=== PATIENT | male | born 1950 | race Caucasian/White ===

== ENCOUNTER 2017-01-12 15:15 | Inpatient (IN) | payer MEDICARE, OTHER ==
[2017-01-12] VITALS (7 sets, daily range): BP systolic 99–149; BP diastolic 58–99
[~2017-01-12] VITALS: Ht 175.3 cm; Wt 147.4 kg
[~2017-01-12 15:15] MED LIST: ACETAMINOPHEN325 M1 ORAL; AMIODARONE HCL200 MG ORAL; AUGMENTIN 875-1 EAC1 ORAL; AVODART0.5 MG ORAL; CARDIZEM CD120 MG ORAL; CARVEDILOL12.5 MG ORAL; CARVEDILOL25 MG ORAL; COLACE100 MG ORAL; COREG6.25 MG ORAL; COUMADIN7.5 MG ORAL; DIGOXIN0.25 MG/5 GT; DUONEB 0.5-3(2.53 ML HHN; FUROSEMIDE40 MG ORAL; INSULIN SYRING1 EA10 MC; INVOKANA100 MG PO; LANOXIN250 MCG ORAL; LANTUS SOL100 UNIT/1 SUBQ; LASIX40 MG ORAL; LEVEMIR FL100 UNIT/1 SUBQ; LINZESS145 MCG PO; LISINOPRIL10 MG ORAL; LOVENOX300 MG/3 M SUBQ; LYRICA50 MG ORAL; METHYLPREDNISO125 MG IVP; METOPROLOL TART50 MG ORAL; MIRALAX17 GM ORAL; Morphine Sulfate IVP; NOVOLOG100 UNITS1 SUBQ; POTASSIUM CHLO20 ME3 PO; PROMETHAZINE-C118 M1 ORAL; Potassium Chloride ORAL; RESTORIL15 MG ORAL; SALINE 10ML FLU10 ML IVF; SIMVASTATIN40 MG ORAL; SPIRONOLACTONE25 MG ORAL; STARLIX60 MG ORAL; TRADJENTA5 MG PO; TRAMADOL HCL50 MG ORAL; UNOBMED; Warfarin RX monitoring MISC; XARELTO10 MG ORAL; ZESTRIL10 MG ORAL
[2017-01-12] MEDS ORDERED: PREDNISONE20 MG ORAL (15:42)
[2017-01-12] MEDS ORDERED: LEVOFLOXACIN250 MG ORAL (15:44)
[2017-01-12] MEDS ORDERED: AMLODIPINE BESYL5 MG ORAL (15:44)
[2017-01-12] MEDS ORDERED: POTASSIUM CHLO10 MEQ ORAL (15:45)
[2017-01-12] MEDS ORDERED: JANUVIA PO (15:47)
[2017-01-12] MEDS ORDERED: AMITIZA24 MCG ORAL (15:47)
[2017-01-12] MEDS ORDERED: ASPIR 8181 MG ORAL (15:49)
[2017-01-12] MEDS ORDERED: METOLAZONE5 MG PO ×2 (15:49→20:09)
[2017-01-12] MEDS ORDERED: PANTOPRAZOLE SO40 MG ORAL (15:49)
--- NOTE | 2017-01-12 15:50 | Emergency Room Report ---
History of Present Illness General Chief Complaint: General Complaint Source: Patient, Medical Record Present Illness HPI 66YOM walk-in, undomiciled, here with 2 weeks of subjective dyspnea associated with cough and substernal non-radiating chest pain. Also assoc with "burning of my feet" and "painful ambulation" Significant polypharmacy - plastic bag with 20+ empty bottles of prescribed meds. States unable to see his PMD DR Calvillo. Included is Xarelto and Digoxin - he doesnt know why he takes either. Non-compliant with any med in weeks. Allergies: Coded Allergies: No Known Allergies (Unverified , 02/26/14) Patient History Past Medical History: DM, HTN, CHF, GERD Past Surgical History: pacemaker Pertinent Family History: none Social History: Denies: alcohol use, drug use, smoking Immunizations: UTD Reviewed Nursing Documentation: PMH: Agreed, PSxH: Agreed Nursing Documentation-PMH Past Medical History: No History, Except For Hx Cardiac Problems: Yes - CHF Hx Hypertension: Yes Hx Pacemaker: Yes Hx Asthma: Yes Hx COPD: Yes Hx Diabetes: Yes Hx Cancer: No Hx Gastrointestinal Problems: Yes Hx Neurological Problems: No Hx Peripheral Neuropathy: Yes Hx Tremors: Yes Hx Numbness: Yes - BILAT FEET Review of Systems All Other Systems: negative except mentioned in HPI Physical Exam Vital Signs Date Time Temp Pulse Resp B/P Pulse Ox O2 Delivery O2 Flow Rate FiO2 01/12/17 15:19 98.2 80 24 132/70 90 Room Air Sp02 EP Interpretation: reviewed, normal, other - Contrary to RN's triage note on vitals, patient's O2 sat is 94% General Appearance: normal inspection, well appearing, no apparent distress, alert, GCS 15, non-toxic, obese, other - Sitting upright in stretcher, speaking full sentences. No distress Head: normocephalic, atraumatic Eyes: bilateral eye EOMI, bilateral eye PERRL ENT: normal ENT inspection, hearing grossly normal, normal voice Neck: normal inspection, full range of motion, supple, no bony tend Respiratory: normal inspection, lungs clear, normal breath sounds, no respiratory distress, no retraction, no accessory muscle use, no wheezing, speaking full sentences Cardiovascular #1: regular rate, rhythm, no edema Gastrointestinal: normal inspection, normal bowel sounds, non tender, soft, no guarding, no hernia Genitourinary: no CVA tenderness Musculoskeletal: normal inspection, back normal, normal range of motion, North' s Sign negative, other - Bilateral lower ext pitting edema 1+ Neurologic: normal inspection, alert, oriented x3, 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 Afebrile. Not hypoxic - No acute distress - ECG is ventricular paced - Labs: Mild leuks 12k. H&H stable. BNP minor elevation. Trop 0. Digoxin level 0. INR WNL. - CXR: Cardiomegaly. No obvious PNA. ?mild CHF - Was given Lasix IV. Never needed nitro, BIPAP. Lying flat without supplemental O2. - Elevated leuks but no fever/chills, has not been coughing at all in ED. CXR does not show PNA. Abd is soft/NT. Will hold on Abx at this point. Patient very well appearing, non-septic. Hyperglycemia - Diabetic. Non-compliant - Given IV insulin here since unable to give IVF with acute CHF ANABELA - Has had serumCr elevation before. - Likely ANABELA vs mild CKD PMD is Dr Villatoro. Doesnt have admitting privilege here Endorsed to Dr Lazaro as panel admit for tele bed at 415pm Chest X-Ray Diagnostic Results Chest X-Ray Diagnostic Results : Chest X-Ray Ordered: Yes # of Views/Limited/Complete: 1 View Indication: Shortness of Breath EP Interpretation: Yes Interpretation: no effusion, no pneumothorax, other - +cardiomegaly. Mild CHF Impression: Other - CHF exac Interpreting ER Provider: Electronically signed by Dr Giang Last Vital Signs Date Time Temp Pulse Resp B/P Pulse Ox O2 Delivery O2 Flow Rate FiO2 01/12/17 15:39 98.2 78 24 132/70 90 Room Air Status: improved Disposition: ADMITTED INPATIENT Condition: Serious Referrals: FERMIN MORALES PLN,REFERRI (PCP) LYNDON GIANG M.D. Jan 12, 2017 15:50
--- NOTE | 2017-01-12 16:09 | Diagnostic Imaging Report ---
Indication: Chest pain Comparison: 12/17/15 A single view chest radiograph was obtained. Findings: There is interstitial edema and vascular prominence with cardiomegaly. There is a pacemaker on the left. Impression: Interstitial edema
[2017-01-12] MEDS ORDERED: DuoNeb 0.5-3(2.5)mg/3ml neb HHN PRN (16:15)
[2017-01-12 16:16] LABS: BASOPHILS % (AUTO) 0.6 % (0.0-2.0); EOSINOPHILS % (AUTO) 1.9 % (0.0-3.0); LYMPHOCYTES % (AUTO) 11.3 % (20.0-45.0); MEAN CORPUSCULAR HEMOGLOBIN 31.9 PG (27.0-31.0); MEAN CORPUSCULAR HGB CONC 34.7 G/DL (32.0-36.0); MEAN CORPUSCULAR VOLUME 92 FL (80-99); MEAN PLATELET VOLUME 6.1 FL (6.5-10.1); MONOCYTES % (AUTO) 3.4 % (1.0-10.0); NEUTROPHILS % (AUTO) 82.8 % (45.0-75.0); PLATELET COUNT 255 K/UL (150-450); RED BLOOD COUNT 4.04 M/UL (4.70-6.10); RED CELL DISTRIBUTION WIDTH 14.5 % (11.6-14.8); WHITE BLOOD COUNT 12.5 K/UL (4.8-10.8)
[2017-01-12 16:29] LABS: TROPONIN I < 0.30 ng/mL (<=0.30)
[2017-01-12 16:32] LABS: ALBUMIN/GLOBULIN RATIO 1.2 (1.0-2.7); CALCIUM 8.9 mg/dL (8.6-10.2); CREATININE 1.4 mg/dL (0.7-1.2); POTASSIUM 3.7 mEQ/L (3.4-4.9)
[2017-01-12 16:40] LABS: INR 1.1 (0.9-1.1); PROTHROMBIN TIME 11.1 SEC (9.30-11.50)
[2017-01-12 16:43] LABS: CKMB 1.6 ng/mL (< 6.7); DIGOXIN 0.4 ng/mL (0.5-2.0)
--- NOTE | 2017-01-12 19:19 | Consultation ---
History of Present Illness General Date patient seen: Jan 12, 2017 Chief Complaint: dyspnea Referring physician: dr Lazaro Reason for Consultation: Dyspnea Present Illness HPI 66 year old male with hx of severe cardiomyopathy, ICD, DM, morbid obesity walk -in, to ER with CC of 2 weeks of subjective dyspnea associated with cough and substernal non-radiating chest pain. .Non-compliant with any med in weeks. He was in pulmonary edema, received diuretic and respiratory treatment and transferred to [facility] for further management. Allergies: Coded Allergies: No Known Allergies (Unverified , 02/26/14) Medication History Scheduled Amiodarone Hcl* (Cordarone*), 200 MG ORAL DAILY Amlodipine Besylate* (Amlodipine Besylate*), 5 MG ORAL TWICE A DAY, (Reported) Aspirin* (Aspir 81*), 81 MG ORAL DAILY, (Reported) Canagliflozin (Invokana), 100 MG PO DAILY, (Reported) Carvedilol* (Carvedilol*), 6.25 MG ORAL EVERY 12 HOURS, (Reported) Digoxin* (Lanoxin*), 0.25 MG ORAL DAILY Furosemide* (Lasix*), 40 MG ORAL BID, (Reported) Insulin Aspart (Novolog Flexpen), 0 UNITS SUBQ BEFORE MEALS AND HS Insulin Detemir (Levemir Flexpen), 15 UNITS SUBQ BID Insulin Glargine (Lantus), 40 SUBQ BEDTIME, (Reported) Linaclotide (Linzess), 145 MCG PO EVERY OTHER DAY, (Reported) Linagliptin (Tradjenta), 5 MG PO DAILY, (Reported) Lubiprostone (Amitiza*), 24 MCG ORAL TWICE A DAY, (Reported) Metolazone (Metolazone), 5 MG PO EVERY OTHER DAY, (Reported) Pantoprazole* (Pantoprazole*), 40 MG ORAL DAILY, (Reported) Potassium Chloride* (K-Dur*), 10 MEQ ORAL DAILY, (Reported) Prednisone* (Prednisone*), 20 MG ORAL DAILY, (Reported) Pregabalin (Lyrica), 100 MG ORAL BID, (Reported) Rivaroxaban (Xarelto), 20 MG ORAL EVERY OTHER DAY, (Reported) Simvastatin (Zocor), 10 MG ORAL BEDTIME, (Reported) Sitagliptin (Januvia), 100 MG ORAL DAILY, (Reported) Spironolactone* (Aldactone*), 25 MG ORAL DAILY, (Reported) Discontinued Medications Amoxicillin/Potassium Clav 875-125* (Augmentin 875-125 Tablet*), 1 TAB ORAL TWICE A DAY Discontinued Reason: MD discontinued med Carvedilol* (Carvedilol*), 6.25 MG ORAL EVERY 12 HOURS, (Reported) Discontinued Reason: Medication dose changed Diltiazem Hcl* (Cardizem Cd*), 120 MG ORAL DAILY Discontinued Reason: MD discontinued med Docusate Sodium* (Colace*), 100 MG ORAL EVERY 12 HOURS PRN for Constipation Discontinued Reason: MD discontinued med Dutasteride (Avodart), 0.5 MG ORAL DAILY, (Reported) Discontinued Reason: MD discontinued med Levofloxacin (Levofloxacin*), 250 MG ORAL DAILY, (Reported) Discontinued Reason: Therapy completed Lisinopril* (Lisinopril*), 5 MG ORAL DAILY, (Reported) Discontinued Reason: MD discontinued med Metolazone (Metolazone), 5 MG PO DAILY, (Reported) Discontinued Reason: Medication dose changed Metoprolol Tartrate* (Metoprolol Tartrate*), 150 MG ORAL Q12HR Discontinued Reason: MD discontinued med Pregabalin (Lyrica), 100 MG ORAL EVERY 12 HOURS, (Reported) Discontinued Reason: Medication dose changed Rivaroxaban (Xarelto*), 20 MG ORAL DAILY, (Reported) Discontinued Reason: Medication dose changed Simvastatin (Zocor), 10 MG ORAL BEDTIME, (Reported) Discontinued Reason: Medication dose changed Tramadol Hcl* (Ultram*), 50 MG ORAL Q4HR PRN for For Pain, (Reported) Discontinued Reason: MD discontinued med Patient History Healthcare decision maker Resuscitation status Advanced Directive on File Past Medical/Surgical History Past Medical/Surgical History: (1) Diabetes mellitus (2) COPD (chronic obstructive pulmonary disease) Review of Systems Constitutional: Reports: no symptoms All Other Systems: negative except mentioned in HPI Physical Exam General Appearance: WD/WN, no apparent distress Lines, tubes and drains: peripheral, central line HEENT: normocephalic, atraumatic Neck: non-tender, normal alignment Respiratory/Chest: chest wall non-tender, lungs clear Breasts: no masses Cardiovascular/Chest: normal peripheral pulses Abdomen: normal bowel sounds, non tender Genitourinary/Rectal: normal genital exam Extremities: normal range of motion, non-tender Skin Exam: normal pigmentation 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 Last 24 Hour Vital Signs Date Time Temp Pulse Resp B/P Pulse Ox O2 Delivery O2 Flow Rate FiO2 01/12/17 18:34 97.8 20 98 Room Air 01/12/17 17:37 80 20 136/75 97 Room Air 01/12/17 16:50 98.0 80 18 99/77 95 Room Air 01/12/17 15:39 98.2 78 24 132/70 90 Room Air 01/12/17 15:19 98.2 80 24 132/70 90 Room Air Laboratory Tests Test 01/12/17 16:01 White Blood Count 12.5 K/UL (4.8-10.8) H Red Blood Count 4.04 M/UL (4.70-6.10) L Hemoglobin 12.9 G/DL (14.2-18.0) L Hematocrit 37.1 % (42.0-52.0) L Mean Corpuscular Volume 92 FL (80-99) Mean Corpuscular Hemoglobin 31.9 PG (27.0-31.0) H Mean Corpuscular Hemoglobin Concent 34.7 G/DL (32.0-36.0) Red Cell Distribution Width 14.5 % (11.6-14.8) Platelet Count 255 K/UL (150-450) Mean Platelet Volume 6.1 FL (6.5-10.1) L Neutrophils (%) (Auto) 82.8 % (45.0-75.0) H Lymphocytes (%) (Auto) 11.3 % (20.0-45.0) L Monocytes (%) (Auto) 3.4 % (1.0-10.0) Eosinophils (%) (Auto) 1.9 % (0.0-3.0) Basophils (%) (Auto) 0.6 % (0.0-2.0) Prothrombin Time 11.1 SEC (9.30-11.50) Prothromb Time International Ratio 1.1 (0.9-1.1) Sodium Level 137 mEQ/L (135-145) Potassium Level 3.7 mEQ/L (3.4-4.9) Chloride Level 96 mEQ/L (98-107) L Carbon Dioxide Level 27 mEQ/L (20-30) Anion Gap 14 (5-15) Blood Urea Nitrogen 15 mg/dL (7-23) Creatinine 1.4 mg/dL (0.7-1.2) H Estimat Glomerular Filtration Rate 51.0 mL/min (>60) Glucose Level 420 mg/dL (74-106) H Calcium Level 8.9 mg/dL (8.6-10.2) Total Bilirubin 0.7 mg/dL (0.0-1.2) Aspartate Amino Transf (AST/SGOT) 9 U/L (5-40) Alanine Aminotransferase (ALT/SGPT) 9 U/L (3-41) Alkaline Phosphatase 61 U/L (40-129) Total Creatine Kinase 46 U/L (38-174) Creatine Kinase MB 1.6 ng/mL (< 6.7) Creatine Kinase MB Relative Index 3.4 Troponin I < 0.30 ng/mL (<=0.30) Pro-B-Type Natriuretic Peptide 909 pg/mL (0-125) H Total Protein 7.0 g/dL (6.6-8.7) Albumin 3.9 g/dL (3.5-5.2) Globulin 3.1 g/dL Albumin/Globulin Ratio 1.2 (1.0-2.7) Digoxin Level 0.4 ng/mL (0.5-2.0) L Height (Feet): 5 Height (Inches): 9.00 Weight (Pounds): 365 Medications Current Medications Medications (Trade) Dose Ordered Sig/Antionette Route PRN Reason Start Time Stop Time Status Last Admin Dose Admin Acetaminophen (Tylenol) 650 mg Q4H PRN ORAL Fever 01/12/17 16:15 02/11/17 16:14 Albuterol/ Ipratropium (DuoNeb 0.5-3(2.5)mg/3ml) 3 ml Q4H PRN HHN Shortness of Breath 01/12/17 16:15 01/17/17 16:14 Amiodarone HCl (Cordarone) 200 mg DAILY ORAL 01/13/17 09:00 02/12/17 08:59 Aspirin (Ecotrin) 81 mg DAILY ORAL 01/13/17 09:00 02/12/17 08:59 Carvedilol (Coreg) 6.25 mg EVERY 12 HOURS ORAL 01/12/17 21:00 02/11/17 20:59 UNV Dextrose (Dextrose 50%) STAT PRN IV Hypoglycemia 01/12/17 16:15 02/11/17 16:14 Digoxin (Lanoxin) 0.25 mg DAILY ORAL 01/13/17 09:00 02/12/17 08:59 Furosemide (Lasix) 40 mg EVERY 8 HOURS IV 01/12/17 22:00 02/11/17 21:59 UNV Heparin Sodium (Porcine) (Heparin 5000 units/ml) 5,000 units EVERY 12 HOURS SUBQ 01/12/17 21:00 02/11/17 20:59 UNV Lisinopril (Zestril) 5 mg DAILY ORAL 01/13/17 09:00 02/12/17 08:59 Metoprolol Tartrate (Lopressor) 150 mg Q12HR ORAL 01/12/17 21:00 02/11/17 20:59 UNV Ondansetron HCl (Zofran) 4 mg Q6H PRN IVP Nausea & Vomiting 01/12/17 16:15 02/11/17 16:14 Polyethylene Glycol (Miralax) 17 gm DAILYPRN PRN ORAL Constipation 01/12/17 16:15 02/11/17 16:14 Pregabalin (Lyrica) 100 mg EVERY 12 HOURS ORAL 01/12/17 21:00 02/11/17 20:59 UNV Rivaroxaban (Xarelto) 20 mg DAILY ORAL 01/13/17 09:00 02/12/17 08:59 UNV Temazepam (Restoril) 15 mg HSPRN PRN ORAL Insomnia 01/12/17 16:15 01/19/17 16:14 Assessment/Plan Problem List: (1) Acute exacerbation of CHF (congestive heart failure) ICD Codes: I50.9 - Heart failure, unspecified SNOMED: 85811142 (2) ANABELA (acute kidney injury) ICD Codes: N17.9 - Acute kidney failure, unspecified SNOMED: 98117435 (3) COPD (chronic obstructive pulmonary disease) ICD Codes: J44.9 - COPD (chronic obstructive pulmonary disease) SNOMED: 69791823 (4) Diabetes mellitus ICD Codes: E11.9 - Diabetes mellitus SNOMED: 02004166 (5) Obesity ICD Codes: E66.9 - Obesity SNOMED: 271109250 Assessment/Plan diuretics echo cardio evaluation sliding scale diabetic diet simplify regimen to increase compliance MALLIKA LEVY Jan 12, 2017 19:19
[2017-01-12] MEDS ORDERED: CARVEDILOL6.25 MG ORAL (20:02)
[2017-01-12] MEDS ORDERED: LINZESS145 MCG PO (20:06)
[2017-01-12] MEDS ORDERED: LYRICA100 MG ORAL (20:13)
[2017-01-12] MEDS ORDERED: XARELTO20 MG ORAL (20:15)
[2017-01-12] MEDS ORDERED: SIMVASTATIN10 MG ORAL (20:16)
[2017-01-12] MEDS ORDERED: JANUVIA100 MG ORAL (20:18)
[2017-01-12] MEDS ORDERED: Heparin 5000 units/ml inj SUBQ SCH (21:00)
[2017-01-12] MEDS ORDERED: Metoprolol 50mg tab ORAL SCH (21:00)
[2017-01-12] MEDS ORDERED: LANTUS5 UNITS SUBQ (21:53)
[2017-01-12] MEDS: Carvedilol 6.25mg Tab ORAL SCH (22:04)
[2017-01-12] MEDS: Lyrica 50mg cap ORAL SCH (22:07)
[2017-01-12] MEDS ORDERED: NovoLOG Insulin Flexpen SUBQ ONE (23:30)
[2017-01-13 04:00] VITALS: BP 113/78
[2017-01-13 06:27] LABS: BASOPHILS % (AUTO) 0.7 % (0.0-2.0); EOSINOPHILS % (AUTO) 3.3 % (0.0-3.0); LYMPHOCYTES % (AUTO) 18.5 % (20.0-45.0); MEAN CORPUSCULAR HEMOGLOBIN 31.2 PG (27.0-31.0); MEAN CORPUSCULAR HGB CONC 33.2 G/DL (32.0-36.0); MEAN CORPUSCULAR VOLUME 94 FL (80-99); MONOCYTES % (AUTO) 6.2 % (1.0-10.0); NEUTROPHILS % (AUTO) 71.3 % (45.0-75.0); PLATELET COUNT 266 K/UL (150-450); RED CELL DISTRIBUTION WIDTH 14.7 % (11.6-14.8); WHITE BLOOD COUNT 10.7 K/UL (4.8-10.8)
[2017-01-13] MEDS: NovoLOG Insulin Flexpen SUBQ SCH ×4 (06:31→21:00)
[2017-01-13 06:36] LABS: CALCIUM 8.6 mg/dL (8.6-10.2); CREATININE 1.3 mg/dL (0.7-1.2); GLOMERULAR FILTRATION RATE 55.6 mL/min (>60); POTASSIUM 3.3 mEQ/L (3.4-4.9)
[2017-01-13 06:58] LABS: TROPONIN I < 0.30 ng/mL (<=0.30)
[2017-01-13 08:00] VITALS: BP 114/67
[2017-01-13] MEDS ORDERED: Lisinopril 2.5mg tab ORAL SCH (09:00)
[2017-01-13] MEDS: Amiodarone 200mg tab ORAL SCH (09:24)
[2017-01-13] MEDS: Xarelto 10mg tab ORAL SCH (09:24)
[2017-01-13] MEDS: Aspirin EC 81mg tab ORAL SCH (09:24)
[2017-01-13] MEDS: Carvedilol 6.25mg Tab ORAL SCH ×2 (09:25→21:32)
[2017-01-13] MEDS: Lyrica 50mg cap ORAL SCH ×2 (09:27→21:00)
--- NOTE | 2017-01-13 10:17 | Diagnostic Imaging Report ---
Indication: Dyspnea Comparison: 01/12/17 A single view chest radiograph was obtained. Findings: Vascular prominence with interstitial edema demonstrated. Heart is enlarged. Pacemaker noted. Impression: Slightly worsening interstitial edema/CHF
[2017-01-13 11:02] LABS: APPEARANCE,URINE CLEAR; KETONES,URINE NEGATIVE (NEGATIVE); LEUKOCYTE ESTERASE ,URINE NEGATIVE (NEGATIVE); NITRITE,URINE NEGATIVE (NEGATIVE); PH,URINE 6 (4.5-8.0); PROTEIN,URINE NEGATIVE (NEGATIVE); UROBILINOGEN,URINE NORMAL MG/DL (0.0-1.0)
[2017-01-13 11:24] LABS: BACTERIA,URINE OCCASIONAL /HPF; RBC,URINE 0-2 /HPF (0 - 0); WBC,URINE 0-2 /HPF (0 - 0)
[2017-01-13 11:53] VITALS: BP 109/53
--- NOTE | 2017-01-13 12:03 | Consultation ---
Consult Note Consult Note asked to eval for renal failure 66YOM walk-in, undomiciled, here with 2 weeks of subjective dyspnea associated with cough and substernal non-radiating chest pain. Also assoc with "burning of my feet" and "painful ambulation" Significant polypharmacy - plastic bag with 20+ empty bottles of prescribed meds. States unable to see his PMD DR Calvillo. Included is Xarelto and Digoxin - he doesnt know why he takes either. Non-compliant with any med in weeks. Past Medical History: DM, HTN, CHF, GERD Past Surgical History: pacemaker Past Medical History: No History, Except For Hx Cardiac Problems: Yes - CHF Hx Hypertension: Yes Hx Pacemaker: Yes Hx Asthma: Yes Hx COPD: Yes Hx Diabetes: Yes Hx Gastrointestinal Problems: Yes Hx Peripheral Neuropathy: Yes Hx Tremors: Yes Hx Numbness: Yes - BILAT FEET Assessment/Plan Renal impression; Acute renal failure ? superimposed on CRF Multifactorial, mainly CHF , Pacer , DM Primary Impression: Dyspnea Additional Impressions: Non compliance w medication regimen Acute exacerbation of CHF (congestive heart failure) Hyperglycemia Obesity Plan: Optimize cardiac and pulmonary status Monitor renal parameters- Avoid Nephrotoxics per orders ZARIA ROTH Jan 13, 2017 12:03
--- NOTE | 2017-01-13 12:45 | Pulmonology Progress Note ---
Assessment/Plan Problems: (1) Acute exacerbation of CHF (congestive heart failure) (2) ANABELA (acute kidney injury) (3) COPD (chronic obstructive pulmonary disease) (4) Diabetes mellitus (5) Obesity Assessment/Plan improving respiratory treatment check electrolytes diuresing well check BS Subjective ROS Limited/Unobtainable: No Constitutional: Reports: no symptoms HEENT: Repors: no symptoms Respiratory: Reports: no symptoms Cardiovascular: Reports: no symptoms Allergies: Coded Allergies: No Known Allergies (Unverified , 02/26/14) Objective Last 24 Hour Vital Signs Date Time Temp Pulse Resp B/P Pulse Ox O2 Delivery O2 Flow Rate FiO2 01/13/17 11:53 98.2 78 18 109/53 98 Nasal Cannula 2.0 01/13/17 11:26 80 01/13/17 09:25 80 114/67 01/13/17 09:24 80 01/13/17 09:22 114/67 01/13/17 08:00 80 01/13/17 08:00 98.1 78 20 114/67 100 Nasal Cannula 2.0 01/13/17 07:28 81 16 Nasal Cannula 2.0 28 01/13/17 04:00 98.2 84 22 113/78 96 Nasal Cannula 2.0 01/13/17 04:00 82 01/13/17 00:00 80 01/12/17 23:45 98.5 74 20 149/99 98 Nasal Cannula 01/12/17 22:04 80 110/71 01/12/17 20:50 81 01/12/17 20:40 98.1 80 21 130/58 98 Nasal Cannula 3.0 01/12/17 19:55 88 22 106/56 98 Room Air 01/12/17 19:05 98.3 81 19 116/65 98 Room Air 01/12/17 18:34 97.8 20 98 Room Air 01/12/17 17:37 80 20 136/75 97 Room Air 01/12/17 16:50 98.0 80 18 99/77 95 Room Air 01/12/17 15:39 98.2 78 24 132/70 90 Room Air 01/12/17 15:19 98.2 80 24 132/70 90 Room Air Intake and Output 01/12/17 01/13/17 19:00 07:00 Intake Total 500 ml Output Total 1280 ml 950 ml Balance -1280 ml -450 ml Intake Oral 500 ml Output Urine Total 1280 ml 950 ml General Appearance: WD/WN HEENT: normocephalic, atraumatic Respiratory/Chest: chest wall non-tender, lungs clear Cardiovascular: normal peripheral pulses, normal rate Abdomen: normal bowel sounds, soft, non tender Genitourinary: normal external genitalia Extremities: no cyanosis Skin: no rash, no lesions 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, no motor/sensory deficits, abnormal gait Lymphatic: no neck adenopathy Musculoskeletal: normal muscle bulk Laboratory Tests 01/12/17 16:01: White Blood Count 12.5H, Red Blood Count 4.04L, Hemoglobin 12.9L, Hematocrit 37.1L, Mean Corpuscular Volume 92, Mean Corpuscular Hemoglobin 31.9H, Mean Corpuscular Hemoglobin Concent 34.7, Red Cell Distribution Width 14.5, Platelet Count 255, Mean Platelet Volume 6.1L, Neutrophils (%) (Auto) 82.8H, Lymphocytes (%) (Auto) 11.3L, Monocytes (%) (Auto) 3.4, Eosinophils (%) (Auto) 1.9, Basophils (%) (Auto) 0.6, Prothrombin Time 11.1, Prothromb Time International Ratio 1.1, Sodium Level 137, Potassium Level 3.7, Chloride Level 96L, Carbon Dioxide Level 27, Anion Gap 14, Blood Urea Nitrogen 15, Creatinine 1.4H, Estimat Glomerular Filtration Rate 51.0, Glucose Level 420H, Calcium Level 8.9, Total Bilirubin 0.7, Aspartate Amino Transf (AST/SGOT) 9, Alanine Aminotransferase (ALT/SGPT) 9, Alkaline Phosphatase 61, Total Creatine Kinase 46 , Creatine Kinase MB 1.6, Creatine Kinase MB Relative Index 3.4, Troponin I < 0.30, Pro-B-Type Natriuretic Peptide 909H, Total Protein 7.0, Albumin 3.9, Globulin 3.1, Albumin/Globulin Ratio 1.2, Digoxin Level 0.4L 01/13/17 05:05: White Blood Count 10.7, Red Blood Count 4.00L, Hemoglobin 12.5L, Hematocrit 37.5L, Mean Corpuscular Volume 94, Mean Corpuscular Hemoglobin 31.2H, Mean Corpuscular Hemoglobin Concent 33.2, Red Cell Distribution Width 14.7, Platelet Count 266, Mean Platelet Volume 6.0L, Neutrophils (%) (Auto) 71.3, Lymphocytes ( %) (Auto) 18.5L, Monocytes (%) (Auto) 6.2, Eosinophils (%) (Auto) 3.3H, Basophils (%) (Auto) 0.7, Sodium Level 139, Potassium Level 3.3L, Chloride Level 94L, Carbon Dioxide Level 35H, Anion Gap 10, Blood Urea Nitrogen 16, Creatinine 1.3H, Estimat Glomerular Filtration Rate 55.6, Glucose Level 200#H, Calcium Level 8.6, Troponin I < 0.30, Albumin 3.9, Phosphorus Level 5.0H 01/13/17 10:50: Urine Color Pale yellow, Urine Appearance Clear, Urine pH 6, Urine Specific [place] 1.010, Urine Protein Negative, Urine Glucose (UA) Negative, Urine Ketones Negative, Urine Occult Blood Negative, Urine Nitrite Negative, Urine Bilirubin Negative, Urine Urobilinogen Normal, Urine Leukocyte Esterase Negative , Urine RBC 0-2H, Urine WBC 0-2, Urine Squamous Epithelial Cells None, Urine Bacteria Occasional Current Medications Medications (Trade) Dose Ordered Sig/Antionette Route PRN Reason Start Time Stop Time Status Last Admin Dose Admin Acetaminophen (Tylenol) 650 mg Q4H PRN ORAL Fever 01/12/17 16:15 02/11/17 16:14 Albuterol/ Ipratropium (DuoNeb 0.5-3(2.5)mg/3ml) 3 ml Q4H PRN HHN Shortness of Breath 01/12/17 16:15 01/17/17 16:14 Amiodarone HCl (Cordarone) 200 mg DAILY ORAL 01/13/17 09:00 02/12/17 08:59 01/13/17 09:24 Aspirin (Ecotrin) 81 mg DAILY ORAL 01/13/17 09:00 02/12/17 08:59 01/13/17 09:24 Carvedilol (Coreg) 6.25 mg EVERY 12 HOURS ORAL 01/12/17 21:00 02/11/17 20:59 01/13/17 09:25 Dextrose (Dextrose 50%) STAT PRN IV Hypoglycemia 01/12/17 16:15 02/11/17 16:14 Digoxin (Lanoxin) 0.25 mg DAILY ORAL 01/13/17 09:00 8/6/17 08:59 01/13/17 09:24 Furosemide (Lasix) 40 mg EVERY 8 HOURS IV 01/12/17 22:00 02/11/17 21:59 01/13/17 06:28 Insulin Aspart (NovoLOG) BEFORE MEALS AND HS SUBQ 01/13/17 06:30 02/12/17 06:29 01/13/17 12:10 Lisinopril (Zestril) 5 mg DAILY ORAL 01/14/17 09:00 02/13/17 08:59 Ondansetron HCl (Zofran) 4 mg Q6H PRN IVP Nausea & Vomiting 01/12/17 16:15 02/11/17 16:14 Polyethylene Glycol (Miralax) 17 gm DAILYPRN PRN ORAL Constipation 01/12/17 16:15 02/11/17 16:14 Pregabalin (Lyrica) 100 mg EVERY 12 HOURS ORAL 01/12/17 21:00 02/11/17 20:59 01/13/17 09:27 Rivaroxaban (Xarelto) 20 mg DAILY ORAL 01/13/17 09:00 02/12/17 08:59 01/13/17 09:24 Tamsulosin HCl (Flomax) 0.4 mg BEDTIME ORAL 01/13/17 21:00 02/12/17 20:59 Temazepam (Restoril) 15 mg HSPRN PRN ORAL Insomnia 01/12/17 16:15 01/19/17 16:14 MALLIKA LEVY Jan 13, 2017 12:45
--- NOTE | 2017-01-13 12:46 | Diagnostic Imaging Report ---
APPROVED REPORT CPT Code: 43501 Present Symptoms Lower Extremity Pain: Bilateral Shortness of breath BILATERAL: Imaging reveals a patent deep venous system bilaterally. There is no evidence of thrombus within the femoral, popliteal or tibial segments. The greater saphenous veins are also within normal limits. Doppler indicates normal spontaneous flow within these segments.
--- NOTE | 2017-01-13 15:23 | History & Physical ---
History and Physical History & Physicial Alek Lazaro MD Jan 13, 2017 15:23
[2017-01-13 16:25] VITALS: BP 104/58
[2017-01-13] MEDS: Tamsulosin 0.4mg cap ORAL SCH (21:00)
--- NOTE | 2017-01-13 23:45 | History and Physical Report ---
DATE OF ADMISSION: 01/12/2017 CHIEF COMPLAINT: Shortness of breath. HISTORY OF PRESENT ILLNESS: This is a 66 years old morbidly obese gentleman with past medical history significant for diabetes type 2, hypertension, congestive heart failure, GERD, and status post pacemaker who was presented to hospital complaining about shortness breath progressive worsening associated with cough with substernal nonradiating chest wall pain. He said that he is having symptoms over two weeks, progressively worsening over the past several days, associated burning sensation on both feet, painful ambulation. The patient has been on multiple medications; however, he is not compliant with them. Shortly after initial evaluation in the emergency, the patient was admitted to the hospital with hyperglycemia, acute kidney injury, and shortness of breath and subsequently was admitted to telemetry for possible acute CHF exacerbation. PAST MEDICAL HISTORY/PAST SURGICAL HISTORY: As above history of diabetes type 2, hypertension, congestive heart failure, GERD, morbid obesity, and status post pacemaker. MEDICATIONS: Medications at home significant for amiodarone, Norvasc, aspirin, Invokana, Coreg, digoxin, Lasix, insulin aspart, Levemir insulin, Lantus insulin, Linzess, Tradjenta, Amitiza, metolazone, Nexium, potassium chloride, prednisone, Lyrica, Xarelto, Zocor, Januvia, and Aldactone. ALLERGIES: No known drug allergies. SOCIAL HISTORY: The patient denies any smoking, alcohol, or drugs at this time. FAMILY HISTORY: Noncontributory. REVIEW OF SYSTEMS: Mostly as above. Denies any dysuria or frequency. Complained about burning sensation in the legs. Denies any hemoptysis or hematochezia. Denies any fall. Denies any suicidal or homicidal ideation. Denies any loss of consciousness. PHYSICAL EXAMINATION: VITAL SIGNS: On admission, temperature 98.2, pulse of 80, respirations 24, and blood pressure 132/70. GENERAL: The patient awake, responsive, in no acute distress. HEAD AND NECK: Pupils are reactive to light. Extraocular movements are intact. Neck was supple. No JVD. LUNGS: Good air entry. No wheezing or rales. Decreased air in the bases. CHEST WALL: Pacemaker on the left-sided chest wall was noted. ABDOMEN: Soft, nondistended, and nontender. Morbidly obese. EXTREMITIES: No cyanosis, clubbing, or edema. NEUROLOGIC: Cranial nerves II through XII are grossly intact. The patient is moving all the extremities. Gait was not assessed due to the patient's status. GENITOURINARY: Refused and deferred. RECTAL: Refused and deferred. PSYCHIATRIC: Mood and affect are intact. LABORATORY DATA: Laboratory on admission from the ER, WBC of 12.5, hemoglobin 12, hematocrit 37, and platelets are 255,000. Sodium 137, potassium 3.7, chloride 96, bicarbonate 27, BUN 15, creatinine 1.4, glucose is 420, and calcium is 8.9. First and second troponin less than 0.30. ProBNP of 909. Albumin is 3.9, total protein 7.0. PT of 11 and INR 1.1. Digoxin level 0.4. Urinalysis essentially unremarkable. The patient's chest x-ray was noted to be with interstitial edema. The patient had a duplex of the lower extremity, which reviewed patent deep vein system bilaterally. No evidence of thrombosis within the femoral, popliteal, or tibial segments. Greater saphenous veins are also within normal limits. ASSESSMENT: 1. Acute congestive heart failure exacerbation. 2. Morbid obesity. 3. Obesity hypoventilation syndrome. 4. Uncontrolled diabetes type 2 with diabetic neuropathy as well as diabetic nephropathy. 5. Hypertension. 6. Gastroesophageal reflux disease. 7. Cardiac arrhythmia. 8. Sick sinus syndrome, status post pacemaker. 9. Acute kidney injury and chronic renal insufficiency. 10. Noncompliance with medications. PLAN: Admit the patient to telemetry. We will follow up with Dr. Eddy from, Pulmonary and Critical Care, and Dr. Yovani Oconnor from Nephrology. We will continue to monitor blood sugar closely. Resume home medications. Monitor polypharmacy in the patient and try to decrease the medication as possible in order for the patient to be more compliant with medication. Avoid nephrotoxic medication. Code status is Full Code. DVT prophylaxis is Xarelto. The patient is already on Xarelto. Alek Lazaro M.D. DR: MAILE JOB#: [id number] CC:
[2017-01-14] VITALS (7 sets, daily range): BP systolic 102–130; BP diastolic 54–68
[2017-01-14] MEDS: NovoLOG Insulin Flexpen SUBQ SCH ×4 (05:48→21:05)
[2017-01-14] MEDS ORDERED: Lisinopril 2.5mg tab ORAL SCH (09:00)
[2017-01-14] MEDS: Aspirin EC 81mg tab ORAL SCH (09:00)
--- NOTE | 2017-01-14 09:16 | Pulmonology Progress Note ---
Assessment/Plan Problems: (1) Acute exacerbation of CHF (congestive heart failure) (2) ANABELA (acute kidney injury) (3) COPD (chronic obstructive pulmonary disease) (4) Diabetes mellitus (5) Obesity Assessment/Plan improving respiratory treatment check electrolytes diuresing well check BS awaiting cardio evaluation keep in teli Subjective ROS Limited/Unobtainable: No Constitutional: Reports: no symptoms HEENT: Repors: no symptoms Respiratory: Reports: no symptoms Allergies: Coded Allergies: No Known Allergies (Unverified , 02/26/14) Objective Last 24 Hour Vital Signs Date Time Temp Pulse Resp B/P Pulse Ox O2 Delivery O2 Flow Rate FiO2 01/14/17 08:13 88 20 100 Nasal Cannula 2.0 01/14/17 08:00 80 20 100 Nasal Cannula 2.0 01/14/17 07:57 Nasal Cannula 2.0 01/14/17 07:56 100 Nasal Cannula 2.0 01/14/17 07:55 80 20 Nasal Cannula 2.0 01/14/17 04:00 97.7 82 16 102/65 98 Nasal Cannula 2.0 28 01/14/17 04:00 87 01/14/17 00:00 97.5 80 16 123/54 98 Nasal Cannula 2.0 28 01/14/17 00:00 87 01/13/17 21:32 82 116/79 01/13/17 20:00 89 01/13/17 19:16 Nasal Cannula 2.0 28 01/13/17 19:16 98 Nasal Cannula 2.0 28 01/13/17 19:16 85 16 Nasal Cannula 2.0 01/13/17 16:25 97.7 77 20 104/58 98 Nasal Cannula 2.0 01/13/17 16:00 80 01/13/17 11:53 98.2 78 18 109/53 98 Nasal Cannula 2.0 01/13/17 11:26 80 01/13/17 09:25 80 114/67 01/13/17 09:24 80 01/13/17 09:22 114/67 Intake and Output 01/13/17 01/14/17 19:00 07:00 Intake Total 420 ml 640 ml Output Total 1300 ml 750 ml Balance -880 ml -110 ml Intake Oral 420 ml 640 ml Output Urine Total 1300 ml 750 ml # Bowel Movements 1 Objective General Appearance: WD/WN HEENT: normocephalic Respiratory/Chest: chest wall non-tender, lungs clear Cardiovascular: normal peripheral pulses, normal rate Abdomen: normal bowel sounds, soft, non tender Genitourinary: normal external genitalia Extremities: no cyanosis Skin: no rash 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 Lymphatic: no neck adenopathy HEENT: normocephalic, atraumatic Laboratory Tests 01/13/17 10:50: Urine Color Pale yellow, Urine Appearance Clear, Urine pH 6, Urine Specific [place] 1.010, Urine Protein Negative, Urine Glucose (UA) Negative, Urine Ketones Negative, Urine Occult Blood Negative, Urine Nitrite Negative, Urine Bilirubin Negative, Urine Urobilinogen Normal, Urine Leukocyte Esterase Negative , Urine RBC 0-2H, Urine WBC 0-2, Urine Squamous Epithelial Cells None, Urine Bacteria Occasional Current Medications Medications (Trade) Dose Ordered Sig/Antionette Route PRN Reason Start Time Stop Time Status Last Admin Dose Admin Acetaminophen (Tylenol) 650 mg Q4H PRN ORAL Fever 01/12/17 16:15 02/11/17 16:14 Albuterol/ Ipratropium (DuoNeb 0.5-3(2.5)mg/3ml) 3 ml Q4H PRN HHN Shortness of Breath 01/12/17 16:15 01/17/17 16:14 01/14/17 08:02 Amiodarone HCl (Cordarone) 200 mg DAILY ORAL 01/13/17 09:00 02/12/17 08:59 01/13/17 09:24 Aspirin (Ecotrin) 81 mg DAILY ORAL 01/13/17 09:00 02/12/17 08:59 01/13/17 09:24 Carvedilol (Coreg) 6.25 mg EVERY 12 HOURS ORAL 01/12/17 21:00 02/11/17 20:59 01/13/17 21:32 Dextrose (Dextrose 50%) STAT PRN IV Hypoglycemia 01/12/17 16:15 02/11/17 16:14 Digoxin (Lanoxin) 0.25 mg DAILY ORAL 01/13/17 09:00 02/12/17 08:59 01/13/17 09:24 Furosemide (Lasix) 40 mg EVERY 8 HOURS IV 01/12/17 22:00 02/11/17 21:59 01/14/17 05:48 Insulin Aspart (NovoLOG) BEFORE MEALS AND HS SUBQ 01/13/17 06:30 02/12/17 06:29 01/14/17 05:48 Lisinopril (Zestril) 5 mg DAILY ORAL 01/14/17 09:00 02/13/17 08:59 Ondansetron HCl (Zofran) 4 mg Q6H PRN IVP Nausea & Vomiting 01/12/17 16:15 02/11/17 16:14 Polyethylene Glycol (Miralax) 17 gm DAILYPRN PRN ORAL Constipation 01/12/17 16:15 02/11/17 16:14 Pregabalin (Lyrica) 100 mg EVERY 12 HOURS ORAL 01/12/17 21:00 02/11/17 20:59 01/13/17 21:00 Rivaroxaban (Xarelto) 20 mg DAILY ORAL 01/13/17 09:00 02/12/17 08:59 01/13/17 09:24 Tamsulosin HCl (Flomax) 0.4 mg BEDTIME ORAL 01/13/17 21:00 02/12/17 20:59 01/13/17 21:00 Temazepam (Restoril) 15 mg HSPRN PRN ORAL Insomnia 01/12/17 16:15 01/19/17 16:14 MALLIKA LEVY Jan 14, 2017 09:16
[2017-01-14] MEDS: Lyrica 50mg cap ORAL SCH ×2 (09:27→21:04)
[2017-01-14] MEDS: Xarelto 10mg tab ORAL SCH (09:33)
[2017-01-14] MEDS: Amiodarone 200mg tab ORAL SCH (09:33)
[2017-01-14] MEDS: Carvedilol 6.25mg Tab ORAL SCH ×2 (09:35→21:03)
[2017-01-14 09:43] LABS: BASOPHILS % (AUTO) 0.7 % (0.0-2.0); LYMPHOCYTES % (AUTO) 14.6 % (20.0-45.0); MEAN CORPUSCULAR HEMOGLOBIN 30.6 PG (27.0-31.0); MEAN CORPUSCULAR HGB CONC 32.4 G/DL (32.0-36.0); MEAN CORPUSCULAR VOLUME 94 FL (80-99); MEAN PLATELET VOLUME 5.9 FL (6.5-10.1); MONOCYTES % (AUTO) 5.9 % (1.0-10.0); NEUTROPHILS % (AUTO) 74.8 % (45.0-75.0); PLATELET COUNT 321 K/UL (150-450); RED BLOOD COUNT 4.42 M/UL (4.70-6.10); RED CELL DISTRIBUTION WIDTH 14.3 % (11.6-14.8); WHITE BLOOD COUNT 11.3 K/UL (4.8-10.8)
[2017-01-14 10:08] LABS: HEMOLYSIS 6; IRON 53 ug/dL (59-158); TOTAL IRON BINDING CAPACITY 321 ug/dL (250-400)
[2017-01-14 10:13] LABS: ALANINE AMINOTRANSFERASE 9 U/L (3-41); ALBUMIN/GLOBULIN RATIO 1.1 (1.0-2.7); ANION GAP 14 (5-15); ASPARTATE AMINO TRANSFERASE 10 U/L (5-40); CALCIUM 8.8 mg/dL (8.6-10.2); CARBON DIOXIDE 33 mEQ/L (20-30); CHLORIDE 88 mEQ/L (98-107); CHOLESTEROL 128 mg/dL (< 200); CHOLESTEROL/HDL RATIO 4.6 (3.3-4.4); CREATININE 1.3 mg/dL (0.7-1.2); GLOMERULAR FILTRATION RATE 55.6 mL/min (>60); LDL CHOLESTEROL (CALC.) 63 mg/dL (60-99); PHOSPHORUS 3.7 mg/dL (2.5-4.8); POTASSIUM 3.4 mEQ/L (3.4-4.9); SODIUM 135 mEQ/L (135-145); TOTAL PROTEIN 7.6 g/dL (6.6-8.7); URIC ACID 8.8 mg/dL (3.0-7.5)
[2017-01-14 10:25] LABS: CORTISOL AM 19.9 ug/dL (6.0-20.0); FERRITIN 304 ng/mL (10-230)
--- NOTE | 2017-01-14 11:08 | General Progress Note ---
Assessment/Plan Status: stable Assessment/Plan Renal impression; Acute renal failure ? superimposed on CRF Multifactorial, mainly CHF , Pacer , DM Primary Impression: Dyspnea Additional Impressions: Non compliance w medication regimen Acute exacerbation of CHF (congestive heart failure) Hyperglycemia Obesity MERRY Plan: Start Levemir for high sugar Optimize cardiac and pulmonary status Monitor renal parameters- Avoid Nephrotoxics Down on lasix and up on Lisinopril per orders Subjective ROS Limited/Unobtainable: No Constitutional: Reports: malaise, weakness Allergies: Coded Allergies: No Known Allergies (Unverified , 02/26/14) Objective Last 24 Hour Vital Signs Date Time Temp Pulse Resp B/P Pulse Ox O2 Delivery O2 Flow Rate FiO2 01/14/17 10:21 80 01/14/17 10:17 80 16 127/63 96 Room Air 01/14/17 09:35 80 121/77 01/14/17 09:33 80 01/14/17 09:31 121/77 01/14/17 09:00 98.2 80 16 130/68 96 Room Air 01/14/17 08:13 88 20 100 Nasal Cannula 2.0 01/14/17 08:00 80 20 100 Nasal Cannula 2.0 01/14/17 07:57 Nasal Cannula 2.0 01/14/17 07:56 100 Nasal Cannula 2.0 01/14/17 07:55 80 20 Nasal Cannula 2.0 01/14/17 04:00 97.7 82 16 102/65 98 Nasal Cannula 2.0 28 01/14/17 04:00 87 01/14/17 00:00 97.5 80 16 123/54 98 Nasal Cannula 2.0 01/14/17 00:00 87 01/13/17 21:32 82 116/79 01/13/17 20:00 89 01/13/17 19:16 Nasal Cannula 2.0 28 01/13/17 19:16 98 Nasal Cannula 2.0 28 01/13/17 19:16 85 16 Nasal Cannula 2.0 01/13/17 16:25 97.7 77 20 104/58 98 Nasal Cannula 2.0 01/13/17 16:00 80 01/13/17 11:53 98.2 78 18 109/53 98 Nasal Cannula 2.0 01/13/17 11:26 80 Intake and Output 01/13/17 01/14/17 19:00 07:00 Intake Total 420 ml 640 ml Output Total 1300 ml 750 ml Balance -880 ml -110 ml Intake Oral 420 ml 640 ml Output Urine Total 1300 ml 750 ml # Bowel Movements 1 Laboratory Tests 01/14/17 09:10: White Blood Count 11.3H, Red Blood Count 4.42L, Hemoglobin 13.5L, Hematocrit 41.7L, Mean Corpuscular Volume 94, Mean Corpuscular Hemoglobin 30.6, Mean Corpuscular Hemoglobin Concent 32.4, Red Cell Distribution Width 14.3, Platelet Count 321, Mean Platelet Volume 5.9L, Neutrophils (%) (Auto) 74.8, Lymphocytes ( %) (Auto) 14.6L, Monocytes (%) (Auto) 5.9, Eosinophils (%) (Auto) 4.0H, Basophils (%) (Auto) 0.7, Sodium Level 135, Potassium Level 3.4, Chloride Level 88L, Carbon Dioxide Level 33H, Anion Gap 14, Blood Urea Nitrogen 20, Creatinine 1.3H, Estimat Glomerular Filtration Rate 55.6, Glucose Level 373#H, Hemoglobin A1c 10.0H, Uric Acid 8.8H, Calcium Level 8.8, Phosphorus Level 3.7, Magnesium Level 2.0, Iron Level 53L, Total Iron Binding Capacity 321, Percent Iron Saturation 17, Unsaturated Iron Binding 268, Ferritin 304H, Total Bilirubin 0.6 , Gamma Glutamyl Transpeptidase 65H, Aspartate Amino Transf (AST/SGOT) 10, Alanine Aminotransferase (ALT/SGPT) 9, Alkaline Phosphatase 74, Total Creatine Kinase 51, C-Reactive Protein, Quantitative 6.0H, Pro-B-Type Natriuretic Peptide 464H, Total Protein 7.6, Albumin 4.1, Globulin 3.5, Albumin/Globulin Ratio 1.1, Triglycerides Level 184H, Cholesterol Level 128, LDL Cholesterol 63, HDL Cholesterol 28, Cholesterol/HDL Ratio 4.6H, Vitamin B12 Level 593, Folate [ Pending], Thyroid Stimulating Hormone (TSH) 3.930, Cortisol AM Sample 19.9 Height (Feet): 5 Height (Inches): 9.00 Weight (Pounds): 312 GONZALEZZARIA Jan 14, 2017 11:08
[2017-01-14] MEDS: Levemir Flexpen SUBQ SCH ×2 (11:38→21:05)
--- NOTE | 2017-01-14 13:19 | Internal Med Progress Note ---
Subjective Date of Service: Jan 14, 2017 Physician Name Aldo Cantu Attending Physician Alek Lazaro MD Current Medications Medications (Trade) Dose Ordered Sig/Antionette Route PRN Reason Start Time Stop Time Status Last Admin Dose Admin Acetaminophen (Tylenol) 650 mg Q4H PRN ORAL Fever 01/12/17 16:15 02/11/17 16:14 Albuterol/ Ipratropium (DuoNeb 0.5-3(2.5)mg/3ml) 3 ml Q4H PRN HHN Shortness of Breath 01/12/17 16:15 01/17/17 16:14 01/14/17 08:02 Amiodarone HCl (Cordarone) 200 mg DAILY ORAL 01/13/17 09:00 02/12/17 08:59 01/14/17 09:33 Aspirin (Ecotrin) 81 mg DAILY ORAL 01/13/17 09:00 02/12/17 08:59 01/14/17 09:00 Carvedilol (Coreg) 6.25 mg EVERY 12 HOURS ORAL 01/12/17 21:00 02/11/17 20:59 01/14/17 09:35 Dextrose (Dextrose 50%) STAT PRN IV Hypoglycemia 01/12/17 16:15 02/11/17 16:14 Digoxin (Lanoxin) 0.25 mg DAILY ORAL 01/13/17 09:00 02/12/17 08:59 01/14/17 09:33 Furosemide (Lasix) 40 mg EVERY 12 HOURS IV 01/14/17 21:00 02/13/17 20:59 Insulin Aspart (NovoLOG) BEFORE MEALS AND HS SUBQ 01/13/17 06:30 02/12/17 06:29 01/14/17 11:36 Insulin Detemir (Levemir) 20 units Q12HR SUBQ 01/14/17 11:30 02/13/17 11:29 01/14/17 11:38 Lisinopril (Zestril) 5 mg BID ORAL 01/14/17 18:00 02/13/17 17:59 Ondansetron HCl (Zofran) 4 mg Q6H PRN IVP Nausea & Vomiting 01/12/17 16:15 02/11/17 16:14 Polyethylene Glycol (Miralax) 17 gm DAILYPRN PRN ORAL Constipation 01/12/17 16:15 02/11/17 16:14 Potassium Chloride (K-Dur) 40 meq DAILY ORAL 01/14/17 11:30 02/13/17 11:29 01/14/17 11:34 Pregabalin (Lyrica) 100 mg EVERY 12 HOURS ORAL 01/12/17 21:00 02/11/17 20:59 01/14/17 09:27 Rivaroxaban (Xarelto) 20 mg DAILY ORAL 01/13/17 09:00 02/12/17 08:59 01/14/17 09:33 Tamsulosin HCl (Flomax) 0.4 mg BEDTIME ORAL 01/13/17 21:00 02/12/17 20:59 01/13/17 21:00 Temazepam (Restoril) 15 mg HSPRN PRN ORAL Insomnia 01/12/17 16:15 01/19/17 16:14 Allergies: Coded Allergies: No Known Allergies (Unverified , 02/26/14) ROS Limited/Unobtainable: No Constitutional: Reports: no symptoms HEENT: Reports: no symptoms Cardiovascular: Reports: no symptoms Respiratory: Reports: shortness of breath Gastrointestinal/Abdominal: Reports: no symptoms Genitourinary: Reports: no symptoms Neurologic/Psychiatric: Reports: no symptoms Subjective 66 YO M admitted with Shortness of breath. Now acute CHF. Cover for Int Med- . Await cardiology consult. Objective Last Vital Signs Date Time Temp Pulse Resp B/P Pulse Ox O2 Delivery O2 Flow Rate FiO2 01/14/17 12:25 80 01/14/17 11:24 97.8 22 110/56 100 Nasal Cannula 2.0 01/14/17 04:00 28 General Appearance: no apparent distress, obese EENT: PERRL/EOMI, normal ENT inspection Neck: non-tender, normal alignment, supple Cardiovascular: normal peripheral pulses, normal rate, regular rhythm, no gallop/murmur, no JVD Respiratory/Chest: chest wall non-tender, no accessory muscle use, respiratory distress, crackles/rales, rhonchi - bilaterally, expiratory wheezing Abdomen: normal bowel sounds, non tender, soft, no organomegaly, no mass Extremities: normal range of motion 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, no motor/sensory deficits Skin: normal pigmentation, warm/dry Laboratory Tests Test 01/14/17 09:10 White Blood Count 11.3 K/UL (4.8-10.8) H Red Blood Count 4.42 M/UL (4.70-6.10) L Hemoglobin 13.5 G/DL (14.2-18.0) L Hematocrit 41.7 % (42.0-52.0) L Mean Corpuscular Volume 94 FL (80-99) Mean Corpuscular Hemoglobin 30.6 PG (27.0-31.0) Mean Corpuscular Hemoglobin Concent 32.4 G/DL (32.0-36.0) Red Cell Distribution Width 14.3 % (11.6-14.8) Platelet Count 321 K/UL (150-450) Mean Platelet Volume 5.9 FL (6.5-10.1) L Neutrophils (%) (Auto) 74.8 % (45.0-75.0) Lymphocytes (%) (Auto) 14.6 % (20.0-45.0) L Monocytes (%) (Auto) 5.9 % (1.0-10.0) Eosinophils (%) (Auto) 4.0 % (0.0-3.0) H Basophils (%) (Auto) 0.7 % (0.0-2.0) Sodium Level 135 mEQ/L (135-145) Potassium Level 3.4 mEQ/L (3.4-4.9) Chloride Level 88 mEQ/L (98-107) L Carbon Dioxide Level 33 mEQ/L (20-30) H Anion Gap 14 (5-15) Blood Urea Nitrogen 20 mg/dL (7-23) Creatinine 1.3 mg/dL (0.7-1.2) H Estimat Glomerular Filtration Rate 55.6 mL/min (>60) Glucose Level 373 mg/dL (74-106) #H Hemoglobin A1c 10.0 % (< 6.0) H Uric Acid 8.8 mg/dL (3.0-7.5) H Calcium Level 8.8 mg/dL (8.6-10.2) Phosphorus Level 3.7 mg/dL (2.5-4.8) Magnesium Level 2.0 mg/dL (1.7-2.5) Iron Level 53 ug/dL (59-158) L Total Iron Binding Capacity 321 ug/dL (250-400) Percent Iron Saturation 17 % (15-50) Unsaturated Iron Binding 268 ug/dL (112-346) Ferritin 304 ng/mL (10-230) H Total Bilirubin 0.6 mg/dL (0.0-1.2) Gamma Glutamyl Transpeptidase 65 U/L (8-61) H Aspartate Amino Transf (AST/SGOT) 10 U/L (5-40) Alanine Aminotransferase (ALT/SGPT) 9 U/L (3-41) Alkaline Phosphatase 74 U/L (40-129) Total Creatine Kinase 51 U/L (38-174) C-Reactive Protein, Quantitative 6.0 mg/dL (< 0.5) H Pro-B-Type Natriuretic Peptide 464 pg/mL (0-125) H Total Protein 7.6 g/dL (6.6-8.7) Albumin 4.1 g/dL (3.5-5.2) Globulin 3.5 g/dL Albumin/Globulin Ratio 1.1 (1.0-2.7) Triglycerides Level 184 mg/dL (< 150) H Cholesterol Level 128 mg/dL (< 200) LDL Cholesterol 63 mg/dL (60-99) HDL Cholesterol 28 mg/dL (> 60) Cholesterol/HDL Ratio 4.6 (3.3-4.4) H Vitamin B12 Level 593 pg/mL (211-946) Folate Pending Thyroid Stimulating Hormone (TSH) 3.930 uIU/mL (0.300-4.500) Cortisol AM Sample 19.9 ug/dL (6.0-20.0) Intake and Output 01/13/17 01/14/17 19:00 07:00 Intake Total 420 ml 640 ml Output Total 1300 ml 750 ml Balance -880 ml -110 ml Intake Oral 420 ml 640 ml Output Urine Total 1300 ml 750 ml # Bowel Movements 1 Assessment/Plan Problem List: (1) Shortness of breath Assessment & Plan: Due to CHF. See pulmonary note. (2) Cough (3) HTN (hypertension) Assessment & Plan: Continue lisinopril and coreg. (4) GERD (gastroesophageal reflux disease) (5) Diabetic neuropathy (6) Diabetic nephropathy (7) Sick sinus syndrome Assessment & Plan: S/P pacemaker. (8) Renal failure Assessment & Plan: See nephrology note. (9) Acute exacerbation of CHF (congestive heart failure) (10) Atrial fibrillation with RVR Assessment & Plan: Continue amiodarone and digoxin. Await cardiology consult. (11) Diabetes mellitus type II, uncontrolled Assessment & Plan: Cont levemir and novolog sliding scale. Status: not improved ALDO CANTU Jan 14, 2017 13:19
--- NOTE | 2017-01-14 15:30 | Consultation ---
Consult Note Consult Note Cardiac EP/ Cardiology full note dictated # [id number] ARACELIS LPOEZ Jan 14, 2017 15:30
--- NOTE | 2017-01-14 15:42 | Cardiac Electrophysiology PN ---
Subjective Subjective [id number]. EP consult dictated and DW Dr Lazaro/Ivy see my note from 2015. [place] BIV ICD without atrial lead. S/P AVN ablation [facility] by Dr Zuniga Objective Last 24 Hour Vital Signs Date Time Temp Pulse Resp B/P Pulse Ox O2 Delivery O2 Flow Rate FiO2 01/14/17 15:28 98.0 82 22 113/59 99 Nasal Cannula 2.0 01/14/17 12:25 80 01/14/17 11:24 97.8 81 22 110/56 100 Nasal Cannula 2.0 01/14/17 10:21 80 01/14/17 10:17 80 16 127/63 96 Room Air 01/14/17 09:35 80 121/77 01/14/17 09:33 80 01/14/17 09:31 121/77 01/14/17 09:00 98.2 80 16 130/68 96 Room Air 01/14/17 08:13 88 20 100 Nasal Cannula 2.0 01/14/17 08:00 80 20 100 Nasal Cannula 2.0 01/14/17 07:57 Nasal Cannula 2.0 01/14/17 07:56 100 Nasal Cannula 2.0 01/14/17 07:55 80 20 Nasal Cannula 2.0 01/14/17 04:00 97.7 82 16 102/65 98 Nasal Cannula 2.0 01/14/17 04:00 87 01/14/17 00:00 97.5 80 16 123/54 98 Nasal Cannula 2.0 01/14/17 00:00 87 01/13/17 21:32 82 116/79 01/13/17 20:00 89 01/13/17 19:16 Nasal Cannula 2.0 01/13/17 19:16 98 Nasal Cannula 2.0 01/13/17 19:16 85 16 Nasal Cannula 2.0 01/13/17 16:25 97.7 77 20 104/58 98 Nasal Cannula 2.0 01/13/17 16:00 80 Intake and Output 01/13/17 01/14/17 19:00 07:00 Intake Total 420 ml 640 ml Output Total 1300 ml 750 ml Balance -880 ml -110 ml Intake Oral 420 ml 640 ml Output Urine Total 1300 ml 750 ml # Bowel Movements 1 Laboratory Tests Test 01/14/17 09:10 White Blood Count 11.3 K/UL (4.8-10.8) H Red Blood Count 4.42 M/UL (4.70-6.10) L Hemoglobin 13.5 G/DL (14.2-18.0) L Hematocrit 41.7 % (42.0-52.0) L Mean Corpuscular Volume 94 FL (80-99) Mean Corpuscular Hemoglobin 30.6 PG (27.0-31.0) Mean Corpuscular Hemoglobin Concent 32.4 G/DL (32.0-36.0) Red Cell Distribution Width 14.3 % (11.6-14.8) Platelet Count 321 K/UL (150-450) Mean Platelet Volume 5.9 FL (6.5-10.1) L Neutrophils (%) (Auto) 74.8 % (45.0-75.0) Lymphocytes (%) (Auto) 14.6 % (20.0-45.0) L Monocytes (%) (Auto) 5.9 % (1.0-10.0) Eosinophils (%) (Auto) 4.0 % (0.0-3.0) H Basophils (%) (Auto) 0.7 % (0.0-2.0) Sodium Level 135 mEQ/L (135-145) Potassium Level 3.4 mEQ/L (3.4-4.9) Chloride Level 88 mEQ/L (98-107) L Carbon Dioxide Level 33 mEQ/L (20-30) H Anion Gap 14 (5-15) Blood Urea Nitrogen 20 mg/dL (7-23) Creatinine 1.3 mg/dL (0.7-1.2) H Estimat Glomerular Filtration Rate 55.6 mL/min (>60) Glucose Level 373 mg/dL (74-106) #H Hemoglobin A1c 10.0 % (< 6.0) H Uric Acid 8.8 mg/dL (3.0-7.5) H Calcium Level 8.8 mg/dL (8.6-10.2) Phosphorus Level 3.7 mg/dL (2.5-4.8) Magnesium Level 2.0 mg/dL (1.7-2.5) Iron Level 53 ug/dL (59-158) L Total Iron Binding Capacity 321 ug/dL (250-400) Percent Iron Saturation 17 % (15-50) Unsaturated Iron Binding 268 ug/dL (112-346) Ferritin 304 ng/mL (10-230) H Total Bilirubin 0.6 mg/dL (0.0-1.2) Gamma Glutamyl Transpeptidase 65 U/L (8-61) H Aspartate Amino Transf (AST/SGOT) 10 U/L (5-40) Alanine Aminotransferase (ALT/SGPT) 9 U/L (3-41) Alkaline Phosphatase 74 U/L (40-129) Total Creatine Kinase 51 U/L (38-174) C-Reactive Protein, Quantitative 6.0 mg/dL (< 0.5) H Pro-B-Type Natriuretic Peptide 464 pg/mL (0-125) H Total Protein 7.6 g/dL (6.6-8.7) Albumin 4.1 g/dL (3.5-5.2) Globulin 3.5 g/dL Albumin/Globulin Ratio 1.1 (1.0-2.7) Triglycerides Level 184 mg/dL (< 150) H Cholesterol Level 128 mg/dL (< 200) LDL Cholesterol 63 mg/dL (60-99) HDL Cholesterol 28 mg/dL (> 60) Cholesterol/HDL Ratio 4.6 (3.3-4.4) H Vitamin B12 Level 593 pg/mL (211-946) Folate Pending Thyroid Stimulating Hormone (TSH) 3.930 uIU/mL (0.300-4.500) Cortisol AM Sample 19.9 ug/dL (6.0-20.0) RACHEL PANIAGUA Jan 14, 2017 15:42
[2017-01-14] MEDS: Lisinopril 2.5mg tab ORAL SCH (17:01)
[2017-01-14 18:01] LABS: TROPONIN I < 0.30 ng/mL (<=0.30)
[2017-01-14] MEDS: Tamsulosin 0.4mg cap ORAL SCH (21:03)
[2017-01-15] VITALS (7 sets, daily range): BP systolic 94–147; BP diastolic 43–74
[2017-01-15] MEDS: Miralax 17gm pkt ORAL PRN (00:56)
--- NOTE | 2017-01-15 02:15 | Consultation ---
DATE OF CONSULTATION: CARDIOLOGY CONSULTATION This is in coverage for Dr. Bledsoe. REQUESTING PHYSICIAN: Marily Eddy M.D. REASON FOR CONSULT: Chest pain. HISTORY OF PRESENT ILLNESS: Mr. Sofia is a 66-year-old man with a history of type 2 diabetes, morbid obesity, nonischemic cardiomyopathy, congestive heart failure status post ICD placement about four years ago, who was admitted with chest pain, shortness of breath, and cough with a 2-week history of increasing shortness of breath and cough. He has had worsening symptoms over the past few days. He also describes chest pain increased with cough, nonexertional. He has not had any fever, chills, or sweats. He was admitted with possible CHF exacerbation. PAST MEDICAL HISTORY: As noted above. History of nonischemic cardiomyopathy. The patient reports most recent coronary angiogram with no coronary disease about 2 to three years ago at [facility] status post ICD, [facility] approximately 4 years ago, history of COPD, history of type 2 diabetes mellitus, peripheral neuropathy, and obstructive sleep apnea. MEDICATIONS: Lasix 40 mg IV q.12 h., potassium 40 mEq daily, insulin, Levemir 20 units q.12 h. subcutaneously, Flomax 0.4 mg at bedtime, amiodarone 200 mg daily, aspirin 81 mg daily, digoxin 0.25 mg daily, Xarelto 20 mg daily, insulin sliding scale, Coreg 6.25 mg every 12 hours, Lyrica 100 mg q.12 h., Restoril at bedtime, Tylenol as needed, and DuoNeb as needed. ALLERGIES: No known drug allergies. SOCIAL HISTORY: The patient is a nonsmoker and has no history of alcohol or drug abuse. He has a remote history of cocaine and marijuana use over 40 years ago. REVIEW OF SYSTEMS: As per history of present illness. PHYSICAL EXAMINATION: VITAL SIGNS: Blood pressure 110/56, pulse 81 regular, respirations 22, afebrile, oxygen saturation 100% on two liters nasal cannula oxygen. HEENT: Normocephalic and atraumatic. Pupils are equal, round, and reactive to light. Sclerae anicteric. Oral mucosa are moist. NECK: Supple. There is no jugular venous distention, but exam limited by obesity. No carotid bruits. LUNGS: Decreased breath sounds bilaterally. No rales, wheezes, or rhonchi. CHEST: There is no chest wall tenderness. There is an ICD with a generator palpable in the left chest wall. HEART: Regular S1 and S2 with distant heart sounds. No murmurs or rubs. No S3, S4. ABDOMEN: Soft, obese, and nontender. EXTREMITIES: No cyanosis, clubbing, or edema. LABORATORY AND DIAGNOSTIC DATA: Hemoglobin 13.5, white blood count 85497, and platelets 321,000. Sodium 135, potassium 3.4, chloride 88, bicarb 33, BUN 20, creatinine 1.3, and glucose 373. Natriuretic peptide is 464. Troponin less than 0.3. TSH 3.9, and INR 1.1. EKG shows atrial fibrillation with ventricular pacing with biventricular capture at a rate of 80 beats per minute. Chest x-ray shows pulmonary vascular congestion and cardiomegaly. There is an ICD with leads in the right atrium, right ventricle, and coronary sinus branch. ASSESSMENT AND RECOMMENDATIONS: Mr. Sofia is a 66-year-old man with multiple chronic medical problems as outlined above, who was admitted with an exacerbation of congestive heart failure. He has an implanted defibrillator, which appears to be a biventricular device and based on EKG appears to be functioning normally. I would favor treatment with intravenous Lasix diuresis. We would continue lisinopril and titrate up the dose as tolerated by blood pressure. We would continue carvedilol and digoxin. We will also continue Xarelto as the patient is noted to be in atrial fibrillation. If the atrial fibrillation is chronic based on the ICD interrogation, then would stop amiodarone to decrease the risk for pulmonary toxicity and would opt for rate control. Further recommendations will be made following the device interrogation and based on the patient's clinical course. Maia Baez M.D. DR: KIM JOB#: [id number] CC:
--- NOTE | 2017-01-15 06:15 | Consultation ---
DATE OF CONSULTATION: 01/14/2017 CARDIAC ELECTROPHYSIOLOGY CONSULTATION CONSULTING PHYSICIAN: Yuval Carey M.D. REFERRING PHYSICIAN: Alek Lazaro M.D. REASON FOR CONSULTATION: Evaluation of the patient's defibrillator and atrial fibrillation. HISTORY OF PRESENT ILLNESS: The patient is a very pleasant, 66-year-old gentleman that I am quite familiar with from previous admission at [facility]. The patient has a history of hypertension and chronic atrial fibrillation, who underwent an AV node ablation in April 2014 and subsequent biventricular defibrillator implantation without atrial lead dysfunction and chronic atrial fibrillation. On previous admission, the patient was in sinus rhythm. The plan was to upgrade his biventricular ICD to an atriobiventricular defibrillator. The patient presented to the emergency room with increasing shortness of breath. The patient also has type 2 diabetes mellitus and morbid obesity. A cardiac electrophysiology consultation was obtained for further evaluation and management. PAST MEDICAL HISTORY: Include, 1. Hypertension. 2. Congestive heart failure. 3. Paroxysmal atrial fibrillation. 4. Status post [employer] defibrillator implantation as mentioned above. 5. Severe cardiomyopathy with ejection fraction of 15%. Of note, the patient's defibrillator was implanted in April [address] Spencer Zuniga, phone #[phone] and AV node ablation was by Dr. Zuniga in April 2014 at [facility]. FAMILY HISTORY: Noncontributory. SOCIAL HISTORY: He lives at home. He does not smoke or drink alcohol. REVIEW OF SYSTEM: Review of system was performed and was negative other than what was mentioned in the history of present illness. PHYSICAL EXAMINATION: VITAL SIGNS: Blood pressure is 150/59, pulse is 82, respirations 18, and temperature 98 degrees. HEAD AND NECK: Shows mild JVD. LUNGS: Decreased breath sounds. CARDIOVASCULAR: intact. ABDOMEN: Soft. No . EXTREMITIES: 1+ pitting edema. LABORATORY AND DIAGNOSTIC DATA: White count 11.2, hemoglobin 13.4, hematocrit 41.7, and platelet count is 221,000. Sodium 135, potassium 3.4, BUN 20, creatinine 1.3, and glucose 373. INR is 1.1. 0.4. ASSESSMENT AND PLAN: 1. Status post [employer] biventricular defibrillator implantation without atrial lead, P-wave interrogate defibrillator for further evaluation. The patient would like to get atrial fibrillation and is currently in sinus rhythm. 2. Paroxysmal atrial fibrillation status post atrioventricular node ablation. The patient is on anticoagulation. 3. Exploration of congestive heart failure. Continue Lasix 40 mg b.i.d., lisinopril 5 mg b.i.d., Digoxin 0.25 mg daily, and Coreg 6.25 mg b.i.d. 4. Paroxysmal atrial fibrillation. The patient is on amiodarone 20 mg daily, digoxin, as well as Xarelto 20 mg daily. 5. Diabetes. 6. Morbid obesity. Thank you very much, Dr. Lazaro, for allowing me to participate in the care of this patient. Please do not hesitate to contact for any questions regarding my evaluation. The case was discussed with Dr. Marie as well as Dr. Baez. Yuval Carey M.D. DR: MORGAN JOB#: [id number] CC:
[2017-01-15] MEDS: NovoLOG Insulin Flexpen SUBQ SCH ×4 (06:31→21:02)
--- NOTE | 2017-01-15 08:59 | General Progress Note ---
Assessment/Plan Status: unchanged Assessment/Plan Renal impression; Acute renal failure ? superimposed on CRF Multifactorial, mainly CHF , Pacer , DM Primary Impression: Dyspnea Additional Impressions: Non compliance w medication regimen Acute exacerbation of CHF (congestive heart failure) Hyperglycemia Obesity MERRY Plan: no labs today yet- Start Levemir for high sugar and adjust dose Optimize cardiac and pulmonary status Monitor renal parameters- Avoid Nephrotoxics Down on lasix and up on Lisinopril per orders Subjective ROS Limited/Unobtainable: No Constitutional: Reports: malaise Respiratory: Reports: cough Allergies: Coded Allergies: No Known Allergies (Unverified , 02/26/14) Objective Last 24 Hour Vital Signs Date Time Temp Pulse Resp B/P Pulse Ox O2 Delivery O2 Flow Rate FiO2 01/15/17 07:52 80 18 96 01/15/17 07:49 80 18 Nasal Cannula 2.0 01/15/17 07:49 Nasal Cannula 2.0 01/15/17 07:49 99 Nasal Cannula 2.0 28 01/15/17 04:00 81 01/15/17 04:00 97.9 80 18 107/43 Nasal Cannula 3.0 01/15/17 00:08 97.2 75 20 95/56 99 Nasal Cannula 2.0 01/15/17 00:00 80 01/14/17 21:03 82 113/56 01/14/17 20:48 82 18 Nasal Cannula 2.0 01/14/17 20:47 99 Nasal Cannula 2.0 28 01/14/17 20:47 Nasal Cannula 2.0 01/14/17 20:00 80 01/14/17 20:00 98.1 80 22 113/56 Nasal Cannula 3.0 01/14/17 17:01 100/50 01/14/17 16:20 80 01/14/17 15:28 98.0 82 22 113/59 99 Nasal Cannula 2.0 01/14/17 12:25 80 01/14/17 11:24 97.8 81 22 110/56 100 Nasal Cannula 2.0 01/14/17 10:21 80 01/14/17 10:17 80 16 127/63 96 Room Air 01/14/17 09:35 80 121/77 01/14/17 09:33 80 01/14/17 09:31 121/77 01/14/17 09:00 98.2 80 16 130/68 96 Room Air Intake and Output 01/14/17 01/15/17 19:00 07:00 Intake Total 480 ml 300 ml Output Total 2100 ml 850 ml Balance -1620 ml -550 ml Intake Oral 480 ml 300 ml Output Urine Total 2100 ml 850 ml # Voids 3 Laboratory Tests 01/14/17 09:10: White Blood Count 11.3H, Red Blood Count 4.42L, Hemoglobin 13.5L, Hematocrit 41.7L, Mean Corpuscular Volume 94, Mean Corpuscular Hemoglobin 30.6, Mean Corpuscular Hemoglobin Concent 32.4, Red Cell Distribution Width 14.3, Platelet Count 321, Mean Platelet Volume 5.9L, Neutrophils (%) (Auto) 74.8, Lymphocytes ( %) (Auto) 14.6L, Monocytes (%) (Auto) 5.9, Eosinophils (%) (Auto) 4.0H, Basophils (%) (Auto) 0.7, Sodium Level 135, Potassium Level 3.4, Chloride Level 88L, Carbon Dioxide Level 33H, Anion Gap 14, Blood Urea Nitrogen 20, Creatinine 1.3H, Estimat Glomerular Filtration Rate 55.6, Glucose Level 373#H, Hemoglobin A1c 10.0H, Uric Acid 8.8H, Calcium Level 8.8, Phosphorus Level 3.7, Magnesium Level 2.0, Iron Level 53L, Total Iron Binding Capacity 321, Percent Iron Saturation 17, Unsaturated Iron Binding 268, Ferritin 304H, Total Bilirubin 0.6 , Gamma Glutamyl Transpeptidase 65H, Aspartate Amino Transf (AST/SGOT) 10, Alanine Aminotransferase (ALT/SGPT) 9, Alkaline Phosphatase 74, Total Creatine Kinase 51, C-Reactive Protein, Quantitative 6.0H, Pro-B-Type Natriuretic Peptide 464H, Total Protein 7.6, Albumin 4.1, Globulin 3.5, Albumin/Globulin Ratio 1.1, Triglycerides Level 184H, Cholesterol Level 128, LDL Cholesterol 63, HDL Cholesterol 28, Cholesterol/HDL Ratio 4.6H, Vitamin B12 Level 593, Folate [ Pending], Thyroid Stimulating Hormone (TSH) 3.930, Cortisol AM Sample 19.9 01/14/17 16:25: Troponin I < 0.30 Height (Feet): 5 Height (Inches): 9.00 Weight (Pounds): 329 General Appearance: no apparent distress Respiratory/Chest: decreased breath sounds Abdomen: soft, other - obese ZARIA ROTH Jan 15, 2017 08:59
[2017-01-15 09:17] LABS: BASOPHILS % (AUTO) 1.1 % (0.0-2.0); EOSINOPHILS % (AUTO) 4.3 % (0.0-3.0); LYMPHOCYTES % (AUTO) 18.4 % (20.0-45.0); MEAN CORPUSCULAR HGB CONC 32.7 G/DL (32.0-36.0); MEAN CORPUSCULAR VOLUME 95 FL (80-99); MEAN PLATELET VOLUME 6.1 FL (6.5-10.1); MONOCYTES % (AUTO) 6.1 % (1.0-10.0); PLATELET COUNT 285 K/UL (150-450); RED BLOOD COUNT 4.26 M/UL (4.70-6.10); RED CELL DISTRIBUTION WIDTH 14.4 % (11.6-14.8); WHITE BLOOD COUNT 9.4 K/UL (4.8-10.8)
[2017-01-15 09:39] LABS: ANION GAP 10 (5-15); CALCIUM 8.2 mg/dL (8.6-10.2); CARBON DIOXIDE 33 mEQ/L (20-30); CHLORIDE 90 mEQ/L (98-107); CREATININE 1.2 mg/dL (0.7-1.2); GLOMERULAR FILTRATION RATE > 60 mL/min (>60); HEMOLYSIS 5; POTASSIUM 3.9 mEQ/L (3.4-4.9); SODIUM 133 mEQ/L (135-145)
[2017-01-15] MEDS: Lisinopril 2.5mg tab ORAL SCH ×2 (09:51→18:00)
[2017-01-15] MEDS: Aspirin EC 81mg tab ORAL SCH (09:51)
[2017-01-15] MEDS: Lyrica 50mg cap ORAL SCH ×2 (09:54→21:02)
[2017-01-15] MEDS: Carvedilol 6.25mg Tab ORAL SCH ×2 (09:54→21:00)
[2017-01-15] MEDS: Xarelto 10mg tab ORAL SCH (09:55)
[2017-01-15] MEDS: Amiodarone 200mg tab ORAL SCH (09:55)
[2017-01-15] MEDS: Levemir Flexpen SUBQ SCH ×2 (09:59→21:01)
--- NOTE | 2017-01-15 13:07 | Cardiac Electrophysiology PN ---
Assessment/Plan Assessment/Plan 1. Status post [employer] biventricular defibrillator implantation without atrial lead, will interrogate defibrillator for further evaluation. May need upgrade to adding atrial lead in view of paroxysmal atrial fib. 2. Paroxysmal atrial fibrillation. Rate controlled as patient had AVN ablation. On amiodarone 200 mg daily and anticoagulation with Xarelto 20 daily. Decrease Digoxin to 0.125 daily in view of AMIODARONE INTERACTION. 3. Status post atrioventricular node ablation. Pacer dependent. 4. Exacerbation of of congestive heart failure. Continue Lasix 40 mg b.i.d., lisinopril 5 mg b.i.d., Digoxin 0.125 mg daily, and Coreg 6.25 mg b.i.d. 5. Diabetes. 6. Morbid obesity. Subjective Subjective Feeling better. Awaiting ICD interrogation. Has appointment with me after discharge for ICD follow up. Objective Last 24 Hour Vital Signs Date Time Temp Pulse Resp B/P Pulse Ox O2 Delivery O2 Flow Rate FiO2 01/15/17 09:55 80 01/15/17 09:54 80 104/69 01/15/17 09:51 104/69 01/15/17 08:00 95.5 80 20 104/67 97 Room Air 01/15/17 07:57 81 01/15/17 07:52 80 18 96 01/15/17 07:49 80 18 Nasal Cannula 2.0 01/15/17 07:49 Nasal Cannula 2.0 01/15/17 07:49 99 Nasal Cannula 2.0 28 01/15/17 04:00 81 01/15/17 04:00 97.9 80 18 107/43 Nasal Cannula 3.0 01/15/17 00:08 97.2 75 20 95/56 99 Nasal Cannula 2.0 01/15/17 00:00 80 01/14/17 21:03 82 113/56 01/14/17 20:48 82 18 Nasal Cannula 2.0 01/14/17 20:47 99 Nasal Cannula 2.0 28 01/14/17 20:47 Nasal Cannula 2.0 01/14/17 20:00 80 01/14/17 20:00 98.1 80 22 113/56 Nasal Cannula 3.0 01/14/17 17:01 100/50 01/14/17 16:20 80 01/14/17 15:28 98.0 82 22 113/59 99 Nasal Cannula 2.0 Intake and Output 01/14/17 01/15/17 19:00 07:00 Intake Total 480 ml 300 ml Output Total 2100 ml 850 ml Balance -1620 ml -550 ml Intake Oral 480 ml 300 ml Output Urine Total 2100 ml 850 ml # Voids 3 Laboratory Tests Test 01/14/17 16:25 01/15/17 08:40 Troponin I < 0.30 ng/mL (<=0.30) White Blood Count 9.4 K/UL (4.8-10.8) Red Blood Count 4.26 M/UL (4.70-6.10) L Hemoglobin 13.2 G/DL (14.2-18.0) L Hematocrit 40.3 % (42.0-52.0) L Mean Corpuscular Volume 95 FL (80-99) Mean Corpuscular Hemoglobin 31.0 PG (27.0-31.0) Mean Corpuscular Hemoglobin Concent 32.7 G/DL (32.0-36.0) Red Cell Distribution Width 14.4 % (11.6-14.8) Platelet Count 285 K/UL (150-450) Mean Platelet Volume 6.1 FL (6.5-10.1) L Neutrophils (%) (Auto) 70.0 % (45.0-75.0) Lymphocytes (%) (Auto) 18.4 % (20.0-45.0) L Monocytes (%) (Auto) 6.1 % (1.0-10.0) Eosinophils (%) (Auto) 4.3 % (0.0-3.0) H Basophils (%) (Auto) 1.1 % (0.0-2.0) Sodium Level 133 mEQ/L (135-145) L Potassium Level 3.9 mEQ/L (3.4-4.9) Chloride Level 90 mEQ/L (98-107) L Carbon Dioxide Level 33 mEQ/L (20-30) H Anion Gap 10 (5-15) Blood Urea Nitrogen 23 mg/dL (7-23) Creatinine 1.2 mg/dL (0.7-1.2) Estimat Glomerular Filtration Rate > 60 mL/min (>60) Glucose Level 316 mg/dL (74-106) H Calcium Level 8.2 mg/dL (8.6-10.2) L Pro-B-Type Natriuretic Peptide 431 pg/mL (0-125) H Free Thyroxine 1.39 ng/dL (0.86-1.85) Objective HEAD AND NECK: Shows mild JVD. LUNGS: Decreased breath sounds. CARDIOVASCULAR: Irregular rhythm./6 SM. ICD left subclavian ABDOMEN: Soft. EXTREMITIES: 1+ pitting edema. RACHEL PANIAGUA Jan 15, 2017 13:07
--- NOTE | 2017-01-15 13:21 | Pulmonology Progress Note ---
Assessment/Plan Problems: (1) Acute exacerbation of CHF (congestive heart failure) (2) ANABELA (acute kidney injury) (3) COPD (chronic obstructive pulmonary disease) (4) Diabetes mellitus (5) Obesity Assessment/Plan add zosy sputum for c/s improving respiratory treatment check electrolytes diuresing well keep in teli Subjective ROS Limited/Unobtainable: No Interval Events: coughing up yellow phlegmn Allergies: Coded Allergies: No Known Allergies (Unverified , 02/26/14) Objective Last 24 Hour Vital Signs Date Time Temp Pulse Resp B/P Pulse Ox O2 Delivery O2 Flow Rate FiO2 01/15/17 09:55 80 01/15/17 09:54 80 104/69 01/15/17 09:51 104/69 01/15/17 08:00 95.5 80 20 104/67 97 Room Air 01/15/17 07:57 81 01/15/17 07:52 80 18 96 01/15/17 07:49 80 18 Nasal Cannula 2.0 01/15/17 07:49 Nasal Cannula 2.0 01/15/17 07:49 99 Nasal Cannula 2.0 28 01/15/17 04:00 81 01/15/17 04:00 97.9 80 18 107/43 Nasal Cannula 3.0 01/15/17 00:08 97.2 75 20 95/56 99 Nasal Cannula 2.0 01/15/17 00:00 80 01/14/17 21:03 82 113/56 01/14/17 20:48 82 18 Nasal Cannula 2.0 01/14/17 20:47 99 Nasal Cannula 2.0 28 01/14/17 20:47 Nasal Cannula 2.0 01/14/17 20:00 80 01/14/17 20:00 98.1 80 22 113/56 Nasal Cannula 3.0 01/14/17 17:01 100/50 01/14/17 16:20 80 01/14/17 15:28 98.0 82 22 113/59 99 Nasal Cannula 2.0 Intake and Output 01/14/17 01/15/17 19:00 07:00 Intake Total 480 ml 300 ml Output Total 2100 ml 850 ml Balance -1620 ml -550 ml Intake Oral 480 ml 300 ml Output Urine Total 2100 ml 850 ml # Voids 3 Objective General Appearance: WD/WN HEENT: normocephalic Respiratory/Chest: chest wall non-tender, lungs clear Cardiovascular: normal peripheral pulses, normal rate Abdomen: normal bowel sounds, soft, non tender Genitourinary: normal external genitalia Extremities: no cyanosis Skin: no rash 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9, Chloride Level 90L, Carbon Dioxide Level 33H, Anion Gap 10, Blood Urea Nitrogen 23, Creatinine 1.2, Estimat Glomerular Filtration Rate > 60, Glucose Level 316H, Calcium Level 8.2L, Pro-B-Type Natriuretic Peptide 431H, Free Thyroxine 1.39 Current Medications Medications (Trade) Dose Ordered Sig/Antionette Route PRN Reason Start Time Stop Time Status Last Admin Dose Admin Acetaminophen (Tylenol) 650 mg Q4H PRN ORAL Fever 01/12/17 16:15 02/11/17 16:14 Albuterol/ Ipratropium (DuoNeb 0.5-3(2.5)mg/3ml) 3 ml Q4H PRN HHN Shortness of Breath 01/12/17 16:15 01/17/17 16:14 01/14/17 08:02 Amiodarone HCl (Cordarone) 200 mg DAILY ORAL 01/13/17 09:00 02/12/17 08:59 01/15/17 09:55 Aspirin (Ecotrin) 81 mg DAILY ORAL 01/13/17 09:00 02/12/17 08:59 01/15/17 09:51 Carvedilol (Coreg) 6.25 mg EVERY 12 HOURS ORAL 01/12/17 21:00 02/11/17 20:59 01/15/17 09:54 Dextrose (Dextrose 50%) STAT PRN IV Hypoglycemia 01/12/17 16:15 02/11/17 16:14 Digoxin (Lanoxin) 0.125 mg DAILY ORAL 01/16/17 09:00 02/15/17 08:59 Furosemide (Lasix) 40 mg EVERY 12 HOURS IV 01/14/17 21:00 02/13/17 20:59 01/15/17 09:49 Insulin Aspart (NovoLOG) BEFORE MEALS AND HS SUBQ 01/13/17 06:30 02/12/17 06:29 01/15/17 11:40 Insulin Detemir (Levemir) 30 units Q12HR SUBQ 01/15/17 10:00 02/14/17 09:59 01/15/17 09:59 Lisinopril (Zestril) 5 mg BID ORAL 01/14/17 18:00 02/13/17 17:59 01/15/17 09:51 Ondansetron HCl (Zofran) 4 mg Q6H PRN IVP Nausea & Vomiting 01/12/17 16:15 02/11/17 16:14 Polyethylene Glycol (Miralax) 17 gm DAILYPRN PRN ORAL Constipation 01/12/17 16:15 02/11/17 16:14 01/15/17 00:56 Potassium Chloride (K-Dur) 40 meq DAILY ORAL 01/14/17 11:30 02/13/17 11:29 01/15/17 09:50 Pregabalin (Lyrica) 100 mg EVERY 12 HOURS ORAL 01/12/17 21:00 02/11/17 20:59 01/15/17 09:54 Rivaroxaban (Xarelto) 20 mg DAILY ORAL 01/13/17 09:00 02/12/17 08:59 01/15/17 09:55 Sitagliptin Phosphate (Januvia) 50 mg ACBREAKFAST ORAL 01/16/17 06:30 02/15/17 06:29 Tamsulosin HCl (Flomax) 0.4 mg BEDTIME ORAL 01/13/17 21:00 02/12/17 20:59 01/14/17 21:03 Temazepam (Restoril) 15 mg HSPRN PRN ORAL Insomnia 01/12/17 16:15 01/19/17 16:14 01/15/17 00:56 MALLIKA LEVY Jan 15, 2017 13:21
[2017-01-15] MEDS: Piperacillin/Tazobactam 3.375 GM in D5W 110 ML IVPB SCH ×2 (14:34→21:03)
--- NOTE | 2017-01-15 14:44 | Internal Med Progress Note ---
Subjective Date of Service: Jan 15, 2017 Physician Name Garry Cantu Attending Physician Alek Lazaro MD Current Medications Medications (Trade) Dose Ordered Sig/Antionette Route PRN Reason Start Time Stop Time Status Last Admin Dose Admin Acetaminophen (Tylenol) 650 mg Q4H PRN ORAL Fever 01/12/17 16:15 02/11/17 16:14 Albuterol/ Ipratropium (DuoNeb 0.5-3(2.5)mg/3ml) 3 ml Q4H PRN HHN Shortness of Breath 01/12/17 16:15 01/17/17 16:14 01/14/17 08:02 Amiodarone HCl (Cordarone) 200 mg DAILY ORAL 01/13/17 09:00 02/12/17 08:59 01/15/17 09:55 Aspirin (Ecotrin) 81 mg DAILY ORAL 01/13/17 09:00 02/12/17 08:59 01/15/17 09:51 Carvedilol (Coreg) 6.25 mg EVERY 12 HOURS ORAL 01/12/17 21:00 02/11/17 20:59 01/15/17 09:54 Dextrose (Dextrose 50%) STAT PRN IV Hypoglycemia 01/12/17 16:15 02/11/17 16:14 Digoxin 0.125 mg 0.125 mg DAILY ORAL 01/16/17 09:00 02/15/17 08:59 Furosemide (Lasix) 40 mg EVERY 12 HOURS IV 01/14/17 21:00 02/13/17 20:59 01/15/17 09:49 Insulin Aspart (NovoLOG) BEFORE MEALS AND HS SUBQ 01/13/17 06:30 02/12/17 06:29 01/15/17 11:40 Insulin Detemir (Levemir) 30 units Q12HR SUBQ 01/15/17 10:00 02/14/17 09:59 01/15/17 09:59 Lisinopril (Zestril) 5 mg BID ORAL 01/14/17 18:00 02/13/17 17:59 01/15/17 09:51 Ondansetron HCl (Zofran) 4 mg Q6H PRN IVP Nausea & Vomiting 01/12/17 16:15 02/11/17 16:14 Piperacillin Sod/ Tazobactam Sod/ Dextrose (Zosyn/D5W) 110 ml @ 27.5 mls/hr EVERY 8 HOURS IVPB 01/15/17 14:00 01/20/17 13:59 01/15/17 14:34 Polyethylene Glycol (Miralax) 17 gm DAILYPRN PRN ORAL Constipation 01/12/17 16:15 02/11/17 16:14 01/15/17 00:56 Potassium Chloride (K-Dur) 40 meq DAILY ORAL 01/14/17 11:30 02/13/17 11:29 01/15/17 09:50 Pregabalin (Lyrica) 100 mg EVERY 12 HOURS ORAL 01/12/17 21:00 02/11/17 20:59 01/15/17 09:54 Rivaroxaban (Xarelto) 20 mg DAILY ORAL 01/13/17 09:00 02/12/17 08:59 01/15/17 09:55 Sitagliptin Phosphate (Januvia) 50 mg ACBREAKFAST ORAL 01/16/17 06:30 02/15/17 06:29 Tamsulosin HCl (Flomax) 0.4 mg BEDTIME ORAL 01/13/17 21:00 02/12/17 20:59 01/14/17 21:03 Temazepam (Restoril) 15 mg HSPRN PRN ORAL Insomnia 01/12/17 16:15 01/19/17 16:14 01/15/17 00:56 Allergies: Coded Allergies: No Known Allergies (Unverified , 02/26/14) ROS Limited/Unobtainable: No Constitutional: Reports: no symptoms HEENT: Reports: no symptoms Cardiovascular: Reports: chest pain Respiratory: Reports: shortness of breath Gastrointestinal/Abdominal: Reports: no symptoms Genitourinary: Reports: no symptoms Neurologic/Psychiatric: Reports: no symptoms Subjective 66 YO M admitted with Shortness of breath. Now acute CHF. Cover for Int Richar- . Await interrogation of defibrillator. Objective Last Vital Signs Date Time Temp Pulse Resp B/P Pulse Ox O2 Delivery O2 Flow Rate FiO2 01/15/17 12:00 97.3 80 20 147/70 99 Room Air 01/15/17 07:49 2.0 01/15/17 07:49 28 Laboratory Tests Test 01/14/17 16:25 01/15/17 08:40 Troponin I < 0.30 ng/mL (<=0.30) White Blood Count 9.4 K/UL (4.8-10.8) Red Blood Count 4.26 M/UL (4.70-6.10) L Hemoglobin 13.2 G/DL (14.2-18.0) L Hematocrit 40.3 % (42.0-52.0) L Mean Corpuscular Volume 95 FL (80-99) Mean Corpuscular Hemoglobin 31.0 PG (27.0-31.0) Mean Corpuscular Hemoglobin Concent 32.7 G/DL (32.0-36.0) Red Cell Distribution Width 14.4 % (11.6-14.8) Platelet Count 285 K/UL (150-450) Mean Platelet Volume 6.1 FL (6.5-10.1) L Neutrophils (%) (Auto) 70.0 % (45.0-75.0) Lymphocytes (%) (Auto) 18.4 % (20.0-45.0) L Monocytes (%) (Auto) 6.1 % (1.0-10.0) Eosinophils (%) (Auto) 4.3 % (0.0-3.0) H Basophils (%) (Auto) 1.1 % (0.0-2.0) Sodium Level 133 mEQ/L (135-145) L Potassium Level 3.9 mEQ/L (3.4-4.9) Chloride Level 90 mEQ/L (98-107) L Carbon Dioxide Level 33 mEQ/L (20-30) H Anion Gap 10 (5-15) Blood Urea Nitrogen 23 mg/dL (7-23) Creatinine 1.2 mg/dL (0.7-1.2) Estimat Glomerular Filtration Rate > 60 mL/min (>60) Glucose Level 316 mg/dL (74-106) H Calcium Level 8.2 mg/dL (8.6-10.2) L Pro-B-Type Natriuretic Peptide 431 pg/mL (0-125) H Free Thyroxine 1.39 ng/dL (0.86-1.85) Intake and Output 01/14/17 01/15/17 19:00 07:00 Intake Total 480 ml 300 ml Output Total 2100 ml 850 ml Balance -1620 ml -550 ml Intake Oral 480 ml 300 ml Output Urine Total 2100 ml 850 ml # Voids 3 Objective General Appearance: no apparent distress, obese EENT: PERRL/EOMI, normal ENT inspection Neck: non-tender, normal alignment, supple Cardiovascular: normal peripheral pulses, normal rate, regular rhythm, no gallop/murmur, no JVD Respiratory/Chest: chest wall non-tender, no accessory muscle use, respiratory distress, crackles/rales, rhonchi - bilaterally, expiratory wheezing Abdomen: normal bowel sounds, non tender, soft, no organomegaly, no mass Extremities: normal range of motion Neurologic: housing counselor II-XII grossly normal, no motor/sensory deficits Skin: normal pigmentation, warm/dry Assessment/Plan Problem List: (1) Shortness of breath Assessment & Plan: Due to CHF. See pulmonary note. (2) Cough (3) HTN (hypertension) Assessment & Plan: Continue lisinopril and coreg. (4) GERD (gastroesophageal reflux disease) (5) Diabetic neuropathy (6) Diabetic nephropathy (7) Sick sinus syndrome Assessment & Plan: See cardiology note. Await interrogation on defibrillator (8) Renal failure Assessment & Plan: See nephrology note. (9) Acute exacerbation of CHF (congestive heart failure) (10) Atrial fibrillation with RVR Assessment & Plan: Continue amiodarone and digoxin. See cardiology consult. (11) Diabetes mellitus type II, uncontrolled Assessment & Plan: Cont levemir and novolog sliding scale. Status: not improved GARRY CANTU Jan 15, 2017 14:44
[2017-01-15] MEDS: Tamsulosin 0.4mg cap ORAL SCH (21:02)
[2017-01-16] VITALS (7 sets, daily range): BP systolic 101–123; BP diastolic 53–70
[2017-01-16] MEDS: Piperacillin/Tazobactam 3.375 GM in D5W 110 ML IVPB SCH ×3 (06:05→22:00)
[2017-01-16] MEDS: Miralax 17gm pkt ORAL PRN (06:06)
[2017-01-16] MEDS: NovoLOG Insulin Flexpen SUBQ SCH ×4 (06:21→20:59)
[2017-01-16] MEDS ORDERED: sitaGLIPtin 50mg tab ORAL SCH (06:30)
[2017-01-16 07:49] LABS: BASOPHILS % (AUTO) 1.1 % (0.0-2.0); EOSINOPHILS % (AUTO) 4.7 % (0.0-3.0); LYMPHOCYTES % (AUTO) 14.2 % (20.0-45.0); MEAN CORPUSCULAR HEMOGLOBIN 30.7 PG (27.0-31.0); MEAN CORPUSCULAR HGB CONC 32.4 G/DL (32.0-36.0); MEAN CORPUSCULAR VOLUME 95 FL (80-99); MEAN PLATELET VOLUME 5.7 FL (6.5-10.1); MONOCYTES % (AUTO) 5.5 % (1.0-10.0); NEUTROPHILS % (AUTO) 74.3 % (45.0-75.0); PLATELET COUNT 270 K/UL (150-450); RED BLOOD COUNT 4.24 M/UL (4.70-6.10); RED CELL DISTRIBUTION WIDTH 14.2 % (11.6-14.8); WHITE BLOOD COUNT 9.9 K/UL (4.8-10.8)
[2017-01-16 08:11] LABS: ALBUMIN/GLOBULIN RATIO 1.2 (1.0-2.7); CALCIUM 8.5 mg/dL (8.6-10.2); CREATININE 1.3 mg/dL (0.7-1.2); GLOMERULAR FILTRATION RATE 55.6 mL/min (>60); MAGNESIUM 2.2 mg/dL (1.7-2.5); PHOSPHORUS 4.1 mg/dL (2.5-4.8); POTASSIUM 4.1 mEQ/L (3.4-4.9); TOTAL PROTEIN 6.7 g/dL (6.6-8.7); URIC ACID 7.6 mg/dL (3.0-7.5)
[2017-01-16] MEDS: Amiodarone 200mg tab ORAL SCH (08:42)
[2017-01-16] MEDS: Aspirin EC 81mg tab ORAL SCH (08:42)
[2017-01-16] MEDS: Carvedilol 6.25mg Tab ORAL SCH ×2 (08:43→20:46)
[2017-01-16] MEDS: Xarelto 10mg tab ORAL SCH (08:43)
[2017-01-16] MEDS: Lyrica 50mg cap ORAL SCH ×2 (08:44→20:44)
[2017-01-16] MEDS: Levemir Flexpen SUBQ SCH (08:48)
[2017-01-16] MEDS: Lisinopril 2.5mg tab ORAL SCH ×2 (08:49→17:54)
[2017-01-16] MEDS ORDERED: Digoxin 0.125mg tab ORAL SCH (09:00)
--- NOTE | 2017-01-16 10:55 | General Progress Note ---
Assessment/Plan Status: stable - from renal stand Status Narrative Cr 1.3- BS remains high Assessment/Plan Renal impression; Acute renal failure ? superimposed on CRF Multifactorial, mainly CHF , Pacer , DM Primary Impression: Dyspnea Additional Impressions: Non compliance w medication regimen Acute exacerbation of CHF (congestive heart failure) Hyperglycemia Obesity MERRY Plan: up the levemir dose Levemir for high sugar and adjust dose Optimize cardiac and pulmonary status Monitor renal parameters- Avoid Nephrotoxics Down on lasix and up on Lisinopril per orders Subjective ROS Limited/Unobtainable: No Constitutional: Reports: malaise, weakness Allergies: Coded Allergies: No Known Allergies (Unverified , 02/26/14) Objective Last 24 Hour Vital Signs Date Time Temp Pulse Resp B/P Pulse Ox O2 Delivery O2 Flow Rate FiO2 01/16/17 09:30 80 01/16/17 08:49 104/55 01/16/17 08:43 80 104/55 01/16/17 07:43 96.4 80 20 104/55 98 Room Air 01/16/17 06:58 99 Nasal Cannula 2.0 01/16/17 06:58 Nasal Cannula 2.0 01/16/17 06:58 80 18 Nasal Cannula 2.0 01/16/17 04:00 97.7 19 123/67 93 Room Air 01/16/17 04:00 80 01/16/17 00:00 97.9 80 19 101/70 98 Nasal Cannula 2.0 01/16/17 00:00 80 01/15/17 21:00 81 106/60 01/15/17 20:00 80 01/15/17 20:00 97.7 80 19 106/60 99 Nasal Cannula 2.0 01/15/17 19:00 98 Nasal Cannula 2.0 28 01/15/17 19:00 Nasal Cannula 2.0 01/15/17 19:00 79 18 Nasal Cannula 2.0 01/15/17 18:10 82 97/66 01/15/17 18:00 97/66 01/15/17 16:00 97.7 85 20 94/74 98 Simple Mask 01/15/17 15:50 80 01/15/17 12:00 97.3 80 20 147/70 99 Room Air 01/15/17 11:54 80 Intake and Output 01/15/17 01/16/17 19:00 07:00 Intake Total 110.0 ml Output Total 880 ml 275 ml Balance -770.0 ml -275 ml IV Total 110.0 ml Output Urine Total 880 ml 275 ml # Voids 2 Laboratory Tests 01/16/17 07:25: White Blood Count 9.9, Red Blood Count 4.24L, Hemoglobin 13.0L, Hematocrit 40.2L , Mean Corpuscular Volume 95, Mean Corpuscular Hemoglobin 30.7, Mean Corpuscular Hemoglobin Concent 32.4, Red Cell Distribution Width 14.2, Platelet Count 270, Mean Platelet Volume 5.7L, Neutrophils (%) (Auto) 74.3, Lymphocytes ( %) (Auto) 14.2L, Monocytes (%) (Auto) 5.5, Eosinophils (%) (Auto) 4.7H, Basophils (%) (Auto) 1.1, Sodium Level 136, Potassium Level 4.1, Chloride Level 93L, Carbon Dioxide Level 34H, Anion Gap 9, Blood Urea Nitrogen 27H, Creatinine 1.3H, Estimat Glomerular Filtration Rate 55.6, Glucose Level 313H, Uric Acid 7.6H, Calcium Level 8.5L, Phosphorus Level 4.1, Magnesium Level 2.2, Total Bilirubin 0.5, Aspartate Amino Transf (AST/SGOT) 9, Alanine Aminotransferase ( ALT/SGPT) 8, Alkaline Phosphatase 52, C-Reactive Protein, Quantitative 3.0H, Pro -B-Type Natriuretic Peptide 432H, Total Protein 6.7, Albumin 3.7, Globulin 3.0, Albumin/Globulin Ratio 1.2 Height (Feet): 5 Height (Inches): 9.00 Weight (Pounds): 325 General Appearance: no apparent distress Objective no change in PE ZARIA ROTH Jan 16, 2017 10:55
--- NOTE | 2017-01-16 11:24 | Pulmonology Progress Note ---
Assessment/Plan Problems: (1) Acute exacerbation of CHF (congestive heart failure) (2) ANABELA (acute kidney injury) (3) COPD (chronic obstructive pulmonary disease) (4) Bronchitis (5) Diabetic neuropathy (6) Obesity (7) Diabetes mellitus Assessment/Plan zosy day number 2, sputum cleared up sputum for c/s improving respiratory treatment check electrolytes diuresing well dc home Subjective ROS Limited/Unobtainable: No Constitutional: Reports: no symptoms HEENT: Repors: no symptoms Respiratory: Reports: no symptoms Cardiovascular: Reports: no symptoms Gastrointestinal/Abdominal: Reports: no symptoms Allergies: Coded Allergies: No Known Allergies (Unverified , 02/26/14) Objective Last 24 Hour Vital Signs Date Time Temp Pulse Resp B/P Pulse Ox O2 Delivery O2 Flow Rate FiO2 01/16/17 09:30 80 01/16/17 08:49 104/55 01/16/17 08:43 80 104/55 01/16/17 07:43 96.4 80 20 104/55 98 Room Air 01/16/17 06:58 99 Nasal Cannula 2.0 01/16/17 06:58 Nasal Cannula 2.0 01/16/17 06:58 80 18 Nasal Cannula 2.0 01/16/17 04:00 97.7 19 123/67 93 Room Air 01/16/17 04:00 80 01/16/17 00:00 97.9 80 19 101/70 98 Nasal Cannula 2.0 01/16/17 00:00 80 01/15/17 21:00 81 106/60 01/15/17 20:00 80 01/15/17 20:00 97.7 80 19 106/60 99 Nasal Cannula 2.0 01/15/17 19:00 98 Nasal Cannula 2.0 28 01/15/17 19:00 Nasal Cannula 2.0 01/15/17 19:00 79 18 Nasal Cannula 2.0 01/15/17 18:10 82 97/66 01/15/17 18:00 97/66 01/15/17 16:00 97.7 85 20 94/74 98 Simple Mask 01/15/17 15:50 80 01/15/17 12:00 97.3 80 20 147/70 99 Room Air 01/15/17 11:54 80 Intake and Output 01/15/17 01/16/17 19:00 07:00 Intake Total 110.0 ml Output Total 880 ml 275 ml Balance -770.0 ml -275 ml IV Total 110.0 ml Output Urine Total 880 ml 275 ml # Voids 2 Objective General Appearance: WD/WN HEENT: normocephalic Respiratory/Chest: chest wall non-tender, lungs clear Cardiovascular: normal peripheral pulses, normal rate Abdomen: normal bowel sounds, soft, non tender Genitourinary: normal external genitalia Extremities: no cyanosis Skin: no rash Neurologic/Psychiatric: 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 grossly normal Lymphatic: no neck adenopathy Laboratory Tests 01/16/17 07:25: White Blood Count 9.9, Red Blood Count 4.24L, Hemoglobin 13.0L, Hematocrit 40.2L , Mean Corpuscular Volume 95, Mean Corpuscular Hemoglobin 30.7, Mean Corpuscular Hemoglobin Concent 32.4, Red Cell Distribution Width 14.2, Platelet Count 270, Mean Platelet Volume 5.7L, Neutrophils (%) (Auto) 74.3, Lymphocytes ( %) (Auto) 14.2L, Monocytes (%) (Auto) 5.5, Eosinophils (%) (Auto) 4.7H, Basophils (%) (Auto) 1.1, Sodium Level 136, Potassium Level 4.1, Chloride Level 93L, Carbon Dioxide Level 34H, Anion Gap 9, Blood Urea Nitrogen 27H, Creatinine 1.3H, Estimat Glomerular Filtration Rate 55.6, Glucose Level 313H, Uric Acid 7.6H, Calcium Level 8.5L, Phosphorus Level 4.1, Magnesium Level 2.2, Total Bilirubin 0.5, Aspartate Amino Transf (AST/SGOT) 9, Alanine Aminotransferase ( ALT/SGPT) 8, Alkaline Phosphatase 52, C-Reactive Protein, Quantitative 3.0H, Pro -B-Type Natriuretic Peptide 432H, Total Protein 6.7, Albumin 3.7, Globulin 3.0, Albumin/Globulin Ratio 1.2 Current Medications Medications (Trade) Dose Ordered Sig/Antionette Route PRN Reason Start Time Stop Time Status Last Admin Dose Admin Acetaminophen (Tylenol) 650 mg Q4H PRN ORAL Fever 01/12/17 16:15 02/11/17 16:14 Albuterol/ Ipratropium (DuoNeb 0.5-3(2.5)mg/3ml) 3 ml Q4H PRN HHN Shortness of Breath 01/12/17 16:15 01/17/17 16:14 01/14/17 08:02 Amiodarone HCl (Cordarone) 200 mg DAILY ORAL 01/13/17 09:00 02/12/17 08:59 01/16/17 08:42 Aspirin (Ecotrin) 81 mg DAILY ORAL 01/13/17 09:00 02/12/17 08:59 01/16/17 08:42 Carvedilol (Coreg) 6.25 mg EVERY 12 HOURS ORAL 01/12/17 21:00 02/11/17 20:59 01/16/17 08:43 Dextrose (Dextrose 50%) STAT PRN IV Hypoglycemia 01/12/17 16:15 02/11/17 16:14 Digoxin 0.125 mg 0.125 mg DAILY ORAL 01/16/17 09:00 02/15/17 08:59 01/16/17 09:30 Insulin Aspart (NovoLOG) BEFORE MEALS AND HS SUBQ 01/13/17 06:30 02/12/17 06:29 01/16/17 06:21 Insulin Detemir (Levemir) 40 units Q12HR SUBQ 01/16/17 21:00 02/15/17 20:59 Lisinopril (Zestril) 5 mg BID ORAL 01/14/17 18:00 02/13/17 17:59 01/15/17 09:51 Ondansetron HCl (Zofran) 4 mg Q6H PRN IVP Nausea & Vomiting 01/12/17 16:15 02/11/17 16:14 Piperacillin Sod/ Tazobactam Sod/ Dextrose (Zosyn/D5W) 110 ml @ 27.5 mls/hr EVERY 8 HOURS IVPB 01/15/17 14:00 01/20/17 13:59 01/16/17 06:05 Polyethylene Glycol (Miralax) 17 gm DAILYPRN PRN ORAL Constipation 01/12/17 16:15 02/11/17 16:14 01/16/17 06:06 Potassium Chloride (K-Dur) 40 meq DAILY ORAL 01/14/17 11:30 02/13/17 11:29 01/16/17 08:44 Pregabalin (Lyrica) 100 mg EVERY 12 HOURS ORAL 01/12/17 21:00 02/11/17 20:59 01/16/17 08:44 Rivaroxaban (Xarelto) 20 mg DAILY ORAL 01/13/17 09:00 02/12/17 08:59 01/16/17 08:43 Sitagliptin Phosphate (Januvia) 50 mg ACBREAKFAST ORAL 01/16/17 06:30 02/15/17 06:29 01/16/17 06:06 Tamsulosin HCl (Flomax) 0.4 mg BEDTIME ORAL 01/13/17 21:00 02/12/17 20:59 01/15/17 21:02 Temazepam (Restoril) 15 mg HSPRN PRN ORAL Insomnia 01/12/17 16:15 01/19/17 16:14 01/15/17 00:56 MALLIKA LEVY Jan 16, 2017 11:24
--- NOTE | 2017-01-16 15:32 | Cardiac Electrophysiology PN ---
Assessment/Plan Assessment/Plan 1. Status post [facility] [facility] biventricular defibrillator implantation without atrial lead. ICD interrogation showed Battery around 6-8 months. Needs upgrade to adding atrial lead in view of paroxysmal atrial fib.Will schedule as out patient. 2. Paroxysmal atrial fibrillation. Rate controlled as patient had AVN ablation. On amiodarone 200 mg daily and Xarelto 20 daily. Digoxin decreased to 0.125 daily for AMIODARONE INTERACTION. 3. Status post atrioventricular node ablation. 4. Exacerbation of of congestive heart failure. Continue Lasix 40 mg b.i.d., lisinopril 5 mg b.i.d., Digoxin 0.125 mg daily, and Coreg 6.25 mg b.i.d. 5. Diabetes. 6. Morbid obesity. Subjective Subjective Feeling better. ICD interrogation showed Battery life around 8 months. Objective Last 24 Hour Vital Signs Date Time Temp Pulse Resp B/P Pulse Ox O2 Delivery O2 Flow Rate FiO2 01/16/17 12:00 80 01/16/17 11:29 96.6 83 20 106/57 98 Nasal Cannula 2.0 01/16/17 09:30 80 01/16/17 08:49 104/55 01/16/17 08:43 80 104/55 01/16/17 08:00 82 01/16/17 07:43 96.4 80 20 104/55 98 Room Air 01/16/17 06:58 99 Nasal Cannula 2.0 01/16/17 06:58 Nasal Cannula 2.0 01/16/17 06:58 80 18 Nasal Cannula 2.0 01/16/17 04:00 97.7 19 123/67 93 Room Air 01/16/17 04:00 80 01/16/17 00:00 97.9 80 19 101/70 98 Nasal Cannula 2.0 01/16/17 00:00 80 01/15/17 21:00 81 106/60 01/15/17 20:00 80 01/15/17 20:00 97.7 80 19 106/60 99 Nasal Cannula 2.0 01/15/17 19:00 98 Nasal Cannula 2.0 28 01/15/17 19:00 Nasal Cannula 2.0 01/15/17 19:00 79 18 Nasal Cannula 2.0 01/15/17 18:10 82 97/66 01/15/17 18:00 97/66 01/15/17 16:00 97.7 85 20 94/74 98 Simple Mask 01/15/17 15:50 80 Intake and Output 01/15/17 01/16/17 19:00 07:00 Intake Total 110.0 ml Output Total 880 ml 275 ml Balance -770.0 ml -275 ml IV Total 110.0 ml Output Urine Total 880 ml 275 ml # Voids 2 Laboratory Tests Test 01/16/17 07:25 White Blood Count 9.9 K/UL (4.8-10.8) Red Blood Count 4.24 M/UL (4.70-6.10) L Hemoglobin 13.0 G/DL (14.2-18.0) L Hematocrit 40.2 % (42.0-52.0) L Mean Corpuscular Volume 95 FL (80-99) Mean Corpuscular Hemoglobin 30.7 PG (27.0-31.0) Mean Corpuscular Hemoglobin Concent 32.4 G/DL (32.0-36.0) Red Cell Distribution Width 14.2 % (11.6-14.8) Platelet Count 270 K/UL (150-450) Mean Platelet Volume 5.7 FL (6.5-10.1) L Neutrophils (%) (Auto) 74.3 % (45.0-75.0) Lymphocytes (%) (Auto) 14.2 % (20.0-45.0) L Monocytes (%) (Auto) 5.5 % (1.0-10.0) Eosinophils (%) (Auto) 4.7 % (0.0-3.0) H Basophils (%) (Auto) 1.1 % (0.0-2.0) Sodium Level 136 mEQ/L (135-145) Potassium Level 4.1 mEQ/L (3.4-4.9) Chloride Level 93 mEQ/L (98-107) L Carbon Dioxide Level 34 mEQ/L (20-30) H Anion Gap 9 (5-15) Blood Urea Nitrogen 27 mg/dL (7-23) H Creatinine 1.3 mg/dL (0.7-1.2) H Estimat Glomerular Filtration Rate 55.6 mL/min (>60) Glucose Level 313 mg/dL (74-106) H Uric Acid 7.6 mg/dL (3.0-7.5) H Calcium Level 8.5 mg/dL (8.6-10.2) L Phosphorus Level 4.1 mg/dL (2.5-4.8) Magnesium Level 2.2 mg/dL (1.7-2.5) Total Bilirubin 0.5 mg/dL (0.0-1.2) Aspartate Amino Transf (AST/SGOT) 9 U/L (5-40) Alanine Aminotransferase (ALT/SGPT) 8 U/L (3-41) Alkaline Phosphatase 52 U/L (40-129) C-Reactive Protein, Quantitative 3.0 mg/dL (< 0.5) H Pro-B-Type Natriuretic Peptide 432 pg/mL (0-125) H Total Protein 6.7 g/dL (6.6-8.7) Albumin 3.7 g/dL (3.5-5.2) Globulin 3.0 g/dL Albumin/Globulin Ratio 1.2 (1.0-2.7) Objective HEAD AND NECK: Shows mild JVD. LUNGS: Decreased breath sounds. CARDIOVASCULAR: Irregular rhythm.2/6 SM LSB. ICD left subclavian ABDOMEN: Soft. EXTREMITIES: 1+ pitting edema. RACHEL PANIAGUA Jan 16, 2017 15:32
[2017-01-16] MEDS ORDERED: Tubing IV Secondary IV ONE (16:24)
[2017-01-16] MEDS ORDERED: NS 275ml ONE (16:24)
[2017-01-16] MEDS ORDERED: D5 1/2NS 1000ml IV ONE (16:24)
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
[2017-01-16] MEDS: Tamsulosin 0.4mg cap ORAL SCH (20:44)
[2017-01-16] MEDS ORDERED: Levemir Flexpen SUBQ SCH (21:00)
[2017-01-17] MEDS ORDERED: LANOXIN250 MCG ORAL (10:01)
--- NOTE | 2017-01-17 10:16 | Discharge Summary ---
Discharge Summary Hospital Course Date of Admission Jan 12, 2017 at 15:57 Date of Discharge Jan 16, 2017 at 23:45 Admitting Diagnosis SOB HPI Dillon Kumar is a 66 year old male who was admitted on Jan 12, 2017 at 15: 57 for Shortness Of Breath Hospital Course dc summary #[id number] Discharge Medications Changed Medications: Digoxin* (Lanoxin*) 0.25 Mg Tab 0.125 MG ORAL DAILY, #30 TAB (Changed from: 0.25 MG) Continued Medications: Amiodarone Hcl* (Cordarone*) 200 Mg Tablet 200 MG ORAL DAILY, #30 TAB Amlodipine Besylate* (Amlodipine Besylate*) 5 Mg Tablet 5 MG ORAL TWICE A DAY, TAB Aspirin* (Aspir 81*) 81 Mg Tablet.dr 81 MG ORAL DAILY, TAB Canagliflozin (Invokana) 100 Mg Tablet 100 MG PO DAILY, TAB Carvedilol* (Carvedilol*) 6.25 Mg Tablet 6.25 MG ORAL EVERY 12 HOURS Furosemide* (Lasix*) 40 Mg Tablet 40 MG ORAL BID, TAB Insulin Aspart (Novolog Flexpen) 100 Units/Ml Pen 0 UNITS SUBQ BEFORE MEALS AND HS, #1 EA Insulin Detemir (Levemir Flexpen) 100 Units/Ml Pen 15 UNITS SUBQ BID, #10 EA Pregabalin (Lyrica) 100 Mg Capsule 100 MG ORAL BID Rivaroxaban (Xarelto) 20 Mg Tablet 20 MG ORAL EVERY OTHER DAY Sitagliptin (Januvia) 100 Mg Tablet 100 MG ORAL DAILY Discharge Condition Upon Discharge: stable Discharge Disposition Patient was discharged to Home (01) Discharge Diagnoses: Discharge Instructions Discharge Instructions Special Instructions I have been assigned to complete a D/C Summary on this account. I was not involved in the patient management Roxy Varela NP (Vanchtein) Jan 17, 2017 10:16
--- NOTE | 2017-01-17 13:32 | Discharge Summary 2 SIG ---
DATE OF ADMISSION: 01/12/2017 DATE OF DISCHARGE: 01/16/2017 REASON FOR ADMISSION: 66-year-old male with past medical history significant for diabetes mellitus, hypertension, paroxysmal atrial fibrillation, congestive heart failure, morbid obesity, and chronic obstructive pulmonary disease, presented to emergency room complaining of two weeks of subjective dyspnea associated with cough and substernal nonradiating chest pain with burning of his feet and painful ambulation. The patient stated he was unable to see his primary medical doctor, Dr. Calvillo. The patient stated he was noncompliant with medications for few weeks. He demonstrated significant polypharmacy with the plastic bag with 20+ empty bottles of prescribed medications. Workup in the emergency room revealed that vital signs were stable. Pulse oximetry was stable on room air. Afebrile. Normotensive. EKG with ventricular pacing. The patient with defibrillator. Chest x-ray revealed cardiomegaly, mild CHF. No obvious pneumonia. Pro BNP 909. Lasix x1 given. Noted leukocytosis -12.5. Hemoglobin and hematocrit stable. BUN -15 and creatinine -1.4, likely acute kidney injury on possible chronic kidney disease. The patient noted to have hyperglycemia. Blood sugar- 420, given IV insulin. The patient was admitted for further management. ADMITTING DIAGNOSES: 1. Dyspnea. 2. Acute congestive heart failure. 3. Acute kidney injury on chronic kidney disease. 4. Obesity hypoventilation syndrome. 5.Diabetic neuropathy. 6. Paroxysmal atrial fibrillation 7. Hyperglycemia. 8. Diabetes mellitus, out of control. 9. Chronic obstructive pulmonary disease. 10. Hypertension. 11. Morbid obesity. HOSPITAL STAY: The patient admitted to telemetry floor. The patient started on diuretic. Renal parameters, electrolytes, intake and output were closely monitored. Supplemental oxygen and pulmonary toilet provided as needed. Prior to discharge, pulse oximetry stable on room air. Cardiology and Pulmonary consults were requested. Echocardiogram revealed ejection fraction of 50% to 55%, mild left ventricular hypertrophy, moderate mitral regurgitation and right ventricular systolic pressure of 18. Serial troponin x 3 negative. ECG revealed no acute ischemic changes, therefore the patient was ruled out for acute CO. Mechanical Fitter seen and evaluated the patient. According to form setter, the patient has a [place] biventricular defibrillator implantation without atrial lead. AICD interrogation was arranged and it revealed battery life around 6 to 8 months. The patient will need upgrade to getting atrial lead in view of paroxysmal atrial fibrillation. The patient will be scheduled as an outpatient by form setter. The patient had evidence of paroxysmal atrial fibrillation, rate was controlled. The patient status post atrioventricular node ablation. The patient was on amiodarone and beta julieta. Anticoagulation with Xarelto, and to be continued. Digoxin dose was decreased due to amiodarone interaction. Medical management of congestive heart failure was continued with beta-julieta , digoxin, KIKO inhibitor, and diuretic along with amiodarone. Blood pressure was managed with calcium channel julieta, KIKO inhibitor and beta-julieta along with diuretic, and was stable. Aspirin was continued Blood sugar was managed with sliding scale of insulin along with long-acting Levemir. Hemoglobin A1c was 10, not at goal The patient needs optimization of blood glucose as an outpatient. The patient was on Levemir, added Invokana, and Januvia and endorsed to the patient to follow up with the primary doctor next week for further optimization of blood sugar. The patient started on Lyrica for diabetic neuropathy. TSH was within normal limits. Lipid panel was stable except triglycerides -above 184. The patient was instructed on diabetic, low-fat, low-cholesterol diet. Raw Products Director followed. Per inner tube cutter, the patient had acute renal failure superimposed on chronic renal failure, multifactorial mainly due to congestive heart failure, also possibly due to hypertension and diabetes. Cardiac and pulmonary status was optimized. Creatinine down to 1.3. Lasix dose decreased. Lisinopril up titrate, nephrotoxics were avoided. The patient was stable for discharge back home. Follow up with the primary medical doctor. Reinforce compliance with medication. DISCHARGE DIAGNOSES: 1. Acute congestive heart failure exacerbation. 2. Obesity hypoventilation syndrome. 3. Acute renal failure on chronic kidney disease. 4. Hyperglycemia. 5. Diabetes mellitus, out of control. 6. Hypertension. 7. Morbid obesity. 8. Diabetic neuropathy. 9. Chronic obstructive pulmonary disease. 10. Bronchitis. 11. [place] biventricular automatic implanted cardioverter defibrillator. 12. Paroxysmal atrial fibrillation, status post atrioventricular node ablation. 13. Noncompliance. DISCHARGE MEDICATIONS: See medication reconciliation list. DISCHARGE INSTRUCTIONS: The patient discharged home. Follow up with the primary medical doctor next week. The patient needs close observation and management of cardiopulmonary status and optimization of anti glycemic regimen, The patient to follow up with the form setter for outpatient upgrade of AICD. Alek Lazaro M.D. I have been assigned to dictate discharge summary on this account and I was not involved in the patient's management. Roxy Varela N.P. (Vanchtein) DR: LUCIA JOB#: [id number] CC: RENE
== END 2017-01-16 23:45 | disposition home or self-care (01) | DRG 292 ==
LOC: EMR 15:40 → 2E 15:57 → EDBEDREQ 16:18 → 2E 20:36
DX: I13.0 Hypertensive heart and chronic kidney disease with heart failure and stage 1 through stage 4 chronic kidney disease, or unspecified chronic kidney disease (principal); N17.9 Acute kidney failure, unspecified; E11.42 Type 2 diabetes mellitus with diabetic polyneuropathy; E11.21 Type 2 diabetes mellitus with diabetic nephropathy; I42.9 Cardiomyopathy, unspecified; Z68.42 Body mass index [BMI] 45.0-49.9, adult; E66.2 Morbid (severe) obesity with alveolar hypoventilation; J44.9 Chronic obstructive pulmonary disease, unspecified; Z95.0 Presence of cardiac pacemaker; I48.0 Paroxysmal atrial fibrillation; I50.9 Heart failure, unspecified; N18.9 Chronic kidney disease, unspecified; E11.22 Type 2 diabetes mellitus with diabetic chronic kidney disease; E11.65 Type 2 diabetes mellitus with hyperglycemia; K21.9 Gastro-esophageal reflux disease without esophagitis; Z91.14 Patient's other noncompliance with medication regimen; G47.33 Obstructive sleep apnea (adult) (pediatric)
CPT/HCPCS: 36415; 71010; 80048; 80053; 80061; 80069; 80162; 81001; 82533; 82550; 82553; 82607; 82728; 82746; 82962; 82977; 83036; 83540; 83550; 83735; 83880; 84100; 84439; 84443; 84484; 84550; 85025; 85610; 86140; 93005; 93306; 93970; 94640; 94664; 94760; J1815; J7620; J8499; S5561

== ENCOUNTER 2019-02-23 23:26 | Inpatient (IN) | payer MEDICARE, OTHER ==
[~2019-02-23] VITALS: Ht 175.3 cm; Wt 119.7 kg
[~2019-02-23 23:26] MED LIST changes: +AMITIZA24 MCG ORAL; +AMLODIPINE BESYL5 MG ORAL; +ASPIR 8181 MG ORAL; +CARVEDILOL6.25 MG ORAL; +JANUVIA PO; +JANUVIA100 MG ORAL; +LANTUS5 UNITS SUBQ; +LEVOFLOXACIN250 MG ORAL; +LYRICA100 MG ORAL; +METOLAZONE5 MG PO; +PANTOPRAZOLE SO40 MG ORAL; +POTASSIUM CHLO10 MEQ ORAL; +PREDNISONE20 MG ORAL; +SIMVASTATIN10 MG ORAL; +XARELTO20 MG ORAL
[2019-02-23 23:40] VITALS: BP 171/99
[2019-02-23] MEDS ORDERED: Ipratropium 0.02% Inh Soln 2.5ml UD HHN ONE (23:45)
[2019-02-23] MEDS ORDERED: Morphine Sulfate 4mg/ml Inj (IV USE ONLY) IVP ONE (23:45)
[2019-02-23] MEDS ORDERED: Albuterol ud Inhalation HHN ONE (23:45)
[2019-02-23] MEDS ORDERED: Solu-MEDROL 125mg Inj IVP ONE (23:45)
--- NOTE | 2019-02-23 23:45 | NUR ---
ED Nurse Note: Patient walked in to ER from home due to CP, SOB. Stated that is here to visit his childrens. AAO x4, VSS at this time, skin is very dry, has scratches all over upper extremities. Patient presented with sinus rythm, O2 sat 95 % on RA.
--- NOTE | 2019-02-23 23:50 | Emergency Room Report ---
History of Present Illness General Chief Complaint: Upper Respiratory Illness Source: Patient Present Illness HPI The patient presents with several complaints. He is visiting his children and is away from his inhalers. He has chest pain and shortness of breath. The pain is substernal and pressure and worse with exertion. He also has been wheezing. He is having difficulty expectorating and the phlegm is being caught in his throat. He takes prednisone 20 mg and also Lasix. He is also taking a blood thinner Xarelto. The patient never smoked. He was exposed to acid with his work. This is not his worst attack. He rates the chest pain as 7/10, aching and somewhat pressure anterior more left-sided. The patient also complains about swelling and pain in his ankles. He states he has diabetes and has neuropathy. Patient is controlled with insulin. He also complaining about a migraine. He denies any vomiting but does have some mild nausea. He states that migraine is 10/10 pressure throbbing diffuse through his head. Constant. There is no change in his stool and he denies dysuria. He has scratches on his forearms from puppies. He is unsure of when his last tetanus vaccination was. 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 [place] Reviewed Nursing Documentation: PMH: Agreed; PSxH: Agreed Nursing Documentation-PMH Hx Cardiac Problems: Yes - CHF Hx Hypertension: Yes Hx Pacemaker: Yes - defib Hx Asthma: Yes Hx COPD: Yes Hx Diabetes: Yes Hx Cancer: No Hx Gastrointestinal Problems: Yes Hx Neurological Problems: No Hx Peripheral Neuropathy: Yes Hx Tremors: Yes Hx Numbness: Yes - BILAT FEET Review of Systems All Other Systems: negative except mentioned in HPI Physical Exam Vital Signs Date Time Temp Pulse Resp B/P (MAP) Pulse Ox O2 Delivery O2 Flow Rate FiO2 02/23/19 23:28 97.9 80 16 171/99 (123) 91 Room Air Sp02 EP Interpretation: reviewed, normal General Appearance: no apparent distress, GCS 15, non-toxic, obese, Chronically Ill Head: normocephalic, atraumatic Eyes: bilateral eye normal inspection, bilateral eye PERRL, bilateral eye EOMI ENT: moist mucus membranes Neck: supple Respiratory: decreased breath sounds, wheezing, expiration, other - Pacemaker Cardiovascular #1: regular rate, rhythm, edema - Plus bilaterally Cardiovascular #2: 2+ radial (L) Gastrointestinal: normal inspection, normal bowel sounds, non tender, no mass, non-distended, overweight Musculoskeletal: back normal, gait/station normal - Slow, normal range of motion, no calf tenderness, North's Sign negative Neurologic: alert, oriented x3, grossly normal Psychiatric: mood/affect normal Skin: abrasion - Right forearm Medical Decision Making Diagnostic Impression: Primary Impression: Pneumonia Qualified Codes: J18.1 - Lobar pneumonia, unspecified organism Additional Impressions: COPD exacerbation Hyperglycemia Hypokalemia ER Course Patient presents with chest pain shortness of breath headache with history of COPD. Differential includes pneumonia, acute myocardial infarction, COPD exacerbation, congestive heart failure amongst others. The patient is supposedly taking Xarelto and therefore pulmonary embolus is less likely. Evaluation will be with EKG, chest x-ray and labs. The patient will be treated with Solu-Medrol or breathing treatments, Lasix and Zofran with morphine. EKG with rate of 83 paced rhythm no acute injury seen. CXR increased RLL lindsay. Leukocytosis. Hyperglycemia. Potassium 3.0. Due to leukocytosis and CXR - antibiotics started. Improved with treatment but still needing further IV treatment and observation.. Admit telemetry Dr. Calvillo. Laboratory Tests Test 02/24/19 00:40 02/24/19 00:58 Urine Color Yellow Urine Appearance Clear Urine pH 5 (4.5-8.0) Urine Specific [place] 1.020 (1.005-1.035) Urine Protein 2+ (NEGATIVE) H Urine Glucose (UA) Negative (NEGATIVE) Urine Ketones Negative (NEGATIVE) Urine Blood Negative (NEGATIVE) Urine Nitrite Negative (NEGATIVE) Urine Bilirubin Negative (NEGATIVE) Urine Urobilinogen 1 MG/DL (0.0-1.0) H Urine Leukocyte Esterase 1+ (NEGATIVE) H Urine RBC 0-2 /HPF (0 - 0) H Urine WBC 2-4 /HPF (0 - 0) Urine Squamous Epithelial Cells Occasional /LPF Urine Bacteria Occasional /HPF (NONE) Urine Hyaline Casts 0-2 /LPF (NONE) H White Blood Count 13.8 K/UL (4.8-10.8) H Red Blood Count 4.86 M/UL (4.70-6.10) Hemoglobin 14.6 G/DL (14.2-18.0) Hematocrit 43.7 % (42.0-52.0) Mean Corpuscular Volume 90 FL (80-99) Mean Corpuscular Hemoglobin 30.0 PG (27.0-31.0) Mean Corpuscular Hemoglobin Concent 33.4 G/DL (32.0-36.0) Red Cell Distribution Width 13.4 % (11.6-14.8) Platelet Count 312 K/UL (150-450) Mean Platelet Volume 5.7 FL (6.5-10.1) L Neutrophils (%) (Auto) 73.1 % (45.0-75.0) Lymphocytes (%) (Auto) 17.9 % (20.0-45.0) L Monocytes (%) (Auto) 5.7 % (1.0-10.0) Eosinophils (%) (Auto) 2.5 % (0.0-3.0) Basophils (%) (Auto) 0.9 % (0.0-2.0) Prothrombin Time 12.0 SEC (9.30-11.50) H Prothrombin Time INR 1.1 (0.9-1.1) PTT 25 SEC (23-33) Sodium Level 143 MMOL/L (136-145) Potassium Level 3.0 MMOL/L (3.5-5.1) L Chloride Level 105 MMOL/L (98-107) Carbon Dioxide Level 28 MMOL/L (21-32) Anion Gap 10 mmol/L (5-15) Blood Urea Nitrogen 14 mg/dL (7-18) Creatinine 1.2 MG/DL (0.55-1.30) Estimate Glomerular Filtration Rate > 60 mL/min (>60) Glucose Level 318 MG/DL (74-106) H Lactic Acid Level 1.50 mmol/L (0.4-2.0) Calcium Level 9.2 MG/DL (8.5-10.1) Total Bilirubin 0.6 MG/DL (0.2-1.0) Aspartate Amino Transferase (AST) 12 U/L (15-37) L Alanine Aminotransferase (ALT) 11 U/L (12-78) L Alkaline Phosphatase 73 U/L (46-116) Total Creatine Kinase 39 U/L (26-308) Troponin I 0.024 ng/mL (0.000-0.056) Pro-B-Type Natriuretic Peptide 2001 pg/mL (0-125) H Total Protein 7.1 G/DL (6.4-8.2) Albumin 3.4 G/DL (3.4-5.0) Globulin 3.7 g/dL Albumin/Globulin Ratio 0.9 (1.0-2.7) L Lipase 74 U/L (73-393) EKG Diagnostic Results Rate: normal Rhythm: other - Paced ST Segments: no acute changes - Right bundle branch block left axis deviation Rhythm Strip Diag. Results EP Interpretation: yes Rhythm: no PVC's, no ectopy, other - Paced Chest X-Ray Diagnostic Results Chest X-Ray Diagnostic Results : Chest X-Ray Ordered: Yes # of Views/Limited/Complete: 1 View Indication: Other EP Interpretation: Yes Interpretation: no effusion, no pneumothorax, other - CHF and RLL infiltrate , pacer Impression: Other Electronically Signed by: Electronically signed by Devin Mijares MD Last Vital Signs Date Time Temp Pulse Resp B/P (MAP) Pulse Ox O2 Delivery O2 Flow Rate FiO2 02/24/19 08:50 96.3 80 23 130/70 (90) 93 02/24/19 04:10 Nasal Cannula 2.0 02/24/19 02:30 21 Status: improved Disposition: ADMITTED INPATIENT Condition: Serious Devin Mijares MD Feb 23, 2019 23:49
[2019-02-24 01:11] LABS: BASOPHILS % (AUTO) 0.9 % (0.0-2.0); EOSINOPHILS % (AUTO) 2.5 % (0.0-3.0); HEMATOCRIT 43.7 % (42.0-52.0); HEMOGLOBIN 14.6 G/DL (14.2-18.0); LYMPHOCYTES % (AUTO) 17.9 % (20.0-45.0); MEAN CORPUSCULAR VOLUME 90 FL (80-99); MONOCYTES % (AUTO) 5.7 % (1.0-10.0); NEUTROPHILS % (AUTO) 73.1 % (45.0-75.0); PLATELET COUNT 312 K/UL (150-450); RED BLOOD COUNT 4.86 M/UL (4.70-6.10); RED CELL DISTRIBUTION WIDTH 13.4 % (11.6-14.8); WHITE BLOOD COUNT 13.8 K/UL (4.8-10.8)
[2019-02-24 01:12] LABS: APPEARANCE,URINE CLEAR; BILIRUBIN, URINE NEGATIVE (NEGATIVE); GLUCOSE, URINE (UA) NEGATIVE (NEGATIVE); KETONES,URINE NEGATIVE (NEGATIVE); LEUKOCYTE ESTERASE ,URINE 1+ (NEGATIVE); NITRITE,URINE NEGATIVE (NEGATIVE); PH,URINE 5 (4.5-8.0); PROTEIN,URINE 2+ (NEGATIVE); UROBILINOGEN,URINE 1 MG/DL (0.0-1.0)
[2019-02-24 01:20] LABS: INR 1.1 (0.9-1.1)
[2019-02-24 01:23] LABS: COLOR,URINE YELLOW
[2019-02-24 01:28] LABS: ANION GAP 10 mmol/L (5-15); BLOOD UREA NITROGEN 14 mg/dL (7-18); CALCIUM 9.2 MG/DL (8.5-10.1); CARBON DIOXIDE 28 MMOL/L (21-32); CHLORIDE 105 MMOL/L (98-107); CREATININE 1.2 MG/DL (0.55-1.30); SODIUM 143 MMOL/L (136-145)
[2019-02-24] MEDS ORDERED: Piperacillin/Tazobactam 3.375 GM in NS 110 ML IVPB ONE (01:30)
[2019-02-24 01:39] LABS: ALANINE AMINOTRANSFERASE 11 U/L (12-78); ALBUMIN 3.4 G/DL (3.4-5.0); ALBUMIN/GLOBULIN RATIO 0.9 (1.0-2.7); ALKALINE PHOSPHATASE 73 U/L (46-116); ASPARTATE AMINO TRANSFERASE 12 U/L (15-37); BILIRUBIN,TOTAL 0.6 MG/DL (0.2-1.0); CREATINE KINASE 39 U/L (26-308)
--- NOTE | 2019-02-24 02:24 | Diagnostic Imaging Report ---
EXAM: XR Chest, 1 View CLINICAL HISTORY: CP TECHNIQUE: Frontal view of the chest. COMPARISON: Report of chest radiograph from 01/13/17. Its image is not available FINDINGS: Lungs: Mild diffuse airspace opacity throughout both lungs. Pleural space: Cannot rule out small bilateral pleural effusions, especially on the right. No pneumothorax. Heart: Cardiomegaly. Cannot rule out pericardial effusion. Mediastinum: Unremarkable. Bones/joints: Unremarkable. Tubes, lines and devices: Left pacer is again noted. IMPRESSION: Moderate CHF Cannot rule out small bilateral pleural effusions, especially on the right.
--- NOTE | 2019-02-24 02:30 | NUR ---
ED Nurse Note: Patient was admited to Tele due to SOB,CP,COPD exaserbation. Patient was transfered to the [facility] via gurney, by ACLS protocol with all belongings. AAO x4, VSS at this time, skin is dry warm to vtouch.
[2019-02-24 03:00] VITALS: BP 132/86
--- NOTE | 2019-02-24 03:00 | NUR ---
NURSE NOTES: Pt arrived from ER via gurney. Got report from Katelynn STEWART. Denies any pain. Pt fully alert and able to answer all of my questions. No s/s of distress or discomfort noted. Denies any N/V or dizziness. Pt on 2L O2 nasal cannula sating 96%. VSS T:97.5 HR:80 has a pacemaker R:16 BP:132/86 O2:96% on 2L NC. Pt resting in bed comfortably. Bed in low and locked position, call light within reach, bedside table within reach. Continue to monitor. Paged Dr. Calvillo for orders and about K:3.0. Awaiting orders. Addendum: 02/24/19 at 0653 by Ferdinand Fagan RN Paged Dr. Calvillo numerous times throughout the night after pt admitted on unit but no response. Still awaiting orders. Addendum: 02/24/19 at 0813 by Ferdinand Fagan RN [phone]: Orders given by Dr. Hankins. Orders placed.
[2019-02-24 04:00] VITALS: BP 132/86
--- NOTE | 2019-02-24 07:14 | NUR ---
HAND-OFF: Report given to Tomer STEWART. Endorsed plan of care.
--- NOTE | 2019-02-24 07:15 | NUR ---
NURSE NOTES: RECEIVED BED SIDE REPORT FROM KRISTA COMPACT ASSEMBLER OF NOC SHIFT. RECEIVED PT WITH HOB ELEVATED 45 DEGREE AWAKE AND ALERT ORIENTED X4. PT DENIES CP AT THIS TIME ,USING O2 @ 2L/MINTS VIA N/C O2 SAT 97%.NO IV NOTED .INSERTED A NEW H.L G# 20 ON RT HAND.PT IV SITE INTACT. FULL BODY ASSESSMENT DONE. NO ACUTED DISTRESS NOTED AT THIS TIME. WILL CONT TO MONITOR.
[2019-02-24 08:50] VITALS: BP 130/70
[2019-02-24] MEDS ORDERED: Xarelto 15mg tab ORAL SCH (09:00)
[2019-02-24] MEDS: Lyrica 50mg cap ORAL SCH ×2 (10:07→18:01)
[2019-02-24] MEDS: Aspirin Baby 81mg ORAL SCH (10:08)
[2019-02-24] MEDS: Amitiza 24mcg cap ORAL SCH ×2 (10:08→18:02)
[2019-02-24] MEDS: Digoxin 0.125mg tab ORAL SCH (10:08)
[2019-02-24] MEDS: Amiodarone 200mg tab ORAL SCH (10:08)
[2019-02-24] MEDS: Spironolactone 25mg tab ORAL SCH (10:09)
[2019-02-24] MEDS: Furosemide 40mg tab ORAL SCH ×2 (10:09→18:02)
--- NOTE | 2019-02-24 10:29 | History & Physical ---
History and Physical History & Physicial History and Physical HPI Patient is a 69 year old man presenting with chest pain and shortness of breath. Has a history of CHF, DM and COPD. The pain is substernal and pressure and worse with exertion. He also has been wheezing. He is having difficulty expectorating and the phlegm is being caught in his throat. On anticoagulation with Xarelto. The patient never smoked. 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 The patient also complains about swelling and pain in his ankles. He states he has diabetes and has neuropathy. He also complaining about a migraine. He denies any vomiting, has mild nausea. Has dogs at home and has forearm scratches from them. Allergies: No Known Allergies Patient History Past Medical History: Congestive Heart Failure, Hypertension, Atrial Fibrillation ? (on Xarelto), Pacemaker, Chronic Obstructive Pulmonary Disease, Insulin Dependant Diabetes, Peripheral Neuropathy Past Surgical History: pacemaker All Other Systems: negative except mentioned in HPI Physical Exam Vital Signs Date Time Temp Pulse Resp B/P (MAP) Pulse Ox O2 Delivery O2 Flow Rate FiO2 02/23/19 23:28 97.9 80 16 171/99 (123) 91 Room Air General Appearance: well appearing, no apparent distress, GCS 15, non-toxic, obese Head: normocephalic Eyes: bilateral eye normal inspection, bilateral eye PERRL, bilateral eye EOMI ENT: moist mucus membranes Neck: supple Respiratory: decreased breath sounds, wheezing, expiration, other - Pacemaker Cardiovascular: regular rate, rhythm, normal HS1 and HS2, moderate edema Gastrointestinal: normal inspection, normal bowel sounds, non tender, no mass, non-distended Musculoskeletal: back normal, all limbs, edema, forearm scratches, abrasion right forearm Neurologic: alert, oriented x3, grossly normal Congestive Heart Failure Chest Pain Chronic Obstructive Pulmonary Disease with exaccerbation Possible RLL Pneumonia Hypertension Possible previous Atrial Fibrillation ? (on Xarelto) Pacemaker Insulin Dependant Diabetes Peripheral Neuropathy Plan IV Antibiotics Continue MANAGER FOOD medications Supplement K Continue Xarelto IV Steroids HHN ISS Maintenance Insulin O2 PRN Swallow evaluation Cardiology Consultation Monitor labs Telemetry Laboratory Tests Test 02/24/19 00:40 02/24/19 00:58 Urine Color Yellow Urine Appearance Clear Urine pH 5 (4.5-8.0) Urine Specific [place] 1.020 (1.005-1.035) Urine Protein 2+ (NEGATIVE) H Urine Glucose (UA) Negative (NEGATIVE) Urine Ketones Negative (NEGATIVE) Urine Blood Negative (NEGATIVE) Urine Nitrite Negative (NEGATIVE) Urine Bilirubin Negative (NEGATIVE) Urine Urobilinogen 1 MG/DL (0.0-1.0) H Urine Leukocyte Esterase 1+ (NEGATIVE) H Urine RBC 0-2 /HPF (0 - 0) H Urine WBC 2-4 /HPF (0 - 0) Urine Squamous Epithelial Cells Occasional /LPF Urine Bacteria Occasional /HPF (NONE) Urine Hyaline Casts 0-2 /LPF (NONE) H White Blood Count 13.8 K/UL (4.8-10.8) H Red Blood Count 4.86 M/UL (4.70-6.10) Hemoglobin 14.6 G/DL (14.2-18.0) Hematocrit 43.7 % (42.0-52.0) Mean Corpuscular Volume 90 FL (80-99) Mean Corpuscular Hemoglobin 30.0 PG (27.0-31.0) Mean Corpuscular Hemoglobin Concent 33.4 G/DL (32.0-36.0) Red Cell Distribution Width 13.4 % (11.6-14.8) Platelet Count 312 K/UL (150-450) Mean Platelet Volume 5.7 FL (6.5-10.1) L Neutrophils (%) (Auto) 73.1 % (45.0-75.0) Lymphocytes (%) (Auto) 17.9 % (20.0-45.0) L Monocytes (%) (Auto) 5.7 % (1.0-10.0) Eosinophils (%) (Auto) 2.5 % (0.0-3.0) Basophils (%) (Auto) 0.9 % (0.0-2.0) Prothrombin Time 12.0 SEC (9.30-11.50) H Prothrombin Time INR 1.1 (0.9-1.1) PTT 25 SEC (23-33) Sodium Level 143 MMOL/L (136-145) Potassium Level 3.0 MMOL/L (3.5-5.1) L Chloride Level 105 MMOL/L (98-107) Carbon Dioxide Level 28 MMOL/L (21-32) Anion Gap 10 mmol/L (5-15) Blood Urea Nitrogen 14 mg/dL (7-18) Creatinine 1.2 MG/DL (0.55-1.30) Estimate Glomerular Filtration Rate > 60 mL/min (>60) Glucose Level 318 MG/DL (74-106) H Lactic Acid Level 1.50 mmol/L (0.4-2.0) Calcium Level 9.2 MG/DL (8.5-10.1) Total Bilirubin 0.6 MG/DL (0.2-1.0) Aspartate Amino Transferase (AST) 12 U/L (15-37) L Alanine Aminotransferase (ALT) 11 U/L (12-78) L Alkaline Phosphatase 73 U/L (46-116) Total Creatine Kinase 39 U/L (26-308) Troponin I 0.024 ng/mL (0.000-0.056) Pro-B-Type Natriuretic Peptide 2001 pg/mL (0-125) H Total Protein 7.1 G/DL (6.4-8.2) Albumin 3.4 G/DL (3.4-5.0) Globulin 3.7 g/dL Albumin/Globulin Ratio 0.9 (1.0-2.7) L Lipase 74 U/L (73-393) EKG: Rate: normal Rhythm: other - Paced ST Segments: no acute changes - Right bundle branch block left axis deviation Chest X-Ray: no effusion, no pneumothorax, other - CHF and RLL infiltrate, pacer Devin Hankins MD Feb 24, 2019 10:29
[2019-02-24] MEDS: Doxycycline Hyclate 100 MG in D5W 110 ML IV SCH ×2 (11:00→22:08)
[2019-02-24] MEDS: Albuterol/Ipratropium 3ml neb HHN SCH ×4 (11:01→23:00)
[2019-02-24] MEDS ORDERED: NovoLOG Insulin Flexpen SUBQ SCH (11:30)
[2019-02-24 12:00] VITALS: BP 143/71
--- NOTE | 2019-02-24 12:30 | NUR ---
NURSE NOTES: PT BS CRITICAL HIGH. 12 UNITS OF NOVOLOG INSULIN GIVEN PER S.S .ORDER STAT RANDOM GLUCOSE AND DR YUEN AT NURSE STATION MADE AWARE AND NOTIFIED REGARDING BS LEVEL IS CR[facility]. M.D ORDERS TO GIVE LANTUS INSULIN 20 UNITS Q HS. ALL NEW ORDERS NOTED AND CARRIED OUT. WILL CONT TO MONITOR.
[2019-02-24] MEDS: Solu-MEDROL 40mg Inj IVP SCH ×2 (14:26→22:07)
[2019-02-24] MEDS: Piperacillin/Tazobactam 3.375 GM in NS 110 ML IVPB SCH ×2 (14:33→23:30)
--- NOTE | 2019-02-24 15:00 | NUR ---
HAND-OFF: Report given to .KENJI STEWART.
--- NOTE | 2019-02-24 15:20 | NUR ---
NURSE NOTES: Received report from TERRY Villafana. Patient in bed resting, no active s/s cardiac, respiratory distress noticed at this time. Patient on 2L oxygen via NC. Patient V paced with HR 78. Endorsed patient critical high for BS, random glucose drawn. Endorsed random glucose drawn luma solu-medral and after lunch. Bed in lowest position, side rails upx2, call light within reach. Will continue to monitor.
--- NOTE | 2019-02-24 15:25 | NUR ---
NURSE NOTES: Dr. Hankins made aware of random glucose resulted as 664. Per Dr. Hankins Levemir 30 unit now and starting tomorrow HS 30 units. Patient on resistant sliding scale, and on cardiac/ diabetic diet. Order noted, entered, carried out. Will continue to monitor.
[2019-02-24] MEDS ORDERED: Levemir Flexpen SUBQ ONE (15:30)
[2019-02-24 16:00] VITALS: BP 131/76
--- NOTE | 2019-02-24 16:20 | NUR ---
NURSE NOTES: Dr. Hankins made aware of blood glucose drawn at 1600 was 632, Bs was 497, 16 unit given. No order given at this time.
[2019-02-24 16:51] LABS: ALANINE AMINOTRANSFERASE 14 U/L (12-78); ALBUMIN 3.3 G/DL (3.4-5.0); ALKALINE PHOSPHATASE 72 U/L (46-116); ANION GAP 9 mmol/L (5-15); ASPARTATE AMINO TRANSFERASE 8 U/L (15-37); BILIRUBIN,TOTAL 0.5 MG/DL (0.2-1.0); BLOOD UREA NITROGEN 21 mg/dL (7-18); CALCIUM 8.7 MG/DL (8.5-10.1); CARBON DIOXIDE 26 MMOL/L (21-32); CHLORIDE 101 MMOL/L (98-107); CREATININE 1.4 MG/DL (0.55-1.30); POTASSIUM 4.1 MMOL/L (3.5-5.1); SODIUM 136 MMOL/L (136-145)
[2019-02-24] MEDS: NovoLOG Insulin Flexpen SUBQ SCH ×2 (18:00→22:09)
--- NOTE | 2019-02-24 18:20 | NUR ---
NURSE NOTES: Pharmacist contacted for clarification of frequency of Xarelto. Per Dr. Hankins change Xarelto PO 20mg every other day to Daily. Order noted, entered, carried out.
--- NOTE | 2019-02-24 19:35 | NUR ---
HAND-OFF: Report given to TERRY Streeter.
--- NOTE | 2019-02-24 19:36 | NUR ---
NURSE NOTES: Got report from Jacinda STEWART. Pt in stable condition. Denies any pain. No s/s of distress or discomfort noted. Pt resting in bed comfortably. Bed in low and locked position, call light within reach, bedside table within reach. Continue to monitor.
[2019-02-24 20:00] VITALS: BP 128/82
[2019-02-24] MEDS ORDERED: Levemir Flexpen SUBQ SCH (21:00)
[2019-02-25] VITALS (9 sets, daily range): BP systolic 100–141; BP diastolic 45–82
[2019-02-25] MEDS: Albuterol/Ipratropium 3ml neb HHN SCH ×6 (03:00→22:56)
[2019-02-25] MEDS: Solu-MEDROL 40mg Inj IVP SCH (06:19)
[2019-02-25] MEDS: Piperacillin/Tazobactam 3.375 GM in NS 110 ML IVPB SCH ×3 (06:20→23:32)
[2019-02-25] MEDS: NovoLOG Insulin Flexpen SUBQ SCH ×3 (06:35→17:29)
--- NOTE | 2019-02-25 07:00 | NUR ---
HAND-OFF: Report given to Jacinda STEWART. Endorsed plan of care.
--- NOTE | 2019-02-25 07:47 | NUR ---
NURSE NOTES: Received report from TERRY Streeter. Patient in bed resting, no active s/s cardiac, respiratory distress noticed at this time. Patient AOx4, denies pain at this time, V paced with HR 81. IV on right hand 24G, asymptomatic, patent, intact. Bed in lowest position, side rails up x2, call light within reach. Will continue to monitor.
--- NOTE | 2019-02-25 08:25 | NUR ---
CASE MANAGEMENT:REVIEW 69 YR OLD MALE PRESENTED TO ER CC: CHEST PAIN PMH: CHF . COPD. PACEMAKER. HTN. DM SI: CHEST PAIN. COPD. PNA CXR(+) OPACITIES THROUGHOUT BOTH LUNGS 97.9 80 16 171/99 91% ON RA WBC+13.8 IS: DUONEB HHN IV SOLUMEDROL IV ZOSYN X1 IV CIPRO X1 IV ZOFRAN IV MORPHINE IV LASIX BLOOD CX CXR : TO TELEMETRY INTERQUAL CRITERIA MET Addendum: 02/25/19 at 0844 by KIKE LEBLANC PAN RECLAIM PROCESSOR PAN RECLAIM PROCESSOR 02/25/19 SI: PNEUMONIA 97.5 81 20 109/66 94% ON 2L/NC GLUCOS3+632 IS: LEVEMIR SQ QHS JANUVIA PO QAM SS INSULIN AC+HS XARELTO PO QD IV SOLUMEDROL Q8HRS IV ZOSYN Q8HRS DUONEB HHN Q4HRS RTC NORVASC PO BID ASA PO QD DIGOXIN PO QD LASIX PO BID ZAROXOLYN PO QOD ALDACTONE PO QD : TELEMETRY STATUS DCP; FROM HOME PLAN: CARDIAC CONSULT SWALLOW EVAL IV STEROIDS Addendum: 02/25/19 at 0847 by KIKE LEBLANC LVN LVN INTERQUAL CRITERIA MET
[2019-02-25] MEDS: Digoxin 0.125mg tab ORAL SCH (08:30)
[2019-02-25] MEDS: Amitiza 24mcg cap ORAL SCH ×2 (08:30→17:22)
[2019-02-25] MEDS: Amiodarone 200mg tab ORAL SCH (08:31)
[2019-02-25] MEDS: Furosemide 40mg tab ORAL SCH (08:31)
[2019-02-25] MEDS: Aspirin Baby 81mg ORAL SCH (08:31)
[2019-02-25] MEDS: Lyrica 50mg cap ORAL SCH ×2 (08:31→17:22)
[2019-02-25] MEDS: Spironolactone 25mg tab ORAL SCH (08:31)
--- NOTE | 2019-02-25 08:40 | Pulmonology Progress Note ---
Assessment/Plan Assessment/Plan Congestive Heart Failure Chest Pain Chronic Obstructive Pulmonary Disease with exaccerbation Possible RLL Pneumonia Hypertension Possible previous Atrial Fibrillation ? (on Xarelto) Pacemaker Insulin Dependant Diabetes Peripheral Neuropathy Plan IV Antibiotics monitor lytes Continue Xarelto IV Steroids and taper HHN Maintenance Insulin and adjust O2 PRN Swallow evaluation- bedside Cardiology Consultation and monitor fluid status Monitor labs for change Telemetry dc home when stable impression, plan, and exam edited and reviewed in detail care discussed with RN Subjective Allergies: Coded Allergies: No Known Allergies (Unverified , 02/26/14) Subjective care noted and reviewed on oxygen still with sob Objective Last 24 Hour Vital Signs Date Time Temp Pulse Resp B/P (MAP) Pulse Ox O2 Delivery O2 Flow Rate FiO2 02/25/19 08:31 81 141/79 02/25/19 08:30 81 02/25/19 08:00 97.5 81 20 141/79 (99) 94 02/25/19 08:00 2.0 02/25/19 07:16 74 20 100 Nasal Cannula 2.0 28 02/25/19 07:15 87 18 99 Nasal Cannula 2.0 28 02/25/19 07:00 82 22 98 Nasal Cannula 2.0 28 02/25/19 04:00 98.1 81 20 126/82 (97) 97 02/25/19 04:00 2.0 02/25/19 04:00 80 02/25/19 03:08 Nasal Cannula 2.0 28 02/25/19 03:07 Nasal Cannula 2.0 28 02/25/19 00:00 98.0 80 19 125/80 (95) 98 02/25/19 00:00 2.0 02/25/19 00:00 83 02/24/19 23:11 75 18 100 Nasal Cannula 2.0 28 02/24/19 23:01 71 20 97 Nasal Cannula 2.0 28 02/24/19 21:00 Nasal Cannula 2.0 02/24/19 20:06 81 18 100 Nasal Cannula 2.0 28 02/24/19 20:00 81 02/24/19 20:00 97.5 83 19 128/82 (97) 99 02/24/19 19:59 77 20 99 Nasal Cannula 2.0 28 02/24/19 19:56 77 20 99 Nasal Cannula 2.0 28 8/18/19 18:02 80 131/76 8/18/19 16:00 81 02/24/19 16:00 97.7 80 22 131/76 (94) 94 02/24/19 16:00 2.0 02/24/19 15:01 74 18 98 Nasal Cannula 2.0 28 02/24/19 14:48 64 22 96 Room Air 21 02/24/19 12:00 97.9 81 22 143/71 (95) 02/24/19 12:00 80 02/24/19 12:00 2.0 02/24/19 11:11 78 18 97 Nasal Cannula 2.0 28 02/24/19 11:00 68 20 96 Room Air 21 02/24/19 10:08 80 02/24/19 10:07 80 130/70 02/24/19 09:00 Nasal Cannula 2.0 02/24/19 08:50 96.3 80 23 130/70 (90) 93 Intake and Output 02/24/19 02/25/19 19:00 07:00 Intake Total 677.5 ml 240 ml Output Total 2600 ml 2800 ml Balance -1922.5 ml -2560 ml Intake Oral 540 ml 240 ml IV Total 137.5 ml Output Urine Total 2600 ml 2800 ml Objective WDWN NAD obese on oxygen reduced breath sounds bilaterally without rhonchi or wheeze [id number] without MRG NABS nontender no HSM no CC noted edema nonfocal Laboratory Tests 02/24/19 14:32: Glucose Level 664#*H 02/24/19 16:00: Glucose Level 632*H, Sodium Level 136, Potassium Level 4.1, Chloride Level 101, Carbon Dioxide Level 26, Anion Gap 9, Blood Urea Nitrogen 21H, Creatinine 1.4H, Estimat Glomerular Filtration Rate 50.5, Calcium Level 8.7, Total Bilirubin 0.5 , Aspartate Amino Transf (AST/SGOT) 8L, Alanine Aminotransferase (ALT/SGPT) 14, Alkaline Phosphatase 72, Troponin I 0.018, Total Protein 6.6, Albumin 3.3L, Globulin 3.3, Albumin/Globulin Ratio 1.0 02/25/19 05:39: Troponin I 0.000 Current Medications Medications (Trade) Dose Ordered Sig/Antionette Route PRN Reason Start Time Stop Time Status Last Admin Dose Admin Acetaminophen (Tylenol) 650 mg Q6H PRN ORAL Mild Pain/Temp > 100.5 02/24/19 08:00 03/26/19 07:59 Albuterol/ Ipratropium (Albuterol/ Ipratropium) 3 ml Q4HRT HHN 02/24/19 11:00 03/01/19 10:59 02/25/19 07:10 Amiodarone HCl (Cordarone) 200 mg DAILY ORAL 02/24/19 09:00 03/26/19 08:59 02/25/19 08:31 Amlodipine Besylate (Norvasc) 5 mg BID ORAL 02/24/19 09:00 03/26/19 08:59 02/25/19 08:31 Aspirin (ASA) 81 mg DAILY ORAL 02/24/19 09:00 03/26/19 08:59 02/25/19 08:31 Dextrose (Dextrose 50%) 25 ml Q30M PRN IV Hypoglycemia 02/24/19 15:30 03/26/19 15:29 Dextrose (Dextrose 50%) 50 ml Q30M PRN IV Hypoglycemia 02/24/19 15:30 03/26/19 15:29 Digoxin (Lanoxin) 0.125 mg DAILY ORAL 02/24/19 09:00 03/26/19 08:59 02/25/19 08:30 Doxycycline Hyclate 100 mg/ Dextrose 110 ml @ 110 mls/hr Q12HR IV 02/24/19 09:00 03/03/19 08:59 02/24/19 22:08 Furosemide (Lasix) 40 mg BID ORAL 02/24/19 09:00 03/26/19 08:59 02/25/19 08:31 Insulin Aspart (NovoLOG) BEFORE MEALS AND HS SUBQ 02/24/19 16:30 03/26/19 16:29 02/25/19 06:35 Insulin Detemir (Levemir) 30 units BEDTIME SUBQ 02/25/19 21:00 03/26/19 20:59 Lubiprostone (Amitiza) 24 mcg TWICE A DAY ORAL 02/24/19 09:00 03/26/19 08:59 02/25/19 08:30 Methylprednisolone Sodium Succinate (Solu-MEDROL) 40 mg EVERY 8 HOURS IVP 02/24/19 14:00 03/26/19 13:59 02/25/19 06:19 Metolazone (Zaroxolyn) 5 mg EVERY OTHER DAY ORAL 02/24/19 09:00 03/26/19 08:59 02/24/19 10:09 Ondansetron HCl (Zofran) 4 mg Q8H PRN IVP Nausea & Vomiting 02/24/19 08:00 03/26/19 07:59 Pantoprazole (Protonix) 40 mg DAILY ORAL 02/24/19 09:00 03/26/19 08:59 02/25/19 08:31 Piperacillin Sod/ Tazobactam Sod 3.375 gm/Sodium Chloride 110 ml @ 27.5 mls/hr EVERY 8 HOURS IVPB 02/24/19 14:00 03/01/19 13:59 02/25/19 06:20 Potassium Chloride (K-Dur) 10 meq DAILY ORAL 02/24/19 09:00 03/26/19 08:59 02/25/19 08:31 Pregabalin (Lyrica) 100 mg BID ORAL 02/24/19 09:00 03/26/19 08:59 02/25/19 08:31 Rivaroxaban (Xarelto) 20 mg DAILY ORAL 02/25/19 09:00 03/26/19 08:59 02/25/19 08:32 Sitagliptin Phosphate (Januvia) 100 mg ACBREAKFAST ORAL 02/25/19 06:30 03/27/19 06:29 02/25/19 06:19 Spironolactone (Aldactone) 25 mg DAILY ORAL 02/24/19 09:00 03/26/19 08:59 02/25/19 08:31 Alek Calvillo MD Feb 25, 2019 08:40
[2019-02-25] MEDS ORDERED: Xarelto 10mg tab ORAL SCH (09:00)
--- NOTE | 2019-02-25 09:34 | General Progress Note ---
Assessment/Plan Assessment/Plan: Assessment - IDDM with peripheral neuropathy - likely gastroparesis - GERD - N/V, ? transient - Chronic constipation - COPD Recommendations - PPI daily correction - Reflux precautions - BID amitiza - can add miralax PRN - outpatient EGD Thank you Norberto Durbin MD Subjective Allergies: Coded Allergies: No Known Allergies (Unverified , 02/26/14) Objective Last 24 Hour Vital Signs Date Time Temp Pulse Resp B/P (MAP) Pulse Ox O2 Delivery O2 Flow Rate FiO2 02/25/19 08:31 81 141/79 02/25/19 08:30 81 02/25/19 08:00 97.5 81 20 141/79 (99) 94 02/25/19 08:00 2.0 02/25/19 07:16 74 20 100 Nasal Cannula 2.0 28 02/25/19 07:15 87 18 99 Nasal Cannula 2.0 28 02/25/19 07:00 82 22 98 Nasal Cannula 2.0 28 02/25/19 04:00 98.1 81 20 126/82 (97) 97 02/25/19 04:00 2.0 02/25/19 04:00 80 02/25/19 03:08 Nasal Cannula 2.0 28 02/25/19 03:07 Nasal Cannula 2.0 28 02/25/19 00:00 98.0 80 19 125/80 (95) 98 02/25/19 00:00 2.0 02/25/19 00:00 83 02/24/19 23:11 75 18 100 Nasal Cannula 2.0 28 02/24/19 23:01 71 20 97 Nasal Cannula 2.0 28 02/24/19 21:00 Nasal Cannula 2.0 02/24/19 20:06 81 18 100 Nasal Cannula 2.0 28 02/24/19 20:00 81 02/24/19 20:00 97.5 83 19 128/82 (97) 99 02/24/19 19:59 77 20 99 Nasal Cannula 2.0 28 02/24/19 19:56 77 20 99 Nasal Cannula 2.0 28 02/24/19 18:02 80 131/76 02/24/19 16:00 81 02/24/19 16:00 97.7 80 22 131/76 (94) 94 02/24/19 16:00 2.0 02/24/19 15:01 74 18 98 Nasal Cannula 2.0 28 02/24/19 14:48 64 22 96 Room Air 21 02/24/19 12:00 97.9 81 22 143/71 (95) 02/24/19 12:00 80 02/24/19 12:00 2.0 02/24/19 11:11 78 18 97 Nasal Cannula 2.0 28 02/24/19 11:00 68 20 96 Room Air 21 02/24/19 10:08 80 02/24/19 10:07 80 130/70 Intake and Output 02/24/19 02/25/19 19:00 07:00 Intake Total 677.5 ml 240 ml Output Total 2600 ml 2800 ml Balance -1922.5 ml -2560 ml Intake Oral 540 ml 240 ml IV Total 137.5 ml Output Urine Total 2600 ml 2800 ml Laboratory Tests 02/24/19 14:32: Glucose Level 664#*H 02/24/19 16:00: Glucose Level 632*H, Sodium Level 136, Potassium Level 4.1, Chloride Level 101, Carbon Dioxide Level 26, Anion Gap 9, Blood Urea Nitrogen 21H, Creatinine 1.4H, Estimat Glomerular Filtration Rate 50.5, Calcium Level 8.7, Total Bilirubin 0.5 , Aspartate Amino Transf (AST/SGOT) 8L, Alanine Aminotransferase (ALT/SGPT) 14, Alkaline Phosphatase 72, Troponin I 0.018, Total Protein 6.6, Albumin 3.3L, Globulin 3.3, Albumin/Globulin Ratio 1.0 02/25/19 05:39: Troponin I 0.000 Height (Feet): 5 Height (Inches): 9.00 Weight (Pounds): 300 Kurt Durbin MD Feb 25, 2019 09:34
[2019-02-25] MEDS: Doxycycline Hyclate 100 MG in D5W 110 ML IV SCH ×2 (09:54→22:54)
--- NOTE | 2019-02-25 13:02 | NUR ---
NURSE NOTES: Dr. Hankins made aware of BS critically high, random blood glucose 677, 16 units of insulin given. Per Dr. Hankins, call Dr. Calvillo. Dr. Calvillo made awre of Blood sugar level. No order given at this time. Will continue to monitor.
--- NOTE | 2019-02-25 14:06 | NUR ---
NURSE NOTES: Per Dr. Calvillo, increase Levemir to 45 units, and discontinue Solu-Medrol. Order noted, entered, carried out.
--- NOTE | 2019-02-25 14:31 | NUR ---
SPEECH PATHOLOGY: PATIENT PRESENTS WITH EFFICACY OF OROPHARYNGEAL PHASE OF SWALLOW INTACT. HE COMPLAINS OF XEROSTOMIA WHICH COULD ACCOUNT FOR HIS HISTORY OF INCONSISTENT CHOKE/COUGH EPISODES. HE REPORTED SUCH INCIDENTS INVOLVING MEAT SPECIFICALLY. NO OVERT S/S OF ASPIRATION WITH P.O. TRIALS OF SOLID, PUREE, OR THIN LIQUIDS. PATIENT ALSO ADVISED NOT TO EAT WHEN SOB. HE VERBALIZED UNDERSTANDING. NO FURTHER SKILLED ST SERVICES APPEAR TO BE NEEDED AT THIS TIME.
--- NOTE | 2019-02-25 15:30 | Consultation ---
DATE OF CONSULTATION: 02/25/2019 GASTROENTEROLOGY CONSULTATION CONSULTING PHYSICIAN: Kurt Durbin M.D. CHIEF COMPLAINT: I was asked to see this patient by Dr. Alek Calvillo for evaluation of nausea, vomiting, reflux. HISTORY OF PRESENT ILLNESS: The patient is a 69-year-old white man with multiple medical problems who comes into the hospital due to shortness of breath and chest pain. The patient is somewhat of a poor historian. He is on many medications, but cannot recall the names. He thinks he had a colonoscopy about a year ago or 2 years ago, but has not had an endoscopy. He does have chronic intermittent reflux. He is on acid suppression medication, but cannot recall the name and he does not take it everyday. He does not complain of much intermittent fullness, but he does have peripheral neuropathy and he does have insulin-dependent diabetes. He had some nausea, vomiting yesterday during his acute exacerbation that resulted in hospitalization. He denies any hematemesis or melena. PAST MEDICAL HISTORY: History of congestive heart failure, hypertension, atrial fibrillation. The patient is status post pacemaker, COPD, insulin-dependent diabetes mellitus with peripheral neuropathy, central obesity. FAMILY HISTORY: Noncontributory. SOCIAL HISTORY: The patient has a girlfriend. He has 4 children. He denies smoking or drinking. REVIEW OF SYSTEMS: Otherwise negative. PHYSICAL EXAMINATION: GENERAL: A pleasant white man, seen in his room, in no distress. HEENT: Normocephalic and atraumatic. Sclerae anicteric. Oropharynx clear. NECK: Supple. CHEST: Reveals scattered rhonchi and wheezes. CARDIOVASCULAR: Revealed a regular rate. ABDOMEN: Obese and difficult to examine due to central obesity. EXTREMITIES: Revealed 1+ bilateral lower extremity edema. NEUROLOGIC: Nonfocal. LABORATORY DATA: Noted. ASSESSMENT: This patient presents with predominantly pulmonary and chest pain syndrome. He does have COPD, which is oxygen dependent at home. His bout of nausea and vomiting yesterday was transient and maybe related to diverticular process. Given that he has diabetic neuropathy, he likely has diabetic gastroparesis. He does have longstanding symptoms of reflux. He says his voice has been hoarse for many years and he does have intermittent reflux and therefore he should be placed on long-term acid suppression. His constipation can be treated with Amitiza given the MiraLAX can be also added as necessary. Should his reflux symptoms persists, then he may need additional therapy. In addition, he would likely benefit from an endoscopy at some point, but I would defer this until his pulmonary status is stabilized. RECOMMENDATIONS: 1. Continue Protonix daily. 2. Reflux precautions. 3. Laxative bowel regimen including Amitiza and if necessary MiraLAX. 4. Elevate head of bed. 5. Outpatient endoscopy. Thank you for asking me to participate in the care of this patient. Kurt Durbin M.D. DR: TITI JOB#: [id number] CC: RENE
--- NOTE | 2019-02-25 17:22 | Cardiac Electrophysiology PN ---
Subjective Subjective [id number] Objective Last 24 Hour Vital Signs Date Time Temp Pulse Resp B/P (MAP) Pulse Ox O2 Delivery O2 Flow Rate FiO2 02/25/19 16:00 2.0 02/25/19 16:00 97.9 81 20 100/45 (63) 96 02/25/19 15:32 Nasal Cannula 2.0 28 02/25/19 15:32 Nasal Cannula 2.0 28 02/25/19 12:00 80 02/25/19 12:00 2.0 02/25/19 12:00 98.2 80 20 123/67 (85) 99 02/25/19 11:15 78 18 99 Nasal Cannula 2.0 28 02/25/19 11:07 87 20 97 Nasal Cannula 2.0 28 02/25/19 09:00 Nasal Cannula 2.0 02/25/19 08:31 81 141/79 02/25/19 08:30 81 02/25/19 08:00 80 02/25/19 08:00 97.5 81 20 141/79 (99) 94 02/25/19 08:00 2.0 02/25/19 07:16 74 20 100 Nasal Cannula 2.0 28 02/25/19 07:15 87 18 99 Nasal Cannula 2.0 28 02/25/19 07:00 82 22 98 Nasal Cannula 2.0 28 02/25/19 04:00 98.1 81 20 126/82 (97) 97 02/25/19 04:00 2.0 02/25/19 04:00 80 02/25/19 03:08 Nasal Cannula 2.0 28 02/25/19 03:07 Nasal Cannula 2.0 28 02/25/19 00:00 98.0 80 19 125/80 (95) 98 02/25/19 00:00 2.0 02/25/19 00:00 83 02/24/19 23:11 75 18 100 Nasal Cannula 2.0 28 02/24/19 23:01 71 20 97 Nasal Cannula 2.0 28 02/24/19 21:00 Nasal Cannula 2.0 02/24/19 20:06 81 18 100 Nasal Cannula 2.0 28 02/24/19 20:00 81 02/24/19 20:00 97.5 83 19 128/82 (97) 99 02/24/19 19:59 77 20 99 Nasal Cannula 2.0 28 02/24/19 19:56 77 20 99 Nasal Cannula 2.0 28 02/24/19 18:02 80 131/76 Intake and Output 02/24/19 02/25/19 19:00 07:00 Intake Total 677.5 ml 240 ml Output Total 2600 ml 2800 ml Balance -1922.5 ml -2560 ml Intake Oral 540 ml 240 ml IV Total 137.5 ml Output Urine Total 2600 ml 2800 ml Laboratory Tests Test 02/25/19 05:39 02/25/19 11:45 Troponin I 0.000 ng/mL (0.000-0.056) Glucose Level 677 MG/DL (74-106) *Yuval Gloria MD Feb 25, 2019 17:22
--- NOTE | 2019-02-25 17:30 | NUR ---
NURSE NOTES: Dr. Calvillo made aware patient BS critically high and Dr. Carey at the nursing station recommending insulin drip or endocrine consult. Per Dr. Calvillo, no consult or insulin drip at this time, stated will see how he does off steroids. Dr. Carey made aware of Dr. Calvillo will follow up off steroid. No order given at this time.
--- NOTE | 2019-02-25 19:40 | NUR ---
NURSE NOTES: Dr. Calvillo called and informed that patient BS critically high at 709. Awaiting response.
--- NOTE | 2019-02-25 19:40 | NUR ---
HAND-OFF: Report given to TERRY Qureshi.
--- NOTE | 2019-02-25 19:41 | NUR ---
NURSE NOTES: Received patient from TERRY Monaco. Informed blood glucose has been critically high, awaiting lab to confirm actual blood glucose from stat BG draw. Patient in sitting up in bed, resting, no active s/sx cardiac, respiratory distress observed at this time. Patient AOx4, denies pain at this time, V paced with HR 81. IV on right hand 24G, asymptomatic, patent, intact. Bed in lowest position, side rails up x2, call light within reach. Will continue to monitor.
--- NOTE | 2019-02-25 19:45 | NUR ---
NURSE NOTES: Dr Calvillo returned call about critical blood glucose, to obtain random glucose STAT per protocol. Rechecked blood glucose and it was critically high again and will not read. Put order for stat blood glucose. will continue to monitor pt. No new orders given at this time.
--- NOTE | 2019-02-25 19:52 | NUR ---
NURSE NOTES: Family member, Viola Kumar was informed (message left) that was transferred to ICU, bed 246-B
--- NOTE | 2019-02-25 20:17 | NUR ---
NURSE NOTES: Dr Calvillo said to transfer to ICU and on insulin drip. Notified charge nurse, RN, Napoleon.
[2019-02-25] MEDS ORDERED: Levemir Flexpen SUBQ SCH ×2 (21:00)
[2019-02-25] MEDS ORDERED: Insulin Rate Change 1 Each MISC STA (21:13)
[2019-02-25] MEDS ORDERED: Insulin Rate Change 1 Each MISC PRN (21:30)
--- NOTE | 2019-02-25 21:55 | NUR ---
HAND-OFF: Report given to Lorrie. Transferred to ICU bed B. Pt removed IV access and lab was unable to draw blood for random blood glucose, endorsed to TERRY Andrew
--- NOTE | 2019-02-25 22:00 | NUR ---
NURSE NOTES: Received report from Janett Qureshi RN, transferred from Telemetry to ICU per Dr. Calvillo for Critically high blood glucose with Insulin drip order. Patient awake,alert oriented x3, able to verbalize needs to staff. On 2 Liters oxygen via N/C satting 96%. HOB elevated. Skin warm and dry to touch. Denies any pain or discomfort. No s/s of hypo/ hyperglycemia. patient no IV access. Blood glucose 484mg/dl. Will follow with lab to draw blood for glucose. Uses urinal. Noted with redness on perineal area and pitting edema +3 on bilateral leg. Elevated with pillows. No s/s of acute distress noted. Instructed patient to use call light for assistance. Bed alarm on. Bed locked and in low position. Will continue plan of care.
--- NOTE | 2019-02-25 22:30 | NUR ---
NURSE NOTES: Inserted Peripheral IV line on Right hand #24 and left hand #24
[2019-02-25] MEDS ORDERED: Insulin Human Regular 100units/ml 3ml ONE (22:39)
--- NOTE | 2019-02-25 23:10 | NUR ---
NURSE NOTES: Started patient on Insulin drip algorithm 3, 17units/hr. Blood glucose 484mg/dl. Will continue to monitor pt.
[2019-02-25] MEDS: Insulin Human Regular 100units/ml 3ml IV PRN (23:45)
[2019-02-26] VITALS (24 sets, daily range): BP systolic 91–144; BP diastolic 53–104
--- NOTE | 2019-02-26 00:16 | NUR ---
NURSE NOTES: Patient awake, alert able to verbalize needs known to staff. No s/s of hypo/hyperglycemia. Blood glucose 324mg/dl will follow algorithm 2, 13.3 units/hr Regular insulin 10 units via IVP given. unable to scanned the insulin label from [employer] ( exceed the dose unable to scan) Message send to [facility] pharmacist. charge nurse aware. Condom cath draining with clear yellow urine. Call light within easy reach. Bed locked and in low position.Will continue to monitor patient. Elevated swollen bilateral leg with pillow.
[2019-02-26] MEDS: Insulin Human Regular 100units/ml 3ml IV PRN ×10 (00:19→23:08)
[2019-02-26 00:24] LABS: ANION GAP 9 mmol/L (5-15); BLOOD UREA NITROGEN 28 mg/dL (7-18); CALCIUM 8.9 MG/DL (8.5-10.1); CARBON DIOXIDE 31 MMOL/L (21-32); CHLORIDE 94 MMOL/L (98-107); CREATININE 1.7 MG/DL (0.55-1.30); SODIUM 133 MMOL/L (136-145)
--- NOTE | 2019-02-26 00:30 | Consultation ---
DATE OF CONSULTATION: 02/25/2019 CARDIOLOGY CONSULTATION CONSULTING PHYSICIAN: Yuval Carey M.D. REFERRING PHYSICIANS: 1. Alek Calvillo M.D 2. Dr. Hankins. REASON FOR CONSULTATION: Management of congestive heart failure and evaluation of the patient's defibrillator. HISTORY OF PRESENT ILLNESS: The patient is a 69-year-old gentleman, who I am quite familiar from previous admission. The patient has history of chronic atrial fibrillation with severe nonischemic cardiomyopathy as well as history of single-chamber defibrillator implantation in 2017. At that time, per my recommendation, the patient was then transferred to another facility and underwent an upgrade of his single-chamber ICD to a biventricular defibrillator without atrial lead. The patient presented to emergency room with nausea, vomiting, and abdominal pain as well as chest pain and shortness of breath. The patient also has history of diabetes and COPD. The patient states that he has been compliant with his medication. REVIEW OF SYSTEMS: Negative other than what was mentioned in the history of present illness. PAST MEDICAL HISTORY: As mentioned above. MEDICATIONS: Per reconciliation. FAMILY HISTORY: Noncontributory. SOCIAL HISTORY: He does not drink alcohol or use any drugs. PHYSICAL EXAMINATION: VITAL SIGNS: Blood pressure of 100/45, pulse is 81, respirations 18, and temperature 97.9. HEAD AND NECK: Positive JVD. LUNGS: Decreased breath sounds. CARDIOVASCULAR: Shows irregular S1 and S2 with no gallop. ABDOMEN: Soft. EXTREMITIES: He has 1+ pitting edema. CHEST: Defibrillator in the left subclavian. LABORATORY AND DIAGNOSTIC DATA: His labs show white count of 13.8, hemoglobin of 14.6, hematocrit of 43.7, and platelet count is 312,000. Sodium is 136, potassium 4.1, BUN of 21, creatinine 1.4, glucose is 677. His troponin is negative x2. His INR is 1.1. ASSESSMENT AND PLAN: 1. Status post [employer] biventricular defibrillator implantation. The patient does not have atrial lead due to chronic atrial fibrillation. We will interrogate defibrillator to make sure it is functioning normally. 2. Atrial fibrillation. Continue Xarelto 20 mg daily. The rate is currently controlled and ICD is BiV-paced. The patient is also on amiodarone 200 mg daily and digoxin 0.125 mg daily. We will check a digoxin level. If the patient is truly in chronic atrial fibrillation, amiodarone is to be discontinued. 3. Severe cardiomyopathy. Echocardiogram was performed and preliminary ejection fraction was reported as 35%. Continue the patient's current heart failure therapy, change the Lasix to 40 mg IV b.i.d., and continue digoxin 0.125 mg daily and Aldactone 25 mg daily. In view of his COPD, beta-julieta, but we will add lisinopril to his medical regimen. The patient is also on metolazone 5 mg every other day. 4. maximize heart failure therapy. We will discontinue amlodipine. 5. Uncontrolled diabetes with glucose of more than 600, on insulin. 6. COPD. On Solu-Medrol and IV antibiotic per Dr. Hankins and Dr. Calvillo. Thank you very much for allowing me to participate in the care of this patient. Please do not hesitate to contact me for any questions regarding my evaluation. Yuval Carey M.D. DR: BARB JOB#: [id number] CC:
--- NOTE | 2019-02-26 00:56 | NUR ---
NURSE NOTES: spoke with helen from [facility] to change Insulin drip unit dose to units/hr from mls/hr.... when label scanned it won't go through and says "dose exceeded"
--- NOTE | 2019-02-26 01:00 | NUR ---
NURSE NOTES: Patient awake, alert able to verbalize needs known to staff. No s/s of hypo/hyperglycemia. Blood glucose 155mg/dl will follow algorithm 1, 1 units/hr. unable to scanned the insulin label from [employer] ( exceed the dose unable to scan) spoke with Deana Merchant pharmacist. charge nurse aware. Condom cath draining with clear yellow urine. Call light within easy reach. Bed locked and in low position.
--- NOTE | 2019-02-26 01:15 | NUR ---
NURSE NOTES: trena from [facility] called back and said she tried to fix the insulin drip but unable to
--- NOTE | 2019-02-26 02:00 | NUR ---
NURSE NOTES: Patient awake, alert able to verbalize needs known to staff. No s/s of hypo/hyperglycemia. Blood glucose 153mg/dl will follow algorithm 1, 1 units/hr. unable to scanned the insulin label from [employer] ( exceed the dose unable to scan) charge nurse aware
[2019-02-26] MEDS: Albuterol/Ipratropium 3ml neb HHN SCH ×6 (03:22→22:47)
--- NOTE | 2019-02-26 04:00 | NUR ---
NURSE NOTES: Patient awake, alert able to verbalize needs known to staff. No s/s of hypo/hyperglycemia. Blood glucose 209mg/dl will follow algorithm 2, 4 units/hr. unable to scanned the insulin label from [employer] ( exceed the dose unable to scan) charge nurse aware. Will continue plan of care.
[2019-02-26 04:57] LABS: HEMATOCRIT 45.4 % (42.0-52.0); HEMOGLOBIN 14.4 G/DL (14.2-18.0); MEAN CORPUSCULAR VOLUME 95 FL (80-99); PLATELET COUNT 348 K/UL (150-450); RED BLOOD COUNT 4.77 M/UL (4.70-6.10); WHITE BLOOD COUNT 18.8 K/UL (4.8-10.8)
--- NOTE | 2019-02-26 06:00 | NUR ---
NURSE NOTES: Bed bath given tolerated well. Crenshaw cath intact draining well with yellow urine. No s/s of hypo/hyperglycemia. Pt able to turned with assist. Call light within easy reach. denies any pain or discomfort.
[2019-02-26] MEDS: Piperacillin/Tazobactam 3.375 GM in NS 110 ML IVPB SCH ×4 (06:45→22:08)
--- NOTE | 2019-02-26 07:05 | NUR ---
HAND-OFF: Report given to TERRY Ruth. Charge nurse spoke with [facility] Pharmacist regarding the Insulin drip label that unable to scan. Endorsed to Far[facility].
--- NOTE | 2019-02-26 07:15 | NUR ---
NURSE NOTES: Report received from Lorrie STEWART. Pt alert and oriented x4, able to make needs known. Pt denies pain or discomfort. Pt on compliance monitor, V paced. Pt on 2 L O2 saturating 99%. Pt attempting to cough up phlegm. Condom cath intact and in place. LH24 and R 24 IV noted and intact. Insulin drip changed to algorithm 3. Safety measures in place with bed locked and in place, side rails x3 up and bed alarm on. Will continue to monitor and continue plan of care
[2019-02-26] MEDS ORDERED: Lidocaine 1% Plain 30 ml INJ PRN (08:00)
[2019-02-26] MEDS ORDERED: Heparin1,000 units/500ml Premix(Conc:2 units/ml) IV PRN (08:01)
[2019-02-26] MEDS: Lisinopril 10mg tab ORAL SCH (08:40)
[2019-02-26] MEDS: Spironolactone 25mg tab ORAL SCH (08:40)
[2019-02-26] MEDS: Lyrica 50mg cap ORAL SCH ×2 (08:42→17:28)
[2019-02-26] MEDS: Amitiza 24mcg cap ORAL SCH ×2 (08:48→17:28)
[2019-02-26] MEDS: Doxycycline Hyclate 100 MG in D5W 110 ML IV SCH ×2 (08:48→20:50)
[2019-02-26] MEDS: Aspirin Baby 81mg ORAL SCH (08:49)
[2019-02-26] MEDS: Xarelto 10mg tab ORAL SCH (08:50)
[2019-02-26] MEDS ORDERED: Digoxin 0.125mg tab ORAL SCH (09:00)
[2019-02-26] MEDS ORDERED: Insulin Rate Change 1 Each MISC PRN (09:00)
[2019-02-26] MEDS ORDERED: Lisinopril 10mg tab ORAL SCH (09:00)
[2019-02-26] MEDS ORDERED: Amiodarone 200mg tab ORAL SCH (09:00)
--- NOTE | 2019-02-26 09:35 | NUR ---
NURSE NOTES: Dr Valenzuela here to see pt, no new orders. Discussed with Dr Calvillo about need for PICC because phlebotomies unsuccessful this am. Pt signed consent for PICC. Will continue to monitor.
[2019-02-26 10:33] LABS: ANION GAP 8 mmol/L (5-15); BLOOD UREA NITROGEN 30 mg/dL (7-18); CALCIUM 8.9 MG/DL (8.5-10.1); CARBON DIOXIDE 34 MMOL/L (21-32); CHLORIDE 95 MMOL/L (98-107); CREATININE 1.5 MG/DL (0.55-1.30); POTASSIUM 3.1 MMOL/L (3.5-5.1); SODIUM 137 MMOL/L (136-145)
--- NOTE | 2019-02-26 10:58 | Cardiology Report ---
APPROVED REPORT EXAM: Two-dimensional and M-mode echocardiogram with Doppler and color Doppler. INDICATION Chest Pain M-Mode DIMENSIONS IVSd2.2 (0.7-1.1cm)Left Atrium (MM)5.9 (1.6-4.0cm) LVDd6.8 (3.5-5.6cm)Aortic Root3.7 (2.0-3.7cm) PWd1.7 (0.7-1.1cm)Aortic Cusp Exc.2.1 (1.5-2.0cm) LVDs5.1 (2.5-4.0cm) PWs2.4 cm Technically difficult study due to patient body habitus. Study quality precludes accurate assessment of regional wall motion. Global left ventricular hypokinesis. Mild left ventricular enlargement. Left ventricular ejection fraction estimated to be 35-40 %. Mild left ventricular hypertrophy. Small pericardial effusion. Moderate left atrial enlargement. Mild right atrial enlargement. Right ventricular chamber size is within normal limits. Focal aortic valve sclerosis with adequate cusp excursion. Mildly thickened mitral valve leaflets with midl decreased in excursion. Mild mitral annulus and aortic root calcification. Pulmonic valve not well visualized. Normal tricuspid valve structure. Subcostal views not obtainable. A color flow and spectral Doppler study was performed and revealed: Mild to moderate aortic regurgitation. Moderate mitral regurgitation. Mitral vavle gradient peak gradient of 22 adn mean gradinet of 6.5 mmhg measured suggestive of mild to moderate degree of mitral stenosis Left ventricular diastolic function could not be determined due to arrhythmia. Mild tricuspid regurgitation. Tricuspid systolic velocities suggests peak right ventricular systolic pressure of 37 mmHg, consistent with mild pulmonary hypertension. No pulmonic regurgitation present.
--- NOTE | 2019-02-26 11:09 | Cardiology Report ---
APPROVED REPORT EKG Measurement Heart [id number] afib v pacing
--- NOTE | 2019-02-26 12:00 | NUR ---
NURSE NOTES: Radiology here to prep pt for PICC line. Will continue to monitor.
--- NOTE | 2019-02-26 13:53 | NUR ---
RADIOLOGY NOTE:RIGHT UPPER ARM PICC PLACED
--- NOTE | 2019-02-26 14:02 | Pre-Procedure Note/Attestation ---
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 I attest that, if there was a reasonable possibility of needing a blood transfusion, the patient (or the patient's legal physician representative) was given the [facility] standardized written summary, pursuant to the Himanshu Jolene Blood Safety Act ([place] Health and Safety Code # 1645, as amended). I attest that I re-evaluated the patient just prior to the surgery and that there has been no change in the patient's H&P, except as documented below: Spencer Nam MD Feb 26, 2019 14:02
--- NOTE | 2019-02-26 14:03 | Brief Operative Note ---
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
--- NOTE | 2019-02-26 14:28 | NUR ---
NURSE NOTES: Double lumen PICC on RUE placed. Will continue to monitor.
--- NOTE | 2019-02-26 15:42 | NUR ---
NURSE NOTES: Abdominal US in progress. VSS. Will continue to monitor.
--- NOTE | 2019-02-26 16:12 | CDS Physician Query ---
Clarification is required for compliance, coding accuracy, and to reflect severity of illness for this patient Dear Dr. Yuval Carey Date: 02/26/2019 [employer]/CDS Name: Georgiana Lutz Clinical Documentation States: ED note: [69 yo M with] chest pain and shortness of breath. The pain is substernal and pressure and worse with exertion. He also has been wheezing. 02/25: Severe cardiomyopathy. Echocardiogram was performed and preliminary ejection fraction was reported as 35%. Continue the patient's current heart failure therapy, change the Lasix to 40 mg IV b.i.d., and continue digoxin 0.125 mg daily and Aldactone 25 mg daily...maximize heart failure therapy. Please Clarify type and acuity of CHF: Acuity [] Acute [] Chronic [] Acute on Chronic Type [] Systolic [] Diastolic [] Systolic & Diastolic (Combined) [] Other: Present on Admission: [] Yes [] No [] Clinically Undetermined Physician signature Date Please also document in your Progress Notes and/or Discharge Summary and indicate if the condition was present on admission. MTDD
--- NOTE | 2019-02-26 16:33 | Diagnostic Imaging Report ---
Indications: Needs long-term IV access Technique: Procedure performed at bedside. Procedural timeout performed. Ultrasound confirms patent compressible right basilic vein. Total sterile technique, including sterile probe cover and sterile gel, sterile gloves, hand hygiene, hat, mask,, sterile gown, large sterile drape, and preparation with 2% chlorhexidine utilized. Local anesthesia with 1% lidocaine. Under real-time ultrasound guidance, puncture vein is vein using 21-gauge needle, passage 0.018 guidewire, exchange for 4 Cuban peel-away sheath. 4 Cuban Bard dual-lumen power PICC cut to 41 cm. It was inserted through the peel-away sheath. Peel-away sheath and guidewire removed. Catheter fixed to the skin. Both catheter ports aspirated and flushed. Patient tolerated procedure well, without immediate complication. Followup chest x-ray obtained. Tip position is indeterminate, obscured by overlying pacemaker leads, probably between the upper superior vena cava and cavoatrial junction, position satisfactory in any case Impression: Successful bedside placement of right arm PICC under sonographic guidance, as described above.
--- NOTE | 2019-02-26 17:25 | Pulmonology Progress Note ---
Assessment/Plan Assessment/Plan Congestive Heart Failure Chest Pain Chronic Obstructive Pulmonary Disease with exacerbation Possible RLL Pneumonia Hypertension Possible previous Atrial Fibrillation ? (on Xarelto) Pacemaker Insulin Dependant Diabetes Peripheral Neuropathy Diabetes out of control Cardiomyopathy CHF Plan IV Antibiotics monitor lytes Continue Xarelto IV Steroids discontinued HHN Maintenance Insulin and adjust pending improvement in blood sugars O2 PRN Cardiology Consultation Monitor labs for change Telemetry dc home when stable ? short term snf impression, plan, and exam edited and reviewed in detail care discussed with RN Subjective Allergies: Coded Allergies: No Known Allergies (Unverified , 02/26/14) Subjective care noted and reviewed on oxygen still with sob sugars out of control transferred to ICU for drip Objective Last 24 Hour Vital Signs Date Time Temp Pulse Resp B/P (MAP) Pulse Ox O2 Delivery O2 Flow Rate FiO2 02/26/19 17:00 80 18 91/76 (81) 99 02/26/19 16:00 80 02/26/19 16:00 98.0 80 17 102/53 (69) 100 02/26/19 16:00 Nasal Cannula 2.0 02/26/19 15:35 84 21 98 Nasal Cannula 2.0 28 02/26/19 15:27 81 23 96 Nasal Cannula 2.0 28 02/26/19 15:00 80 20 140/81 (100) 91 02/26/19 14:00 75 144/90 (108) 96 02/26/19 13:00 82 20 108/68 (81) 96 02/26/19 12:00 81 18 97 Nasal Cannula 2.0 28 02/26/19 12:00 Nasal Cannula 2.0 02/26/19 12:00 82 02/26/19 12:00 98.2 81 17 127/65 (85) 99 02/26/19 12:00 82 19 127/65 (85) 98 02/26/19 11:51 80 21 96 Nasal Cannula 2.0 28 02/26/19 11:00 83 20 128/104 (112) 97 02/26/19 10:00 84 20 127/67 (87) 96 02/26/19 09:00 81 19 135/79 (97) 99 02/26/19 08:50 84 02/26/19 08:40 125/65 02/26/19 08:00 98.0 81 22 125/65 (85) 97 02/26/19 08:00 Nasal Cannula 2.0 02/26/19 08:00 84 02/26/19 07:50 82 19 99 Nasal Cannula 2.0 28 02/26/19 07:40 81 19 98 Nasal Cannula 2.0 28 02/26/19 07:38 80 19 98 Nasal Cannula 2.0 28 02/26/19 07:00 81 18 126/72 (90) 96 02/26/19 06:00 82 18 140/74 (96) 98 02/26/19 05:00 81 22 137/70 (92) 96 02/26/19 04:00 Nasal Cannula 2.0 02/26/19 04:00 97.8 82 19 128/59 (82) 97 02/26/19 03:28 78 18 100 Nasal Cannula 2.0 28 02/26/19 03:21 82 16 100 Nasal Cannula 2.0 28 02/26/19 03:18 80 02/26/19 03:00 80 19 136/76 (96) 100 02/26/19 02:00 80 20 125/72 (89) 91 02/26/19 01:00 81 21 126/62 (83) 96 02/26/19 00:00 97.7 82 22 111/64 (80) 97 02/25/19 23:08 81 02/25/19 23:05 81 20 100 Nasal Cannula 2.0 28 02/25/19 23:00 82 23 126/74 (91) 99 02/25/19 22:55 80 20 98 Nasal Cannula 2.0 28 02/25/19 22:25 81 22 129/78 (95) 95 02/25/19 22:00 97.8 82 22 131/81 (98) 98 02/25/19 22:00 Nasal Cannula 2.0 02/25/19 21:34 86 02/25/19 20:11 2.0 02/25/19 20:10 98.4 81 20 133/73 (93) 96 02/25/19 19:43 72 18 100 Nasal Cannula 2.0 28 02/25/19 19:33 81 18 98 Nasal Cannula 2.0 28 02/25/19 19:33 81 18 98 Nasal Cannula 2.0 28 Intake and Output 02/25/19 02/26/19 19:00 07:00 Intake Total 1290 ml 245.50 ml Output Total 3400 ml 1300 ml Balance -2110 ml -1054.50 ml Intake Oral 1290 ml IV Total 245.50 ml Output Urine Total 3400 ml 1300 ml Objective WDWN NAD obese on oxygen reduced breath sounds bilaterally without rhonchi or wheeze [id number] without MRG NABS nontender no HSM no CC noted edema nonfocal PICC in place Microbiology Date/Time Source Procedure Growth Status 02/24/19 23:30 Blood Blood Culture - Preliminary NO GROWTH AFTER 24 HOURS Resulted 02/24/19 00:58 Blood Blood Culture - Preliminary NO GROWTH AFTER 24 HOURS Resulted Laboratory Tests 02/25/19 18:18: Glucose Level 709*H 02/25/19 23:00: Glucose Level 502*H, Sodium Level 133L, Potassium Level 4.0, Chloride Level 94L , Carbon Dioxide Level 31, Anion Gap 9, Blood Urea Nitrogen 28H, Creatinine 1.7H , Estimat Glomerular Filtration Rate 40.4, Calcium Level 8.9 02/26/19 03:56: White Blood Count 18.8H, Red Blood Count 4.77, Hemoglobin 14.4, Hematocrit 45.4 , Mean Corpuscular Volume 95, Mean Corpuscular Hemoglobin 30.2, Mean Corpuscular Hemoglobin Concent 31.8L, Red Cell Distribution Width 14.0, Platelet Count 348, Mean Platelet Volume 5.0L, Neutrophils (%) (Auto) , Lymphocytes (%) (Auto) , Monocytes (%) (Auto) , Eosinophils (%) (Auto) , Basophils (%) (Auto) , Differential Total Cells Counted 100, Neutrophils % ( Manual) 91H, Lymphocytes % (Manual) 5L, Monocytes % (Manual) 4, Eosinophils % ( Manual) 0, Basophils % (Manual) 0, Band Neutrophils 0, Platelet Estimate DecreasedL, Platelet Morphology Normal, Red Blood Cell Morphology Normal 02/26/19 10:00: Glucose Level 169#H, Sodium Level 137, Potassium Level 3.1L, Chloride Level 95L , Carbon Dioxide Level 34H, Anion Gap 8, Blood Urea Nitrogen 30H, Creatinine 1.5H, Estimat Glomerular Filtration Rate 46.7, Calcium Level 8.9 Current Medications Medications (Trade) Dose Ordered Sig/Antionette Route PRN Reason Start Time Stop Time Status Last Admin Dose Admin Acetaminophen (Tylenol) 650 mg Q6H PRN ORAL Mild Pain/Temp > 100.5 02/26/19 02:00 03/26/19 07:59 Albuterol/ Ipratropium (Albuterol/ Ipratropium) 3 ml Q4HRT HHN 02/25/19 23:00 03/01/19 10:59 02/26/19 15:27 Amiodarone HCl (Cordarone) 200 mg DAILY ORAL 02/26/19 09:00 03/26/19 08:59 02/26/19 08:49 Aspirin (ASA) 81 mg DAILY ORAL 02/26/19 09:00 03/26/19 08:59 02/26/19 08:49 Chlorhexidine Gluconate (Melodie-Hex 2%) 1 applic DAILY@2000 TOPIC 02/26/19 20:00 03/28/19 19:59 Dextrose (Dextrose 50%) 25 ml Q30M PRN IV Hypoglycemia 02/25/19 22:30 03/26/19 15:29 Dextrose (Dextrose 50%) 50 ml Q30M PRN IV Hypoglycemia 02/25/19 22:30 03/26/19 15:29 Digoxin (Lanoxin) 0.125 mg DAILY ORAL 02/26/19 09:00 03/26/19 08:59 02/26/19 08:50 Doxycycline Hyclate 100 mg/ Dextrose 110 ml @ 110 mls/hr Q12HR IV 02/25/19 22:00 03/03/19 08:59 02/26/19 08:48 Furosemide (Lasix) 40 mg EVERY 12 HOURS IV 02/25/19 22:00 03/27/19 20:59 02/26/19 08:39 Heparin Sodium/ Sodium Chloride (Heparin 1000 units/500ml Premix) 1,000 unit ONCE PRN IV PICC 02/26/19 08:01 02/26/19 23:59 Insulin Human Regular (NovoLIN R) 5 units PRN PRN IV BS 200-299 02/25/19 23:15 03/27/19 23:14 02/26/19 17:05 Insulin Human Regular (NovoLIN R) 10 units PRN PRN IV BS=>300 02/25/19 23:15 03/27/19 23:14 02/26/19 10:10 Insulin Human Regular 100 units/ Sodium Chloride 100 ml @ 0 mls/hr Q24H IV 02/26/19 11:20 03/28/19 11:19 02/26/19 12:01 Lidocaine HCl (Xylocaine 1% 30ml) 30 ml ONCE PRN INJ PICC 02/26/19 08:00 02/26/19 23:59 Lisinopril (Zestril) 10 mg DAILY ORAL 02/26/19 09:00 03/28/19 08:59 02/26/19 08:40 Lubiprostone (Amitiza) 24 mcg TWICE A DAY ORAL 02/26/19 09:00 03/26/19 08:59 02/26/19 08:48 Miscellaneous Medication (Insulin Rate Change) 1 ea DAILY PRN MISC protocol 02/26/19 09:00 03/27/19 21:29 Ondansetron HCl (Zofran) 4 mg Q8H PRN IVP Nausea & Vomiting 02/26/19 00:00 03/26/19 07:59 Pantoprazole (Protonix) 40 mg DAILY ORAL 02/26/19 09:00 03/26/19 08:59 02/26/19 08:42 Piperacillin Sod/ Tazobactam Sod 3.375 gm/Sodium Chloride 110 ml @ 27.5 mls/hr EVERY 8 HOURS IVPB 02/25/19 22:00 03/02/19 21:59 02/26/19 14:15 Potassium Chloride (K-Dur) 10 meq DAILY ORAL 02/26/19 09:00 03/26/19 08:59 02/26/19 08:49 Pregabalin (Lyrica) 100 mg BID ORAL 02/26/19 09:00 03/26/19 08:59 02/26/19 08:42 Rivaroxaban (Xarelto) 20 mg DAILY ORAL 02/26/19 09:00 03/26/19 08:59 02/26/19 08:50 Sitagliptin Phosphate (Januvia) 100 mg ACBREAKFAST ORAL 02/26/19 06:30 03/27/19 06:29 Spironolactone (Aldactone) 25 mg DAILY ORAL 02/26/19 09:00 03/26/19 08:59 02/26/19 08:40 Alek Calvillo MD Feb 26, 2019 17:25
--- NOTE | 2019-02-26 17:40 | NUR ---
NURSE NOTES: Dr Calvillo here to see pt. ordered for bipap q hs. No acute distress. Will continue to monitor.
[2019-02-26] MEDS ORDERED: Tubing IV Secondary IV ONE (17:53)
--- NOTE | 2019-02-26 18:36 | Cardiac Electrophysiology PN ---
Assessment/Plan Assessment/Plan 1. Status post Biotronic biventricular defibrillator implantation. The patient does not have atrial lead due to chronic atrial fibrillation. Interrogated today and it is functioning normally. 2. Chronic Atrial fibrillation. Continue Xarelto 20 mg daily. The rate is currently controlled and ICD is BiV-paced. DC amiodarone 200 mg daily in view of chronic fib and continue increase digoxin to 0. 25 mg daily. 3. Severe cardiomyopathy. Echocardiogram EF 35%. Continue Lasix 40 mg IV bid, digoxin 0.125 mg daily, Lisinopril 10 and Aldactone 25 mg daily. Off BB for COPD 4. HTN. maximize heart failure therapy. 5. Uncontrolled diabetes with glucose of more than 600, on insulin drip. 6. COPD. On Solu-Medrol and IV antibiotic per Dr. Calvillo. MARIO RN Subjective Subjective Alert in NAD on insulin drip in ICU. His Biotronic BIVICD was reinterrogated today Objective Last 24 Hour Vital Signs Date Time Temp Pulse Resp B/P (MAP) Pulse Ox O2 Delivery O2 Flow Rate FiO2 02/26/19 18:00 80 24 122/98 (106) 99 02/26/19 17:00 80 18 91/76 (81) 99 02/26/19 16:00 80 02/26/19 16:00 98.0 80 17 102/53 (69) 100 02/26/19 16:00 Nasal Cannula 2.0 02/26/19 15:35 84 21 98 Nasal Cannula 2.0 28 02/26/19 15:27 81 23 96 Nasal Cannula 2.0 28 02/26/19 15:00 80 20 140/81 (100) 91 02/26/19 14:00 75 144/90 (108) 96 02/26/19 13:00 82 20 108/68 (81) 96 02/26/19 12:00 81 18 97 Nasal Cannula 2.0 28 02/26/19 12:00 Nasal Cannula 2.0 02/26/19 12:00 82 02/26/19 12:00 98.2 81 17 127/65 (85) 99 02/26/19 12:00 82 19 127/65 (85) 98 02/26/19 11:51 80 21 96 Nasal Cannula 2.0 28 02/26/19 11:00 83 20 128/104 (112) 97 02/26/19 10:00 84 20 127/67 (87) 96 02/26/19 09:00 81 19 135/79 (97) 99 02/26/19 08:50 84 02/26/19 08:40 125/65 02/26/19 08:00 98.0 81 22 125/65 (85) 97 02/26/19 08:00 Nasal Cannula 2.0 02/26/19 08:00 84 02/26/19 07:50 82 19 99 Nasal Cannula 2.0 28 02/26/19 07:40 81 19 98 Nasal Cannula 2.0 28 02/26/19 07:38 80 19 98 Nasal Cannula 2.0 28 02/26/19 07:00 81 18 126/72 (90) 96 02/26/19 06:00 82 18 140/74 (96) 98 02/26/19 05:00 81 22 137/70 (92) 96 02/26/19 04:00 Nasal Cannula 2.0 02/26/19 04:00 97.8 82 19 128/59 (82) 97 02/26/19 03:28 78 18 100 Nasal Cannula 2.0 28 02/26/19 03:21 82 16 100 Nasal Cannula 2.0 28 02/26/19 03:18 80 02/26/19 03:00 80 19 136/76 (96) 100 02/26/19 02:00 80 20 125/72 (89) 91 02/26/19 01:00 81 21 126/62 (83) 96 02/26/19 00:00 97.7 82 22 111/64 (80) 97 02/25/19 23:08 81 02/25/19 23:05 81 20 100 Nasal Cannula 2.0 28 02/25/19 23:00 82 23 126/74 (91) 99 02/25/19 22:55 80 20 98 Nasal Cannula 2.0 28 02/25/19 22:25 81 22 129/78 (95) 95 02/25/19 22:00 97.8 82 22 131/81 (98) 98 02/25/19 22:00 Nasal Cannula 2.0 02/25/19 21:34 86 02/25/19 20:11 2.0 02/25/19 20:10 98.4 81 20 133/73 (93) 96 02/25/19 19:43 72 18 100 Nasal Cannula 2.0 28 02/25/19 19:33 81 18 98 Nasal Cannula 2.0 28 02/25/19 19:33 81 18 98 Nasal Cannula 2.0 28 Intake and Output 02/25/19 02/26/19 19:00 07:00 Intake Total 1290 ml 245.50 ml Output Total 3400 ml 1300 ml Balance -2110 ml -1054.50 ml Intake Oral 1290 ml IV Total 245.50 ml Output Urine Total 3400 ml 1300 ml Laboratory Tests Test 02/25/19 23:00 02/26/19 03:56 02/26/19 10:00 Sodium Level 133 MMOL/L (136-145) L 137 MMOL/L (136-145) Potassium Level 4.0 MMOL/L (3.5-5.1) 3.1 MMOL/L (3.5-5.1) L Chloride Level 94 MMOL/L (98-107) L 95 MMOL/L (98-107) L Carbon Dioxide Level 31 MMOL/L (21-32) 34 MMOL/L (21-32) H Anion Gap 9 mmol/L (5-15) 8 mmol/L (5-15) Blood Urea Nitrogen 28 mg/dL (7-18) H 30 mg/dL (7-18) H Creatinine 1.7 MG/DL (0.55-1.30) H 1.5 MG/DL (0.55-1.30) H Estimat Glomerular Filtration Rate 40.4 mL/min (>60) 46.7 mL/min (>60) Glucose Level 502 MG/DL (74-106) *H 169 MG/DL (74-106) #H Calcium Level 8.9 MG/DL (8.5-10.1) 8.9 MG/DL (8.5-10.1) White Blood Count 18.8 K/UL (4.8-10.8) H Red Blood Count 4.77 M/UL (4.70-6.10) Hemoglobin 14.4 G/DL (14.2-18.0) Hematocrit 45.4 % (42.0-52.0) Mean Corpuscular Volume 95 FL (80-99) Mean Corpuscular Hemoglobin 30.2 PG (27.0-31.0) Mean Corpuscular Hemoglobin Concent 31.8 G/DL (32.0-36.0) L Red Cell Distribution Width 14.0 % (11.6-14.8) Platelet Count 348 K/UL (150-450) Mean Platelet Volume 5.0 FL (6.5-10.1) L Neutrophils (%) (Auto) % (45.0-75.0) Lymphocytes (%) (Auto) % (20.0-45.0) Monocytes (%) (Auto) % (1.0-10.0) Eosinophils (%) (Auto) % (0.0-3.0) Basophils (%) (Auto) % (0.0-2.0) Differential Total Cells Counted 100 Neutrophils % (Manual) 91 % (45-75) H Lymphocytes % (Manual) 5 % (20-45) L Monocytes % (Manual) 4 % (1-10) Eosinophils % (Manual) 0 % (0-3) Basophils % (Manual) 0 % (0-2) Band Neutrophils 0 % (0-8) Platelet Estimate Decreased L Platelet Morphology Normal Red Blood Cell Morphology Normal Microbiology Date/Time Source Procedure Growth Status 02/24/19 23:30 Blood Blood Culture - Preliminary NO GROWTH AFTER 24 HOURS Resulted 02/24/19 00:58 Blood Blood Culture - Preliminary NO GROWTH AFTER 24 HOURS Resulted Objective HEAD AND NECK: Positive JVD. LUNGS: Decreased breath sounds. CARDIOVASCULAR: Shows irregular S1 and S2 with no gallop. ICD left subclavian ABDOMEN: Soft. EXTREMITIES: He has 1+ pitting edema. Yuval Carey MD Feb 26, 2019 18:36
--- NOTE | 2019-02-26 18:56 | General Progress Note ---
Assessment/Plan Problem List: (1) CHF (congestive heart failure) ICD Codes: I50.9 - Heart failure, unspecified SNOMED: 34776552 (2) Atrial fibrillation with RVR ICD Codes: I48.91 - Unspecified atrial fibrillation SNOMED: 437639291 (3) Diabetic neuropathy ICD Codes: E11.40 - Type 2 diabetes mellitus with diabetic neuropathy, unspecified SNOMED: 79012282, 791099046, 972984887 (4) GERD (gastroesophageal reflux disease) ICD Codes: K21.9 - Gastro-esophageal reflux disease without esophagitis SNOMED: 173531527 (5) Diabetic nephropathy ICD Codes: E11.21 - Type 2 diabetes mellitus with diabetic nephropathy SNOMED: 10389318, 668070488 (6) HTN (hypertension) ICD Codes: I10 - Essential (primary) hypertension SNOMED: 00474754 (7) COPD exacerbation ICD Codes: J44.1 - Chronic obstructive pulmonary disease with (acute) exacerbation SNOMED: 326942104 (8) Pneumonia ICD Codes: J18.9 - Pneumonia, unspecified organism SNOMED: 541644627 Qualifiers: Qualified Codes: J18.1 - Lobar pneumonia, unspecified organism Status: stable, progressing Assessment/Plan: ivf/monitor resume levemir in am insulin drip resp care iv abx Subjective ROS Limited/Unobtainable: No Constitutional: Reports: malaise, weakness HEENT: Reports: no symptoms Cardiovascular: Reports: no symptoms Respiratory: Reports: cough, shortness of breath Gastrointestinal/Abdominal: Reports: no symptoms Genitourinary: Reports: no symptoms Neurologic/Psychiatric: Reports: no symptoms Endocrine: Reports: no symptoms Hematologic/Lymphatic: Reports: no symptoms Allergies: Coded Allergies: No Known Allergies (Unverified , 02/26/14) All Systems: reviewed and negative except above Subjective transferred to the icu for hyperglycemia. currently on insulin drip. no cp/sob. feels "fine." Objective Last 24 Hour Vital Signs Date Time Temp Pulse Resp B/P (MAP) Pulse Ox O2 Delivery O2 Flow Rate FiO2 02/26/19 18:00 80 24 122/98 (106) 99 02/26/19 17:00 80 18 91/76 (81) 99 02/26/19 16:00 80 02/26/19 16:00 98.0 80 17 102/53 (69) 100 02/26/19 16:00 Nasal Cannula 2.0 02/26/19 15:35 84 21 98 Nasal Cannula 2.0 28 02/26/19 15:27 81 23 96 Nasal Cannula 2.0 28 02/26/19 15:00 80 20 140/81 (100) 91 02/26/19 14:00 75 144/90 (108) 96 02/26/19 13:00 82 20 108/68 (81) 96 02/26/19 12:00 81 18 97 Nasal Cannula 2.0 28 02/26/19 12:00 Nasal Cannula 2.0 02/26/19 12:00 82 02/26/19 12:00 98.2 81 17 127/65 (85) 99 02/26/19 12:00 82 19 127/65 (85) 98 02/26/19 11:51 80 21 96 Nasal Cannula 2.0 28 02/26/19 11:00 83 20 128/104 (112) 97 02/26/19 10:00 84 20 127/67 (87) 96 02/26/19 09:00 81 19 135/79 (97) 99 02/26/19 08:50 84 02/26/19 08:40 125/65 02/26/19 08:00 98.0 81 22 125/65 (85) 97 02/26/19 08:00 Nasal Cannula 2.0 02/26/19 08:00 84 02/26/19 07:50 82 19 99 Nasal Cannula 2.0 28 02/26/19 07:40 81 19 98 Nasal Cannula 2.0 28 02/26/19 07:38 80 19 98 Nasal Cannula 2.0 28 02/26/19 07:00 81 18 126/72 (90) 96 02/26/19 06:00 82 18 140/74 (96) 98 02/26/19 05:00 81 22 137/70 (92) 96 02/26/19 04:00 Nasal Cannula 2.0 02/26/19 04:00 97.8 82 19 128/59 (82) 97 02/26/19 03:28 78 18 100 Nasal Cannula 2.0 28 02/26/19 03:21 82 16 100 Nasal Cannula 2.0 28 02/26/19 03:18 80 02/26/19 03:00 80 19 136/76 (96) 100 02/26/19 02:00 80 20 125/72 (89) 91 02/26/19 01:00 81 21 126/62 (83) 96 02/26/19 00:00 97.7 82 22 111/64 (80) 97 02/25/19 23:08 81 02/25/19 23:05 81 20 100 Nasal Cannula 2.0 28 02/25/19 23:00 82 23 126/74 (91) 99 02/25/19 22:55 80 20 98 Nasal Cannula 2.0 28 02/25/19 22:25 81 22 129/78 (95) 95 02/25/19 22:00 97.8 82 22 131/81 (98) 98 02/25/19 22:00 Nasal Cannula 2.0 02/25/19 21:34 86 02/25/19 20:11 2.0 02/25/19 20:10 98.4 81 20 133/73 (93) 96 02/25/19 19:43 72 18 100 Nasal Cannula 2.0 28 02/25/19 19:33 81 18 98 Nasal Cannula 2.0 28 02/25/19 19:33 81 18 98 Nasal Cannula 2.0 28 Intake and Output 02/25/19 02/26/19 19:00 07:00 Intake Total 1290 ml 245.50 ml Output Total 3400 ml 1300 ml Balance -2110 ml -1054.50 ml Intake Oral 1290 ml IV Total 245.50 ml Output Urine Total 3400 ml 1300 ml Laboratory Tests 02/25/19 23:00: Sodium Level 133L, Potassium Level 4.0, Chloride Level 94L, Carbon Dioxide Level 31, Anion Gap 9, Blood Urea Nitrogen 28H, Creatinine 1.7H, Estimat Glomerular Filtration Rate 40.4, Glucose Level 502*H, Calcium Level 8.9 02/26/19 03:56: White Blood Count 18.8H, Red Blood Count 4.77, Hemoglobin 14.4, Hematocrit 45.4 , Mean Corpuscular Volume 95, Mean Corpuscular Hemoglobin 30.2, Mean Corpuscular Hemoglobin Concent 31.8L, Red Cell Distribution Width 14.0, Platelet Count 348, Mean Platelet Volume 5.0L, Neutrophils (%) (Auto) , Lymphocytes (%) (Auto) , Monocytes (%) (Auto) , Eosinophils (%) (Auto) , Basophils (%) (Auto) , Differential Total Cells Counted 100, Neutrophils % ( Manual) 91H, Lymphocytes % (Manual) 5L, Monocytes % (Manual) 4, Eosinophils % ( Manual) 0, Basophils % (Manual) 0, Band Neutrophils 0, Platelet Estimate DecreasedL, Platelet Morphology Normal, Red Blood Cell Morphology Normal 02/26/19 10:00: Sodium Level 137, Potassium Level 3.1L, Chloride Level 95L, Carbon Dioxide Level 34H, Anion Gap 8, Blood Urea Nitrogen 30H, Creatinine 1.5H, Estimat Glomerular Filtration Rate 46.7, Glucose Level 169#H, Calcium Level 8.9 Height (Feet): 5 Height (Inches): 9.00 Weight (Pounds): 300 General Appearance: WD/WN, alert Neck: supple Cardiovascular: normal peripheral pulses, normal rate, regular rhythm Respiratory/Chest: chest wall non-tender, lungs clear, normal breath sounds, no respiratory distress Abdomen: normal bowel sounds, non tender, soft, no organomegaly, no mass Edema: no edema noted Arm (L), no edema noted Arm (R), no edema noted Leg (L), no edema noted Leg (R), no edema noted Pedal (L), no edema noted Pedal (R), no edema noted Generalized Neurologic: mold builder II-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
--- NOTE | 2019-02-26 19:23 | NUR ---
HAND-OFF: Report given to Lorrie Davis.
--- NOTE | 2019-02-26 19:30 | NUR ---
NURSE NOTES: Received report from TERRY Ruth. Patient awake,alert oriented x3, able to verbalize needs to staff. On 2 Liters oxygen via N/C satting 96%. HOB elevated. Skin warm and dry to touch. Denies any pain or discomfort. No s/s of hypo/ hyperglycemia. Right upper arm PICC line double lumen intact changed dressing. Running Insulin drip Algorithm 4 @ 11 units/hr. swollen Bilateral lower extremities Elevated with pillows. No s/s of acute distress noted. Instructed patient to use call light for assistance. V-paced on campus receptionist HR 88. Kept clean and dry. Assisted pt in bed. Bed alarm on. Bed locked and in low position. Will continue plan of care.
[2019-02-26] MEDS ORDERED: Dyna-Hex 2% Top Sol 2oz TOPIC SCH (20:00)
--- NOTE | 2019-02-26 21:30 | NUR ---
NURSE NOTES: patient in bed awake,alert able to verbalize needs known to staff. Watching TV. On 2L oxygen via N/C satting 97%. condom cath draining with clear yellow urine. Kept clean and dry. no s/s of acute distress noted. Will continue to monitor patient.
--- NOTE | 2019-02-26 22:30 | NUR ---
NURSE NOTES: Patient in bed watching TV. RT at bedside, placed the pts BIPAP 21/02 Fi02 28% satting 96-97%. HOB elevated. Call light within easy reach Will continue to monitor the patient..
[2019-02-27] VITALS (19 sets, daily range): BP systolic 88–127; BP diastolic 44–81
--- NOTE | 2019-02-27 | NUR ---
NURSE NOTES: Patient in bed sleeping comfortably. Continue on Insulin drip Algorithm 4 with 4 units/hr, Blood glucose 128mg/dl. No s/s of hypo/hyperglycemia. Frequent visual checks continued.
--- NOTE | 2019-02-27 02:00 | NUR ---
NURSE NOTES: Patient in bed sleeping comfortably. Continue on Insulin drip Algorithm 4 with 11 units/hr, Blood glucose 215 mg/dl. No s/s of hypo/hyperglycemia. Frequent visual checks continued.
[2019-02-27] MEDS: Insulin Human Regular 100units/ml 3ml IV PRN (02:03)
--- NOTE | 2019-02-27 03:00 | NUR ---
NURSE NOTES: Patient awake, requested to changed BIPAP to oxygen via N/C 2L satting 97%.watching TV. HOB elevated.Continue on Insulin drip Algorithm 4 with 2 units/hr, Blood glucose 107 mg/dl. No s/s of hypo/hyperglycemia. Frequent visual checks continued.
[2019-02-27] MEDS: Albuterol/Ipratropium 3ml neb HHN SCH ×6 (03:04→22:52)
--- NOTE | 2019-02-27 05:00 | NUR ---
NURSE NOTES: Patient awake, watching TV. On 2L oxygen via N/C satting 97%. HOB elevated.Continue on Insulin drip Algorithm 4 with 8.5units/hr, Blood glucose 182mg/dl. No s/s of hypo/hyperglycemia. Bed bath given. Frequent visual checks continued.
[2019-02-27] MEDS: Piperacillin/Tazobactam 3.375 GM in NS 110 ML IVPB SCH ×3 (06:07→23:47)
--- NOTE | 2019-02-27 07:13 | NUR ---
HAND-OFF: Report given to TERRY Ruth.
--- NOTE | 2019-02-27 07:20 | NUR ---
NURSE NOTES: Report received from Lrorie STEWART. Pt alert and oriented x4, able to make needs known. Pt denies pain or discomfort. 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 Pt on 2 L O2 saturating 99%. Pt attempting to cough up phlegm. Condom cath intact and in place. ROSALINDA PICC x2 lumen noted and intact. Insulin drip running at 4 u/hr on algorithm 4. Safety measures in place with bed locked and in place, side rails x3 up and bed alarm on. Will continue to monitor and continue plan of care.
[2019-02-27] MEDS: Doxycycline Hyclate 100 MG in D5W 110 ML IV SCH ×2 (08:29→22:24)
[2019-02-27] MEDS: Lyrica 50mg cap ORAL SCH ×2 (08:30→17:07)
[2019-02-27] MEDS: Amitiza 24mcg cap ORAL SCH ×2 (08:32→17:07)
[2019-02-27] MEDS: Spironolactone 25mg tab ORAL SCH (08:32)
[2019-02-27] MEDS: Aspirin Baby 81mg ORAL SCH (08:32)
[2019-02-27] MEDS: Xarelto 10mg tab ORAL SCH (08:33)
[2019-02-27] MEDS: Lisinopril 10mg tab ORAL SCH (08:33)
[2019-02-27] MEDS ORDERED: Levemir Flexpen SUBQ SCH ×2 (09:00→18:00)
--- NOTE | 2019-02-27 09:08 | General Progress Note ---
Assessment/Plan Problem List: (1) CHF (congestive heart failure) ICD Codes: I50.9 - Heart failure, unspecified SNOMED: 57584520 (2) Atrial fibrillation with RVR ICD Codes: I48.91 - Unspecified atrial fibrillation SNOMED: 239837171 (3) Diabetic neuropathy ICD Codes: E11.40 - Type 2 diabetes mellitus with diabetic neuropathy, unspecified SNOMED: 30673825, 950771074, 524390839 (4) GERD (gastroesophageal reflux disease) ICD Codes: K21.9 - Gastro-esophageal reflux disease without esophagitis SNOMED: 604707392 (5) Diabetic nephropathy ICD Codes: E11.21 - Type 2 diabetes mellitus with diabetic nephropathy SNOMED: 97414422, 978736996 (6) HTN (hypertension) ICD Codes: I10 - Essential (primary) hypertension SNOMED: 83124827 (7) COPD exacerbation ICD Codes: J44.1 - Chronic obstructive pulmonary disease with (acute) exacerbation SNOMED: 710077592 (8) Pneumonia ICD Codes: J18.9 - Pneumonia, unspecified organism SNOMED: 254491998 Qualifiers: Qualified Codes: J18.1 - Lobar pneumonia, unspecified organism Status: stable, progressing Assessment/Plan: ivf/monitor resume levemir 30 bid accu checks q4 with high dose coverage insulin drip discontinued resp care iv abx follow up labs Subjective ROS Limited/Unobtainable: No Constitutional: Reports: malaise, weakness HEENT: Reports: no symptoms Cardiovascular: Reports: no symptoms Gastrointestinal/Abdominal: Reports: no symptoms Genitourinary: Reports: no symptoms Neurologic/Psychiatric: Reports: no symptoms Endocrine: Reports: no symptoms Hematologic/Lymphatic: Reports: no symptoms Allergies: Coded Allergies: No Known Allergies (Unverified , 02/26/14) All Systems: reviewed and negative except above Subjective BS better controlled. on insulin drip still. states he feels "alot better." Objective Last 24 Hour Vital Signs Date Time Temp Pulse Resp B/P (MAP) Pulse Ox O2 Delivery O2 Flow Rate FiO2 02/27/19 08:33 98/69 02/27/19 08:32 80 02/27/19 08:00 Nasal Cannula 2.0 02/27/19 08:00 2.0 02/27/19 08:00 98.0 82 16 92/62 (72) 94 02/27/19 07:18 80 19 100 Nasal Cannula 2.0 28 02/27/19 07:09 81 19 99 Nasal Cannula 2.0 28 02/27/19 07:09 99 Nasal Cannula 2.0 28 02/27/19 07:00 80 22 98/69 (79) 96 02/27/19 06:00 88 19 127/60 (82) 91 02/27/19 05:00 81 21 118/67 (84) 92 02/27/19 04:00 80 02/27/19 04:00 2.0 02/27/19 04:00 98.6 80 18 98/56 (70) 95 02/27/19 04:00 Nasal Cannula 2.0 02/27/19 03:15 80 24 99 Nasal Cannula 28 02/27/19 03:05 80 23 97 Bi-Pap 30 02/27/19 03:00 81 18 95 2.0 28 02/27/19 03:00 81 23 98/71 (80) 96 02/27/19 03:00 28 02/27/19 02:07 80 20 103/55 (71) 98 02/27/19 01:19 80 23 97 Facial 30 02/27/19 01:00 81 21 103/58 (73) 96 02/27/19 00:00 98.0 80 13 101/66 (78) 95 02/27/19 00:00 28 02/27/19 00:00 Bi-pap 02/26/19 23:01 80 21 97 Bi-Pap 30 02/26/19 23:00 81 19 102/81 (88) 99 02/26/19 22:49 30 02/26/19 22:48 81 21 98 Bi-Pap 30 02/26/19 22:40 80 22 98 Facial 30 02/26/19 22:00 80 25 100/56 (71) 98 02/26/19 22:00 85 102/72 (82) 99 02/26/19 21:46 97 Nasal Cannula 2.0 28 02/26/19 21:00 85 102/72 (82) 99 02/26/19 20:00 97.8 81 23 102/77 (85) 98 02/26/19 20:00 Nasal Cannula 2.0 02/26/19 20:00 80 02/26/19 19:28 80 14 97 Nasal Cannula 2.0 28 02/26/19 19:18 81 20 91 Nasal Cannula 2.0 02/26/19 19:00 84 22 107/71 (83) 96 02/26/19 18:00 80 24 122/98 (106) 99 02/26/19 17:00 80 18 91/76 (81) 99 02/26/19 16:00 80 02/26/19 16:00 98.0 80 17 102/53 (69) 100 02/26/19 16:00 Nasal Cannula 2.0 02/26/19 15:35 84 21 98 Nasal Cannula 2.0 28 02/26/19 15:27 81 23 96 Nasal Cannula 2.0 28 02/26/19 15:00 80 20 140/81 (100) 91 02/26/19 14:00 75 144/90 (108) 96 02/26/19 13:00 82 20 108/68 (81) 96 02/26/19 12:00 81 18 97 Nasal Cannula 2.0 28 02/26/19 12:00 Nasal Cannula 2.0 02/26/19 12:00 82 02/26/19 12:00 98.2 81 17 127/65 (85) 99 02/26/19 12:00 82 19 127/65 (85) 98 02/26/19 11:51 80 21 96 Nasal Cannula 2.0 28 02/26/19 11:00 83 20 128/104 (112) 97 02/26/19 10:00 84 20 127/67 (87) 96 Intake and Output 02/26/19 02/27/19 19:00 07:00 Intake Total 250.5 ml 386.0 ml Output Total 1200 ml 1035 ml Balance -949.5 ml -649.0 ml Intake Oral 100 ml IV Total 250.5 ml 286.0 ml Output Urine Total 1200 ml 1035 ml Laboratory Tests 02/26/19 10:00: Sodium Level 137, Potassium Level 3.1L, Chloride Level 95L, Carbon Dioxide Level 34H, Anion Gap 8, Blood Urea Nitrogen 30H, Creatinine 1.5H, Estimat Glomerular Filtration Rate 46.7, Glucose Level 169#H, Calcium Level 8.9 02/27/19 05:10: Digoxin Level 0.3L Height (Feet): 5 Height (Inches): 9.00 Weight (Pounds): 264 General Appearance: WD/WN, alert Neck: supple Cardiovascular: normal rate Respiratory/Chest: chest wall non-tender, lungs clear, normal breath sounds Abdomen: normal bowel sounds, non tender, soft, no organomegaly Neurologic: systems planner II-XII grossly normal, alert, oriented x 3 Jareth Valenzuela MD Feb 27, 2019 09:08
--- NOTE | 2019-02-27 09:29 | NUR ---
NURSE NOTES: Sr Valenzuela came to assess pt. Insulin drip dc and changed to resistant sliding scale. Accuchecks to be done q4h. Will continue to monitor.
[2019-02-27 09:31] LABS: ALANINE AMINOTRANSFERASE 10 U/L (12-78); ALBUMIN 3.2 G/DL (3.4-5.0); ALBUMIN/GLOBULIN RATIO 0.8 (1.0-2.7); ALKALINE PHOSPHATASE 61 U/L (46-116); ANION GAP 14 mmol/L (5-15); ASPARTATE AMINO TRANSFERASE 41 U/L (15-37); BILIRUBIN,TOTAL 0.7 MG/DL (0.2-1.0); BLOOD UREA NITROGEN 42 mg/dL (7-18); CALCIUM 8.5 MG/DL (8.5-10.1); CARBON DIOXIDE 29 MMOL/L (21-32); CHLORIDE 95 MMOL/L (98-107); CREATININE 1.7 MG/DL (0.55-1.30); POTASSIUM 4.1 MMOL/L (3.5-5.1); SODIUM 138 MMOL/L (136-145)
[2019-02-27] MEDS: NovoLOG Insulin Flexpen SUBQ SCH ×4 (10:09→22:24)
[2019-02-27 10:34] LABS: BASOPHILS % (AUTO) 0.7 % (0.0-2.0); EOSINOPHILS % (AUTO) 2.8 % (0.0-3.0); HEMATOCRIT 40.9 % (42.0-52.0); HEMOGLOBIN 12.6 G/DL (14.2-18.0); LYMPHOCYTES % (AUTO) 16.8 % (20.0-45.0); MEAN CORPUSCULAR VOLUME 95 FL (80-99); MONOCYTES % (AUTO) 7.6 % (1.0-10.0); NEUTROPHILS % (AUTO) 72.1 % (45.0-75.0); PLATELET COUNT 290 K/UL (150-450); RED CELL DISTRIBUTION WIDTH 14.1 % (11.6-14.8)
--- NOTE | 2019-02-27 13:02 | NUR ---
NURSE NOTES: Pt eating lunch, has a good appetite. Received order from Dr Valenzuela that pt may move to med surg unit. Will continue to monitor.
--- NOTE | 2019-02-27 14:23 | Cardiac Electrophysiology PN ---
Assessment/Plan Assessment/Plan 1. Status post Biotronic biventricular defibrillator implantation. The patient does not have atrial lead due to chronic atrial fibrillation. Interrogated and it is functioning normally. V paced 2. Chronic Atrial fibrillation. Continue Xarelto 20 mg daily. The rate is currently controlled and ICD is BiV-paced. On digoxin 0. 25 mg daily. 3. Severe cardiomyopathy. Echocardiogram EF 35%. Continue Lasix 40 mg IV bid, digoxin 0.25 mg daily, Lisinopril 10 and Aldactone 25 mg daily. Off BB for COPD 4. HTN. maximize heart failure therapy. 5. Uncontrolled diabetes with glucose of more than 600. Off insulin drip today. 6. COPD. On IV antibiotic per Dr. Calvillo. MARIO RN Subjective Subjective Alert in NAD off insulin drip now in ICU. Remains V paced Objective Last 24 Hour Vital Signs Date Time Temp Pulse Resp B/P (MAP) Pulse Ox O2 Delivery O2 Flow Rate FiO2 02/27/19 14:00 81 19 101/49 (66) 97 02/27/19 13:00 81 23 88/69 (75) 95 02/27/19 12:00 80 02/27/19 12:00 Nasal Cannula 2.0 02/27/19 12:00 2.0 02/27/19 12:00 97.9 80 16 112/81 (91) 81 02/27/19 11:09 82 23 99 Nasal Cannula 2.0 28 02/27/19 11:00 82 22 120/78 (92) 100 02/27/19 10:59 80 20 96 Nasal Cannula 2.0 28 02/27/19 10:00 81 15 93/44 (60) 99 02/27/19 09:00 80 19 102/54 (70) 99 02/27/19 08:33 98/69 02/27/19 08:32 80 02/27/19 08:00 Nasal Cannula 2.0 02/27/19 08:00 2.0 02/27/19 08:00 82 02/27/19 08:00 98.0 82 16 92/62 (72) 94 02/27/19 07:18 80 19 100 Nasal Cannula 2.0 28 02/27/19 07:09 81 19 99 Nasal Cannula 2.0 28 02/27/19 07:09 99 Nasal Cannula 2.0 28 02/27/19 07:00 80 22 98/69 (79) 96 02/27/19 06:00 88 19 127/60 (82) 91 02/27/19 05:00 81 21 118/67 (84) 92 02/27/19 04:00 80 02/27/19 04:00 2.0 02/27/19 04:00 98.6 80 18 98/56 (70) 95 02/27/19 04:00 Nasal Cannula 2.0 02/27/19 03:15 80 24 99 Nasal Cannula 28 02/27/19 03:05 80 23 97 Bi-Pap 30 02/27/19 03:00 81 18 95 2.0 28 02/27/19 03:00 81 23 98/71 (80) 96 02/27/19 03:00 28 02/27/19 02:07 80 20 103/55 (71) 98 02/27/19 01:19 80 23 97 Facial 30 02/27/19 01:00 81 21 103/58 (73) 96 02/27/19 00:00 98.0 80 13 101/66 (78) 95 02/27/19 00:00 28 02/27/19 00:00 Bi-pap 02/26/19 23:01 80 21 97 Bi-Pap 30 02/26/19 23:00 81 19 102/81 (88) 99 02/26/19 22:49 30 02/26/19 22:48 81 21 98 Bi-Pap 30 02/26/19 22:40 80 22 98 Facial 30 02/26/19 22:00 80 25 100/56 (71) 98 02/26/19 22:00 85 102/72 (82) 99 02/26/19 21:46 97 Nasal Cannula 2.0 28 02/26/19 21:00 85 102/72 (82) 99 02/26/19 20:00 97.8 81 23 102/77 (85) 98 02/26/19 20:00 Nasal Cannula 2.0 02/26/19 20:00 80 02/26/19 19:28 80 14 97 Nasal Cannula 2.0 28 02/26/19 19:18 81 20 91 Nasal Cannula 2.0 02/26/19 19:00 84 22 107/71 (83) 96 02/26/19 18:00 80 24 122/98 (106) 99 02/26/19 17:00 80 18 91/76 (81) 99 02/26/19 16:00 80 02/26/19 16:00 98.0 80 17 102/53 (69) 100 02/26/19 16:00 Nasal Cannula 2.0 02/26/19 15:35 84 21 98 Nasal Cannula 2.0 28 02/26/19 15:27 81 23 96 Nasal Cannula 2.0 28 02/26/19 15:00 80 20 140/81 (100) 91 Intake and Output 02/26/19 02/27/19 19:00 07:00 Intake Total 250.5 ml 386.0 ml Output Total 1200 ml 1035 ml Balance -949.5 ml -649.0 ml Intake Oral 100 ml IV Total 250.5 ml 286.0 ml Output Urine Total 1200 ml 1035 ml Laboratory Tests Test 02/27/19 05:10 02/27/19 10:17 Sodium Level 138 MMOL/L (136-145) Potassium Level 4.1 MMOL/L (3.5-5.1) Chloride Level 95 MMOL/L (98-107) L Carbon Dioxide Level 29 MMOL/L (21-32) Anion Gap 14 mmol/L (5-15) Blood Urea Nitrogen 42 mg/dL (7-18) H Creatinine 1.7 MG/DL (0.55-1.30) H Estimat Glomerular Filtration Rate 40.4 mL/min (>60) Glucose Level 147 MG/DL (74-106) H Calcium Level 8.5 MG/DL (8.5-10.1) Total Bilirubin 0.7 MG/DL (0.2-1.0) Aspartate Amino Transf (AST/SGOT) 41 U/L (15-37) H Alanine Aminotransferase (ALT/SGPT) 10 U/L (12-78) L Alkaline Phosphatase 61 U/L (46-116) Total Protein 7.1 G/DL (6.4-8.2) Albumin 3.2 G/DL (3.4-5.0) L Globulin 3.9 g/dL Albumin/Globulin Ratio 0.8 (1.0-2.7) L Digoxin Level 0.3 NG/ML (0.5-2.0) L White Blood Count 13.0 K/UL (4.8-10.8) H Red Blood Count 4.30 M/UL (4.70-6.10) L Hemoglobin 12.6 G/DL (14.2-18.0) L Hematocrit 40.9 % (42.0-52.0) L Mean Corpuscular Volume 95 FL (80-99) Mean Corpuscular Hemoglobin 29.3 PG (27.0-31.0) Mean Corpuscular Hemoglobin Concent 30.8 G/DL (32.0-36.0) L Red Cell Distribution Width 14.1 % (11.6-14.8) Platelet Count 290 K/UL (150-450) Mean Platelet Volume 5.3 FL (6.5-10.1) L Neutrophils (%) (Auto) 72.1 % (45.0-75.0) Lymphocytes (%) (Auto) 16.8 % (20.0-45.0) L Monocytes (%) (Auto) 7.6 % (1.0-10.0) Eosinophils (%) (Auto) 2.8 % (0.0-3.0) Basophils (%) (Auto) 0.7 % (0.0-2.0) Microbiology Date/Time Source Procedure Growth Status 02/24/19 23:30 Blood Blood Culture - Preliminary NO GROWTH AFTER 48 HOURS Resulted Objective HEAD AND NECK: Positive JVD. LUNGS: Decreased breath sounds. CARDIOVASCULAR: Shows irregular S1 and S2 with no gallop. ICD left subclavian ABDOMEN: Soft. EXTREMITIES: He has 1+ pitting edema. Yuval Carey MD Feb 27, 2019 14:23
--- NOTE | 2019-02-27 14:41 | NUR ---
CASE MANAGEMENT: REVIEW 02/27/2019 SI:COPD EXACERBATION. PNA. T 97.9 HR 80 RR 16 B/P 112/81 SATS 95% ON 2L/NC WBC 13 CL 95 BUN 42 CR 1.7 GLU 147 AST 41 ALT 10 IS:ZOSYN IV Q8H LASIX IV Q8H LYRICA PO BID LEVEMIR SUBQ BID ASA PO QD LISINOPRIL PO QD K DUR PO QD XARELTO PO QD DOXYCYCLINE IV Q12H INSULIN ASPART SUBQ Q4H ICU PLAN OF CARE: TRANSFER TO MED/SURG
--- NOTE | 2019-02-27 15:12 | NUR ---
NURSE NOTES: Dr Carey here to see pt. No new orders. No acute distress. Will continue to monitor.
--- NOTE | 2019-02-27 16:19 | General Progress Note ---
Assessment/Plan Status: stable, progressing Assessment/Plan: Assessment - IDDM with peripheral neuropathy - likely gastroparesis - GERD - N/V, ? transient - Chronic constipation - COPD Recommendations - PPI daily terminal carman - Reflux precautions - BID amitiza - can add miralax PRN - outpatient EGD Subjective Allergies: Coded Allergies: No Known Allergies (Unverified , 02/26/14) Subjective above noted seen in ICU No abdominal complaints Objective Last 24 Hour Vital Signs Date Time Temp Pulse Resp B/P (MAP) Pulse Ox O2 Delivery O2 Flow Rate FiO2 02/27/19 16:00 98.2 81 22 104/69 (81) 99 02/27/19 16:00 80 02/27/19 16:00 Nasal Cannula 2.0 02/27/19 16:00 2.0 02/27/19 15:15 80 21 100 Nasal Cannula 2.0 28 02/27/19 15:05 80 16 100 Nasal Cannula 2.0 28 02/27/19 15:00 81 16 98/59 (72) 100 02/27/19 14:00 81 19 101/49 (66) 97 02/27/19 13:00 81 23 88/69 (75) 95 02/27/19 12:00 80 02/27/19 12:00 Nasal Cannula 2.0 02/27/19 12:00 2.0 02/27/19 12:00 97.9 80 16 112/81 (91) 81 02/27/19 11:09 82 23 99 Nasal Cannula 2.0 28 02/27/19 11:00 82 22 120/78 (92) 100 02/27/19 10:59 80 20 96 Nasal Cannula 2.0 28 02/27/19 10:00 81 15 93/44 (60) 99 02/27/19 09:00 80 19 102/54 (70) 99 02/27/19 08:33 98/69 02/27/19 08:32 80 02/27/19 08:00 Nasal Cannula 2.0 02/27/19 08:00 2.0 02/27/19 08:00 82 02/27/19 08:00 98.0 82 16 92/62 (72) 94 02/27/19 07:18 80 19 100 Nasal Cannula 2.0 28 02/27/19 07:09 81 19 99 Nasal Cannula 2.0 28 02/27/19 07:09 99 Nasal Cannula 2.0 28 02/27/19 07:00 80 22 98/69 (79) 96 02/27/19 06:00 88 19 127/60 (82) 91 02/27/19 05:00 81 21 118/67 (84) 92 02/27/19 04:00 80 02/27/19 04:00 2.0 02/27/19 04:00 98.6 80 18 98/56 (70) 95 02/27/19 04:00 Nasal Cannula 2.0 02/27/19 03:15 80 24 99 Nasal Cannula 28 02/27/19 03:05 80 23 97 Bi-Pap 30 02/27/19 03:00 81 18 95 2.0 28 02/27/19 03:00 81 23 98/71 (80) 96 02/27/19 03:00 28 02/27/19 02:07 80 20 103/55 (71) 98 02/27/19 01:19 80 23 97 Facial 30 02/27/19 01:00 81 21 103/58 (73) 96 02/27/19 00:00 98.0 80 13 101/66 (78) 95 02/27/19 00:00 28 02/27/19 00:00 Bi-pap 02/26/19 23:01 80 21 97 Bi-Pap 30 02/26/19 23:00 81 19 102/81 (88) 99 02/26/19 22:49 30 02/26/19 22:48 81 21 98 Bi-Pap 30 02/26/19 22:40 80 22 98 Facial 30 02/26/19 22:00 80 25 100/56 (71) 98 02/26/19 22:00 85 102/72 (82) 99 02/26/19 21:46 97 Nasal Cannula 2.0 28 02/26/19 21:00 85 102/72 (82) 99 02/26/19 20:00 97.8 81 23 102/77 (85) 98 02/26/19 20:00 Nasal Cannula 2.0 02/26/19 20:00 80 02/26/19 19:28 80 14 97 Nasal Cannula 2.0 28 02/26/19 19:18 81 20 91 Nasal Cannula 2.0 02/26/19 19:00 84 22 107/71 (83) 96 02/26/19 18:00 80 24 122/98 (106) 99 02/26/19 17:00 80 18 91/76 (81) 99 Intake and Output 02/26/19 02/27/19 19:00 07:00 Intake Total 250.5 ml 386.0 ml Output Total 1200 ml 1035 ml Balance -949.5 ml -649.0 ml Intake Oral 100 ml IV Total 250.5 ml 286.0 ml Output Urine Total 1200 ml 1035 ml Laboratory Tests 02/27/19 05:10: Sodium Level 138, Potassium Level 4.1, Chloride Level 95L, Carbon Dioxide Level 29, Anion Gap 14, Blood Urea Nitrogen 42H, Creatinine 1.7H, Estimat Glomerular Filtration Rate 40.4, Glucose Level 147H, Calcium Level 8.5, Total Bilirubin 0.7 , Aspartate Amino Transf (AST/SGOT) 41H, Alanine Aminotransferase (ALT/SGPT) 10L , Alkaline Phosphatase 61, Total Protein 7.1, Albumin 3.2L, Globulin 3.9, Albumin/Globulin Ratio 0.8L, Digoxin Level 0.3L 02/27/19 10:17: White Blood Count 13.0H, Red Blood Count 4.30L, Hemoglobin 12.6L, Hematocrit 40.9L, Mean Corpuscular Volume 95, Mean Corpuscular Hemoglobin 29.3, Mean Corpuscular Hemoglobin Concent 30.8L, Red Cell Distribution Width 14.1, Platelet Count 290, Mean Platelet Volume 5.3L, Neutrophils (%) (Auto) 72.1, Lymphocytes (%) (Auto) 16.8L, Monocytes (%) (Auto) 7.6, Eosinophils (%) (Auto) 2.8, Basophils (%) (Auto) 0.7 Height (Feet): 5 Height (Inches): 9.00 Weight (Pounds): 264 Objective Obese WM NCAT supple coarse ronchi RR abd soft obese trace edema Kurt Durbin MD Feb 27, 2019 16:19
--- NOTE | 2019-02-27 17:32 | Pulmonolgy Critical Care Note ---
Critical Care - Asmt/Plan Assessment/Plan: Pulmonary CCM Progress Note Assessment/Plan Congestive Heart Failure Chest Pain Chronic Obstructive Pulmonary Disease with exacerbation Possible RLL Pneumonia Hypertension Possible previous Atrial Fibrillation ? (on Xarelto) Pacemaker Insulin Dependant Diabetes Peripheral Neuropathy Diabetes out of control Cardiomyopathy CHF Plan IV Antibiotics monitor lytes Continue Xarelto IV Steroids discontinued HHN Maintenance Insulin and adjust pending improvement in blood sugars O2 PRN Cardiology Consultation Monitor labs for change Telemetry dc home when stable ? short term snf impression, plan, and exam edited and reviewed in detail care discussed with RN Subjective Allergies: Coded Allergies: No Known Allergies (Unverified , 02/26/14) Subjective care noted and reviewed on oxygen still with sob sugars out of control transferred to ICU for drip Objective Vital Signs Noted Objective WDWN NAD obese on oxygen reduced breath sounds bilaterally without rhonchi or wheeze [id number] without MRG NABS nontender no HSM no CC noted edema nonfocal PICC in place Microbiology Date/Time Source Procedure Growth Status 02/24/19 23:30 Blood Blood Culture - Preliminary NO GROWTH AFTER 24 HOURS Resulted 02/24/19 00:58 Blood Blood Culture - Preliminary NO GROWTH AFTER 24 HOURS Resulted Laboratory TestsNoted 02/26/19 03:56: White Blood Count 18.8H, Red Blood Count 4.77, Hemoglobin 14.4, Hematocrit 45.4 , Mean Corpuscular Volume 95, Mean Corpuscular Hemoglobin 30.2, Mean Corpuscular Hemoglobin Concent 31.8L, Red Cell Distribution Width 14.0, Platelet Count 348, Mean Platelet Volume 5.0L, Neutrophils (%) (Auto) , Lymphocytes (%) (Auto) , Monocytes (%) (Auto) , Eosinophils (%) (Auto) , Basophils (%) (Auto) , Differential Total Cells Counted 100, Neutrophils % ( Manual) 91H, Lymphocytes % (Manual) 5L, Monocytes % (Manual) 4, Eosinophils % ( Manual) 0, Basophils % (Manual) 0, Band Neutrophils 0, Platelet Estimate DecreasedL, Platelet Morphology Normal, Red Blood Cell Morphology Normal 02/26/19 10:00: Glucose Level 169#H, Sodium Level 137, Potassium Level 3.1L, Chloride Level 95L , Carbon Dioxide Level 34H, Anion Gap 8, Blood Urea Nitrogen 30H, Creatinine 1.5H, Estimat Glomerular Filtration Rate 46.7, Calcium Level 8.9 Current Medications Medications (Trade) Dose Ordered Sig/Antionette Route PRN Reason Start Time Stop Time Status Last Admin Dose Admin Acetaminophen (Tylenol) 650 mg Q6H PRN ORAL Mild Pain/Temp > 100.5 02/26/19 02:00 03/26/19 07:59 Albuterol/ Ipratropium (Albuterol/ Ipratropium) 3 ml Q4HRT HHN 02/25/19 23:00 03/01/19 10:59 02/26/19 15:27 Amiodarone HCl (Cordarone) 200 mg DAILY ORAL 02/26/19 09:00 03/26/19 08:59 02/26/19 08:49 Aspirin (ASA) 81 mg DAILY ORAL 02/26/19 09:00 03/26/19 08:59 02/26/19 08:49 Chlorhexidine Gluconate (Melodie-Hex 2%) 1 applic DAILY@2000 TOPIC 02/26/19 20:00 03/28/19 19:59 Dextrose (Dextrose 50%) 25 ml Q30M PRN IV Hypoglycemia 02/25/19 22:30 03/26/19 15:29 Dextrose (Dextrose 50%) 50 ml Q30M PRN IV Hypoglycemia 02/25/19 22:30 03/26/19 15:29 Digoxin (Lanoxin) 0.125 mg DAILY ORAL 02/26/19 09:00 03/26/19 08:59 02/26/19 08:50 Doxycycline Hyclate 100 mg/ Dextrose 110 ml @ 110 mls/hr Q12HR IV 02/25/19 22:00 03/03/19 08:59 02/26/19 08:48 Furosemide (Lasix) 40 mg EVERY 12 HOURS IV 02/25/19 22:00 03/27/19 20:59 02/26/19 08:39 Heparin Sodium/ Sodium Chloride (Heparin 1000 units/500ml Premix) 1,000 unit ONCE PRN IV PICC 02/26/19 08:01 02/26/19 23:59 Insulin Human Regular (NovoLIN R) 5 units PRN PRN IV BS 200-299 02/25/19 23:15 03/27/19 23:14 02/26/19 17:05 Insulin Human Regular (NovoLIN R) 10 units PRN PRN IV BS=>300 02/25/19 23:15 03/27/19 23:14 02/26/19 10:10 Insulin Human Regular 100 units/ Sodium Chloride 100 ml @ 0 mls/hr Q24H IV 02/26/19 11:20 03/28/19 11:19 02/26/19 12:01 Lidocaine HCl (Xylocaine 1% 30ml) 30 ml ONCE PRN INJ PICC 02/26/19 08:00 02/26/19 23:59 Lisinopril (Zestril) 10 mg DAILY ORAL 02/26/19 09:00 03/28/19 08:59 02/26/19 08:40 Lubiprostone (Amitiza) 24 mcg TWICE A DAY ORAL 02/26/19 09:00 03/26/19 08:59 02/26/19 08:48 Miscellaneous Medication (Insulin Rate Change) 1 ea DAILY PRN MISC protocol 02/26/19 09:00 03/27/19 21:29 Ondansetron HCl (Zofran) 4 mg Q8H PRN IVP Nausea & Vomiting 02/26/19 00:00 03/26/19 07:59 Pantoprazole (Protonix) 40 mg DAILY ORAL 02/26/19 09:00 03/26/19 08:59 02/26/19 08:42 Piperacillin Sod/ Tazobactam Sod 3.375 gm/Sodium Chloride 110 ml @ 27.5 mls/hr EVERY 8 HOURS IVPB 02/25/19 22:00 03/02/19 21:59 02/26/19 14:15 Potassium Chloride (K-Dur) 10 meq DAILY ORAL 02/26/19 09:00 03/26/19 08:59 02/26/19 08:49 Pregabalin (Lyrica) 100 mg BID ORAL 02/26/19 09:00 03/26/19 08:59 02/26/19 08:42 Rivaroxaban (Xarelto) 20 mg DAILY ORAL 02/26/19 09:00 03/26/19 08:59 02/26/19 08:50 Sitagliptin Phosphate (Januvia) 100 mg ACBREAKFAST ORAL 02/26/19 06:30 03/27/19 06:29 Spironolactone (Aldactone) 25 mg DAILY ORAL 02/26/19 09:00 03/26/19 08:59 02/26/19 08:40 Critical Care - Objective Last 24 Hour Vital Signs Date Time Temp Pulse Resp B/P (MAP) Pulse Ox O2 Delivery O2 Flow Rate FiO2 02/27/19 17:00 80 25 100/70 (80) 99 02/27/19 16:00 98.2 81 22 104/69 (81) 99 02/27/19 16:00 80 02/27/19 16:00 Nasal Cannula 2.0 02/27/19 16:00 2.0 02/27/19 15:15 80 21 100 Nasal Cannula 2.0 28 02/27/19 15:05 80 16 100 Nasal Cannula 2.0 28 02/27/19 15:00 81 16 98/59 (72) 100 02/27/19 14:00 81 19 101/49 (66) 97 02/27/19 13:00 81 23 88/69 (75) 95 02/27/19 12:00 80 02/27/19 12:00 Nasal Cannula 2.0 02/27/19 12:00 2.0 02/27/19 12:00 97.9 80 16 112/81 (91) 81 02/27/19 11:09 82 23 99 Nasal Cannula 2.0 28 02/27/19 11:00 82 22 120/78 (92) 100 02/27/19 10:59 80 20 96 Nasal Cannula 2.0 28 02/27/19 10:00 81 15 93/44 (60) 99 02/27/19 09:00 80 19 102/54 (70) 99 02/27/19 08:33 98/69 02/27/19 08:32 80 02/27/19 08:00 Nasal Cannula 2.0 02/27/19 08:00 2.0 02/27/19 08:00 82 02/27/19 08:00 98.0 82 16 92/62 (72) 94 02/27/19 07:18 80 19 100 Nasal Cannula 2.0 28 02/27/19 07:09 81 19 99 Nasal Cannula 2.0 28 02/27/19 07:09 99 Nasal Cannula 2.0 28 02/27/19 07:00 80 22 98/69 (79) 96 02/27/19 06:00 88 19 127/60 (82) 91 02/27/19 05:00 81 21 118/67 (84) 92 8/21/19 04:00 80 02/27/19 04:00 2.0 02/27/19 04:00 98.6 80 18 98/56 (70) 95 02/27/19 04:00 Nasal Cannula 2.0 02/27/19 03:15 80 24 99 Nasal Cannula 28 02/27/19 03:05 80 23 97 Bi-Pap 30 02/27/19 03:00 81 18 95 2.0 28 02/27/19 03:00 81 23 98/71 (80) 96 02/27/19 03:00 28 02/27/19 02:07 80 20 103/55 (71) 98 02/27/19 01:19 80 23 97 Facial 30 02/27/19 01:00 81 21 103/58 (73) 96 02/27/19 00:00 98.0 80 13 101/66 (78) 95 02/27/19 00:00 28 02/27/19 00:00 Bi-pap 02/26/19 23:01 80 21 97 Bi-Pap 30 02/26/19 23:00 81 19 102/81 (88) 99 02/26/19 22:49 30 02/26/19 22:48 81 21 98 Bi-Pap 30 02/26/19 22:40 80 22 98 Facial 30 02/26/19 22:00 80 25 100/56 (71) 98 02/26/19 22:00 85 102/72 (82) 99 02/26/19 21:46 97 Nasal Cannula 2.0 28 02/26/19 21:00 85 102/72 (82) 99 02/26/19 20:00 97.8 81 23 102/77 (85) 98 02/26/19 20:00 Nasal Cannula 2.0 02/26/19 20:00 80 02/26/19 19:28 80 14 97 Nasal Cannula 2.0 28 02/26/19 19:18 81 20 91 Nasal Cannula 2.0 02/26/19 19:00 84 22 107/71 (83) 96 02/26/19 18:00 80 24 122/98 (106) 99 Micro: Microbiology Date/Time Source Procedure Growth Status 02/24/19 23:30 Blood Blood Culture - Preliminary NO GROWTH AFTER 48 HOURS Resulted Accucheck: 341 Critical Care - Subjective ROS Limited/Unobtainable: No Condition: improving FI02: 28 Sputum Amount: None I&O: Intake and Output 02/26/19 02/27/19 19:00 07:00 Intake Total 250.5 ml 386.0 ml Output Total 1200 ml 1035 ml Balance -949.5 ml -649.0 ml Intake Oral 100 ml IV Total 250.5 ml 286.0 ml Output Urine Total 1200 ml 1035 ml Devin Hankins MD Feb 27, 2019 17:32
--- NOTE | 2019-02-27 18:10 | NUR ---
NURSE NOTES: Received patient from ICU, patient is alert and oriented x4. Not in acute respiratory/cardiac distress. Denies any pain or discomfort. VSS. All belongings were checked with ICU and RN. all belongings accounted for. Skin intact. Will continue plan of care.
--- NOTE | 2019-02-27 18:25 | NUR ---
HAND-OFF: Report given to Mauricio. Went through belongings list.
--- NOTE | 2019-02-27 19:37 | NUR ---
HAND-OFF: Report given to Graham.
--- NOTE | 2019-02-27 19:52 | NUR ---
NURSE NOTES: Pt is in bed, awake and verbal. No acute distress noted. No SOB. Pt is ambulatory.Pt refused breathing treatment now. Room air. Pt complains of no pain now. Bed locked low in position,side rails up and call light within reach. Pt is asked to call for assistance before getting out of bed.
[2019-02-27] MEDS: Dyna-Hex 2% Top Sol 2oz TOPIC SCH (22:23)
--- NOTE | 2019-02-27 23:09 | NUR ---
RESPIRATORY NOTE: Pt placed on BiPAP for nightly use. Pt now on BiPAP 15/, backup rate 14, 30%. Pt on a Facial mask, skin intact, no redness/breakdowns noted. Foam tape applied to nosebridge only as pt has thick facial hair. Leak is also noted d/t pt's facial hair, pt getting adequate VT, tolerating well. Pt alert/awake, follows commands. B/S keyon. clear/diminished, nonproductive cough. BiPAP plugged into regular white outlet, addressed to bedside RN, Graham, RN to move pt to a room w/ red outlet for emergency purposes. Alarms on & audible. Awaiting available room w/ red outlet so we can move pt. RN to monitor pt closely. Pt in no apparent distress at this time. Will continue plan of care.
--- NOTE | 2019-02-28 | NUR ---
NURSE NOTES: Pt removed BIPAP.Pt refuses to put the mask back on. No SOB. Pt is in bed trying to sleep.
[2019-02-28] MEDS: NovoLOG Insulin Flexpen SUBQ SCH ×6 (02:51→22:04)
[2019-02-28] MEDS: Albuterol/Ipratropium 3ml neb HHN SCH ×6 (03:00→23:00)
--- NOTE | 2019-02-28 03:58 | NUR ---
NURSE NOTES: Pt is in bed, awake. No SOB or acute distress noted. Both lumen of PICC line flushed.
[2019-02-28] MEDS: Piperacillin/Tazobactam 3.375 GM in NS 110 ML IVPB SCH ×3 (05:57→22:12)
--- NOTE | 2019-02-28 08:00 | NUR ---
NURSE NOTES Patient alert and oriented ,respirations unlabored eating breakfast at this time,call light within reach.
[2019-02-28] MEDS ORDERED: Levemir Flexpen SUBQ SCH ×2 (09:00→18:00)
[2019-02-28] MEDS: Doxycycline Hyclate 100 MG in D5W 110 ML IV SCH ×2 (09:30→20:53)
[2019-02-28] MEDS: Spironolactone 25mg tab ORAL SCH (09:31)
[2019-02-28] MEDS: Amitiza 24mcg cap ORAL SCH ×2 (09:31→18:26)
[2019-02-28] MEDS: Aspirin Baby 81mg ORAL SCH (09:32)
[2019-02-28] MEDS: Lisinopril 10mg tab ORAL SCH (09:33)
[2019-02-28] MEDS: Xarelto 10mg tab ORAL SCH (09:34)
[2019-02-28] MEDS: Lyrica 50mg cap ORAL SCH ×2 (09:37→18:26)
--- NOTE | 2019-02-28 10:05 | Pulmonology Progress Note ---
Assessment/Plan Assessment/Plan Congestive Heart Failure Chest Pain Chronic Obstructive Pulmonary Disease with exacerbation Possible RLL Pneumonia Hypertension Possible previous Atrial Fibrillation ? (on Xarelto) Pacemaker Insulin Dependant Diabetes Peripheral Neuropathy Diabetes out of control Cardiomyopathy CHF Plan IV Antibiotics monitor lytes Continue Xarelto neb therapy Maintenance Insulin and adjust pending improvement in blood sugars O2 PRN Cardiology Consultation Monitor labs for change Telemetry dc home discussed impression, plan, and exam edited and reviewed in detail care discussed with RN Subjective Allergies: Coded Allergies: No Known Allergies (Unverified , 02/26/14) Subjective care noted and reviewed on oxygen still with sob sugars better controlled out of the ICU Objective Last 24 Hour Vital Signs Date Time Temp Pulse Resp B/P (MAP) Pulse Ox O2 Delivery O2 Flow Rate FiO2 02/28/19 09:35 82 02/28/19 09:33 113/70 02/28/19 07:45 72 18 97 Room Air 21 02/28/19 07:33 84 18 96 Room Air 21 02/28/19 07:33 96 Room Air 21 02/28/19 03:05 Room Air 21 02/28/19 03:05 Room Air 21 02/27/19 23:06 82 23 99 Facial 30 02/27/19 23:02 81 24 99 Bi-Pap 30 02/27/19 22:52 80 18 95 Room Air 21 02/27/19 20:00 Room Air 02/27/19 20:00 98.6 80 20 119/60 (79) 97 02/27/19 19:49 96 Room Air 21 02/27/19 19:48 Room Air 21 02/27/19 19:48 Room Air 21 02/27/19 17:00 80 25 100/70 (80) 99 02/27/19 16:00 98.2 81 22 104/69 (81) 99 02/27/19 16:00 80 02/27/19 16:00 Nasal Cannula 2.0 02/27/19 16:00 2.0 02/27/19 15:15 80 21 100 Nasal Cannula 2.0 28 02/27/19 15:05 80 16 100 Nasal Cannula 2.0 28 02/27/19 15:00 81 16 98/59 (72) 100 02/27/19 14:00 81 19 101/49 (66) 97 02/27/19 13:00 81 23 88/69 (75) 95 02/27/19 12:00 80 02/27/19 12:00 Nasal Cannula 2.0 02/27/19 12:00 2.0 02/27/19 12:00 97.9 80 16 112/81 (91) 81 02/27/19 11:09 82 23 99 Nasal Cannula 2.0 28 02/27/19 11:00 82 22 120/78 (92) 100 02/27/19 10:59 80 20 96 Nasal Cannula 2.0 28 Intake and Output 02/27/19 02/28/19 18:59 06:59 Intake Total 306.5 ml 847.5 ml Output Total 565 ml 800 ml Balance -258.5 ml 47.5 ml Intake Oral 600 ml IV Total 306.5 ml 247.5 ml Output Urine Total 565 ml 800 ml # Voids 3 Objective WDWN NAD obese on oxygen reduced breath sounds bilaterally without rhonchi or wheeze [id number] without MRG NABS nontender no HSM no CC noted edema nonfocal PICC in place Laboratory Tests 02/27/19 10:17: White Blood Count 13.0H, Red Blood Count 4.30L, Hemoglobin 12.6L, Hematocrit 40.9L, Mean Corpuscular Volume 95, Mean Corpuscular Hemoglobin 29.3, Mean Corpuscular Hemoglobin Concent 30.8L, Red Cell Distribution Width 14.1, Platelet Count 290, Mean Platelet Volume 5.3L, Neutrophils (%) (Auto) 72.1, Lymphocytes (%) (Auto) 16.8L, Monocytes (%) (Auto) 7.6, Eosinophils (%) (Auto) 2.8, Basophils (%) (Auto) 0.7 Current Medications Medications (Trade) Dose Ordered Sig/Antionette Route PRN Reason Start Time Stop Time Status Last Admin Dose Admin Acetaminophen (Tylenol) 650 mg Q6H PRN ORAL Mild Pain/Temp > 100.5 02/27/19 18:25 03/29/19 18:24 Albuterol/ Ipratropium (Albuterol/ Ipratropium) 3 ml Q4HRT HHN 02/27/19 19:00 03/01/19 10:59 02/28/19 07:30 Aspirin (ASA) 81 mg DAILY ORAL 02/28/19 09:00 9/17/19 08:59 02/28/19 09:32 Chlorhexidine Gluconate (Melodie-Hex 2%) 1 applic DAILY@2000 TOPIC 02/27/19 20:00 03/28/19 19:59 02/27/19 22:23 Dextrose (Dextrose 50%) 25 ml Q30M PRN IV Hypoglycemia 02/27/19 18:30 03/26/19 15:29 Dextrose (Dextrose 50%) 50 ml Q30M PRN IV Hypoglycemia 02/27/19 18:30 03/26/19 15:29 Digoxin (Lanoxin) 0.25 mg DAILY ORAL 02/28/19 09:00 03/26/19 08:59 02/28/19 09:35 Doxycycline Hyclate 100 mg/ Dextrose 110 ml @ 110 mls/hr Q12HR IV 02/27/19 21:00 03/03/19 08:59 02/28/19 09:30 Furosemide (Lasix) 40 mg EVERY 12 HOURS IV 02/27/19 21:00 03/27/19 20:59 02/28/19 09:29 Insulin Aspart (NovoLOG) Q4HR SUBQ 02/27/19 21:00 03/29/19 09:29 02/28/19 06:00 Insulin Detemir (Levemir) 30 units BID SUBQ 02/28/19 09:00 03/29/19 17:59 Lisinopril (Zestril) 10 mg DAILY ORAL 02/28/19 09:00 03/28/19 08:59 02/28/19 09:33 Lubiprostone (Amitiza) 24 mcg TWICE A DAY ORAL 02/28/19 09:00 03/26/19 08:59 02/28/19 09:31 Ondansetron HCl (Zofran) 4 mg Q8H PRN IVP Nausea & Vomiting 02/27/19 18:26 03/29/19 18:25 Pantoprazole (Protonix) 40 mg DAILY ORAL 02/28/19 09:00 03/26/19 08:59 02/28/19 09:34 Piperacillin Sod/ Tazobactam Sod 3.375 gm/Sodium Chloride 110 ml @ 27.5 mls/hr EVERY 8 HOURS IVPB 02/27/19 22:00 03/04/19 21:59 02/28/19 05:57 Potassium Chloride (K-Dur) 10 meq DAILY ORAL 02/28/19 09:00 03/26/19 08:59 02/28/19 09:32 Pregabalin (Lyrica) 100 mg BID ORAL 02/28/19 09:00 03/26/19 08:59 02/28/19 09:37 Rivaroxaban (Xarelto) 20 mg DAILY ORAL 02/28/19 09:00 03/26/19 08:59 02/28/19 09:34 Sitagliptin Phosphate (Januvia) 100 mg ACBREAKFAST ORAL 02/28/19 06:30 03/27/19 06:29 02/28/19 05:56 Spironolactone (Aldactone) 25 mg DAILY ORAL 02/28/19 09:00 03/26/19 08:59 02/28/19 09:31 Alek Calvillo MD Feb 28, 2019 10:05
[2019-02-28] MEDS ORDERED: NS 500ML ONE (11:32)
[2019-02-28] MEDS ORDERED: Tubing IV Secondary IV ONE (11:32)
--- NOTE | 2019-02-28 13:30 | General Progress Note ---
Assessment/Plan Problem List: (1) CHF (congestive heart failure) ICD Codes: I50.9 - Heart failure, unspecified SNOMED: 12249172 (2) Atrial fibrillation with RVR ICD Codes: I48.91 - Unspecified atrial fibrillation SNOMED: 633120486 (3) Diabetic neuropathy ICD Codes: E11.40 - Type 2 diabetes mellitus with diabetic neuropathy, unspecified SNOMED: 37291933, 301462080, 405307381 (4) GERD (gastroesophageal reflux disease) ICD Codes: K21.9 - Gastro-esophageal reflux disease without esophagitis SNOMED: 550917104 (5) Diabetic nephropathy ICD Codes: E11.21 - Type 2 diabetes mellitus with diabetic nephropathy SNOMED: 48739825, 044112284 (6) HTN (hypertension) ICD Codes: I10 - Essential (primary) hypertension SNOMED: 42847254 (7) COPD exacerbation ICD Codes: J44.1 - Chronic obstructive pulmonary disease with (acute) exacerbation SNOMED: 670942433 (8) Pneumonia ICD Codes: J18.9 - Pneumonia, unspecified organism SNOMED: 387817933 Qualifiers: Qualified Codes: J18.1 - Lobar pneumonia, unspecified organism Status: stable, progressing Assessment/Plan: cont current rx tirate levemir monitor bs iv abx resp care o2 Subjective ROS Limited/Unobtainable: No Constitutional: Reports: malaise, weakness HEENT: Reports: no symptoms Cardiovascular: Reports: no symptoms Respiratory: Reports: cough Gastrointestinal/Abdominal: Reports: no symptoms Genitourinary: Reports: no symptoms Neurologic/Psychiatric: Reports: no symptoms Endocrine: Reports: no symptoms Hematologic/Lymphatic: Reports: no symptoms Allergies: Coded Allergies: No Known Allergies (Unverified , 02/26/14) All Systems: reviewed and negative except above Subjective no complaints. BS better controlled. no fever or chills. no sob. Objective Last 24 Hour Vital Signs Date Time Temp Pulse Resp B/P (MAP) Pulse Ox O2 Delivery O2 Flow Rate FiO2 02/28/19 11:23 81 18 98 Room Air 02/28/19 11:15 79 18 95 Room Air 02/28/19 09:35 82 02/28/19 09:33 113/70 02/28/19 07:45 72 18 97 Room Air 02/28/19 07:33 84 18 96 Room Air 19 07:33 96 Room Air 21 02/28/19 03:05 Room Air 21 02/28/19 03:05 Room Air 21 02/27/19 23:06 82 23 99 Facial 30 02/27/19 23:02 81 24 99 Bi-Pap 30 02/27/19 22:52 80 18 95 Room Air 21 02/27/19 20:00 Room Air 02/27/19 20:00 98.6 80 20 119/60 (79) 97 02/27/19 19:49 96 Room Air 21 02/27/19 19:48 Room Air 21 02/27/19 19:48 Room Air 21 02/27/19 17:00 80 25 100/70 (80) 99 02/27/19 16:00 98.2 81 22 104/69 (81) 99 02/27/19 16:00 80 02/27/19 16:00 Nasal Cannula 2.0 02/27/19 16:00 2.0 02/27/19 15:15 80 21 100 Nasal Cannula 2.0 28 02/27/19 15:05 80 16 100 Nasal Cannula 2.0 28 02/27/19 15:00 81 16 98/59 (72) 100 02/27/19 14:00 81 19 101/49 (66) 97 Intake and Output 02/27/19 02/28/19 19:00 07:00 Intake Total 302.5 ml 847.5 ml Output Total 530 ml 800 ml Balance -227.5 ml 47.5 ml Intake Oral 600 ml IV Total 302.5 ml 247.5 ml Output Urine Total 530 ml 800 ml # Voids 3 Height (Feet): 5 Height (Inches): 9.00 Weight (Pounds): 264 General Appearance: WD/WN, alert Neck: supple Cardiovascular: regular rhythm Respiratory/Chest: chest wall non-tender, lungs clear, normal breath sounds, no respiratory distress Abdomen: normal bowel sounds, non tender, soft, no organomegaly Edema: no edema noted Arm (L), no edema noted Arm (R), no edema noted Leg (L), no edema noted Leg (R), no edema noted Pedal (L), no edema noted Pedal (R), no edema noted Generalized Jareth Valenzuela MD Feb 28, 2019 13:30
--- NOTE | 2019-02-28 17:08 | Cardiac Electrophysiology PN ---
Assessment/Plan Assessment/Plan 1. Status post Biotronic biventricular ICD implantation. The patient does not have atrial lead due to chronic atrial fibrillation. Interrogated and it is functioning normally. V paced 2. Chronic Atrial fibrillation. The rate is currently controlled and ICD is BiV-paced. On digoxin 0. 25 mg daily and Xarelto 20 3. Severe cardiomyopathy. Echocardiogram EF 35%. Continue Lasix 40 mg IV bid, digoxin 0.25 mg daily, Lisinopril 10 and Aldactone 25 mg daily. Off BB for COPD 4. HTN. maximize heart failure therapy. 5. Uncontrolled diabetes with glucose of more than 600. Off insulin drip today. 6. COPD. On IV antibiotic per Dr. Calvillo. MARIO RN Subjective Subjective Alert in NAD. Transferred out of ICU. Objective Last 24 Hour Vital Signs Date Time Temp Pulse Resp B/P (MAP) Pulse Ox O2 Delivery O2 Flow Rate FiO2 02/28/19 15:05 80 18 99 Room Air 02/28/19 14:58 83 18 96 Room Air 02/28/19 11:23 81 18 98 Room Air 02/28/19 11:15 79 18 95 Room Air 02/28/19 09:35 82 02/28/19 09:33 113/70 02/28/19 09:00 Room Air 02/28/19 07:45 72 18 97 Room Air 02/28/19 07:33 84 18 96 Room Air 02/28/19 07:33 96 Room Air 02/28/19 03:05 Room Air 02/28/19 03:05 Room Air 02/27/19 23:06 82 23 99 Facial 30 02/27/19 23:02 81 24 99 Bi-Pap 30 02/27/19 22:52 80 18 95 Room Air 21 02/27/19 20:00 Room Air 02/27/19 20:00 98.6 80 20 119/60 (79) 97 02/27/19 19:49 96 Room Air 02/27/19 19:48 Room Air 02/27/19 19:48 Room Air 21 Intake and Output 02/27/19 02/28/19 19:00 07:00 Intake Total 302.5 ml 847.5 ml Output Total 530 ml 800 ml Balance -227.5 ml 47.5 ml Intake Oral 600 ml IV Total 302.5 ml 247.5 ml Output Urine Total 530 ml 800 ml # Voids 3 Objective HEAD AND NECK: Positive JVD. LUNGS: Decreased breath sounds. CARDIOVASCULAR: Shows irregular S1 and S2 with no gallop. ICD left subclavian ABDOMEN: Soft. EXTREMITIES: He has 1+ pitting edema. Yuval Carey MD Feb 28, 2019 17:08
--- NOTE | 2019-02-28 18:30 | NUR ---
NURSE NOTES: Patient eating dinner, blood sugar checked ,Insulin coverage as ordered. Call light within reach.
--- NOTE | 2019-02-28 19:45 | NUR ---
NURSE NOTES: Received report from TERRY Jimenez. Patient alert, awake, and verbally responsive to let his needs known. Breathing unlabored without signs of distress, discomfort, or sob. Denies pain at this time. Double lumen picc line noted on right upper arm. Flushes well without resistance. Dressing intact. Bed placed at the lowest with alarm, brake, and side rails up for safety but patient's laying on the lower side of the bed. Patient prefers it. Call light placed within reach. Will continue to monitor frequently and provide care as ordered.
--- NOTE | 2019-02-28 19:50 | NUR ---
HAND-OFF: Report given to Minsu.
[2019-02-28 20:00] VITALS: BP 112/73
--- NOTE | 2019-02-28 20:29 | General Progress Note ---
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 - Reflux precautions - BID amitiza - can add miralax PRN - outpatient EGD Subjective Allergies: Coded Allergies: No Known Allergies (Unverified , 02/26/14) Subjective above noted out of ICU eating well No abdominal complaints Objective Last 24 Hour Vital Signs Date Time Temp Pulse Resp B/P (MAP) Pulse Ox O2 Delivery O2 Flow Rate FiO2 02/28/19 19:27 80 18 94 Room Air 21 02/28/19 19:27 96 Room Air 21 02/28/19 15:05 80 18 99 Room Air 02/28/19 14:58 83 18 96 Room Air 21 02/28/19 11:23 81 18 98 Room Air 02/28/19 11:15 79 18 95 Room Air 02/28/19 09:35 82 02/28/19 09:33 113/70 02/28/19 09:00 Room Air 02/28/19 07:45 72 18 97 Room Air 21 02/28/19 07:33 84 18 96 Room Air 21 02/28/19 07:33 96 Room Air 21 02/28/19 03:05 Room Air 21 02/28/19 03:05 Room Air 21 02/27/19 23:06 82 23 99 Facial 30 02/27/19 23:02 81 24 99 Bi-Pap 30 02/27/19 22:52 80 18 95 Room Air 21 Intake and Output 02/27/19 02/28/19 19:00 07:00 Intake Total 302.5 ml 847.5 ml Output Total 530 ml 800 ml Balance -227.5 ml 47.5 ml Intake Oral 600 ml IV Total 302.5 ml 247.5 ml Output Urine Total 530 ml 800 ml # Voids 3 Height (Feet): 5 Height (Inches): 9.00 Weight (Pounds): 264 Objective Obese WM NCAT supple coarse ronchi RR abd soft obese trace edema Kurt Durbin MD Feb 28, 2019 20:29
[2019-02-28] MEDS: Dyna-Hex 2% Top Sol 2oz TOPIC SCH (20:49)
--- NOTE | 2019-02-28 23:15 | NUR ---
RESPIRATORY NOTE: Pt placed on BiPAP per order. Pt now on BiPAP 15/8, backup rate 14, 30%. Pt on a Facial mask, skin intact, no redness or skin breakdowns noted. Tape applied to nosebridge due to pt has thick facial hair. Leak is also noted due to pt's thick facial hair, pt is getting adequate VT, and tolerating well. Pt alert/awake, follows commands. RN notified of pt on bipap and Will cont. to monitor pt status.
[2019-03-01] VITALS: BP 103/59
[2019-03-01] MEDS: NovoLOG Insulin Flexpen SUBQ SCH ×7 (01:42→20:51)
[2019-03-01] MEDS: Albuterol/Ipratropium 3ml neb HHN SCH ×2 (02:47→08:29)
[2019-03-01 04:00] VITALS: BP 105/54
[2019-03-01] MEDS: Piperacillin/Tazobactam 3.375 GM in NS 110 ML IVPB SCH ×3 (06:12→21:57)
--- NOTE | 2019-03-01 07:19 | NUR ---
NURSE NOTES: Report received from Minsmónica, RN. Pt shows no signs of distress, A+Ox3, denies pain/SOB. Respirations are even and unlabored on room air. Right upper arm PICC line is in place and intact, running zosyn at this time. Bed is at lowest position, brakes engaged, siderails x2, bed alarm on, and call light within reach. Pt is in stable condition; will continue to monitor.
--- NOTE | 2019-03-01 07:43 | NUR ---
HAND-OFF: Report given to TERRY Rawls.
[2019-03-01 08:00] VITALS: BP 121/77
--- NOTE | 2019-03-01 08:24 | General Progress Note ---
Assessment/Plan Problem List: (1) CHF (congestive heart failure) ICD Codes: I50.9 - Heart failure, unspecified SNOMED: 76889364 (2) Atrial fibrillation with RVR ICD Codes: I48.91 - Unspecified atrial fibrillation SNOMED: 178789149 (3) Diabetic neuropathy ICD Codes: E11.40 - Type 2 diabetes mellitus with diabetic neuropathy, unspecified SNOMED: 66242544, 253472543, 996264893 (4) GERD (gastroesophageal reflux disease) ICD Codes: K21.9 - Gastro-esophageal reflux disease without esophagitis SNOMED: 746824158 (5) Diabetic nephropathy ICD Codes: E11.21 - Type 2 diabetes mellitus with diabetic nephropathy SNOMED: 95676829, 284349858 (6) HTN (hypertension) ICD Codes: I10 - Essential (primary) hypertension SNOMED: 05258491 (7) COPD exacerbation ICD Codes: J44.1 - Chronic obstructive pulmonary disease with (acute) exacerbation SNOMED: 437133194 (8) Pneumonia ICD Codes: J18.9 - Pneumonia, unspecified organism SNOMED: 953820081 Qualifiers: Qualified Codes: J18.1 - Lobar pneumonia, unspecified organism Status: stable, progressing Assessment/Plan: cont current rx tirate levemir up monitor bs checkl ekg and troponin iv abx resp care o2 Subjective ROS Limited/Unobtainable: No Constitutional: Reports: malaise, weakness HEENT: Reports: no symptoms Cardiovascular: Reports: chest pain Respiratory: Reports: no symptoms Gastrointestinal/Abdominal: Reports: no symptoms Genitourinary: Reports: no symptoms Neurologic/Psychiatric: Reports: no symptoms Endocrine: Reports: no symptoms Hematologic/Lymphatic: Reports: no symptoms Allergies: Coded Allergies: No Known Allergies (Unverified , 02/26/14) All Systems: reviewed and negative except above Subjective c/o chest pain no sob. feels "sick". BS remains elevated. no fever or chills. Objective Last 24 Hour Vital Signs Date Time Temp Pulse Resp B/P (MAP) Pulse Ox O2 Delivery O2 Flow Rate FiO2 03/01/19 08:00 97.6 82 20 121/77 (92) 100 03/01/19 04:00 97.6 83 20 105/54 (71) 96 03/01/19 02:48 Bi-Pap 03/01/19 02:48 Bi-Pap 03/01/19 02:47 85 20 99 Facial 30 03/01/19 01:45 81 18 99 Facial 30 03/01/19 00:00 98.1 80 20 103/59 (74) 98 02/28/19 23:15 78 20 99 Facial 30 02/28/19 23:15 Bi-Pap 02/28/19 23:15 Bi-Pap 02/28/19 20:00 97.8 82 20 112/73 (86) 94 02/28/19 19:39 84 18 99 Room Air 21 02/28/19 19:27 80 18 94 Room Air 02/28/19 19:27 96 Room Air 02/28/19 15:05 80 18 99 Room Air 02/28/19 14:58 83 18 96 Room Air 02/28/19 11:23 81 18 98 Room Air 02/28/19 11:15 79 18 95 Room Air 02/28/19 09:35 82 02/28/19 09:33 113/70 02/28/19 09:00 Room Air Intake and Output 02/28/19 03/01/19 19:00 07:00 Intake Total 800 ml 220.0 ml Output Total 1100 ml Balance 800 ml -880.0 ml Intake Oral 800 ml IV Total 220.0 ml Output Urine Total 1100 ml # Voids 3 # Bowel Movements 2 Height (Feet): 5 Height (Inches): 9.00 Weight (Pounds): 264 Objective General Appearance: WD/WN, alert Neck: supple Cardiovascular: regular rhythm Respiratory/Chest: chest wall non-tender, lungs clear, normal breath sounds, no respiratory distress Abdomen: normal bowel sounds, non tender, soft, no organomegaly Edema: no edema noted Arm (L), no edema noted Arm (R), no edema noted Leg (L), no edema noted Leg (R), no edema noted Pedal (L), no edema noted Pedal (R), no edema noted Generalized Jareth Valenzuela MD Mar 01, 2019 08:24
[2019-03-01] MEDS: Xarelto 10mg tab ORAL SCH (09:31)
[2019-03-01] MEDS: Levemir Flexpen SUBQ SCH ×2 (09:31→17:15)
[2019-03-01] MEDS: Lisinopril 10mg tab ORAL SCH (09:32)
[2019-03-01] MEDS: Doxycycline Hyclate 100 MG in D5W 110 ML IV SCH ×2 (09:32→20:32)
[2019-03-01] MEDS: Aspirin Baby 81mg ORAL SCH (09:33)
[2019-03-01] MEDS: Amitiza 24mcg cap ORAL SCH ×2 (09:33→17:12)
[2019-03-01] MEDS: Lyrica 50mg cap ORAL SCH ×2 (09:33→17:13)
[2019-03-01] MEDS: Spironolactone 25mg tab ORAL SCH (09:34)
[2019-03-01 12:00] VITALS: BP 107/67
--- NOTE | 2019-03-01 12:26 | NUR ---
RD ASSESSMENT & RECOMMENDATIONS SEE CARE ACTIVITY FOR COMPLETE ASSESSMENT DAILY ESTIMATED NEEDS: Needs based on CHF, DM, OBESITY/87kg abw 20-25 kcals/kg 6500-6004 total kcals 1-1.5 g protein/kg 87-131 g total protein Fluid per MD, on lasix NUTRITION DIAGNOSIS: (1) Altered nutrition related lab values R/T diabetes as evidenced by elev BGs (709-> 147), elev POC glu. (2) Decreased sodium and fat needs R/T cardiac hx as evidenced by CHF dx, on lasix, pt w/ BMI >40, @179% of IBW. (CURRENT DIET:[facility] MED, CARDIAC) PO DIET RECOMMENDATIONS: Continue Cardiac, CCHO MED ADDITIONAL RECOMMENDATIONS: * Standing daily wts -CHF dx, on lasix * Monitor lytes closely w/ diuretics * Consider CCHO LOW + DOUBLE PRO PROTIONS FOR IMPROVED GLYCEMIC CONTROL * * B-complex daily
--- NOTE | 2019-03-01 13:52 | Cardiac Electrophysiology PN ---
Assessment/Plan Assessment/Plan 1. Status post Biotronic biventricular ICD implantation without atrial lead due to chronic atrial fibrillation. Interrogated, functioning normally. V paced 2. Chronic Atrial fibrillation. The rate is currently controlled and ICD is BiV-paced. On digoxin 0. 25 mg daily and Xarelto 20 3. Severe cardiomyopathy. Echocardiogram EF 35%. Continue Lasix 40 mg IV bid, digoxin 0.25 mg daily, Lisinopril 10 and Aldactone 25 mg daily. Off BB for COPD 4. HTN. maximize heart failure therapy. 5. Uncontrolled diabetes with glucose of more than 600. Off insulin drip today. 6. COPD. On IV antibiotic per Dr. Calvillo. MARIO RN Subjective Subjective Alert in NAD. No CP or SOB. Placement pending Objective Last 24 Hour Vital Signs Date Time Temp Pulse Resp B/P (MAP) Pulse Ox O2 Delivery O2 Flow Rate FiO2 03/01/19 12:00 98.2 79 16 107/67 (80) 100 03/01/19 09:32 121/77 03/01/19 09:32 82 03/01/19 09:00 Room Air 03/01/19 08:29 99 Nasal Cannula 2.0 28 03/01/19 08:29 78 18 96 Room Air 21 03/01/19 08:29 80 18 96 Room Air 03/01/19 08:00 97.6 82 20 121/77 (92) 100 03/01/19 04:00 97.6 83 20 105/54 (71) 96 03/01/19 02:48 Bi-Pap 03/01/19 02:48 Bi-Pap 03/01/19 02:47 85 20 99 Facial 30 03/01/19 01:45 81 18 99 Facial 30 03/01/19 00:00 98.1 80 20 103/59 (74) 98 02/28/19 23:15 78 20 99 Facial 30 02/28/19 23:15 Bi-Pap 02/28/19 23:15 Bi-Pap 02/28/19 20:00 97.8 82 20 112/73 (86) 94 02/28/19 19:39 84 18 99 Room Air 21 02/28/19 19:27 80 18 94 Room Air 21 02/28/19 19:27 96 Room Air 21 02/28/19 15:05 80 18 99 Room Air 21 02/28/19 14:58 83 18 96 Room Air 21 Intake and Output 02/28/19 03/01/19 18:59 06:59 Intake Total 800 ml 220.0 ml Output Total 1100 ml Balance 800 ml -880.0 ml Intake Oral 800 ml IV Total 220.0 ml Output Urine Total 1100 ml # Voids 3 # Bowel Movements 2 Laboratory Tests Test 03/01/19 09:15 Troponin I 0.006 ng/mL (0.000-0.056) Objective HEAD AND NECK: Positive JVD. LUNGS: Decreased breath sounds. CARDIOVASCULAR: Shows irregular S1 and S2 with no gallop. ICD left subclavian ABDOMEN: Soft. EXTREMITIES: He has 1+ pitting edema. Yuval Carey MD Mar 01, 2019 13:52
--- NOTE | 2019-03-01 14:00 | NUR ---
NURSE NOTES: 1300 blood sugar was 427. Made Dr. Valenzuela aware. He ordered 8 units of insulin before meals and continued his q4hr sliding scale. Order noted and carried out.
--- NOTE | 2019-03-01 15:28 | NUR ---
P.T Note: P.T evaluation completed. Pt is independent in all areas of bed mobility, transfers and gait/locomotion using the FWW. Pt is functioning safely and independently and currently at baseline. Skilled P.T service not needed at this time. thank you for this referral.
[2019-03-01 16:00] VITALS: BP 107/69
--- NOTE | 2019-03-01 19:23 | NUR ---
HAND-OFF: Report given to TERRY Espitia. Pt is in stable condition; plan of care endorsed.
--- NOTE | 2019-03-01 19:39 | NUR ---
NURSE NOTES: Received report from TERRY Rawls. Patient AAO x 3, breathing unlabored without signs of distress, discomfort, or sob on 2L O2 via Nasal Cannula. Denies pain at this time. Right upper arm picc line noted with dressing intact running TKO. Patient refuses to be disconnected. Bed placed at the lowest with brakes on and side rails up for safety. Call light placed within reach and encourage to use. Will continue to monitor and provide care as ordered.
[2019-03-01 20:00] VITALS: BP 95/57
[2019-03-01] MEDS: Dyna-Hex 2% Top Sol 2oz TOPIC SCH (20:31)
--- NOTE | 2019-03-01 21:48 | Pulmonolgy Critical Care Note ---
Critical Care - Asmt/Plan Assessment/Plan: Pulmonary CCM Progress Note Assessment/Plan Congestive Heart Failure Chest Pain Chronic Obstructive Pulmonary Disease with exacerbation Possible RLL Pneumonia Hypertension Possible previous Atrial Fibrillation ? (on Xarelto) Pacemaker Insulin Dependant Diabetes Peripheral Neuropathy Diabetes out of control Cardiomyopathy CHF Plan IV Antibiotics monitor lytes Continue Xarelto IV Steroids discontinued HHN Maintenance Insulin and adjust pending improvement in blood sugars O2 PRN Cardiology Consultation Monitor labs for change Telemetry dc home when stable ? short term snf impression, plan, and exam edited and reviewed in detail care discussed with RN Subjective Allergies: Coded Allergies: No Known Allergies (Unverified , 02/26/14) Subjective care noted and reviewed on oxygen still with sob sugars out of control transferred to ICU for drip Objective Vital Signs Noted Objective WDWN NAD obese on oxygen reduced breath sounds bilaterally without rhonchi or wheeze [id number] without MRG NABS nontender no HSM no CC noted edema nonfocal PICC in place Microbiology Date/Time Source Procedure Growth Status 02/24/19 23:30 Blood Blood Culture - Preliminary NO GROWTH AFTER 24 HOURS Resulted 02/24/19 00:58 Blood Blood Culture - Preliminary NO GROWTH AFTER 24 HOURS Resulted Laboratory TestsNoted 02/26/19 03:56: White Blood Count 18.8H, Red Blood Count 4.77, Hemoglobin 14.4, Hematocrit 45.4 , Mean Corpuscular Volume 95, Mean Corpuscular Hemoglobin 30.2, Mean Corpuscular Hemoglobin Concent 31.8L, Red Cell Distribution Width 14.0, Platelet Count 348, Mean Platelet Volume 5.0L, Neutrophils (%) (Auto) , Lymphocytes (%) (Auto) , Monocytes (%) (Auto) , Eosinophils (%) (Auto) , Basophils (%) (Auto) , Differential Total Cells Counted 100, Neutrophils % ( Manual) 91H, Lymphocytes % (Manual) 5L, Monocytes % (Manual) 4, Eosinophils % ( Manual) 0, Basophils % (Manual) 0, Band Neutrophils 0, Platelet Estimate DecreasedL, Platelet Morphology Normal, Red Blood Cell Morphology Normal 02/26/19 10:00: Glucose Level 169#H, Sodium Level 137, Potassium Level 3.1L, Chloride Level 95L , Carbon Dioxide Level 34H, Anion Gap 8, Blood Urea Nitrogen 30H, Creatinine 1.5H, Estimat Glomerular Filtration Rate 46.7, Calcium Level 8.9 Current Medications Medications (Trade) Dose Ordered Sig/Antionette Route PRN Reason Start Time Stop Time Status Last Admin Dose Admin Acetaminophen (Tylenol) 650 mg Q6H PRN ORAL Mild Pain/Temp > 100.5 02/26/19 02:00 03/26/19 07:59 Albuterol/ Ipratropium (Albuterol/ Ipratropium) 3 ml Q4HRT HHN 02/25/19 23:00 03/01/19 10:59 02/26/19 15:27 Amiodarone HCl (Cordarone) 200 mg DAILY ORAL 02/26/19 09:00 03/26/19 08:59 02/26/19 08:49 Aspirin (ASA) 81 mg DAILY ORAL 02/26/19 09:00 03/26/19 08:59 02/26/19 08:49 Chlorhexidine Gluconate (Melodie-Hex 2%) 1 applic DAILY@2000 TOPIC 02/26/19 20:00 03/28/19 19:59 Dextrose (Dextrose 50%) 25 ml Q30M PRN IV Hypoglycemia 02/25/19 22:30 03/26/19 15:29 Dextrose (Dextrose 50%) 50 ml Q30M PRN IV Hypoglycemia 02/25/19 22:30 03/26/19 15:29 Digoxin (Lanoxin) 0.125 mg DAILY ORAL 02/26/19 09:00 03/26/19 08:59 02/26/19 08:50 Doxycycline Hyclate 100 mg/ Dextrose 110 ml @ 110 mls/hr Q12HR IV 02/25/19 22:00 03/03/19 08:59 02/26/19 08:48 Furosemide (Lasix) 40 mg EVERY 12 HOURS IV 02/25/19 22:00 03/27/19 20:59 02/26/19 08:39 Heparin Sodium/ Sodium Chloride (Heparin 1000 units/500ml Premix) 1,000 unit ONCE PRN IV PICC 02/26/19 08:01 02/26/19 23:59 Insulin Human Regular (NovoLIN R) 5 units PRN PRN IV BS 200-299 02/25/19 23:15 03/27/19 23:14 02/26/19 17:05 Insulin Human Regular (NovoLIN R) 10 units PRN PRN IV BS=>300 02/25/19 23:15 03/27/19 23:14 02/26/19 10:10 Insulin Human Regular 100 units/ Sodium Chloride 100 ml @ 0 mls/hr Q24H IV 02/26/19 11:20 03/28/19 11:19 02/26/19 12:01 Lidocaine HCl (Xylocaine 1% 30ml) 30 ml ONCE PRN INJ PICC 02/26/19 08:00 02/26/19 23:59 Lisinopril (Zestril) 10 mg DAILY ORAL 02/26/19 09:00 03/28/19 08:59 02/26/19 08:40 Lubiprostone (Amitiza) 24 mcg TWICE A DAY ORAL 02/26/19 09:00 03/26/19 08:59 02/26/19 08:48 Miscellaneous Medication (Insulin Rate Change) 1 ea DAILY PRN MISC protocol 02/26/19 09:00 03/27/19 21:29 Ondansetron HCl (Zofran) 4 mg Q8H PRN IVP Nausea & Vomiting 02/26/19 00:00 03/26/19 07:59 Pantoprazole (Protonix) 40 mg DAILY ORAL 02/26/19 09:00 03/26/19 08:59 02/26/19 08:42 Piperacillin Sod/ Tazobactam Sod 3.375 gm/Sodium Chloride 110 ml @ 27.5 mls/hr EVERY 8 HOURS IVPB 02/25/19 22:00 03/02/19 21:59 02/26/19 14:15 Potassium Chloride (K-Dur) 10 meq DAILY ORAL 02/26/19 09:00 03/26/19 08:59 02/26/19 08:49 Pregabalin (Lyrica) 100 mg BID ORAL 02/26/19 09:00 03/26/19 08:59 02/26/19 08:42 Rivaroxaban (Xarelto) 20 mg DAILY ORAL 02/26/19 09:00 03/26/19 08:59 02/26/19 08:50 Sitagliptin Phosphate (Januvia) 100 mg ACBREAKFAST ORAL 02/26/19 06:30 03/27/19 06:29 Spironolactone (Aldactone) 25 mg DAILY ORAL 02/26/19 09:00 03/26/19 08:59 02/26/19 08:40 Critical Care - Objective Last 24 Hour Vital Signs Date Time Temp Pulse Resp B/P (MAP) Pulse Ox O2 Delivery O2 Flow Rate FiO2 03/01/19 20:12 97 Nasal Cannula 2.0 28 03/01/19 16:00 98.0 83 16 107/69 (82) 98 03/01/19 12:00 98.2 79 16 107/67 (80) 100 03/01/19 09:32 121/77 03/01/19 09:32 82 03/01/19 09:00 Room Air 03/01/19 08:29 99 Nasal Cannula 2.0 28 03/01/19 08:29 78 18 96 Room Air 21 03/01/19 08:29 80 18 96 Room Air 03/01/19 08:00 97.6 82 20 121/77 (92) 100 03/01/19 04:00 97.6 83 20 105/54 (71) 96 03/01/19 02:48 Bi-Pap 03/01/19 02:48 Bi-Pap 03/01/19 02:47 85 20 99 Facial 30 03/01/19 01:45 81 18 99 Facial 30 03/01/19 00:00 98.1 80 20 103/59 (74) 98 02/28/19 23:15 78 20 99 Facial 30 02/28/19 23:15 Bi-Pap 02/28/19 23:15 Bi-Pap Accucheck: 132 Critical Care - Subjective ROS Limited/Unobtainable: No Condition: improving FI02: 28 Sputum Amount: None I&O: Intake and Output 02/28/19 03/01/19 19:00 07:00 Intake Total 800 ml 220.0 ml Output Total 1100 ml Balance 800 ml -880.0 ml Intake Oral 800 ml IV Total 220.0 ml Output Urine Total 1100 ml # Voids 3 # Bowel Movements 2 Devin Hankins MD Mar 01, 2019 21:48
--- NOTE | 2019-03-01 23:38 | General Progress Note ---
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 - Reflux precautions - BID amitiza - add miralax - outpatient EGD Subjective Allergies: Coded Allergies: No Known Allergies (Unverified , 02/26/14) Subjective above noted out of ICU eating well constipated Objective Last 24 Hour Vital Signs Date Time Temp Pulse Resp B/P (MAP) Pulse Ox O2 Delivery O2 Flow Rate FiO2 03/01/19 20:12 97 Nasal Cannula 2.0 28 03/01/19 20:00 98.3 82 20 95/57 (70) 100 03/01/19 16:00 98.0 83 16 107/69 (82) 98 03/01/19 12:00 98.2 79 16 107/67 (80) 100 03/01/19 09:32 121/77 03/01/19 09:32 82 03/01/19 09:00 Room Air 03/01/19 08:29 99 Nasal Cannula 2.0 28 03/01/19 08:29 78 18 96 Room Air 21 03/01/19 08:29 80 18 96 Room Air 03/01/19 08:00 97.6 82 20 121/77 (92) 100 03/01/19 04:00 97.6 83 20 105/54 (71) 96 03/01/19 02:48 Bi-Pap 03/01/19 02:48 Bi-Pap 03/01/19 02:47 85 20 99 Facial 30 03/01/19 01:45 81 18 99 Facial 30 03/01/19 00:00 98.1 80 20 103/59 (74) 98 Intake and Output 02/28/19 03/01/19 19:00 07:00 Intake Total 800 ml 220.0 ml Output Total 1100 ml Balance 800 ml -880.0 ml Intake Oral 800 ml IV Total 220.0 ml Output Urine Total 1100 ml # Voids 3 # Bowel Movements 2 Laboratory Tests 03/01/19 09:15: Troponin I 0.006 Height (Feet): 5 Height (Inches): 9.00 Weight (Pounds): 264 Objective Obese WM NCAT supple coarse ronchi RR abd soft obese trace edema Kurt Durbin MD Mar 01, 2019 23:38
[2019-03-02] VITALS (7 sets, daily range): BP systolic 100–147; BP diastolic 56–98
[2019-03-02] MEDS: NovoLOG Insulin Flexpen SUBQ SCH ×9 (01:28→22:05)
[2019-03-02] MEDS: Piperacillin/Tazobactam 3.375 GM in NS 110 ML IVPB SCH ×3 (05:23→23:21)
--- NOTE | 2019-03-02 07:32 | NUR ---
HAND-OFF: Report given to TERRY Jimenez.
--- NOTE | 2019-03-02 08:12 | NUR ---
NURSE NOTES: Patient alert and oriented, respirations unlabored,patient ate breakfast,DR Valenzuela here and updated on patient blood sugar,per Dr request.patient no complaints at this time.Call light within reach.
[2019-03-02] MEDS: Levemir Flexpen SUBQ SCH ×2 (09:17→22:06)
[2019-03-02] MEDS: Lyrica 50mg cap ORAL SCH ×2 (09:19→17:50)
[2019-03-02] MEDS: Amitiza 24mcg cap ORAL SCH ×2 (09:20→17:50)
[2019-03-02] MEDS: Aspirin Baby 81mg ORAL SCH (09:20)
[2019-03-02] MEDS: Spironolactone 25mg tab ORAL SCH (09:20)
[2019-03-02] MEDS: Xarelto 10mg tab ORAL SCH (09:21)
[2019-03-02] MEDS: Doxycycline Hyclate 100 MG in D5W 110 ML IV SCH ×2 (09:23→22:00)
[2019-03-02] MEDS: Lisinopril 10mg tab ORAL SCH (09:25)
--- NOTE | 2019-03-02 12:48 | Cardiac Electrophysiology PN ---
Assessment/Plan Assessment/Plan 1. Status post Biotronic biventricular ICD implantation without atrial lead due to chronic atrial fibrillation. Interrogated, functioning normally. BIV paced 2. Chronic Atrial fibrillation. The rate is currently controlled and ICD is BiV-paced. On digoxin 0. 25 mg daily and Xarelto 20 3. Severe cardiomyopathy. Echocardiogram EF 35%. Continue Lasix 40 mg IV bid, digoxin 0.25 mg daily, Lisinopril 10 and Aldactone 25 mg daily. Off BB for COPD 4. HTN. maximize heart failure therapy. 5. Uncontrolled diabetes with glucose of more than 600. Off insulin drip today. 6. COPD. On IV antibiotic per Dr. Calvillo. 7. Morbid obesity DW RN Subjective Subjective Alert in NAD. No CP or SOB. Says has abdominal pain and headache.Placement pending Objective Last 24 Hour Vital Signs Date Time Temp Pulse Resp B/P (MAP) Pulse Ox O2 Delivery O2 Flow Rate FiO2 03/02/19 09:42 96 Nasal Cannula 2.0 28 03/02/19 09:40 Room Air 03/02/19 09:26 82 03/02/19 09:25 124/56 03/02/19 09:20 82 124/56 (78) 03/02/19 08:16 97.8 82 16 105/70 (82) 99 03/02/19 04:00 96.9 84 19 110/78 (89) 99 03/02/19 00:00 97.9 82 20 113/70 (84) 96 03/01/19 23:31 82 18 98 Facial 30 03/01/19 20:12 97 Nasal Cannula 2.0 28 03/01/19 20:00 98.3 82 20 95/57 (70) 100 03/01/19 16:00 98.0 83 16 107/69 (82) 98 Intake and Output 03/01/19 03/02/19 18:59 06:59 Intake Total 1027.5 ml 1247.5 ml Output Total 900 ml 1300 ml Balance 127.5 ml -52.5 ml Intake Oral 1000 ml 1000 ml IV Total 27.5 ml 247.5 ml Output Urine Total 900 ml 1300 ml # Voids 3 # Bowel Movements 2 Objective HEAD AND NECK: Positive JVD. LUNGS: Decreased breath sounds. CARDIOVASCULAR: Shows irregular S1 and S2 with no gallop. ICD left subclavian ABDOMEN: Soft.Morbidly obese EXTREMITIES: He has 1+ pitting edema. Yuval Carey MD Mar 02, 2019 12:47
--- NOTE | 2019-03-02 14:09 | General Progress Note ---
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 - Reflux precautions - BID amitiza - add miralax - outpatient EGD - sorbitol Subjective Allergies: Coded Allergies: No Known Allergies (Unverified , 02/26/14) Subjective above noted c/o constipation eating well no abd pain no vomiting Objective Last 24 Hour Vital Signs Date Time Temp Pulse Resp B/P (MAP) Pulse Ox O2 Delivery O2 Flow Rate FiO2 03/02/19 12:00 97.4 18 107/57 (74) 98 03/02/19 09:42 96 Nasal Cannula 2.0 28 03/02/19 09:40 Room Air 03/02/19 09:26 82 03/02/19 09:25 124/56 03/02/19 09:20 82 124/56 (78) 03/02/19 08:16 97.8 82 16 105/70 (82) 99 03/02/19 04:00 96.9 84 19 110/78 (89) 99 03/02/19 00:00 97.9 82 20 113/70 (84) 96 03/01/19 23:31 82 18 98 Facial 30 03/01/19 20:12 97 Nasal Cannula 2.0 28 03/01/19 20:00 98.3 82 20 95/57 (70) 100 03/01/19 16:00 98.0 83 16 107/69 (82) 98 Intake and Output 03/01/19 03/02/19 18:59 06:59 Intake Total 1027.5 ml 1247.5 ml Output Total 900 ml 1300 ml Balance 127.5 ml -52.5 ml Intake Oral 1000 ml 1000 ml IV Total 27.5 ml 247.5 ml Output Urine Total 900 ml 1300 ml # Voids 3 # Bowel Movements 2 Height (Feet): 5 Height (Inches): 9.00 Weight (Pounds): 264 Objective Obese WM NCAT supple coarse ronchi RR abd soft obese trace edema Kurt Durbin MD Mar 02, 2019 14:09
[2019-03-02] MEDS ORDERED: Sorbitol Solution UD 30ml ORAL SCH (14:15)
--- NOTE | 2019-03-02 14:17 | Pulmonolgy Critical Care Note ---
Critical Care - Asmt/Plan Assessment/Plan: Pulmonary CCM Progress Note Assessment/Plan Congestive Heart Failure Chest Pain Chronic Obstructive Pulmonary Disease with exacerbation Possible RLL Pneumonia Hypertension Possible previous Atrial Fibrillation ? (on Xarelto) Pacemaker Insulin Dependant Diabetes Peripheral Neuropathy Diabetes out of control Cardiomyopathy CHF Plan IV Antibiotics monitor lytes Continue Xarelto IV Steroids discontinued HHN Maintenance Insulin and adjust pending improvement in blood sugars O2 PRN Cardiology following Monitor labs for change Telemetry dc home when stable ? short term snf impression, plan, and exam edited and reviewed in detail care discussed with RN Subjective Allergies: Coded Allergies: No Known Allergies (Unverified , 02/26/14) Subjective care noted and reviewed on oxygen still with sob sugars out of control transferred to ICU for drip Objective Vital Signs Noted Objective WDWN NAD obese on oxygen reduced breath sounds bilaterally without rhonchi or wheeze [id number] without MRG NABS nontender no HSM no CC noted edema nonfocal PICC in place Microbiology Date/Time Source Procedure Growth Status 02/24/19 23:30 Blood Blood Culture - Preliminary NO GROWTH AFTER 24 HOURS Resulted 02/24/19 00:58 Blood Blood Culture - Preliminary NO GROWTH AFTER 24 HOURS Resulted Laboratory TestsNoted 02/26/19 03:56: White Blood Count 18.8H, Red Blood Count 4.77, Hemoglobin 14.4, Hematocrit 45.4 , Mean Corpuscular Volume 95, Mean Corpuscular Hemoglobin 30.2, Mean Corpuscular Hemoglobin Concent 31.8L, Red Cell Distribution Width 14.0, Platelet Count 348, Mean Platelet Volume 5.0L, Neutrophils (%) (Auto) , Lymphocytes (%) (Auto) , Monocytes (%) (Auto) , Eosinophils (%) (Auto) , Basophils (%) (Auto) , Differential Total Cells Counted 100, Neutrophils % ( Manual) 91H, Lymphocytes % (Manual) 5L, Monocytes % (Manual) 4, Eosinophils % ( Manual) 0, Basophils % (Manual) 0, Band Neutrophils 0, Platelet Estimate DecreasedL, Platelet Morphology Normal, Red Blood Cell Morphology Normal 02/26/19 10:00: Glucose Level 169#H, Sodium Level 137, Potassium Level 3.1L, Chloride Level 95L , Carbon Dioxide Level 34H, Anion Gap 8, Blood Urea Nitrogen 30H, Creatinine 1.5H, Estimat Glomerular Filtration Rate 46.7, Calcium Level 8.9 Current Medications Medications (Trade) Dose Ordered Sig/Antionette Route PRN Reason Start Time Stop Time Status Last Admin Dose Admin Acetaminophen (Tylenol) 650 mg Q6H PRN ORAL Mild Pain/Temp > 100.5 02/26/19 02:00 03/26/19 07:59 Albuterol/ Ipratropium (Albuterol/ Ipratropium) 3 ml Q4HRT HHN 02/25/19 23:00 03/01/19 10:59 02/26/19 15:27 Amiodarone HCl (Cordarone) 200 mg DAILY ORAL 02/26/19 09:00 03/26/19 08:59 02/26/19 08:49 Aspirin (ASA) 81 mg DAILY ORAL 02/26/19 09:00 03/26/19 08:59 02/26/19 08:49 Chlorhexidine Gluconate (Melodie-Hex 2%) 1 applic DAILY@2000 TOPIC 02/26/19 20:00 03/28/19 19:59 Dextrose (Dextrose 50%) 25 ml Q30M PRN IV Hypoglycemia 02/25/19 22:30 03/26/19 15:29 Dextrose (Dextrose 50%) 50 ml Q30M PRN IV Hypoglycemia 02/25/19 22:30 03/26/19 15:29 Digoxin (Lanoxin) 0.125 mg DAILY ORAL 02/26/19 09:00 03/26/19 08:59 02/26/19 08:50 Doxycycline Hyclate 100 mg/ Dextrose 110 ml @ 110 mls/hr Q12HR IV 02/25/19 22:00 03/03/19 08:59 02/26/19 08:48 Furosemide (Lasix) 40 mg EVERY 12 HOURS IV 02/25/19 22:00 03/27/19 20:59 02/26/19 08:39 Heparin Sodium/ Sodium Chloride (Heparin 1000 units/500ml Premix) 1,000 unit ONCE PRN IV PICC 02/26/19 08:01 02/26/19 23:59 Insulin Human Regular (NovoLIN R) 5 units PRN PRN IV BS 200-299 02/25/19 23:15 03/27/19 23:14 02/26/19 17:05 Insulin Human Regular (NovoLIN R) 10 units PRN PRN IV BS=>300 02/25/19 23:15 03/27/19 23:14 02/26/19 10:10 Insulin Human Regular 100 units/ Sodium Chloride 100 ml @ 0 mls/hr Q24H IV 02/26/19 11:20 03/28/19 11:19 02/26/19 12:01 Lidocaine HCl (Xylocaine 1% 30ml) 30 ml ONCE PRN INJ PICC 02/26/19 08:00 02/26/19 23:59 Lisinopril (Zestril) 10 mg DAILY ORAL 02/26/19 09:00 03/28/19 08:59 02/26/19 08:40 Lubiprostone (Amitiza) 24 mcg TWICE A DAY ORAL 02/26/19 09:00 03/26/19 08:59 02/26/19 08:48 Miscellaneous Medication (Insulin Rate Change) 1 ea DAILY PRN MISC protocol 02/26/19 09:00 03/27/19 21:29 Ondansetron HCl (Zofran) 4 mg Q8H PRN IVP Nausea & Vomiting 02/26/19 00:00 03/26/19 07:59 Pantoprazole (Protonix) 40 mg DAILY ORAL 02/26/19 09:00 03/26/19 08:59 02/26/19 08:42 Piperacillin Sod/ Tazobactam Sod 3.375 gm/Sodium Chloride 110 ml @ 27.5 mls/hr EVERY 8 HOURS IVPB 02/25/19 22:00 03/02/19 21:59 02/26/19 14:15 Potassium Chloride (K-Dur) 10 meq DAILY ORAL 02/26/19 09:00 03/26/19 08:59 02/26/19 08:49 Pregabalin (Lyrica) 100 mg BID ORAL 02/26/19 09:00 03/26/19 08:59 02/26/19 08:42 Rivaroxaban (Xarelto) 20 mg DAILY ORAL 02/26/19 09:00 03/26/19 08:59 02/26/19 08:50 Sitagliptin Phosphate (Januvia) 100 mg ACBREAKFAST ORAL 02/26/19 06:30 03/27/19 06:29 Spironolactone (Aldactone) 25 mg DAILY ORAL 02/26/19 09:00 03/26/19 08:59 02/26/19 08:40 Critical Care - Objective Last 24 Hour Vital Signs Date Time Temp Pulse Resp B/P (MAP) Pulse Ox O2 Delivery O2 Flow Rate FiO2 03/02/19 12:00 97.4 18 107/57 (74) 98 03/02/19 09:42 96 Nasal Cannula 2.0 28 03/02/19 09:40 Room Air 03/02/19 09:26 82 03/02/19 09:25 124/56 03/02/19 09:20 82 124/56 (78) 03/02/19 08:16 97.8 82 16 105/70 (82) 99 03/02/19 04:00 96.9 84 19 110/78 (89) 99 03/02/19 00:00 97.9 82 20 113/70 (84) 96 03/01/19 23:31 82 18 98 Facial 30 03/01/19 20:12 97 Nasal Cannula 2.0 28 03/01/19 20:00 98.3 82 20 95/57 (70) 100 03/01/19 16:00 98.0 83 16 107/69 (82) 98 Accucheck: 298 Critical Care - Subjective ROS Limited/Unobtainable: No FI02: 28 Sputum Amount: None I&O: Intake and Output 03/01/19 03/02/19 18:59 06:59 Intake Total 1027.5 ml 1247.5 ml Output Total 900 ml 1300 ml Balance 127.5 ml -52.5 ml Intake Oral 1000 ml 1000 ml IV Total 27.5 ml 247.5 ml Output Urine Total 900 ml 1300 ml # Voids 3 # Bowel Movements 2 Devin Hankins MD Mar 02, 2019 14:17
--- NOTE | 2019-03-02 14:21 | General Progress Note ---
Assessment/Plan Problem List: (1) CHF (congestive heart failure) ICD Codes: I50.9 - Heart failure, unspecified SNOMED: 90456032 (2) Atrial fibrillation with RVR ICD Codes: I48.91 - Unspecified atrial fibrillation SNOMED: 716484802 (3) Diabetic neuropathy ICD Codes: E11.40 - Type 2 diabetes mellitus with diabetic neuropathy, unspecified SNOMED: 39462214, 935622538, 595056692 (4) GERD (gastroesophageal reflux disease) ICD Codes: K21.9 - Gastro-esophageal reflux disease without esophagitis SNOMED: 848832051 (5) Diabetic nephropathy ICD Codes: E11.21 - Type 2 diabetes mellitus with diabetic nephropathy SNOMED: 62107504, 180007637 (6) HTN (hypertension) ICD Codes: I10 - Essential (primary) hypertension SNOMED: 69554088 (7) COPD exacerbation ICD Codes: J44.1 - Chronic obstructive pulmonary disease with (acute) exacerbation SNOMED: 070974129 (8) Pneumonia ICD Codes: J18.9 - Pneumonia, unspecified organism SNOMED: 151030648 Qualifiers: Qualified Codes: J18.1 - Lobar pneumonia, unspecified organism Status: stable, progressing Assessment/Plan: cont current rx tirate levemir up monitor bs resp care o2 Subjective ROS Limited/Unobtainable: No Constitutional: Reports: malaise, weakness HEENT: Reports: no symptoms Cardiovascular: Reports: no symptoms Respiratory: Reports: cough Gastrointestinal/Abdominal: Reports: no symptoms Genitourinary: Reports: no symptoms Neurologic/Psychiatric: Reports: no symptoms Endocrine: Reports: no symptoms Hematologic/Lymphatic: Reports: no symptoms Allergies: Coded Allergies: No Known Allergies (Unverified , 02/26/14) All Systems: reviewed and negative except above Subjective no new complaints. resting. no fever or chills. no chest pain blood sugar trend improving. Objective Last 24 Hour Vital Signs Date Time Temp Pulse Resp B/P (MAP) Pulse Ox O2 Delivery O2 Flow Rate FiO2 03/02/19 12:00 97.4 18 107/57 (74) 98 03/02/19 09:42 96 Nasal Cannula 2.0 28 03/02/19 09:40 Room Air 03/02/19 09:26 82 03/02/19 09:25 124/56 8/24/19 09:20 82 124/56 (78) 03/02/19 08:16 97.8 82 16 105/70 (82) 99 03/02/19 04:00 96.9 84 19 110/78 (89) 99 03/02/19 00:00 97.9 82 20 113/70 (84) 96 03/01/19 23:31 82 18 98 Facial 30 03/01/19 20:12 97 Nasal Cannula 2.0 28 03/01/19 20:00 98.3 82 20 95/57 (70) 100 03/01/19 16:00 98.0 83 16 107/69 (82) 98 Intake and Output 03/01/19 03/02/19 18:59 06:59 Intake Total 1027.5 ml 1247.5 ml Output Total 900 ml 1300 ml Balance 127.5 ml -52.5 ml Intake Oral 1000 ml 1000 ml IV Total 27.5 ml 247.5 ml Output Urine Total 900 ml 1300 ml # Voids 3 # Bowel Movements 2 Height (Feet): 5 Height (Inches): 9.00 Weight (Pounds): 264 Objective General Appearance: WD/WN, alert Neck: supple Cardiovascular: regular rhythm Respiratory/Chest: chest wall non-tender, lungs clear, normal breath sounds, no respiratory distress Abdomen: normal bowel sounds, non tender, soft, no organomegaly Edema: no edema noted Arm (L), no edema noted Arm (R), no edema noted Leg (L), no edema noted Leg (R), no edema noted Pedal (L), no edema noted Pedal (R), no edema noted Generalized Jareth Valenzuela MD Mar 02, 2019 14:21
[2019-03-02] MEDS ORDERED: NS 275ml ONE (17:46)
--- NOTE | 2019-03-02 18:58 | NUR ---
NURSE NOTES: Patient watching Television,when asked if having any pain,patient state he has a headache,tylenol given PRN as ordered.Will endorse to follow up
--- NOTE | 2019-03-02 19:42 | NUR ---
HAND-OFF: Report given to JOSE STEWART.
--- NOTE | 2019-03-02 19:44 | NUR ---
NURSE NOTES: Pt is in bed, awake and verbal. No acute distress noted. No SOB. Pt is ambulatory. Room air. Pt complains of no pain now. Bed locked low in position,side rails up and call light within reach. Pt is asked to call for assistance before getting out of bed.
[2019-03-02] MEDS: Dyna-Hex 2% Top Sol 2oz TOPIC SCH (21:59)
[2019-03-02] MEDS: Miralax 17gm pkt ORAL SCH (21:59)
--- NOTE | 2019-03-02 23:00 | NUR ---
RESPIRATORY NOTE: Pt placed on BiPAP for nightly use. Pt now on BiPAP 15/, backup rate 14, 30%. Pt on a Facial mask, skin intact, no redness/breakdowns noted. Foam tape applied to nosebridge only as pt has thick facial hair. High leak noted d/t pt's facial hair, pt's getting adequate VT & tolerating well despite leak. Pt alert/awake, follows commands. B/S keyon. clear/diminished, nonproductive cough. BiPAP plugged into regular white outlet, bedside RN, Graham, RN aware that pt needs to be moved to a room w/ red outlet for emergency purposes. Alarms on & audible. RN to monitor pt closely until an available room w/ red outlet opens up. Pt in no apparent distress at this time. Will continue plan of care.
--- NOTE | 2019-03-03 01:17 | NUR ---
NURSE NOTES: Pt removed BIPAP mask and sleeping on room air. NO SOB or acute distress noted. RR 20.
[2019-03-03] MEDS: NovoLOG Insulin Flexpen SUBQ SCH ×8 (02:06→20:07)
[2019-03-03] MEDS: Piperacillin/Tazobactam 3.375 GM in NS 110 ML IVPB SCH ×3 (06:36→21:12)
--- NOTE | 2019-03-03 07:15 | NUR ---
HAND-OFF: Report given to TERRY Jimenez.
--- NOTE | 2019-03-03 07:50 | NUR ---
NURSE NOTES: Patient is awake and alert respirations unlabored.patient sitting up and eating breakfast.Picc line to upper right arm intact.Will monitor blood sugars as ordered.Call light within reach.
--- NOTE | 2019-03-03 07:52 | General Progress Note ---
Assessment/Plan Problem List: (1) CHF (congestive heart failure) ICD Codes: I50.9 - Heart failure, unspecified SNOMED: 74762025 (2) Atrial fibrillation with RVR ICD Codes: I48.91 - Unspecified atrial fibrillation SNOMED: 699794220 (3) Diabetic neuropathy ICD Codes: E11.40 - Type 2 diabetes mellitus with diabetic neuropathy, unspecified SNOMED: 88255858, 384939902, 542347005 (4) GERD (gastroesophageal reflux disease) ICD Codes: K21.9 - Gastro-esophageal reflux disease without esophagitis SNOMED: 277368063 (5) Diabetic nephropathy ICD Codes: E11.21 - Type 2 diabetes mellitus with diabetic nephropathy SNOMED: 30921541, 814390396 (6) HTN (hypertension) ICD Codes: I10 - Essential (primary) hypertension SNOMED: 16871930 (7) COPD exacerbation ICD Codes: J44.1 - Chronic obstructive pulmonary disease with (acute) exacerbation SNOMED: 680482508 (8) Pneumonia ICD Codes: J18.9 - Pneumonia, unspecified organism SNOMED: 354606743 Qualifiers: Qualified Codes: J18.1 - Lobar pneumonia, unspecified organism Status: stable, progressing Assessment/Plan: cont current rx tirate levemir up monitor bs- decrease to ac qhs resp care o2 Subjective ROS Limited/Unobtainable: No Constitutional: Reports: malaise, weakness HEENT: Reports: no symptoms Cardiovascular: Reports: no symptoms Respiratory: Reports: no symptoms Gastrointestinal/Abdominal: Reports: no symptoms Genitourinary: Reports: no symptoms Neurologic/Psychiatric: Reports: no symptoms Endocrine: Reports: no symptoms Hematologic/Lymphatic: Reports: no symptoms Allergies: Coded Allergies: No Known Allergies (Unverified , 02/26/14) All Systems: reviewed and negative except above Subjective no new complaints. resting. no fever or chills. no chest pain blood sugar trend improving. Objective Last 24 Hour Vital Signs Date Time Temp Pulse Resp B/P (MAP) Pulse Ox O2 Delivery O2 Flow Rate FiO2 03/02/19 22:59 Room Air 03/02/19 22:58 93 19 97 Facial 30 03/02/19 20:00 98.3 83 20 147/98 (114) 99 03/02/19 19:55 96 Nasal Cannula 2.0 28 03/02/19 16:22 98.6 81 18 100/64 (76) 98 03/02/19 12:00 97.4 82 18 107/57 (74) 98 03/02/19 09:42 96 Nasal Cannula 2.0 28 03/02/19 09:40 Room Air 03/02/19 09:26 82 03/02/19 09:25 124/56 03/02/19 09:20 82 124/56 (78) 03/02/19 08:16 97.8 82 16 105/70 (82) 99 82 Intake and Output 03/02/19 03/03/19 19:00 07:00 Intake Total 960 ml 460.0 ml Output Total 1100 ml 700 ml Balance -140 ml -240.0 ml Intake Oral 960 ml 240 ml IV Total 220.0 ml Output Urine Total 1100 ml 700 ml # Voids 3 # Bowel Movements 2 Height (Feet): 5 Height (Inches): 9.00 Weight (Pounds): 264 Objective General Appearance: WD/WN, alert Neck: supple Cardiovascular: regular rhythm Respiratory/Chest: chest wall non-tender, lungs clear, normal breath sounds, no respiratory distress Abdomen: normal bowel sounds, non tender, soft, no organomegaly Edema: no edema noted Arm (L), no edema noted Arm (R), no edema noted Leg (L), no edema noted Leg (R), no edema noted Pedal (L), no edema noted Pedal (R), no edema noted Generalized Jareth Valenzuela MD Mar 03, 2019 07:52
[2019-03-03 08:00] VITALS: BP 95/52
[2019-03-03] MEDS: Lisinopril 10mg tab ORAL SCH (09:00)
[2019-03-03] MEDS: Amitiza 24mcg cap ORAL SCH ×2 (09:09→18:46)
[2019-03-03] MEDS: Aspirin Baby 81mg ORAL SCH (09:09)
[2019-03-03] MEDS: Xarelto 10mg tab ORAL SCH (09:10)
[2019-03-03] MEDS: Levemir Flexpen SUBQ SCH ×2 (09:28→20:07)
[2019-03-03 10:26] VITALS: BP 104/63
[2019-03-03] MEDS: Spironolactone 25mg tab ORAL SCH (10:34)
[2019-03-03] MEDS: Lyrica 50mg cap ORAL SCH ×2 (10:34→18:46)
[2019-03-03 12:00] VITALS: BP 115/65
--- NOTE | 2019-03-03 12:08 | Pulmonolgy Critical Care Note ---
Critical Care - Asmt/Plan Assessment/Plan: Pulmonary CCM Progress Note Assessment/Plan Congestive Heart Failure Chest Pain Chronic Obstructive Pulmonary Disease with exacerbation Possible RLL Pneumonia Hypertension Possible previous Atrial Fibrillation ? (on Xarelto) Pacemaker Insulin Dependant Diabetes Peripheral Neuropathy Diabetes out of control Cardiomyopathy CHF Plan monitor lytes Continue Xarelto IV Steroids discontinued HHN Antibiotics Maintenance Insulin and adjust pending improvement in blood sugars O2 PRN Cardiology following Monitor labs for change Telemetry dc home when stable ? short term snf impression, plan, and exam edited and reviewed in detail care discussed with RN Subjective Allergies: Coded Allergies: No Known Allergies (Unverified , 02/26/14) Subjective care noted and reviewed on oxygen less sob Objective Vital Signs Noted Objective WDWN NAD obese on oxygen reduced breath sounds bilaterally without rhonchi or wheeze [id number] without MRG NABS nontender no HSM no CC noted edema nonfocal PICC in place Microbiology Date/Time Source Procedure Growth Status 02/24/19 23:30 Blood Blood Culture - Preliminary NO GROWTH AFTER 24 HOURS Resulted 02/24/19 00:58 Blood Blood Culture - Preliminary NO GROWTH AFTER 24 HOURS Resulted Laboratory TestsNoted 02/26/19 03:56: White Blood Count 18.8H, Red Blood Count 4.77, Hemoglobin 14.4, Hematocrit 45.4 , Mean Corpuscular Volume 95, Mean Corpuscular Hemoglobin 30.2, Mean Corpuscular Hemoglobin Concent 31.8L, Red Cell Distribution Width 14.0, Platelet Count 348, Mean Platelet Volume 5.0L, Neutrophils (%) (Auto) , Lymphocytes (%) (Auto) , Monocytes (%) (Auto) , Eosinophils (%) (Auto) , Basophils (%) (Auto) , Differential Total Cells Counted 100, Neutrophils % ( Manual) 91H, Lymphocytes % (Manual) 5L, Monocytes % (Manual) 4, Eosinophils % ( Manual) 0, Basophils % (Manual) 0, Band Neutrophils 0, Platelet Estimate DecreasedL, Platelet Morphology Normal, Red Blood Cell Morphology Normal 02/26/19 10:00: Glucose Level 169#H, Sodium Level 137, Potassium Level 3.1L, Chloride Level 95L , Carbon Dioxide Level 34H, Anion Gap 8, Blood Urea Nitrogen 30H, Creatinine 1.5H, Estimat Glomerular Filtration Rate 46.7, Calcium Level 8.9 Current Medications Medications (Trade) Dose Ordered Sig/Antionette Route PRN Reason Start Time Stop Time Status Last Admin Dose Admin Acetaminophen (Tylenol) 650 mg Q6H PRN ORAL Mild Pain/Temp > 100.5 02/26/19 02:00 03/26/19 07:59 Albuterol/ Ipratropium (Albuterol/ Ipratropium) 3 ml Q4HRT HHN 02/25/19 23:00 03/01/19 10:59 02/26/19 15:27 Amiodarone HCl (Cordarone) 200 mg DAILY ORAL 02/26/19 09:00 03/26/19 08:59 02/26/19 08:49 Aspirin (ASA) 81 mg DAILY ORAL 02/26/19 09:00 03/26/19 08:59 02/26/19 08:49 Chlorhexidine Gluconate (Melodie-Hex 2%) 1 applic DAILY@2000 TOPIC 02/26/19 20:00 03/28/19 19:59 Dextrose (Dextrose 50%) 25 ml Q30M PRN IV Hypoglycemia 02/25/19 22:30 03/26/19 15:29 Dextrose (Dextrose 50%) 50 ml Q30M PRN IV Hypoglycemia 02/25/19 22:30 03/26/19 15:29 Digoxin (Lanoxin) 0.125 mg DAILY ORAL 02/26/19 09:00 03/26/19 08:59 02/26/19 08:50 Doxycycline Hyclate 100 mg/ Dextrose 110 ml @ 110 mls/hr Q12HR IV 02/25/19 22:00 03/03/19 08:59 02/26/19 08:48 Furosemide (Lasix) 40 mg EVERY 12 HOURS IV 02/25/19 22:00 03/27/19 20:59 02/26/19 08:39 Heparin Sodium/ Sodium Chloride (Heparin 1000 units/500ml Premix) 1,000 unit ONCE PRN IV PICC 02/26/19 08:01 02/26/19 23:59 Insulin Human Regular (NovoLIN R) 5 units PRN PRN IV BS 200-299 02/25/19 23:15 03/27/19 23:14 02/26/19 17:05 Insulin Human Regular (NovoLIN R) 10 units PRN PRN IV BS=>300 02/25/19 23:15 03/27/19 23:14 02/26/19 10:10 Insulin Human Regular 100 units/ Sodium Chloride 100 ml @ 0 mls/hr Q24H IV 02/26/19 11:20 03/28/19 11:19 02/26/19 12:01 Lidocaine HCl (Xylocaine 1% 30ml) 30 ml ONCE PRN INJ PICC 02/26/19 08:00 02/26/19 23:59 Lisinopril (Zestril) 10 mg DAILY ORAL 02/26/19 09:00 03/28/19 08:59 02/26/19 08:40 Lubiprostone (Amitiza) 24 mcg TWICE A DAY ORAL 02/26/19 09:00 03/26/19 08:59 02/26/19 08:48 Miscellaneous Medication (Insulin Rate Change) 1 ea DAILY PRN MISC protocol 02/26/19 09:00 03/27/19 21:29 Ondansetron HCl (Zofran) 4 mg Q8H PRN IVP Nausea & Vomiting 02/26/19 00:00 03/26/19 07:59 Pantoprazole (Protonix) 40 mg DAILY ORAL 02/26/19 09:00 03/26/19 08:59 02/26/19 08:42 Piperacillin Sod/ Tazobactam Sod 3.375 gm/Sodium Chloride 110 ml @ 27.5 mls/hr EVERY 8 HOURS IVPB 02/25/19 22:00 03/02/19 21:59 02/26/19 14:15 Potassium Chloride (K-Dur) 10 meq DAILY ORAL 02/26/19 09:00 03/26/19 08:59 02/26/19 08:49 Pregabalin (Lyrica) 100 mg BID ORAL 02/26/19 09:00 03/26/19 08:59 02/26/19 08:42 Rivaroxaban (Xarelto) 20 mg DAILY ORAL 02/26/19 09:00 03/26/19 08:59 02/26/19 08:50 Sitagliptin Phosphate (Januvia) 100 mg ACBREAKFAST ORAL 02/26/19 06:30 03/27/19 06:29 Spironolactone (Aldactone) 25 mg DAILY ORAL 02/26/19 09:00 03/26/19 08:59 02/26/19 08:40 Critical Care - Objective Last 24 Hour Vital Signs Date Time Temp Pulse Resp B/P (MAP) Pulse Ox O2 Delivery O2 Flow Rate FiO2 03/03/19 10:26 82 104/63 (77) 03/03/19 10:18 Room Air 03/03/19 09:09 82 03/03/19 09:00 104/63 03/03/19 08:00 98.9 82 17 95/52 (66) 97 03/03/19 07:23 95 Nasal Cannula 2.0 28 03/02/19 22:59 Room Air 03/02/19 22:58 93 19 97 Facial 30 03/02/19 20:00 98.3 83 20 147/98 (114) 99 03/02/19 19:55 96 Nasal Cannula 2.0 28 03/02/19 16:22 98.6 81 18 100/64 (76) 98 Accucheck: 141 Critical Care - Subjective ROS Limited/Unobtainable: No FI02: 28 Sputum Amount: None I&O: Intake and Output 03/02/19 03/03/19 19:00 07:00 Intake Total 960 ml 460.0 ml Output Total 1100 ml 700 ml Balance -140 ml -240.0 ml Intake Oral 960 ml 240 ml IV Total 220.0 ml Output Urine Total 1100 ml 700 ml # Voids 3 # Bowel Movements 2 Devin Hankins MD Mar 03, 2019 12:08
--- NOTE | 2019-03-03 13:01 | Cardiology Report ---
APPROVED REPORT EKG Measurement Heart [id number] Abnormal ECG Electronic pacemaker
[2019-03-03 16:00] VITALS: BP 120/78
--- NOTE | 2019-03-03 16:03 | General Progress Note ---
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 - Reflux precautions - BID amitiza - miralax - outpatient EGD - sorbitol prn Subjective Allergies: Coded Allergies: No Known Allergies (Unverified , 02/26/14) Subjective above noted (+) BM eating well no abd pain no vomiting seen with family at bedside Objective Last 24 Hour Vital Signs Date Time Temp Pulse Resp B/P (MAP) Pulse Ox O2 Delivery O2 Flow Rate FiO2 03/03/19 12:00 98.5 83 18 115/65 (82) 03/03/19 10:26 82 104/63 (77) 03/03/19 10:18 Room Air 03/03/19 09:09 82 03/03/19 09:00 104/63 03/03/19 08:00 98.9 82 17 95/52 (66) 97 03/03/19 07:23 95 Nasal Cannula 2.0 28 03/02/19 22:59 Room Air 03/02/19 22:58 93 19 97 Facial 30 03/02/19 20:00 98.3 83 20 147/98 (114) 99 03/02/19 19:55 96 Nasal Cannula 2.0 28 03/02/19 16:22 98.6 81 18 100/64 (76) 98 Intake and Output 03/02/19 03/03/19 19:00 07:00 Intake Total 960 ml 460.0 ml Output Total 1100 ml 700 ml Balance -140 ml -240.0 ml Intake Oral 960 ml 240 ml IV Total 220.0 ml Output Urine Total 1100 ml 700 ml # Voids 3 # Bowel Movements 2 Height (Feet): 5 Height (Inches): 9.00 Weight (Pounds): 264 Objective Obese WM NCAT supple coarse ronchi RR abd soft obese trace edema Kurt Durbin MD Mar 03, 2019 16:03
[2019-03-03] MEDS ORDERED: Doxycycline Hyclate 100 MG in D5W 110 ML IV SCH (17:00)
[2019-03-03 17:21] VITALS: BP 120/78
--- NOTE | 2019-03-03 18:56 | NUR ---
NURSE NOTES: Patient resting,respirations unlabored,patient receive tylenol at 1718 for back pain and state pain level is lower,able to rest.Call light within reach.
--- NOTE | 2019-03-03 19:30 | NUR ---
NURSE NOTES: Patient asleep in bed, no signs of pain, not in acute respiratory distress. Call lights in reach. Bed in lowest position, lock engaged and alarm on. Will continue to monitor.
--- NOTE | 2019-03-03 19:40 | NUR ---
HAND-OFF: Report given to Saira STEWART.
[2019-03-03 20:00] VITALS: BP 96/59
[2019-03-03] MEDS: Dyna-Hex 2% Top Sol 2oz TOPIC SCH (20:04)
[2019-03-03] MEDS: Miralax 17gm pkt ORAL SCH (20:05)
[2019-03-04] MEDS: Piperacillin/Tazobactam 3.375 GM in NS 110 ML IVPB SCH (05:53)
[2019-03-04] MEDS: NovoLOG Insulin Flexpen SUBQ SCH ×7 (05:59→21:08)
--- NOTE | 2019-03-04 06:21 | NUR ---
NURSE NOTES: Unable to draw blood from PICC. RN attempted while patient was lying down and sitting up. Lab made aware.
--- NOTE | 2019-03-04 06:45 | General Progress Note ---
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 - Reflux precautions - BID amitiza - miralax - outpatient EGD - sorbitol prn Subjective Allergies: Coded Allergies: No Known Allergies (Unverified , 02/26/14) Subjective above noted (+) BM eating well no abd pain no vomiting Objective Last 24 Hour Vital Signs Date Time Temp Pulse Resp B/P (MAP) Pulse Ox O2 Delivery O2 Flow Rate FiO2 03/04/19 02:52 82 19 98 Facial 30 03/04/19 01:36 85 19 97 Facial 30 03/03/19 23:06 80 18 98 Facial 30 03/03/19 20:00 98.7 82 19 96/59 (71) 03/03/19 19:39 82 18 96 Nasal Cannula 2.0 28 03/03/19 19:39 96 Nasal Cannula 2.0 28 03/03/19 17:21 98.3 81 19 120/78 (92) 03/03/19 16:00 98.3 83 18 120/78 (92) 03/03/19 12:00 98.5 83 18 115/65 (82) 03/03/19 10:26 82 104/63 (77) 03/03/19 10:18 Room Air 03/03/19 09:09 82 03/03/19 09:00 104/63 03/03/19 08:00 98.9 82 17 95/52 (66) 97 03/03/19 07:23 95 Nasal Cannula 2.0 28 Intake and Output 03/03/19 03/04/19 19:00 07:00 Intake Total 1200 ml 220.0 ml Output Total 300 ml Balance 900 ml 220.0 ml Intake Oral 1200 ml IV Total 220.0 ml Output Urine Total 300 ml Height (Feet): 5 Height (Inches): 9.00 Weight (Pounds): 264 Objective Obese WM NCAT supple coarse ronchi RR abd soft obese trace edema Kurt Durbin MD Mar 04, 2019 06:45
[2019-03-04 07:10] LABS: BASOPHILS % (AUTO) 1.2 % (0.0-2.0); EOSINOPHILS % (AUTO) 5.3 % (0.0-3.0); HEMOGLOBIN 14.9 G/DL (14.2-18.0); LYMPHOCYTES % (AUTO) 22.4 % (20.0-45.0); MEAN CORPUSCULAR VOLUME 92 FL (80-99); MONOCYTES % (AUTO) 6.8 % (1.0-10.0); NEUTROPHILS % (AUTO) 64.3 % (45.0-75.0); PLATELET COUNT 259 K/UL (150-450); RED BLOOD COUNT 4.99 M/UL (4.70-6.10); RED CELL DISTRIBUTION WIDTH 13.5 % (11.6-14.8); WHITE BLOOD COUNT 10.4 K/UL (4.8-10.8)
--- NOTE | 2019-03-04 07:26 | NUR ---
NURSE NOTES: HANDOFF RECEIVED FROM TERRY ESTRADA. PATIENT OBSERVED LAYING SIDEWAYS IN BED, NO COMPLAINTS OF PAIN OR DISCOMFORT, NO PHYSICAL SIGNS OF DISTRESS. PATIENT IS ALERT AND ABLE TO MAKE NEEDS KNOWN. PATIENT HAS CALL LIGHT WITHIN REACH, BED IN LOW AND LOCKED POSITION. WILL CONTINUE TO MONITOR.
[2019-03-04 07:29] LABS: ALANINE AMINOTRANSFERASE 14 U/L (12-78); ALBUMIN/GLOBULIN RATIO 0.8 (1.0-2.7); ALKALINE PHOSPHATASE 58 U/L (46-116); ANION GAP 6 mmol/L (5-15); ASPARTATE AMINO TRANSFERASE 15 U/L (15-37); BILIRUBIN,TOTAL 0.5 MG/DL (0.2-1.0); BLOOD UREA NITROGEN 23 mg/dL (7-18); CALCIUM 8.7 MG/DL (8.5-10.1); CARBON DIOXIDE 31 MMOL/L (21-32); CHLORIDE 104 MMOL/L (98-107); SODIUM 141 MMOL/L (136-145)
--- NOTE | 2019-03-04 07:32 | NUR ---
HAND-OFF: Report given to TERRY Couch.
[2019-03-04 08:10] VITALS: BP 101/44
--- NOTE | 2019-03-04 08:33 | Pulmonology Progress Note ---
Assessment/Plan Assessment/Plan Congestive Heart Failure Chest Pain Chronic Obstructive Pulmonary Disease with exacerbation Possible RLL Pneumonia Hypertension Possible previous Atrial Fibrillation ? (on Xarelto) Pacemaker Insulin Dependant Diabetes Peripheral Neuropathy Diabetes out of control Cardiomyopathy CHF Plan IV Antibiotics---dc monitor lytes ---improved Continue Xarelto neb therapy Maintenance Insulin after dc- discussed with patient O2 PRN Cardiology Consultation Monitor labs for change Telemetry dc home with HH impression, plan, and exam edited and reviewed in detail care discussed with RN Subjective Allergies: Coded Allergies: No Known Allergies (Unverified , 02/26/14) Subjective care noted and reviewed on oxygen over 72 hour care reviewed stable for dc Objective Last 24 Hour Vital Signs Date Time Temp Pulse Resp B/P (MAP) Pulse Ox O2 Delivery O2 Flow Rate FiO2 03/04/19 08:10 98.5 82 21 101/44 (63) 96 03/04/19 02:52 82 19 98 Facial 30 03/04/19 01:36 85 19 97 Facial 30 03/03/19 23:06 80 18 98 Facial 30 03/03/19 20:00 98.7 82 19 96/59 (71) 03/03/19 19:39 82 18 96 Nasal Cannula 2.0 28 03/03/19 19:39 96 Nasal Cannula 2.0 28 03/03/19 17:21 98.3 81 19 120/78 (92) 03/03/19 16:00 98.3 83 18 120/78 (92) 03/03/19 12:00 98.5 83 18 115/65 (82) 03/03/19 10:26 82 104/63 (77) 03/03/19 10:18 Room Air 03/03/19 09:09 82 03/03/19 09:00 104/63 Intake and Output 03/03/19 03/04/19 19:00 07:00 Intake Total 1200 ml 700.0 ml Output Total 300 ml 950 ml Balance 900 ml -250.0 ml Intake Oral 1200 ml 480 ml IV Total 220.0 ml Output Urine Total 300 ml 950 ml # Voids 4 # Bowel Movements 2 Objective WDWN NAD obese on oxygen reduced breath sounds bilaterally without rhonchi or wheeze [id number] without MRG NABS nontender no HSM no CC noted edema nonfocal PICC in place Laboratory Tests 03/04/19 06:40: White Blood Count 10.4, Red Blood Count 4.99, Hemoglobin 14.9, Hematocrit 46.0, Mean Corpuscular Volume 92, Mean Corpuscular Hemoglobin 29.8, Mean Corpuscular Hemoglobin Concent 32.3, Red Cell Distribution Width 13.5, Platelet Count 259, Mean Platelet Volume 6.8, Neutrophils (%) (Auto) 64.3, Lymphocytes (%) (Auto) 22.4, Monocytes (%) (Auto) 6.8, Eosinophils (%) (Auto) 5.3H, Basophils (%) (Auto ) 1.2, Sodium Level 141, Potassium Level 4.0, Chloride Level 104, Carbon Dioxide Level 31, Anion Gap 6, Blood Urea Nitrogen 23H, Creatinine 1.0, Estimat Glomerular Filtration Rate > 60, Glucose Level 178H, Calcium Level 8.7, Total Bilirubin 0.5, Aspartate Amino Transf (AST/SGOT) 15, Alanine Aminotransferase ( ALT/SGPT) 14, Alkaline Phosphatase 58, Total Protein 6.9, Albumin 3.0L, Globulin 3.9, Albumin/Globulin Ratio 0.8L Current Medications Medications (Trade) Dose Ordered Sig/Antionette Route PRN Reason Start Time Stop Time Status Last Admin Dose Admin Acetaminophen (Tylenol) 650 mg Q6H PRN ORAL Mild Pain/Temp > 100.5 02/27/19 18:25 03/29/19 18:24 03/03/19 17:29 Aspirin (ASA) 81 mg DAILY ORAL 02/28/19 09:00 03/26/19 08:59 03/03/19 09:09 Chlorhexidine Gluconate (Melodie-Hex 2%) 1 applic DAILY@1999 TOPIC 02/27/19 20:00 03/28/19 19:59 03/03/19 20:04 Dextrose (Dextrose 50%) 25 ml Q30M PRN IV Hypoglycemia 02/27/19 18:30 03/26/19 15:29 Dextrose (Dextrose 50%) 50 ml Q30M PRN IV Hypoglycemia 02/27/19 18:30 03/26/19 15:29 Digoxin (Lanoxin) 0.25 mg DAILY ORAL 02/28/19 09:00 03/26/19 08:59 03/03/19 09:09 Doxycycline Hyclate 100 mg/ Dextrose 110 ml @ 110 mls/hr Q12HR IV 03/03/19 17:00 03/10/19 16:59 03/03/19 18:47 Furosemide (Lasix) 40 mg EVERY 12 HOURS IV 02/27/19 21:00 03/27/19 20:59 03/02/19 22:00 Insulin Aspart (NovoLOG) AC+HS SUBQ 03/03/19 11:30 04/02/19 11:29 03/04/19 05:59 Insulin Aspart (NovoLOG) 8 units NOVOTIAC SUBQ 03/01/19 16:50 03/31/19 16:49 03/04/19 06:00 Insulin Detemir (Levemir) 66 units Q12HR SUBQ 03/02/19 21:00 04/01/19 20:59 03/03/19 20:07 Lisinopril (Zestril) 10 mg DAILY ORAL 02/28/19 09:00 03/28/19 08:59 03/02/19 09:25 Lubiprostone (Amitiza) 24 mcg TWICE A DAY ORAL 02/28/19 09:00 03/26/19 08:59 03/03/19 18:46 Ondansetron HCl (Zofran) 4 mg Q8H PRN IVP Nausea & Vomiting 02/27/19 18:26 03/29/19 18:25 Pantoprazole (Protonix) 40 mg DAILY ORAL 02/28/19 09:00 03/26/19 08:59 03/03/19 09:09 Piperacillin Sod/ Tazobactam Sod 3.375 gm/Sodium Chloride 110 ml @ 27.5 mls/hr EVERY 8 HOURS IVPB 02/27/19 22:00 03/08/19 21:59 03/04/19 05:53 Polyethylene Glycol (Miralax) 17 gm BEDTIME ORAL 03/02/19 21:00 04/01/19 20:59 03/02/19 21:59 Potassium Chloride (K-Dur) 10 meq DAILY ORAL 02/28/19 09:00 03/26/19 08:59 03/03/19 09:09 Pregabalin (Lyrica) 100 mg BID ORAL 02/28/19 09:00 03/26/19 08:59 03/03/19 18:46 Rivaroxaban (Xarelto) 20 mg DAILY ORAL 02/28/19 09:00 03/26/19 08:59 03/03/19 09:10 Sitagliptin Phosphate (Januvia) 100 mg ACBREAKFAST ORAL 02/28/19 06:30 03/27/19 06:29 03/04/19 05:52 Spironolactone (Aldactone) 25 mg DAILY ORAL 02/28/19 09:00 03/26/19 08:59 03/03/19 10:34 Alek Calvillo MD Mar 04, 2019 08:33
[2019-03-04] MEDS: Amitiza 24mcg cap ORAL SCH ×2 (09:31→17:14)
[2019-03-04] MEDS: Lyrica 50mg cap ORAL SCH ×2 (09:32→17:16)
[2019-03-04] MEDS: Aspirin Baby 81mg ORAL SCH (09:33)
[2019-03-04] MEDS: Xarelto 10mg tab ORAL SCH (09:35)
[2019-03-04] MEDS: Spironolactone 25mg tab ORAL SCH (09:35)
[2019-03-04] MEDS: Lisinopril 10mg tab ORAL SCH (09:36)
[2019-03-04] MEDS: Levemir Flexpen SUBQ SCH ×2 (09:49→21:01)
[2019-03-04 12:00] VITALS: BP 109/61
--- NOTE | 2019-03-04 15:35 | NUR ---
DISCHARGE PLANNING: NOTE CLINICALS FAXED TO [facility] FOR REVIEW T: [phone] Addendum: 03/04/19 at 1651 by Alcira Liu CM LIL[facility] AT [facility] WILL ACCEPT THIS PATIENT PT TO BE PICKED UP BY HIS DAUGHTER. [facility] WILL SEE THIS PATIENT AT HIS DAUGHTER'S HOME [address] [place] [id number] [address] CONFIRMED WITH DENIS GUTIERREZ
[2019-03-04 16:00] VITALS: BP 135/79
--- NOTE | 2019-03-04 16:36 | Cardiac Electrophysiology PN ---
Assessment/Plan Assessment/Plan 1. Status post Biotronic biventricular ICD implantation without atrial lead due to chronic atrial fibrillation. Interrogated, functioning normally. BIV paced 2. Chronic Atrial fibrillation. On digoxin 0. 25 mg daily and Xarelto 20 3. Severe cardiomyopathy. Echocardiogram EF 35%. Continue Lasix 40 mg IV bid, digoxin 0.25 mg daily, Lisinopril 10 and Aldactone 25 mg daily. Off BB for COPD 4. HTN. 5. Uncontrolled diabetes with glucose of more than 600. 6. COPD. On IV antibiotic per Dr. Calvillo. 7. Morbid obesity DW RN Subjective Subjective Alert in NAD. No CP or SOB. On Abx. Placement pending Objective Last 24 Hour Vital Signs Date Time Temp Pulse Resp B/P (MAP) Pulse Ox O2 Delivery O2 Flow Rate FiO2 03/04/19 16:00 97.9 82 16 135/79 (97) 96 03/04/19 12:00 98.1 75 16 109/61 (77) 100 03/04/19 09:36 101/44 03/04/19 09:34 76 03/04/19 09:00 Room Air 03/04/19 08:10 98.5 82 21 101/44 (63) 96 03/04/19 02:52 82 19 98 Facial 30 03/04/19 01:36 85 19 97 Facial 30 03/03/19 23:06 80 18 98 Facial 30 03/03/19 20:00 98.7 82 19 96/59 (71) 03/03/19 19:39 82 18 96 Nasal Cannula 2.0 28 03/03/19 19:39 96 Nasal Cannula 2.0 28 03/03/19 17:21 98.3 81 19 120/78 (92) Intake and Output 03/03/19 03/04/19 19:00 07:00 Intake Total 1200 ml 700.0 ml Output Total 300 ml 950 ml Balance 900 ml -250.0 ml Intake Oral 1200 ml 480 ml IV Total 220.0 ml Output Urine Total 300 ml 950 ml # Voids 4 # Bowel Movements 2 Laboratory Tests Test 03/04/19 06:40 White Blood Count 10.4 K/UL (4.8-10.8) Red Blood Count 4.99 M/UL (4.70-6.10) Hemoglobin 14.9 G/DL (14.2-18.0) Hematocrit 46.0 % (42.0-52.0) Mean Corpuscular Volume 92 FL (80-99) Mean Corpuscular Hemoglobin 29.8 PG (27.0-31.0) Mean Corpuscular Hemoglobin Concent 32.3 G/DL (32.0-36.0) Red Cell Distribution Width 13.5 % (11.6-14.8) Platelet Count 259 K/UL (150-450) Mean Platelet Volume 6.8 FL (6.5-10.1) Neutrophils (%) (Auto) 64.3 % (45.0-75.0) Lymphocytes (%) (Auto) 22.4 % (20.0-45.0) Monocytes (%) (Auto) 6.8 % (1.0-10.0) Eosinophils (%) (Auto) 5.3 % (0.0-3.0) H Basophils (%) (Auto) 1.2 % (0.0-2.0) Sodium Level 141 MMOL/L (136-145) Potassium Level 4.0 MMOL/L (3.5-5.1) Chloride Level 104 MMOL/L (98-107) Carbon Dioxide Level 31 MMOL/L (21-32) Anion Gap 6 mmol/L (5-15) Blood Urea Nitrogen 23 mg/dL (7-18) H Creatinine 1.0 MG/DL (0.55-1.30) Estimat Glomerular Filtration Rate > 60 mL/min (>60) Glucose Level 178 MG/DL (74-106) H Calcium Level 8.7 MG/DL (8.5-10.1) Total Bilirubin 0.5 MG/DL (0.2-1.0) Aspartate Amino Transf (AST/SGOT) 15 U/L (15-37) Alanine Aminotransferase (ALT/SGPT) 14 U/L (12-78) Alkaline Phosphatase 58 U/L (46-116) Total Protein 6.9 G/DL (6.4-8.2) Albumin 3.0 G/DL (3.4-5.0) L Globulin 3.9 g/dL Albumin/Globulin Ratio 0.8 (1.0-2.7) L Objective HEAD AND NECK: Positive JVD. LUNGS: Decreased breath sounds. CARDIOVASCULAR: Shows irregular S1 and S2 with no gallop. ICD left subclavian ABDOMEN: Soft.Morbidly obese EXTREMITIES: He has 1+ pitting edema. Yuval Carey MD Mar 04, 2019 16:36
--- NOTE | 2019-03-04 16:45 | CDS Physician Query ---
Clarification is required for compliance, coding accuracy, and to reflect severity of illness for this patient Dear Dr. Alek Calvillo Date: 03/04/2019 [employer]/CDS Name: Georgiana Lutz 69 year old man presenting with copd exacerbation, acute on chronic CHF, possible PNA. Clinical documentation states: 03/03 note: Diabetic nephropathy Creatinine: on 02/24 1.4, 02/27, 1.7, 03/04 1.0 BUN: on 02/24 21, 02/27, 42, 03/04 23 Please respond to the following question: Is there a diagnosis specific to these symptoms or values? If so please state below. PHYSICIAN RESPONSE: [x] ANABELA [] ANABELA on CKD: please specify stage: [] CKD: please specify stage: [] Other [] Clinically Undetermined Present on Admission: [x] Yes [] No [] Clinically Undetermined Physician signature Date Please also document in your Progress Notes and/or Discharge Summary and indicate if the condition was present on admission. TIMMYD
--- NOTE | 2019-03-04 17:42 | General Progress Note ---
Assessment/Plan Problem List: (1) CHF (congestive heart failure) ICD Codes: I50.9 - Heart failure, unspecified SNOMED: 15288574 (2) Atrial fibrillation with RVR ICD Codes: I48.91 - Unspecified atrial fibrillation SNOMED: 361539290 (3) Diabetic neuropathy ICD Codes: E11.40 - Type 2 diabetes mellitus with diabetic neuropathy, unspecified SNOMED: 62104549, 953489931, 135625136 (4) GERD (gastroesophageal reflux disease) ICD Codes: K21.9 - Gastro-esophageal reflux disease without esophagitis SNOMED: 188184047 (5) Diabetic nephropathy ICD Codes: E11.21 - Type 2 diabetes mellitus with diabetic nephropathy SNOMED: 55836412, 365211814 (6) HTN (hypertension) ICD Codes: I10 - Essential (primary) hypertension SNOMED: 77643551 (7) COPD exacerbation ICD Codes: J44.1 - Chronic obstructive pulmonary disease with (acute) exacerbation SNOMED: 328316451 (8) Pneumonia ICD Codes: J18.9 - Pneumonia, unspecified organism SNOMED: 201204412 Qualifiers: Qualified Codes: J18.1 - Lobar pneumonia, unspecified organism Status: stable, progressing Assessment/Plan: cont current rx levemir bid monitor bs- decrease to ac qhs resp care o2 pt/ot xarelto for stroke prophylaxis monitor for bleeding consider snf Subjective ROS Limited/Unobtainable: No Constitutional: Reports: malaise, weakness HEENT: Reports: no symptoms Cardiovascular: Reports: no symptoms Respiratory: Reports: cough Gastrointestinal/Abdominal: Reports: no symptoms Genitourinary: Reports: no symptoms Neurologic/Psychiatric: Reports: no symptoms Endocrine: Reports: no symptoms Hematologic/Lymphatic: Reports: anemia Allergies: Coded Allergies: No Known Allergies (Unverified , 02/26/14) All Systems: reviewed and negative except above Subjective no complaints. does not feel well. denies cp/sob. BS trend is overall improved. labs noted. Objective Last 24 Hour Vital Signs Date Time Temp Pulse Resp B/P (MAP) Pulse Ox O2 Delivery O2 Flow Rate FiO2 03/04/19 16:00 97.9 82 16 135/79 (97) 96 03/04/19 12:00 98.1 75 16 109/61 (77) 100 03/04/19 09:36 101/44 03/04/19 09:34 76 03/04/19 09:00 Room Air 03/04/19 08:10 98.5 82 21 101/44 (63) 96 03/04/19 02:52 82 19 98 Facial 30 03/04/19 01:36 85 19 97 Facial 30 03/03/19 23:06 80 18 98 Facial 30 03/03/19 20:00 98.7 82 19 96/59 (71) 03/03/19 19:39 82 18 96 Nasal Cannula 2.0 28 03/03/19 19:39 96 Nasal Cannula 2.0 28 Intake and Output 03/03/19 03/04/19 19:00 07:00 Intake Total 1200 ml 700.0 ml Output Total 300 ml 950 ml Balance 900 ml -250.0 ml Intake Oral 1200 ml 480 ml IV Total 220.0 ml Output Urine Total 300 ml 950 ml # Voids 4 # Bowel Movements 2 Laboratory Tests 03/04/19 06:40: White Blood Count 10.4, Red Blood Count 4.99, Hemoglobin 14.9, Hematocrit 46.0, Mean Corpuscular Volume 92, Mean Corpuscular Hemoglobin 29.8, Mean Corpuscular Hemoglobin Concent 32.3, Red Cell Distribution Width 13.5, Platelet Count 259, Mean Platelet Volume 6.8, Neutrophils (%) (Auto) 64.3, Lymphocytes (%) (Auto) 22.4, Monocytes (%) (Auto) 6.8, Eosinophils (%) (Auto) 5.3H, Basophils (%) (Auto ) 1.2, Sodium Level 141, Potassium Level 4.0, Chloride Level 104, Carbon Dioxide Level 31, Anion Gap 6, Blood Urea Nitrogen 23H, Creatinine 1.0, Estimat Glomerular Filtration Rate > 60, Glucose Level 178H, Calcium Level 8.7, Total Bilirubin 0.5, Aspartate Amino Transf (AST/SGOT) 15, Alanine Aminotransferase ( ALT/SGPT) 14, Alkaline Phosphatase 58, Total Protein 6.9, Albumin 3.0L, Globulin 3.9, Albumin/Globulin Ratio 0.8L Height (Feet): 5 Height (Inches): 9.00 Weight (Pounds): 264 Objective General Appearance: WD/WN, alert Neck: supple Cardiovascular: regular rhythm Respiratory/Chest: chest wall non-tender, lungs clear, normal breath sounds, no respiratory distress Abdomen: normal bowel sounds, non tender, soft, no organomegaly Edema: no edema noted Arm (L), no edema noted Arm (R), no edema noted Leg (L), no edema noted Leg (R), no edema noted Pedal (L), no edema noted Pedal (R), no edema noted Generalized Jareth Valenzuela MD Mar 04, 2019 17:42
--- NOTE | 2019-03-04 19:40 | NUR ---
HAND-OFF: Report given to TERRY HARDY.
--- NOTE | 2019-03-04 19:40 | NUR ---
NURSE NOTES: Received report from TERRY Couch. Patient is in bed resting. ANOx4. No signs of distress or SOB. ORSALINDA PICC line intact and patent. Bed locked and in lowest position. Call alarm in easy reach. Will continue to monitor the patient.
[2019-03-04 20:00] VITALS: BP 123/73
[2019-03-04] MEDS: Dyna-Hex 2% Top Sol 2oz TOPIC SCH (20:42)
[2019-03-04] MEDS: Miralax 17gm pkt ORAL SCH (20:43)
--- NOTE | 2019-03-04 21:30 | NUR ---
NURSE NOTES: Patient's daughter, Viola, called and said she will be picking up the patient around noon tomorrow. Charge nurse notified. Will inform AM nurse.
[2019-03-05] VITALS: BP 117/64
--- NOTE | 2019-03-05 05:35 | NUR ---
NURSE NOTES: Changed PICC line dressing and biopatch. Lines flush well. Addendum: 03/05/19 at 0726 by CAIT MARTINEZ RN NURSE NOTES: Received report from TERRY Dickerson. Pt in bed, awake, talkative, no complaints of pain, no apparent distress noted, bed in lowest position, call light within reach, discussed plan of care and plan for DC at 1200 today, pt will be picked up by family.
[2019-03-05] MEDS: NovoLOG Insulin Flexpen SUBQ SCH ×6 (06:24→17:17)
--- NOTE | 2019-03-05 07:52 | NUR ---
NURSE NOTES: Notified Dr. Calvillo of pending DC today and need to do med recon and asked about PICC removal at [place]. Dr. Calvillo stated "DC PICC Home meds" Rn will call Dr. Calvillo to review meds Addendum: 03/05/19 at 0935 by CAIT MARTINEZ RN NURSE NOTES: Dr. Calvillo saw pt in room 408-1, RN reviewed all home medications with Dr. Calvillo, including Digoxin and Dr. Calvillo confirmed to continue all home medications.
[2019-03-05 08:00] VITALS: BP 120/75
--- NOTE | 2019-03-05 08:07 | NUR ---
HAND-OFF: Report given to TERRY Alvarado.
--- NOTE | 2019-03-05 08:36 | Pulmonology Progress Note ---
Assessment/Plan Assessment/Plan Congestive Heart Failure Chest Pain Chronic Obstructive Pulmonary Disease with exacerbation Possible RLL Pneumonia Hypertension Possible previous Atrial Fibrillation ? (on Xarelto) Pacemaker Insulin Dependant Diabetes Peripheral Neuropathy Diabetes out of control Cardiomyopathy CHF Plan off antibiotics stable labs Continue Xarelto neb therapy Maintenance Insulin after dc- change in dosing discussed O2 PRN dc home with HH today impression, plan, and exam edited and reviewed in detail care discussed with RN Subjective Allergies: Coded Allergies: No Known Allergies (Unverified , 02/26/14) Subjective care noted and reviewed on oxygen plan for dc with daughter today stable for dc Objective Last 24 Hour Vital Signs Date Time Temp Pulse Resp B/P (MAP) Pulse Ox O2 Delivery O2 Flow Rate FiO2 03/05/19 08:08 96 Nasal Cannula 2.0 28 03/05/19 08:00 98.6 82 16 120/75 (90) 95 03/05/19 00:00 97.9 80 17 117/64 (81) 99 03/04/19 20:00 96 Nasal Cannula 2.0 28 03/04/19 20:00 98.1 81 17 123/73 (90) 100 03/04/19 16:00 97.9 82 16 135/79 (97) 96 03/04/19 12:00 98.1 75 16 109/61 (77) 100 03/04/19 09:36 101/44 03/04/19 09:34 76 03/04/19 09:00 Room Air Intake and Output 03/04/19 03/05/19 19:00 07:00 Intake Total 600 ml Output Total 1100 ml 600 ml Balance -500 ml -600 ml Intake Oral 600 ml Output Urine Total 1100 ml 600 ml Objective WDWN NAD obese on oxygen reduced breath sounds bilaterally without rhonchi or wheeze [id number] without MRG NABS nontender no HSM no CC noted edema, mild nonfocal and alert PICC in place Current Medications Medications (Trade) Dose Ordered Sig/Antionette Route PRN Reason Start Time Stop Time Status Last Admin Dose Admin Acetaminophen (Tylenol) 650 mg Q6H PRN ORAL Mild Pain/Temp > 100.5 02/27/19 18:25 03/29/19 18:24 03/03/19 17:29 Aspirin (ASA) 81 mg DAILY ORAL 02/28/19 09:00 03/26/19 08:59 03/04/19 09:33 Chlorhexidine Gluconate (Melodie-Hex 2%) 1 applic DAILY@2000 TOPIC 02/27/19 20:00 03/28/19 19:59 03/04/19 20:42 Dextrose (Dextrose 50%) 25 ml Q30M PRN IV Hypoglycemia 02/27/19 18:30 03/26/19 15:29 Dextrose (Dextrose 50%) 50 ml Q30M PRN IV Hypoglycemia 02/27/19 18:30 03/26/19 15:29 Digoxin (Lanoxin) 0.25 mg DAILY ORAL 02/28/19 09:00 03/26/19 08:59 03/04/19 09:34 Furosemide (Lasix) 40 mg EVERY 12 HOURS IV 02/27/19 21:00 03/27/19 20:59 03/04/19 20:43 Insulin Aspart (NovoLOG) AC+HS SUBQ 03/03/19 11:30 04/02/19 11:29 03/05/19 06:24 Insulin Aspart (NovoLOG) 8 units NOVOTIAC SUBQ 03/01/19 16:50 03/31/19 16:49 03/05/19 06:25 Insulin Detemir (Levemir) 66 units Q12HR SUBQ 03/02/19 21:00 04/01/19 20:59 03/04/19 21:01 Lisinopril (Zestril) 10 mg DAILY ORAL 02/28/19 09:00 03/28/19 08:59 03/04/19 09:36 Lubiprostone (Amitiza) 24 mcg TWICE A DAY ORAL 02/28/19 09:00 03/26/19 08:59 03/04/19 17:14 Ondansetron HCl (Zofran) 4 mg Q8H PRN IVP Nausea & Vomiting 02/27/19 18:26 03/29/19 18:25 Pantoprazole (Protonix) 40 mg DAILY ORAL 02/28/19 09:00 03/26/19 08:59 03/04/19 09:35 Polyethylene Glycol (Miralax) 17 gm BEDTIME ORAL 03/02/19 21:00 04/01/19 20:59 03/04/19 20:43 Potassium Chloride (K-Dur) 10 meq DAILY ORAL 02/28/19 09:00 03/26/19 08:59 03/04/19 09:33 Pregabalin (Lyrica) 100 mg BID ORAL 02/28/19 09:00 03/26/19 08:59 03/04/19 17:16 Rivaroxaban (Xarelto) 20 mg DAILY ORAL 02/28/19 09:00 03/26/19 08:59 03/04/19 09:35 Sitagliptin Phosphate (Januvia) 100 mg ACBREAKFAST ORAL 02/28/19 06:30 03/27/19 06:29 03/05/19 06:55 Spironolactone (Aldactone) 25 mg DAILY ORAL 02/28/19 09:00 03/26/19 08:59 03/04/19 09:35 Alek Calvillo MD Mar 05, 2019 08:36
[2019-03-05] MEDS: Lyrica 50mg cap ORAL SCH ×2 (08:50→17:15)
[2019-03-05] MEDS: Spironolactone 25mg tab ORAL SCH (08:52)
[2019-03-05] MEDS: Xarelto 10mg tab ORAL SCH (08:52)
[2019-03-05] MEDS: Levemir Flexpen SUBQ SCH (08:52)
[2019-03-05] MEDS: Amitiza 24mcg cap ORAL SCH ×2 (08:53→17:16)
[2019-03-05] MEDS: Lisinopril 10mg tab ORAL SCH (08:53)
[2019-03-05] MEDS: Aspirin Baby 81mg ORAL SCH (08:53)
--- NOTE | 2019-03-05 09:00 | General Progress Note ---
Assessment/Plan Problem List: (1) CHF (congestive heart failure) ICD Codes: I50.9 - Heart failure, unspecified SNOMED: 27780219 (2) Atrial fibrillation with RVR ICD Codes: I48.91 - Unspecified atrial fibrillation SNOMED: 852237946 (3) Diabetic neuropathy ICD Codes: E11.40 - Type 2 diabetes mellitus with diabetic neuropathy, unspecified SNOMED: 49945453, 669221578, 287660206 (4) GERD (gastroesophageal reflux disease) ICD Codes: K21.9 - Gastro-esophageal reflux disease without esophagitis SNOMED: 270499550 (5) Diabetic nephropathy ICD Codes: E11.21 - Type 2 diabetes mellitus with diabetic nephropathy SNOMED: 99329615, 370293961 (6) HTN (hypertension) ICD Codes: I10 - Essential (primary) hypertension SNOMED: 99232780 (7) COPD exacerbation ICD Codes: J44.1 - Chronic obstructive pulmonary disease with (acute) exacerbation SNOMED: 274597042 (8) Pneumonia ICD Codes: J18.9 - Pneumonia, unspecified organism SNOMED: 983819275 Qualifiers: Qualified Codes: J18.1 - Lobar pneumonia, unspecified organism Status: stable, progressing Assessment/Plan: cont current rx levemir bid monitor bs resp care o2 pt/ot xarelto for stroke prophylaxis monitor for bleeding dc planning Subjective ROS Limited/Unobtainable: No Constitutional: Reports: malaise, weakness HEENT: Reports: no symptoms Cardiovascular: Reports: no symptoms Respiratory: Reports: cough Gastrointestinal/Abdominal: Reports: no symptoms Genitourinary: Reports: no symptoms Neurologic/Psychiatric: Reports: no symptoms Endocrine: Reports: no symptoms Hematologic/Lymphatic: Reports: no symptoms Allergies: Coded Allergies: No Known Allergies (Unverified , 02/26/14) All Systems: reviewed and negative except above Subjective no complaints. stable. denies cp/sob. BS trend is overall improved. labs noted. Objective Last 24 Hour Vital Signs Date Time Temp Pulse Resp B/P (MAP) Pulse Ox O2 Delivery O2 Flow Rate FiO2 03/05/19 08:08 96 Nasal Cannula 2.0 28 03/05/19 08:00 98.6 82 16 120/75 (90) 95 03/05/19 00:00 97.9 80 17 117/64 (81) 99 03/04/19 20:00 96 Nasal Cannula 2.0 28 03/04/19 20:00 98.1 81 17 123/73 (90) 100 03/04/19 16:00 97.9 82 16 135/79 (97) 96 03/04/19 12:00 98.1 75 16 109/61 (77) 100 03/04/19 09:36 101/44 03/04/19 09:34 76 03/04/19 09:00 Room Air Intake and Output 03/04/19 03/05/19 19:00 07:00 Intake Total 600 ml Output Total 1100 ml 600 ml Balance -500 ml -600 ml Intake Oral 600 ml Output Urine Total 1100 ml 600 ml Height (Feet): 5 Height (Inches): 9.00 Weight (Pounds): 264 Objective General Appearance: WD/WN, alert Neck: supple Cardiovascular: regular rhythm Respiratory/Chest: chest wall non-tender, lungs clear, normal breath sounds, no respiratory distress Abdomen: normal bowel sounds, non tender, soft, no organomegaly Edema: no edema noted Arm (L), no edema noted Arm (R), no edema noted Leg (L), no edema noted Leg (R), no edema noted Pedal (L), no edema noted Pedal (R), no edema noted Generalized Jareth Valenzuela MD Mar 05, 2019 09:00
--- NOTE | 2019-03-05 11:54 | NUR ---
NURSE NOTES: Placed pt in supine, flat position for PICC line removal, SpO2 monitored at 99%, explained procedure to pt, pt agreed. PICC line removed intact at 41cm, Pt tolerated removal well, SpO2 99%, minimal bleeding after removal, pressure dressing applied, will continue to monitor pt for 30 minutes.
[2019-03-05 12:00] VITALS: BP 108/74
--- NOTE | 2019-03-05 12:46 | Cardiac Electrophysiology PN ---
Assessment/Plan Assessment/Plan 1. Status post Biotronic biIVICD implantation without atrial lead due to chronic atrial fibrillation. Interrogated, functioning normally. BIV paced 2. Chronic Atrial fibrillation. On digoxin 0. 25 mg daily and Xarelto 20 3. Severe cardiomyopathy. Echocardiogram EF 35%. Continue Lasix 40 mg IV bid, digoxin 0.25 mg daily, Lisinopril 10 and Aldactone 25 mg daily. Off BB for COPD 4. HTN. 5. Uncontrolled diabetes with glucose of more than 600. 6. COPD. On IV antibiotic per Dr. Calvillo. 7. Morbid obesity Subjective Subjective No CP or SOB. On Abx. Placement pending today Objective Last 24 Hour Vital Signs Date Time Temp Pulse Resp B/P (MAP) Pulse Ox O2 Delivery O2 Flow Rate FiO2 03/05/19 12:00 98.8 75 19 108/74 (85) 97 03/05/19 09:00 Room Air 03/05/19 08:53 120/75 03/05/19 08:52 82 03/05/19 08:08 96 Nasal Cannula 2.0 28 03/05/19 08:00 98.6 82 16 120/75 (90) 95 03/05/19 00:00 97.9 80 17 117/64 (81) 99 03/04/19 20:00 96 Nasal Cannula 2.0 28 03/04/19 20:00 98.1 81 17 123/73 (90) 100 03/04/19 16:00 97.9 82 16 135/79 (97) 96 Intake and Output 03/04/19 03/05/19 19:00 07:00 Intake Total 600 ml Output Total 1100 ml 600 ml Balance -500 ml -600 ml Intake Oral 600 ml Output Urine Total 1100 ml 600 ml Objective HEAD AND NECK: Positive JVD. LUNGS: Decreased breath sounds. CARDIOVASCULAR: Shows irregular S1 and S2 with no gallop. ICD left subclavian ABDOMEN: Soft.Morbidly obese EXTREMITIES: He has 1+ pitting edema. Yuval Carey MD Mar 05, 2019 12:46
[2019-03-05 16:00] VITALS: BP 129/68
--- NOTE | 2019-03-05 17:25 | NUR ---
NURSE NOTES: Pt discharged home with home health. No IV line, PICC removed earlier in day, ID band removed, pt accompanied by daughter, pt discharged with all belongings, stable for discharge.
--- NOTE | 2019-03-05 17:50 | General Progress Note ---
Assessment/Plan Status: stable, progressing Assessment/Plan: Assessment - IDDM with peripheral neuropathy - likely gastroparesis - GERD - N/V, resolved - Chronic constipation - COPD Recommendations - PPI daily snf - Reflux precautions - BID amitiza - miralax - outpatient EGD - sorbitol prn Subjective Allergies: Coded Allergies: No Known Allergies (Unverified , 02/26/14) Subjective above noted (+) BM eating well no abd pain no vomiting Objective Last 24 Hour Vital Signs Date Time Temp Pulse Resp B/P (MAP) Pulse Ox O2 Delivery O2 Flow Rate FiO2 03/05/19 16:00 98.2 72 19 129/68 (88) 93 03/05/19 12:00 98.8 75 19 108/74 (85) 97 03/05/19 09:00 Room Air 03/05/19 08:53 120/75 03/05/19 08:52 82 03/05/19 08:08 96 Nasal Cannula 2.0 28 03/05/19 08:00 98.6 82 16 120/75 (90) 95 03/05/19 00:00 97.9 80 17 117/64 (81) 99 03/04/19 20:00 96 Nasal Cannula 2.0 28 03/04/19 20:00 98.1 81 17 123/73 (90) 100 Intake and Output 03/04/19 03/05/19 19:00 07:00 Intake Total 600 ml Output Total 1100 ml 600 ml Balance -500 ml -600 ml Intake Oral 600 ml Output Urine Total 1100 ml 600 ml Height (Feet): 5 Height (Inches): 9.00 Weight (Pounds): 264 Objective Obese WM NCAT supple coarse ronchi RR abd soft obese trace edema Krut Durbin MD Mar 05, 2019 17:50
--- NOTE | 2019-03-05 22:53 | Discharge Summary ---
Discharge Summary Discharge Summary _ DATE OF ADMISSION: 02/24/2019 DATE OF DISCHARGE: 03/05/2019 DISCHARGED BY: Dr. Reena Calvillo CONSULTANTS: Dr. Kurt Valenzuela [facility] HOSPITAL COURSE: Patient is a 69-year-old male who presented to ED due to complaints of chest pain and shortness of breath. He has history of CHF, diabetes mellitus and COPD. He described the pain to be substernal and with pressure worse with exertion. He also has been wheezing. He was having difficulty expectorating and phlegm was being caught in his throat. He is on anticoagulation with Xarelto. Patient never smoked. 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 He also complained of swelling and pain to his ankles. He has medical history of diabetes and has neuropathy. He also complained of migraine. He denied any vomiting, however has mild nausea. He has dogs at home and had forearm scratches from them. On evaluation ED, blood pressure was elevated to 171/99, pulse rate 80, 91% saturation on room air. Blood work showed WBC of 13.8. Hemoglobin and hematocrit were stable. Sodium 143. Potassium 3.0. BUN 14. Creatinine 1.2. Glucose 318. Lactic acid 1.5. Troponin was 0.024. proBNP was 2001. EKG showed paced rhythm with no acute injury. Chest x-ray showed right lower lobe markings as read by ED physician. He was started empirically on Zosyn and doxycycline due to leukocytosis. He was given breathing treatment, Lasix and Zofran. Blood glucose was elevated, he was given regular insulin. He was then admitted for evaluation of CHF, chest pain, COPD exacerbation, possible right lower lobe pneumonia, hypertension, and diabetes. He was continued on IV antibiotics. Pre-admit medications were continued. He was continued on Xarelto. He was given nebulizer treatment. He was given IV steroids. Blood glucose was monitored. He was placed on insulin sliding scale. GI was consulted for evaluation of nausea, vomiting and reflux. Patient was on acid suppression medication, but unable to recall the name and does not take it every day. He has chronic intermittent reflux. He does not complain of much intermittent fullness, but he does have peripheral neuropathy and has insulin- dependent diabetes. He had bouts of nausea and vomiting that was transient and may be related to diverticular process. Given he has diabetic neuropathy, he also likely has diabetic gastroparesis. He has long-standing symptoms of reflux. He stated his voice has been hoarse for many years and he does have intermittent reflux. Patient was recommended to be placed on long-term acid suppression. He also complained of constipation. He was given Amitiza and MiraLAX. Assistant Center Manager was consulted to evaluate the defibrillator. Patient has history of chronic atrial fibrillation with severe nonischemic cardiomyopathy as well as history of single-chamber defibrillator implantation in 2017. At that time, patient was transferred to another facility and underwent upgrade of his single-chamber ICD to a biventricular defibrillator without atrial lead. He was continued on anticoagulation with Xarelto 20 mg daily. Patient heart rate was controlled on biventricular paced ICD. Pacemaker interrogation showed normal function. Patient was on amiodarone and digoxin. Echocardiogram showed ejection fraction of 35% to 40%. Heart failure medications were optimized. He was given Lasix, digoxin, lisinopril and Aldactone. Amiodarone was discontinued. Digoxin dose was increased. Unable to give beta-julieta due to COPD. Blood glucose level was persistently elevated. IV steroids was discontinued. He was transferred to ICU and was started on insulin drip. PICC line was inserted to the right arm. Blood glucose was closely monitored. He was eventually taken off insulin drip. He was given Levemir twice daily. He was transferred out of ICU. Blood glucose improved. He was given physical therapy. He completed antibiotic treatment with doxycycline. Blood culture did not isolate any growth. Patient was discharged home with home health. FINAL DIAGNOSES: Acute on chronic systolic congestive heart failure COPD exacerbation Lower lobe pneumonia Acute kidney injury Status post Biotronik biventricular ICD implantation without atrial lead due to chronic atrial fibrillation Insulin-dependent diabetes mellitus, [id number] with peripheral neuropathy Likely gastroparesis GERD Nausea and vomiting, resolved Chronic constipation Chronic atrial fibrillation Severe cardiomyopathy Hypertension Morbid obesity DISPOSITION: Patient was discharged home with home health. DISCHARGE MEDICATIONS: Refer to Discharge Medication List. DISCHARGE INSTRUCTIONS: Follow-up in a week. I have been assigned to complete a discharge summary on this account, I was not involved with the patient's management.--MARCELINO Del Valle Jacqueline Robles NP Mar 05, 2019 22:53
== END 2019-03-05 17:25 | disposition home health service (06) | DRG 291 ==
LOC: EMR 23:45 → 2E 02-24 00:01 → EDBEDREQ 02-24 01:52 → ICU 02-25 21:33 → 4E 02-27 18:00
PROC: B548ZZA Ultrasonography of Superior Vena Cava, Guidance (ICD-10-PCS; principal; 2019-02-26)
PROC: 02HV33Z Insertion of Infusion Device into Superior Vena Cava, Percutaneous Approach (ICD-10-PCS; principal; 2019-02-26)
DX: I11.0 Hypertensive heart disease with heart failure (principal); J18.9 Pneumonia, unspecified organism; J44.1 Chronic obstructive pulmonary disease with (acute) exacerbation; Z68.41 Body mass index [BMI] 40.0-44.9, adult; N17.9 Acute kidney failure, unspecified; J44.0 Chronic obstructive pulmonary disease with (acute) lower respiratory infection; I50.23 Acute on chronic systolic (congestive) heart failure; I42.9 Cardiomyopathy, unspecified; K31.84 Gastroparesis; E66.8 Other obesity; E11.65 Type 2 diabetes mellitus with hyperglycemia; E11.42 Type 2 diabetes mellitus with diabetic polyneuropathy; E11.21 Type 2 diabetes mellitus with diabetic nephropathy; Z79.4 Long term (current) use of insulin; G43.909 Migraine, unspecified, not intractable, without status migrainosus; Z95.810 Presence of automatic (implantable) cardiac defibrillator; I48.2 Chronic atrial fibrillation; Z79.01 Long term (current) use of anticoagulants; Z99.81 Dependence on supplemental oxygen; K59.00 Constipation, unspecified; E66.01 Morbid (severe) obesity due to excess calories; Z68.39 Body mass index [BMI] 39.0-39.9, adult
CPT/HCPCS: 36415; 36569; 71045; 76937; 80048; 80053; 80162; 81003; 82550; 82947; 82962; 83605; 83690; 83880; 84484; 85007; 85025; 85610; 85730; 87040; 93005; 93306; 94640; 94660; 94664; 96374; 96375; 99285; J1815; J2405; J3490; J7620; J8499; S5561

== ENCOUNTER 2020-04-28 23:39 | Inpatient (IN) | payer MEDICARE, MEDICAID ==
[~2020-04-28] VITALS: Ht 175.3 cm; Wt 114.3 kg
[2020-04-29] MEDS ORDERED: Neosporin Oint Ud Pkt TOPIC ONE
--- NOTE | 2020-04-29 00:04 | Emergency Room Report ---
History of Present Illness General Chief Complaint: Skin Rash/Abscess Source: Patient, Family Member Present Illness HPI This is a 70-year-old male with a history of COPD, high blood pressure, diabetes and CHF. He presents with chief complaint of a mass on his scalp. He lives in the [place]. He showed up to his daughter's place here in [place] today. He had a mass on his scalp and it was bleeding. Family was concerned and called 911. Patient said has been there for months. He has not seen a doctor for it. There were concerned that it may be cancer. It was bleeding so they got concerned. Bleeding stopped now. No fever chills but no nausea no vomiting. Denies any trauma. Denies any weight loss. Nothing made it better. Nothing made it worse. Family state that he does not take care of himself. Patient also reported 15 pound weight loss in the last 2 months. Allergies: Coded Allergies: No Known Allergies (Unverified , 02/26/14) COVID-19 Screening Contact w/high risk pt: No Experienced COVID-19 symptoms?: No COVID-19 Testing performed PROJECT BUILDER: No Patient History Past Medical History: see triage record, old chart reviewed, DM, HTN, CHF, COPD Nursing Documentation-PMH Hx Cardiac Problems: Yes - CHF Hx Hypertension: Yes Hx Pacemaker: Yes - defib Hx Asthma: Yes Hx COPD: Yes Hx Diabetes: Yes Hx Cancer: No Hx Gastrointestinal Problems: Yes Hx Neurological Problems: No Hx Peripheral Neuropathy: Yes Hx Tremors: Yes Hx Numbness: Yes - BILAT FEET Review of Systems Eye: Denies: eye pain, blurred vision ENT: Denies: ear pain, nose congestion, throat swelling Respiratory: Denies: cough, shortness of breath Cardiovascular: Denies: chest pain, palpitations Gastrointestinal: Denies: abdominal pain, diarrhea, nausea, vomiting Musculoskeletal: Denies: back pain, joint pain Skin: Denies: rash Neurological: Denies: headache, numbness Endocrine: Denies: increased thirst, increased urine Hematologic/Lymphatic: Denies: easy bruising All Other Systems: negative except mentioned in HPI Physical Exam Vital Signs Date Time Temp Pulse Resp B/P (MAP) Pulse Ox O2 Delivery O2 Flow Rate FiO2 04/28/20 23:40 98.8 80 18 126/85 (99) 99 Room Air Vitals normal Sp02 EP Interpretation: reviewed, normal General Appearance: well appearing, no apparent distress, alert Head: normocephalic, atraumatic, other - On the right medial aspect of the parietal scalp there is a raised 2 cm fleshy pink mass. There is some skin breakdown from scratching. There is dry blood. No fluctuance or discharge. Eyes: bilateral eye PERRL, bilateral eye EOMI ENT: hearing grossly normal, normal pharynx Neck: full range of motion, supple, no meningismus Respiratory: chest non-tender, lungs clear, normal breath sounds Cardiovascular #1: regular rate, rhythm, no murmur Gastrointestinal: normal bowel sounds, non tender, no mass, no organomegaly, no bruit, non-distended Musculoskeletal: back normal, normal range of motion, gait/station normal Psychiatric: mood/affect normal Medical Decision Making Diagnostic Impression: Primary Impression: Scalp mass Additional Impressions: Morbid obesity with BMI of 40.0-44.9, adult Hyperosmolar hyperglycemic state (HHS) Lung mass ANABELA (acute kidney injury) ER Course Patient presents with mass to his scalp. This could be tumor (renal cell carcinoma, etc.), skin cancer, pyogenic granuloma, abscess to name a few. His family said that his doctor is here in [place] and he lives in the [place]. Unknown last time he went to his doctor. Work-up revealed severe hypoglycemia. No DKA. He also has a left lung mass that is concerning for carcinoma. No evidence of ACS, PE, dissection to name a few. Will admit for further work-up. I contacted Dr. Steiner for admission. Rhythm Strip Diag. Results EP Interpretation: yes Rate: 88 Rhythm: NSR, no PVC's, no ectopy Chest X-Ray Diagnostic Results Chest X-Ray Diagnostic Results : Chest X-Ray Ordered: Yes # of Views/Limited/Complete: 1 View Indication: Shortness of Breath EP Interpretation: Yes Interpretation: no pneumothorax, other - Small right pleural effusion, atelectasis Impression: Other - Small effusion Electronically Signed by: Wes Vizcarra MD CT/MRI/US Diagnostic Results CT/MRI/US Diagnostic Results #1: Imaging Test Ordered: CT head Impression Read by radiologist. No acute intracranial abnormality. 2.2 cm cutaneous nodule at the vertex CT/MRI/US Diagnostic Results #2: Imaging Test Ordered: CT chest Impression Read by radiologist. Large left lower lobe mass most likely neoplastic. Right base atelectasis with diffuse right pleural thickening. CT/MRI/US Diagnostic Results #3: Imaging Test Ordered: CT abdomen and pelvis Impression Read by radiologist. Left base 4.8 cm pulmonary mass likely represent bronchogenic carcinoma. Liquid large bowel content could be incidental or represent inflammatory or infectious colitis. Right pleural thickening. Gallstone without cholecystitis. Last Vital Signs Date Time Temp Pulse Resp B/P (MAP) Pulse Ox O2 Delivery O2 Flow Rate FiO2 04/28/20 23:40 98.8 80 18 126/85 (99) 99 Room Air Status: improved Disposition: ADMITTED INPATIENT Condition: Serious Referrals: NOT CHOSEN IPA/,REFERRING (PCP) Wes Vizcarra MD Apr 29, 2020 00:04
[2020-04-29 00:32] LABS: EOSINOPHILS % (AUTO) 2.2 % (0.0-3.0); HEMATOCRIT 40.7 % (42.0-52.0); HEMOGLOBIN 13.9 G/DL (14.2-18.0); MEAN CORPUSCULAR VOLUME 93 FL (80-99); MONOCYTES % (AUTO) 6.1 % (1.0-10.0); NEUTROPHILS % (AUTO) 76.7 % (45.0-75.0); PLATELET COUNT 237 K/UL (150-450); RED BLOOD COUNT 4.37 M/UL (4.70-6.10); RED CELL DISTRIBUTION WIDTH 13.1 % (11.6-14.8); WHITE BLOOD COUNT 14.4 K/UL (4.8-10.8)
[2020-04-29 00:35] VITALS: BP 126/85
[2020-04-29 00:39] LABS: APPEARANCE,URINE CLEAR; BILIRUBIN, URINE NEGATIVE (NEGATIVE); COLOR,URINE PALE YELLOW; GLUCOSE, URINE (UA) 4+ (NEGATIVE); KETONES,URINE NEGATIVE (NEGATIVE); LEUKOCYTE ESTERASE ,URINE NEGATIVE (NEGATIVE); NITRITE,URINE NEGATIVE (NEGATIVE); PH,URINE 5 (4.5-8.0); PROTEIN,URINE NEGATIVE (NEGATIVE); UROBILINOGEN,URINE NORMAL MG/DL (0.0-1.0)
[2020-04-29 00:45] LABS: CALCIUM 8.8 MG/DL (8.5-10.1); CREATININE 1.6 MG/DL (0.55-1.30); POTASSIUM 4.5 MMOL/L (3.5-5.1)
[2020-04-29] MEDS ORDERED: Insulin Human Regular 100units/ml 3ml IV ONE ×2 (01:00→02:30)
--- NOTE | 2020-04-29 01:15 | Diagnostic Imaging Report ---
EXAM: CT Head Without Intravenous Contrast CLINICAL HISTORY: PAIN TECHNIQUE: Axial computed tomography images of the head/brain without intravenous contrast. CTDI is 53.40 mGy and DLP is 1098.90 mGy-cm. One or more of the following dose reduction techniques were used: automated exposure control, adjustment of the mA and/or kV according to patient size, use of iterative reconstruction technique. COMPARISON: No relevant prior studies available. FINDINGS: Brain: Parenchymal volume loss. Nonspecific white matter hypoattenuation likely secondary to chronic microvascular ischemia. Cerebrovascular ASVD. No hemorrhage. Ventricles: Unremarkable. No ventriculomegaly. Bones/joints: Unremarkable. No acute fracture. Soft tissues: Recommend direct physical exam of 2.2 cm cutaneous nodule at the vertex. Sinuses: Unremarkable as visualized. No acute sinusitis. Mastoid air cells: Unremarkable as visualized. No mastoid effusion. IMPRESSION: 1. No acute intracranial abnormality. 2. Recommend direct physical exam of 2.2 cm cutaneous nodule at the vertex. 3. Mild chronic senescent findings above. 4. Otherwise unremarkable study.
--- NOTE | 2020-04-29 01:37 | Diagnostic Imaging Report ---
EXAM: CT Abdomen and Pelvis Without Intravenous Contrast CLINICAL HISTORY: PAIN TECHNIQUE: Axial computed tomography images of the abdomen and pelvis without intravenous contrast. CTDI is 17.00 mGy and DLP is 987.20 mGy-cm. One or more of the following dose reduction techniques were used: automated exposure control, adjustment of the mA and/or kV according to patient size, use of iterative reconstruction technique. Coronal and sagittal reformatted images were created and reviewed. COMPARISON: No relevant prior studies available. FINDINGS: Lung bases: Left base 4.8 cm pulmonary mass likely represents bronchogenic carcinoma. Pleural space: Right pleural thickening with probable right base rounded atelectasis, this can be followed on subsequent imaging studies. ABDOMEN: Liver: Unremarkable. Gallbladder and bile ducts: Cholelithiasis without findings to suggest acute cholecystitis. No ductal dilation. Pancreas: Unremarkable. No ductal dilation. Spleen: Unremarkable. No splenomegaly. Adrenals: Unremarkable. No mass. Kidneys and ureters: Benign bilateral renal cysts, measuring maximally 5 cement is on), no additional follow-up. No obstructing stones. No hydronephrosis. Stomach and bowel: Liquid large bowel contents could be incidental or could represent an infectious or inflammatory colitis or enterocolitis in the proper context. PELVIS: Appendix: No findings to suggest acute appendicitis. Bladder: Unremarkable. No stones. Reproductive: Unremarkable as visualized. ABDOMEN and PELVIS: Intraperitoneal space: Unremarkable. No free air. No significant fluid collection. Bones/joints: Multilevel age-related degenerative spine findings and osteopenia. No acute fracture. No dislocation. Soft tissues: Gynecomastia. Correlate with exposure history and presentation, has etiologies are myriad. Vasculature: Atherosclerotic vascular disease. No abdominal aortic aneurysm. Lymph nodes: Unremarkable. No enlarged lymph nodes. IMPRESSION: 1. Liquid large bowel contents could be incidental or could represent an infectious or inflammatory colitis or enterocolitis in the proper context. 2. Otherwise no acute abnormality to explain patient presentation. 3. Left base 4.8 cm pulmonary mass likely represents bronchogenic carcinoma. 4. Recommend contrast enhanced CT chest as well as interventional radiology consultation for image guided percutaneous biopsy. 5. Right pleural thickening with probable right base rounded atelectasis, this can be followed on subsequent imaging studies. 6. Gynecomastia. Correlate with exposure history and presentation, has etiologies are myriad. 7. Cholelithiasis without findings to suggest acute cholecystitis. 8. Multilevel age-related degenerative spine findings and osteopenia. <MYCVCSECTION> Communications: 04/29/20 01:35 Call Doctor Regarding Other, called Wes Vizcarra MD on 04/29 01:34 (-07:00)
--- NOTE | 2020-04-29 02:26 | Diagnostic Imaging Report ---
EXAM: CT Chest Without Intravenous Contrast CLINICAL HISTORY: SOB TECHNIQUE: Axial computed tomography images of the chest without intravenous contrast. CTDI is 14.20 mGy and DLP is 535.60 mGy-cm. One or more of the following dose reduction techniques were used: automated exposure control, adjustment of the mA and/or kV according to patient size, use of iterative reconstruction technique. COMPARISON: No relevant prior studies available. FINDINGS: Lungs: Large left lower lobe likely neoplastic masses represent probable bronchogenic carcinoma measuring 4.9 x 4.3 x 4.3 cm. Probable right base rounded atelectasis with diffuse right pleural thickening and chronic appearing right lung volume loss. Pleural space: See above. Heart: Unremarkable. No cardiomegaly. No significant pericardial effusion. Bones/joints: Unremarkable. No acute fracture. No dislocation. Soft tissues: Unremarkable. Vasculature: Unremarkable. No thoracic aortic aneurysm. Lymph nodes: Unremarkable. No enlarged lymph nodes. Tubes, lines and devices: Left chest pacer. Other findings: For abdominal findings, please see dedicated imaging report from the same date. DISH. IMPRESSION: 1. For abdominal findings, please see dedicated imaging report from the same date. 2. Large left lower lobe likely neoplastic masses represent probable bronchogenic carcinoma. 3. Recommend interventional radiology consultation for percutaneous lung mass biopsy and consider PET/CT. 4. Probable right base rounded atelectasis with diffuse right pleural thickening and chronic appearing right lung volume loss. 5. Left chest pacer. 6. DISH.
[2020-04-29] MEDS ORDERED: Zolpidem 5mg tab ORAL PRN (03:00)
[2020-04-29] MEDS: cefTRIAXone 1 GM in NS 55 ML IVPB SCH (03:47)
[2020-04-29] MEDS ORDERED: cefTRIAXone 1 GM in D5W 55 ML IVPB SCH (04:00)
[2020-04-29 04:42] VITALS: BP 107/61
[2020-04-29] MEDS ORDERED: NovoLOG Insulin Flexpen SUBQ SCH (06:30)
[2020-04-29] MEDS: NovoLOG Insulin Flexpen SUBQ SCH ×4 (06:30→21:19)
[2020-04-29 08:00] VITALS: BP 121/72
[2020-04-29] MEDS: Lisinopril 10mg tab ORAL SCH (09:01)
[2020-04-29] MEDS: Digoxin 0.125mg tab ORAL SCH (09:02)
[2020-04-29] MEDS: Heparin 5000 units/ml inj SUBQ SCH ×2 (09:03→21:16)
[2020-04-29 11:15] LABS: BASOPHILS % (AUTO) 0.9 % (0.0-2.0); EOSINOPHILS % (AUTO) 3.7 % (0.0-3.0); HEMATOCRIT 37.7 % (42.0-52.0); LYMPHOCYTES % (AUTO) 15.1 % (20.0-45.0); MEAN CORPUSCULAR VOLUME 93 FL (80-99); MONOCYTES % (AUTO) 5.1 % (1.0-10.0); NEUTROPHILS % (AUTO) 75.1 % (45.0-75.0); PLATELET COUNT 210 K/UL (150-450); RED BLOOD COUNT 4.06 M/UL (4.70-6.10); RED CELL DISTRIBUTION WIDTH 12.9 % (11.6-14.8); WHITE BLOOD COUNT 11.2 K/UL (4.8-10.8)
--- NOTE | 2020-04-29 11:45 | Diagnostic Imaging Report ---
Procedure: XRAY Chest 1v Reason for study: Reason For Exam: SOB Comparison films: 02/24/2019. FINDINGS: A single one view chest is obtained. Vascularity is normal. There is right perihilar and basilar infiltrates. Cardiomegaly with ICD in place. There is a small right effusion. The bony thorax appear unremarkable. IMPRESSION: Right basilar infiltrate and small right effusion.
[2020-04-29 11:48] LABS: ALANINE AMINOTRANSFERASE 11 U/L (12-78); ALBUMIN 2.7 G/DL (3.4-5.0); ALBUMIN/GLOBULIN RATIO 0.9 (1.0-2.7); ALKALINE PHOSPHATASE 67 U/L (46-116); ANION GAP 8 mmol/L (5-15); ASPARTATE AMINO TRANSFERASE 15 U/L (15-37); BILIRUBIN,TOTAL 0.6 MG/DL (0.2-1.0); BLOOD UREA NITROGEN 14 mg/dL (7-18); CALCIUM 7.9 MG/DL (8.5-10.1); CARBON DIOXIDE 26 MMOL/L (21-32); CHLORIDE 100 MMOL/L (98-107); CREATININE 1.1 MG/DL (0.55-1.30); POTASSIUM 4.1 MMOL/L (3.5-5.1); SODIUM 134 MMOL/L (136-145)
[2020-04-29 12:00] VITALS: BP 119/64
[2020-04-29] MEDS ORDERED: Carvedilol 6.25mg Tab ORAL SCH (13:00)
[2020-04-29] MEDS: Amiodarone 200mg tab ORAL SCH (13:53)
[2020-04-29] MEDS: Aspirin EC 81mg tab ORAL SCH (13:53)
[2020-04-29] MEDS: Lyrica 50mg cap ORAL SCH ×2 (13:54→21:14)
[2020-04-29] MEDS: Spironolactone 25mg tab ORAL SCH (13:55)
[2020-04-29] MEDS: Levemir Flexpen SUBQ SCH ×2 (15:27→19:18)
[2020-04-29 16:00] VITALS: BP 117/72
--- NOTE | 2020-04-29 19:30 | History and Physical Report ---
DATE OF ADMISSION: 04/29/2020 CHIEF COMPLAINT: Head wound, uncontrolled diabetes, COPD exacerbation. HISTORY OF PRESENT ILLNESS: The patient is a 70-year-old male with a history of COPD, diabetes, hypertension. He is known to me from prior admissions. He presented initially with complaints of a head wound in the emergency room. He was noted to be hyperglycemic. A CT scan of the chest and head confirmed a scalp mass as well as a large lung mass. He is now admitted for further evaluation and care. PAST MEDICAL HISTORY: As above. PAST SURGICAL HISTORY: None. CURRENT MEDICATIONS: Reconciled and reviewed. ALLERGIES: None. FAMILY HISTORY: None. SOCIAL HISTORY: The patient is a prior smoker. No alcohol. No drugs. REVIEW OF SYSTEMS: Unobtainable as the patient is confused. PHYSICAL EXAMINATION: VITAL SIGNS: Temperature 97.1, pulse rate 60, respirations 19, blood pressure 107/61. GENERAL: The patient is well developed, no apparent distress, currently resting. HEENT: Head is normocephalic. There is a mass noted on the top of the head. There is no erythema or discharge. NECK: Supple. HEART: Regular rate and rhythm. LUNGS: Clear anteriorly. ABDOMEN: Soft, nontender, nondistended. EXTREMITIES: No clubbing, cyanosis, or edema. LABORATORY DATA: White count 14,000, hemoglobin 13. Sodium 134, potassium is 4, glucose of 437. Chest x-ray shows a lung mass. ASSESSMENT: This is a 70-year-old male with a history of hypertension, COPD, congestive heart failure, admitted with a left lung mass and uncontrolled diabetes. PLAN: Titrate antihypertensive regimen, cautious hydration. Cardiology, pulmonary evaluations will be obtained. Surgical consultation also will be obtained. The patient received DVT and stress ulcer prophylaxis. Further plan of care will be determined after review of the patient's CAT scan done at the ER and discussion with consulting physicians. Jareth Valenzuela M.D. DR: PAT JOB#: [id number] CC:
[2020-04-29 20:00] VITALS: BP 91/50
[2020-04-29] MEDS: Carvedilol 6.25mg Tab ORAL SCH (21:00)
[2020-04-30] VITALS: BP 125/79
--- NOTE | 2020-04-30 03:00 | Consultation ---
DATE OF CONSULTATION: 04/29/2020 CARDIOLOGY CONSULTATION CONSULTING PHYSICIAN: Devin Steiner MD REQUESTING PHYSICIAN: Jareth Valenzuela MD REASON FOR CONSULTATION: Shortness of breath in the setting of cardiomyopathy and with history of arrhythmias. HISTORY OF PRESENT ILLNESS: This is a 70-year-old white male. He presented to the emergency room with complaints of a head wound. He also was notably short of breath. Imaging studies were performed and a large lung mass was noted. A scalp mass was felt and was apparently superficial. I have been asked to assist with cardiovascular care. The patient was hospitalized here over almost 2 years ago with pneumonia. At that time, his chest x-ray did not reveal any mass. The patient has known cardiomyopathy and is on antiarrhythmics for atrial arrhythmias. He has not had any chest pain, but does have episodes of leg swelling and in general is not quite active although he notes more short of breath recently. PAST MEDICAL HISTORY: 1. Hypertension. 2. Congestive heart failure. 3. Insulin-requiring diabetes mellitus. 4. Diabetic neuropathy. 5. Chronic kidney disease. 6. Prostatic hypertrophy. 7. 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 8. COPD. ALLERGIES: None. MEDICATIONS: Reviewed. FAMILY HISTORY: Noncontributory. SOCIAL HISTORY: Prior smoker. Social alcohol. No substance abuse. Lives with his in the [place], but visits his daughter locally. REVIEW OF SYSTEMS: No fevers or chills. No known COVID-19 exposure. He uses insulin in large quantities. He does not follow a diet. He has been obese. He denies any known history of stroke. He has not been on steroids recently. There is no history of blood clots in the legs. He does have some wounds that have not been healing well on his feet. His family has complained of poor personal hygiene and self-care. PHYSICAL EXAMINATION: GENERAL: Moderately obese, disheveled, in no distress. VITAL SIGNS: Blood pressure 107/61, heart rate 60, respiratory rate 19, afebrile. NECK: Obese and carotid upstrokes without delay. LUNGS: Diminished breath sounds. Few rhonchi and rales. CARDIAC: Regular rhythm and rate. Normal S1, S2 with a fourth heart sound. ABDOMEN: Obese and soft. EXTREMITIES: With 1+ edema, mostly nonpitting. Feet with stage I to II skin breakdown. LABORATORY AND DIAGNOSTIC DATA: Imaging studies reviewed. EKG with sinus rhythm, nonspecific ST-T wave changes. Intraventricular conduction delay. Labs, sodium 134, potassium 4, BUN 14, creatinine 1.1. Glucose initially was over 700 and repeated 437. Magnesium 1.9. Natriuretic peptide 625. Albumin 2.7. IMPRESSION: Lung mass, scalp mass, cardiomyopathy with acute on chronic systolic and diastolic congestive heart failure, insulin-requiring diabetes uncontrolled, diabetic neuropathy, moderate protein-calorie malnutrition, and COPD. PLAN: Insulin titration and dietary restriction. Possible CT-guided lung biopsy. Hold anticoagulation for now in view of this possibility. DVT prophylaxis in the interim. Titrate anti-failure regimen. We will follow. Devin Steienr M.D. DR: Rudy JOB#: [id number] CC:
[2020-04-30 04:00] VITALS: BP 119/81
[2020-04-30] MEDS: cefTRIAXone 1 GM in NS 55 ML IVPB SCH (04:28)
[2020-04-30] MEDS ORDERED: NovoLOG Insulin Flexpen SUBQ SCH (06:30)
[2020-04-30 08:00] VITALS: BP_SYST 118; BP_SYST 119; BP_DIAS 75; BP_DIAS 81
--- NOTE | 2020-04-30 08:59 | General Progress Note ---
Subjective ROS Limited/Unobtainable: No Constitutional: Reports: malaise, weakness HEENT: Reports: no symptoms Cardiovascular: Reports: chest pain Respiratory: Reports: cough, shortness of breath Gastrointestinal/Abdominal: Reports: no symptoms Genitourinary: Reports: no symptoms Neurologic/Psychiatric: Reports: no symptoms Endocrine: Reports: no symptoms Hematologic/Lymphatic: Reports: no symptoms Allergies: Coded Allergies: No Known Allergies (Unverified , 02/26/14) All Systems: reviewed and negative except above Subjective no events. more alert. denies chest pain or sob. Blood sugars still high. states he needs to be discharged for his sons wedding in a few days Objective Last 24 Hour Vital Signs Date Time Temp Pulse Resp B/P (MAP) Pulse Ox O2 Delivery O2 Flow Rate FiO2 04/30/20 08:00 98.5 79 20 119/81 (94) 97 04/30/20 04:00 97.7 79 17 119/81 (94) 97 04/30/20 00:00 98.1 75 20 125/79 (94) 98 04/29/20 21:00 81 91/50 04/29/20 21:00 Nasal Cannula 2.0 04/29/20 20:00 98.3 81 19 91/50 (64) 100 04/29/20 19:15 66 117/72 04/29/20 16:00 98.6 66 21 117/72 (87) 97 04/29/20 12:00 97.9 74 19 119/64 (82) 97 04/29/20 09:02 69 04/29/20 09:01 121/72 04/29/20 09:00 Nasal Cannula 2.0 Intake and Output 04/29/20 04/30/20 19:00 07:00 Intake Total 365 ml 2020 ml Output Total 300 ml 1800 ml Balance 65 ml 220 ml Intake Oral 240 ml 520 ml IV Total 125 ml 1500 ml Output Urine Total 300 ml 1800 ml # Voids 1 Laboratory Tests 04/29/20 11:05: White Blood Count 11.2H, Red Blood Count 4.06L, Hemoglobin 13.0L, Hematocrit 37.7L, Mean Corpuscular Volume 93, Mean Corpuscular Hemoglobin 32.0H, Mean Corpuscular Hemoglobin Concent 34.5, Red Cell Distribution Width 12.9, Platelet Count 210, Mean Platelet Volume 6.7, Neutrophils (%) (Auto) 75.1H, Lymphocytes (%) (Auto) 15.1L, Monocytes (%) (Auto) 5.1, Eosinophils (%) (Auto) 3.7H, Basophils (%) (Auto) 0.9, Sodium Level 134#L, Potassium Level 4.1, Chloride Level 100, Carbon Dioxide Level 26, Anion Gap 8, Blood Urea Nitrogen 14, Creatinine 1.1, Estimat Glomerular Filtration Rate > 60, Glucose Level 437#H, Calcium Level 7.9L, Magnesium Level 1.9, Total Bilirubin 0.6, Aspartate Amino Transf (AST/SGOT) 15, Alanine Aminotransferase (ALT/SGPT) 11L, Alkaline Phosphatase 67, Pro-B-Type Natriuretic Peptide 625H, Total Protein 5.8L, Albumin 2.7L, Globulin 3.1, Albumin/Globulin Ratio 0.9L 04/29/20 11:13: POC Whole Blood Glucose 429H 04/29/20 15:20: POC Whole Blood Glucose 396H 04/29/20 17:15: POC Whole Blood Glucose 410H 04/29/20 20:49: POC Whole Blood Glucose 360H 04/30/20 06:12: POC Whole Blood Glucose 301H Height (Feet): 5 Height (Inches): 9.00 Weight (Pounds): 244 General Appearance: WD/WN, alert EENT: normal ENT inspection Neck: non-tender, normal alignment, supple Cardiovascular: normal peripheral pulses, normal rate, regular rhythm Respiratory/Chest: chest wall non-tender, lungs clear, normal breath sounds Edema: no edema noted Arm (L), no edema noted Arm (R) Skin: normal pigmentation Lymphatic: normal anterior cervical (L), normal anterior cervical (R) Assessment/Plan Problem List: (1) Atrial fibrillation with RVR ICD Codes: I48.91 - Unspecified atrial fibrillation SNOMED: 546456951 (2) Obesity ICD Codes: E66.9 - Obesity SNOMED: 007528071 (3) Diabetes mellitus ICD Codes: E11.9 - Diabetes mellitus SNOMED: 87326207 (4) COPD (chronic obstructive pulmonary disease) ICD Codes: J44.9 - COPD (chronic obstructive pulmonary disease) SNOMED: 93857885 (5) CHF (congestive heart failure) ICD Codes: I50.9 - CHF (congestive heart failure) SNOMED: 54483099 (6) ACS (acute coronary syndrome) ICD Codes: I20.0 - Unstable angina SNOMED: 308429168 (7) Scalp mass ICD Codes: R22.0 - Localized swelling, mass and lump, head SNOMED: 982086723 (8) Lung mass ICD Codes: R91.8 - Other nonspecific abnormal finding of lung field; E11.65 - Type 2 diabetes mellitus with hyperglycemia SNOMED: 274566116 Status: stable Assessment/Plan: cont current rx titrate diabetic rx diabetic diet pulm eval pending o2 resp care wound care surgery eval re: head scalp mass dc planning but will likely have to be readmitted for biopsy Jareth Valenzuela MD Apr 30, 2020 08:59
[2020-04-30] MEDS: Levemir Flexpen SUBQ SCH ×2 (09:47→17:51)
[2020-04-30] MEDS: Heparin 5000 units/ml inj SUBQ SCH (09:48)
[2020-04-30] MEDS: Carvedilol 6.25mg Tab ORAL SCH ×2 (09:49→21:26)
[2020-04-30] MEDS: Lisinopril 10mg tab ORAL SCH (09:49)
[2020-04-30] MEDS: Amiodarone 200mg tab ORAL SCH (09:49)
[2020-04-30] MEDS: Aspirin EC 81mg tab ORAL SCH (09:50)
[2020-04-30] MEDS: Lyrica 50mg cap ORAL SCH ×2 (09:51→21:26)
[2020-04-30] MEDS: Spironolactone 25mg tab ORAL SCH (09:51)
[2020-04-30] MEDS: Digoxin 0.125mg tab ORAL SCH (09:52)
[2020-04-30] MEDS ORDERED: Lidocaine 1% Plain 30 ml INJ PRN (10:30)
[2020-04-30 12:00] VITALS: BP_SYST 126; BP_SYST 98; BP_DIAS 65; BP_DIAS 77
[2020-04-30 15:34] VITALS: BP 124/73
--- NOTE | 2020-04-30 15:45 | Consultation ---
DATE OF CONSULTATION: 04/30/2020 PULMONARY CONSULTATION CONSULTING PHYSICIAN: Alek Calvillo M.D. REASON FOR CONSULTATION: Lung mass, chronic respiratory failure. HISTORY OF PRESENT ILLNESS: This is a 70-year-old male who is well known to me from prior evaluation. The patient had been lost to followup as he lives far away. The patient has what appears to be a large left lower lobe mass. The patient is with some atelectasis and right pleural thickening. The patient's care was discussed and reviewed. The patient is with mostly complaints of scalp-related issues. The patient is now admitted for further intervention. The patient does have underlying history of COPD, diabetes, which is brittle, hypertension. The patient had been to some extent noncompliant with his medication. The patient has lost weight since last visit by myself. The patient denies any cough, hemoptysis at this time. PAST MEDICAL HISTORY: Notable for COPD, coagulopathy, prostatism, chronic kidney disease, dysrhythmia, diabetic neuropathy, diabetes, CHF, hypertension. MEDICATIONS: Reviewed. ALLERGIES: Reviewed. SOCIAL HISTORY: The patient is a prior smoker. Social alcohol use. The patient lives with his . REVIEW OF SYSTEMS: Otherwise reviewed. PHYSICAL EXAMINATION: GENERAL: A well-developed male, somewhat disheveled. VITAL SIGNS: Reviewed, otherwise stable. Blood pressure 118/75, pulse 80 to 95, respirations 20, sats 97%. HEENT: Negative. NECK: Supple. No lymphadenopathy. LUNGS: Moderate air entry. No rhonchi or wheezes. CARDIAC: S1, S2. Regular rate and rhythm without murmurs, rubs, gallops. ABDOMEN: Soft, nontender, obese. EXTREMITIES: No cyanosis, no clubbing, no edema. LABORATORY DATA: Otherwise reviewed. CT of the chest otherwise reviewed. IMPRESSION: Large left lower lung mass, approximately 5 cm, likely malignant, COPD per history, smoking history, history of CHF, dysrhythmias, BPH. RECOMMENDATIONS: We will need to hold anticoagulation and proceed with CT-guided biopsy if possible. Continue other medications as is. Follow up closely for changes, interventions, and other recommendations. The patient likely will need oncological assistance. However, the patient resides at [place] and, therefore, may need to start therapy at that location. Thoracic surgery is possibly indicated pending a PET scan, which will have to be done as an outpatient. Care discussed and reviewed with the patient and primary care physician. Alek Calvillo M.D. DR: PHOEBE JOB#: [id number] CC:
[2020-04-30] MEDS: NovoLOG Insulin Flexpen SUBQ SCH ×3 (16:52→21:29)
[2020-04-30 20:00] VITALS: BP 109/67
[2020-04-30] MEDS: HYDROcodone/Acetamin 5/325 tab ORAL PRN (23:28)
[2020-05-01] VITALS (12 sets, daily range): BP systolic 106–149; BP diastolic 55–101
--- NOTE | 2020-05-01 01:12 | Cardiology Progress Note ---
Subjective DATE OF SERVICE: Apr 30, 2020 Glucose still elevated; but improving Off anti-coagulation since admission Some SOB - no CP. Objective Last 24 Hour Vital Signs Date Time Temp Pulse Resp B/P (MAP) Pulse Ox O2 Delivery O2 Flow Rate FiO2 04/30/20 21:46 98 Nasal Cannula 2.0 28 04/30/20 21:26 83 109/67 04/30/20 20:00 99.2 83 20 109/67 (81) 97 04/30/20 17:49 76 124/73 04/30/20 15:34 98.1 76 20 124/73 (90) 99 04/30/20 12:00 98.3 82 20 126/77 (93) 97 04/30/20 09:52 80 04/30/20 09:51 82 118/75 04/30/20 09:49 82 118/75 04/30/20 09:49 118/75 04/30/20 09:00 Nasal Cannula 2.0 04/30/20 08:00 98.5 82 20 118/75 (89) 97 04/30/20 04:00 97.7 79 17 119/81 (94) 97 ROS: unchanged from my evaluation of 04/29/20 HEENT: normal ENT inspection LUNGS: coarse breath sounds CARDIAC: normal rate, regular rhythm, normal S1 and S2, gallop/S4 ABDOMEN: normal bowel sounds, non tender, soft EXTREMITIES: normal range of motion, No edema Laboratory Tests Test 04/30/20 06:12 04/30/20 09:10 04/30/20 12:14 04/30/20 16:47 POC Whole Blood Glucose 301 MG/DL (74-106) H 263 MG/DL (74-106) H 265 MG/DL (74-106) H 341 MG/DL (74-106) H Test 04/30/20 21:24 POC Whole Blood Glucose 270 MG/DL (74-106) H Microbiology Date/Time Source Procedure Growth Status 04/29/20 00:20 Other(Specify in comment) Gram Stain - Final Resulted 04/29/20 00:20 Wound Culture - Preliminary Staphylococcus Aureus Resulted Assessment/Plan Assessment/Plan IRDM uncontrolled Lung Mass COPD Chronic systolic/diastolic CHF Cardiomyopathy Scalp lesion CT guided lung biopsy Hold anticoagulation Titrate insulin regimen Titrate anti-failure regimen Devin Steiner MD May 01, 2020 01:12
[2020-05-01] MEDS: cefTRIAXone 1 GM in NS 55 ML IVPB SCH (04:57)
[2020-05-01] MEDS: NovoLOG Insulin Flexpen SUBQ SCH ×7 (06:30→20:21)
[2020-05-01 06:54] LABS: EOSINOPHILS % (AUTO) 4.3 % (0.0-3.0); HEMATOCRIT 37.4 % (42.0-52.0); HEMOGLOBIN 12.3 G/DL (14.2-18.0); LYMPHOCYTES % (AUTO) 18.9 % (20.0-45.0); MEAN CORPUSCULAR VOLUME 94 FL (80-99); MONOCYTES % (AUTO) 5.9 % (1.0-10.0); NEUTROPHILS % (AUTO) 69.9 % (45.0-75.0); PLATELET COUNT 224 K/UL (150-450); RED BLOOD COUNT 3.97 M/UL (4.70-6.10); RED CELL DISTRIBUTION WIDTH 13.3 % (11.6-14.8)
[2020-05-01 06:56] LABS: INR 1.2 (0.9-1.1)
[2020-05-01 07:44] LABS: ALANINE AMINOTRANSFERASE 6 U/L (12-78); ALBUMIN 2.5 G/DL (3.4-5.0); ALBUMIN/GLOBULIN RATIO 0.9 (1.0-2.7); ALKALINE PHOSPHATASE 61 U/L (46-116); ASPARTATE AMINO TRANSFERASE 13 U/L (15-37); BILIRUBIN,TOTAL 0.3 MG/DL (0.2-1.0); BLOOD UREA NITROGEN 10 mg/dL (7-18); CALCIUM 7.9 MG/DL (8.5-10.1); CARBON DIOXIDE 25 MMOL/L (21-32); CHLORIDE 104 MMOL/L (98-107); CREATININE 1.1 MG/DL (0.55-1.30); POTASSIUM 4.3 MMOL/L (3.5-5.1); SODIUM 136 MMOL/L (136-145)
--- NOTE | 2020-05-01 08:49 | General Progress Note ---
Subjective ROS Limited/Unobtainable: No Constitutional: Reports: malaise, weakness HEENT: Reports: no symptoms Cardiovascular: Reports: no symptoms Respiratory: Reports: cough, wheezing Gastrointestinal/Abdominal: Reports: no symptoms Genitourinary: Reports: no symptoms Neurologic/Psychiatric: Reports: no symptoms Endocrine: Reports: no symptoms Hematologic/Lymphatic: Reports: anemia Allergies: Coded Allergies: No Known Allergies (Unverified , 02/26/14) All Systems: reviewed and negative except above Subjective BS stable. npo for bronch. no chest pain or sob. Objective Last 24 Hour Vital Signs Date Time Temp Pulse Resp B/P (MAP) Pulse Ox O2 Delivery O2 Flow Rate FiO2 05/01/20 08:00 98.3 79 18 121/78 (92) 98 05/01/20 04:00 98.0 77 21 107/60 (76) 97 05/01/20 00:00 98.7 76 18 106/55 (72) 98 04/30/20 21:46 98 Nasal Cannula 2.0 28 04/30/20 21:26 83 109/67 04/30/20 21:00 Nasal Cannula 2.0 04/30/20 20:00 99.2 83 20 109/67 (81) 97 04/30/20 17:49 76 124/73 04/30/20 15:34 98.1 76 20 124/73 (90) 99 04/30/20 12:00 98.3 82 20 126/77 (93) 97 04/30/20 09:52 80 04/30/20 09:51 82 118/75 04/30/20 09:49 82 118/75 04/30/20 09:49 118/75 04/30/20 09:00 Nasal Cannula 2.0 Intake and Output 04/30/20 05/01/20 19:00 07:00 Intake Total 1800 ml 450 ml Output Total 875 ml 850 ml Balance 925 ml -400 ml Intake Oral 800 ml 450 ml IV Total 1000 ml Output Urine Total 875 ml 850 ml # Voids 3 2 Laboratory Tests 04/30/20 09:10: POC Whole Blood Glucose 263H 04/30/20 12:14: POC Whole Blood Glucose 265H 04/30/20 16:47: POC Whole Blood Glucose 341H 04/30/20 21:24: POC Whole Blood Glucose 270H 05/01/20 05:00: White Blood Count 9.0, Red Blood Count 3.97L, Hemoglobin 12.3L, Hematocrit 37.4L , Mean Corpuscular Volume 94, Mean Corpuscular Hemoglobin 31.1H, Mean Corpuscular Hemoglobin Concent 33.0, Red Cell Distribution Width 13.3, Platelet Count 224, Mean Platelet Volume 6.1L, Neutrophils (%) (Auto) 69.9, Lymphocytes (%) (Auto) 18.9L, Monocytes (%) (Auto) 5.9, Eosinophils (%) (Auto) 4.3H, Basophils (%) (Auto) 1.0, Prothrombin Time 12.6H, Prothromb Time International R atio 1.2H, Activated Partial Thromboplast Time 27, Sodium Level 136, Potassium Level 4.3, Chloride Level 104, Carbon Dioxide Level 25, Blood Urea Nitrogen 10, Creatinine 1.1, Estimat Glomerular Filtration Rate > 60, Glucose Level 262H, Calcium Level 7.9L, Magnesium Level 2.0, Total Bilirubin 0.3, Aspartate Amino Transf (AST/SGOT) 13L, Alanine Aminotransferase (ALT/SGPT) 6L, Alkaline Phosphatase 61, Pro-B-Type Natriuretic Peptide 1141H, Total Protein 5.2L, Albumin 2.5L, Globulin 2.7, Albumin/Globulin Ratio 0.9L 05/01/20 06:09: POC Whole Blood Glucose 284H Height (Feet): 5 Height (Inches): 9.00 Weight (Pounds): 244 General Appearance: WD/WN, alert, confused EENT: normal ENT inspection Neck: non-tender, normal alignment, supple Cardiovascular: normal rate, regular rhythm Respiratory/Chest: chest wall non-tender, lungs clear, normal breath sounds, no respiratory distress, no accessory muscle use Abdomen: normal bowel sounds, non tender, soft, no organomegaly, no mass Edema: no edema noted Arm (L), no edema noted Arm (R) Neurologic: alert, responsive Skin: normal pigmentation Lymphatic: normal anterior cervical (L), normal anterior cervical (R) Assessment/Plan Problem List: (1) Atrial fibrillation with RVR ICD Codes: I48.91 - Unspecified atrial fibrillation SNOMED: 810211624 (2) Obesity ICD Codes: E66.9 - Obesity SNOMED: 490515943 (3) Diabetes mellitus ICD Codes: E11.9 - Diabetes mellitus SNOMED: 52992858 (4) COPD (chronic obstructive pulmonary disease) ICD Codes: J44.9 - COPD (chronic obstructive pulmonary disease) SNOMED: 21122947 (5) CHF (congestive heart failure) ICD Codes: I50.9 - CHF (congestive heart failure) SNOMED: 81765819 (6) ACS (acute coronary syndrome) ICD Codes: I20.0 - Unstable angina SNOMED: 851750211 (7) Scalp mass ICD Codes: R22.0 - Localized swelling, mass and lump, head SNOMED: 164619105 (8) Lung mass ICD Codes: R91.8 - Other nonspecific abnormal finding of lung field; E11.65 - Type 2 diabetes mellitus with hyperglycemia SNOMED: 905250456 Status: stable Assessment/Plan: npo ivf bronch and biopsy today monitor bs insulin coverage dc planning to be determined Jareth Valenzuela MD May 01, 2020 08:49
--- NOTE | 2020-05-01 08:58 | Pulmonology Progress Note ---
Subjective ROS Limited/Unobtainable: No Allergies: Coded Allergies: No Known Allergies (Unverified , 02/26/14) All Systems: reviewed and negative except above Subjective NPO for procedure Objective Last 24 Hour Vital Signs Date Time Temp Pulse Resp B/P (MAP) Pulse Ox O2 Delivery O2 Flow Rate FiO2 05/01/20 08:00 98.3 79 18 121/78 (92) 98 05/01/20 04:00 98.0 77 21 107/60 (76) 97 05/01/20 00:00 98.7 76 18 106/55 (72) 98 04/30/20 21:46 98 Nasal Cannula 2.0 28 04/30/20 21:26 83 109/67 04/30/20 21:00 Nasal Cannula 2.0 04/30/20 20:00 99.2 83 20 109/67 (81) 97 04/30/20 17:49 76 124/73 04/30/20 15:34 98.1 76 20 124/73 (90) 99 04/30/20 12:00 98.3 82 20 126/77 (93) 97 04/30/20 09:52 80 04/30/20 09:51 82 118/75 04/30/20 09:49 82 118/75 04/30/20 09:49 118/75 04/30/20 09:00 Nasal Cannula 2.0 Intake and Output 04/30/20 05/01/20 19:00 07:00 Intake Total 1800 ml 450 ml Output Total 875 ml 850 ml Balance 925 ml -400 ml Intake Oral 800 ml 450 ml IV Total 1000 ml Output Urine Total 875 ml 850 ml # Voids 3 2 Objective WDWN NAD clear breath sounds bilaterally without rhonchi or wheeze [id number] without MRG NABS nontender no HSM no CCE nonfocal Microbiology Date/Time Source Procedure Growth Status 04/29/20 00:20 Other(Specify in comment) Gram Stain - Final Complete 04/29/20 00:20 Wound Culture - Final Staphylococcus Aureus Complete Laboratory Tests 04/30/20 09:10: POC Whole Blood Glucose 263H 04/30/20 12:14: POC Whole Blood Glucose 265H 04/30/20 16:47: POC Whole Blood Glucose 341H 04/30/20 21:24: POC Whole Blood Glucose 270H 05/01/20 05:00: White Blood Count 9.0, Red Blood Count 3.97L, Hemoglobin 12.3L, Hematocrit 37.4L , Mean Corpuscular Volume 94, Mean Corpuscular Hemoglobin 31.1H, Mean Vic uscular Hemoglobin Concent 33.0, Red Cell Distribution Width 13.3, Platelet Count 224, Mean Platelet Volume 6.1L, Neutrophils (%) (Auto) 69.9, Lymphocytes (%) (Auto) 18.9L, Monocytes (%) (Auto) 5.9, Eosinophils (%) (Auto) 4.3H, Basophils (%) (Auto) 1.0, Prothrombin Time 12.6H, Prothromb Time International Ratio 1.2H, Activated Partial Thromboplast Time 27, Sodium Level 136, Potassium Level 4.3, Chloride Level 104, Carbon Dioxide Level 25, Blood Urea Nitrogen 10, Creatinine 1.1, Estimat Glomerular Filtration Rate > 60, Glucose Level 262H, Calcium Level 7.9L, Magnesium Level 2.0, Total Bilirubin 0.3, Aspartate Amino Transf (AST/SGOT) 13L, Alanine Aminotransferase (ALT/SGPT) 6L, Alkaline Phosphatase 61, Pro-B-Type Natriuretic Peptide 1141H, Total Protein 5.2L, Albumin 2.5L, Globulin 2.7, Albumin/Globulin Ratio 0.9L 05/01/20 06:09: POC Whole Blood Glucose 284H Current Medications Medications (Trade) Dose Ordered Sig/Antionette Route PRN Reason Start Time Stop Time Status Last Admin Dose Admin Acetaminophen (Tylenol) 650 mg Q4H PRN ORAL Mild Pain (Pain Scale 1-3) 04/29/20 03:00 05/29/20 02:59 Acetaminophen/ Hydrocodone Bitart (Dale 5/325) 1 tab Q6H PRN ORAL For Pain 04/29/20 03:00 05/06/20 02:59 04/30/20 23:28 Al Hydroxide/Mg Hydroxide (Mylanta) 30 ml Q6H PRN ORAL dyspepsia 04/29/20 03:00 05/29/20 02:59 Amiodarone HCl (Cordarone) 200 mg DAILY ORAL 04/29/20 13:00 07/28/20 12:59 04/30/20 09:49 Amlodipine Besylate (Norvasc) 5 mg TWICE A DAY ORAL 04/29/20 18:00 05/29/20 17:59 04/30/20 17:49 Aspirin (Ecotrin) 81 mg DAILY ORAL 04/29/20 13:00 06/13/20 12:59 04/30/20 09:50 Carvedilol (Coreg) 6.25 mg EVERY 12 HOURS ORAL 04/29/20 21:00 05/29/20 20:59 04/30/20 21:26 Ceftriaxone Sodium 1 gm/ Sodium Chloride 55 ml @ 110 mls/hr Q24H IVPB 04/29/20 04:00 05/06/20 03:59 05/01/20 04:57 Dextrose (Dextrose 50%) 25 ml Q30M PRN IV Hypoglycemia 04/30/20 14:00 07/29/20 13:59 Dextrose (Dextrose 50%) 50 ml Q30M PRN IV Hypoglycemia 04/30/20 14:00 07/29/20 13:59 Digoxin (Lanoxin) 0.125 mg DAILY ORAL 04/29/20 09:00 07/28/20 08:59 04/30/20 09:52 Insulin Aspart (NovoLOG) BEFORE MEALS AND HS SUBQ 04/30/20 16:30 07/29/20 16:29 04/30/20 21:29 Insulin Aspart (NovoLOG) 10 units TIAC SUBQ 04/30/20 16:30 07/29/20 16:29 04/30/20 16:52 Insulin Detemir (Levemir) 25 units BID SUBQ 04/30/20 09:00 07/28/20 12:59 04/30/20 17:51 Lidocaine HCl (Xylocaine 1% 30ml) 30 ml NOW PRN INJ Radiology Procedure 04/30/20 10:30 05/03/20 10:29 Lisinopril (ZestriL) 10 mg DAILY ORAL 04/29/20 09:00 05/29/20 08:59 04/30/20 09:49 Pantoprazole (Protonix) 40 mg DAILY ORAL 04/29/20 13:00 05/29/20 12:59 04/30/20 09:49 Pregabalin (Lyrica) 100 mg Q12HR ORAL 04/29/20 13:00 05/29/20 12:59 04/30/20 21:26 Sitagliptin Phosphate (Januvia) 100 mg DAILY ORAL 04/29/20 13:00 05/29/20 12:59 04/30/20 09:50 Sodium Chloride 1,000 ml @ 125 mls/hr Q8H IV 04/29/20 04:00 05/29/20 03:59 05/01/20 08:25 Spironolactone (Aldactone) 25 mg DAILY ORAL 04/29/20 13:00 05/29/20 12:59 04/30/20 09:51 Zolpidem Tartrate (Ambien) 5 mg HSPRN PRN ORAL Insomnia 04/29/20 03:00 05/06/20 02:59 Assessment/Plan Assessment/Plan IMPRESSION: Large left lower lung mass, approximately 5 cm, likely malignant, COPD per history, smoking history, history of CHF, dysrhythmias, BPH. RECOMMENDATIONS: We will need to hold anticoagulation and proceed with CT-guided biopsy if possible. Continue other medications as is. Follow up closely for changes, interventions, and other recommendations. The patient likely will need oncological assistance. However, the patient resides at [place] and, therefore, may need to start therapy at that location. Thoracic surgery is possibly indicated pending a PET scan, which will have to be done as an outpatient. Care discussed and reviewed with the patient and primary care physician. Alek Calvillo MD May 01, 2020 08:58
[2020-05-01] MEDS: Carvedilol 6.25mg Tab ORAL SCH ×2 (10:04→20:11)
[2020-05-01] MEDS: Amiodarone 200mg tab ORAL SCH (10:04)
[2020-05-01] MEDS: Lisinopril 10mg tab ORAL SCH (10:04)
[2020-05-01] MEDS: Digoxin 0.125mg tab ORAL SCH (10:04)
[2020-05-01] MEDS: Lyrica 50mg cap ORAL SCH ×2 (10:07→20:12)
[2020-05-01] MEDS: Spironolactone 25mg tab ORAL SCH (10:07)
[2020-05-01] MEDS: Aspirin EC 81mg tab ORAL SCH (10:07)
[2020-05-01] MEDS: Levemir Flexpen SUBQ SCH ×2 (10:13→18:40)
--- NOTE | 2020-05-01 14:36 | Pre-Procedure Note/Attestation ---
Pre-Procedure Note/Attestation Complete Prior to Procedure Planned Procedure: left Procedure Narrative: LLL mass biopsy Indications for Procedure Pre-Operative Diagnosis: LLL lung mass Attestation Discussed risks vs benefits of procedure with patient . Risks discussed included but not limited to bleeding/hemoptysis, pneumothorax which may need chest tube placement, and non diagnostic biopsy. patient understood, asking appropriate questions. Informed consent obtained. Darrell Squires M.D. May 01, 2020 14:36
--- NOTE | 2020-05-01 14:44 | Operative Note - PDOC ---
Operative Note Operative Note Date of Operation/Procedure: May 01, 2020 Chief Complaint: LLL lung mass Pre-op Diagnosis: LLL lung mass Procedure: percutaneous needle biopsy Post-op Diagnosis: LLL mass Post-op Diagnosis: same as pre-op Operative Findings: consistent w/pre-op dx studies Surgeon: MEGA Squires Anesthesia: local Specimen: yes Complications: none Condition: stable Estimated Blood Loss: none Drains: none Implant(s) used?: No Indications for Procedure LLL lung mass concerning for malignancy - request made for biopsy Description of Procedure Successful CT guided percutaneous core needle biopsy of LLL lung mass. Total 2 18-gauge core biopsy specimens obtained - submitted to pathology in formalin. CT post biopsy showed no evidence of pneumothorax. Patient tolerated procedure well. Darrell Squires M.D. May 01, 2020 14:44
--- NOTE | 2020-05-01 16:00 | Diagnostic Imaging Report ---
Indication: Reason For Exam: POST-OP chest pain Technique: Single AP view of the chest. Comparison: Same day CT lung biopsy Findings: The cardiomediastinal silhouette demonstrates persistent cardiomegaly. There is right-sided pleural thickening with right basilar consolidation. Retrocardiac mass is better appreciated on same-day CT lung biopsy. No pneumothorax. Mild pulmonary vascular congestion No increasing pleural effusion. Unchanged left approach ICD/pacemaker. IMPRESSION: Status post left lung biopsy without internal pneumothorax.
--- NOTE | 2020-05-01 16:16 | Diagnostic Imaging Report ---
Indication: Left lower lobe lung mass. Request made for biopsy CT dose: Total DLP 1365.9 mGycm; CTDI vol 105.7 mGy TECHNIQUE AND FINDINGS/PROCEDURE NARRATIVE: Informed consent obtained. Patient positioned prone on CT table and limited noncontrast CT of the lower chest performed with grid marker demonstrated left lower lobe mass, as described on prior diagnostic CT. Appropriate access site chosen, area prepped and draped in the usual sterile fashion. Site locally anesthestized with 1% lidocaine. Under CT guidance, 17 gauge needle advanced to the targeted mass. 18 gauge needle advanced coaxially via the 17 gauge needle and 189-gauge core biopsy performed of the mass. Specimens placed in formalin for submission to pathology. Needle removed, hemostasis easily achieved and a dressing was applied. Completion CT scan of the chest demonstrated no evidence of pneumothorax after biopsy. Patient tolerated the procedure well. IMPRESSION: Technically successful biopsy of left lower lobe mass as detailed above. No immediate complications. The CT scanner at [facility] is accredited by the [employer] and the scans are performed using protocols designed to limit radiation exposure to as low as reasonably achievable to attain images of sufficient resolution adequate for diagnostic evaluation.
[2020-05-01] MEDS: HYDROcodone/Acetamin 5/325 tab ORAL PRN (18:50)
[2020-05-01] MEDS ORDERED: HYDROmorphone 1mg/ml Carpuject IVP PRN (19:45)
[2020-05-02] VITALS: BP 114/62
--- NOTE | 2020-05-02 00:08 | Cardiology Progress Note ---
Subjective DATE OF SERVICE: May 01, 2020 Glucose still elevated; but improving Off anti-coagulation since admission Some SOB - no CP. BNP levels rising. CT guided lung biopsy completed today. Objective Last 24 Hour Vital Signs Date Time Temp Pulse Resp B/P (MAP) Pulse Ox O2 Delivery O2 Flow Rate FiO2 05/01/20 21:00 Nasal Cannula 2.0 05/01/20 20:11 71 134/101 05/01/20 20:00 97.8 71 16 134/101 (112) 98 05/01/20 18:38 82 121/77 05/01/20 16:00 98.7 82 21 121/77 (92) 97 05/01/20 14:25 83 24 144/90 (108) 100 05/01/20 14:20 79 21 149/89 (109) 100 05/01/20 14:15 83 24 142/92 (109) 100 05/01/20 14:10 82 22 137/79 (98) 100 05/01/20 13:54 80 0 2.0 05/01/20 13:50 80 24 134/89 (104) 100 05/01/20 12:00 98.4 82 18 109/59 (76) 97 05/01/20 10:07 79 121/78 05/01/20 10:04 79 121/78 05/01/20 10:04 80 05/01/20 10:04 121/78 05/01/20 09:00 Nasal Cannula 2.0 05/01/20 08:00 98.3 79 18 121/78 (92) 98 05/01/20 04:00 98.0 77 21 107/60 (76) 97 ROS: unchanged from my evaluation of 04/29/20 HEENT: normal ENT inspection LUNGS: coarse breath sounds CARDIAC: normal rate, regular rhythm, normal S1 and S2, gallop/S4 ABDOMEN: normal bowel sounds, non tender, soft EXTREMITIES: normal range of motion, No edema Laboratory Tests Test 05/01/20 05:00 05/01/20 06:09 05/01/20 10:03 05/01/20 12:14 White Blood Count 9.0 K/UL (4.8-10.8) Red Blood Count 3.97 M/UL (4.70-6.10) L Hemoglobin 12.3 G/DL (14.2-18.0) L Hematocrit 37.4 % (42.0-52.0) L Mean Corpuscular Volume 94 FL (80-99) Mean Corpuscular Hemoglobin 31.1 PG (27.0-31.0) H Mean Corpuscular Hemoglobin Concent 33.0 G/DL (32.0-36.0) Red Cell Distribution Width 13.3 % (11.6-14.8) Platelet Count 224 K/UL (150-450) Mean Platelet Volume 6.1 FL (6.5-10.1) L Neutrophils (%) (Auto) 69.9 % (45.0-75.0) Lymphocytes (%) (Auto) 18.9 % (20.0-45.0) L Monocytes (%) (Auto) 5.9 % (1.0-10.0) Eosinophils (%) (Auto) 4.3 % (0.0-3.0) H Basophils (%) (Auto) 1.0 % (0.0-2.0) Prothrombin Time 12.6 SEC (9.30-11.50) H Prothromb Time International Ratio 1.2 (0.9-1.1) H Activated Partial Thromboplast Time 27 SEC (23-33) Sodium Level 136 MMOL/L (136-145) Potassium Level 4.3 MMOL/L (3.5-5.1) Chloride Level 104 MMOL/L (98-107) Carbon Dioxide Level 25 MMOL/L (21-32) Blood Urea Nitrogen 10 mg/dL (7-18) Creatinine 1.1 MG/DL (0.55-1.30) Estimat Glomerular Filtration Rate > 60 mL/min (>60) Glucose Level 262 MG/DL (74-106) H Calcium Level 7.9 MG/DL (8.5-10.1) L Magnesium Level 2.0 MG/DL (1.8-2.4) Total Bilirubin 0.3 MG/DL (0.2-1.0) Aspartate Amino Transf (AST/SGOT) 13 U/L (15-37) L Alanine Aminotransferase (ALT/SGPT) 6 U/L (12-78) L Alkaline Phosphatase 61 U/L (46-116) Pro-B-Type Natriuretic Peptide 1141 pg/mL (0-125) H Total Protein 5.2 G/DL (6.4-8.2) L Albumin 2.5 G/DL (3.4-5.0) L Globulin 2.7 g/dL Albumin/Globulin Ratio 0.9 (1.0-2.7) L POC Whole Blood Glucose 284 MG/DL (74-106) H 284 MG/DL (74-106) H 297 MG/DL (74-106) H Test 05/01/20 16:45 05/01/20 20:16 POC Whole Blood Glucose 318 MG/DL (74-106) H 250 MG/DL (74-106) H Microbiology Date/Time Source Procedure Growth Status 04/29/20 00:20 Other(Specify in comment) Gram Stain - Final Complete 04/29/20 00:20 Wound Culture - Final Staphylococcus Aureus Complete CHEST XRAY: CXR (05/01) No pneumothorax post biopsy Assessment/Plan Assessment/Plan IRDM uncontrolled Lung Mass COPD Acute/chronic systolic/diastolic CHF Cardiomyopathy Scalp lesion Resume anticoagulation tomorrow Titrate insulin regimen Titrate anti-failure regimen; may need to resume diuretics soon IVF Devin Morris MD May 02, 2020 00:08
[2020-05-02] MEDS: cefTRIAXone 1 GM in NS 55 ML IVPB SCH (03:21)
[2020-05-02 04:00] VITALS: BP 116/69
[2020-05-02] MEDS: NovoLOG Insulin Flexpen SUBQ SCH ×7 (06:19→20:20)
[2020-05-02 08:00] VITALS: BP 120/56
--- NOTE | 2020-05-02 09:17 | Pulmonology Progress Note ---
Subjective ROS Limited/Unobtainable: No Allergies: Coded Allergies: No Known Allergies (Unverified , 02/26/14) All Systems: reviewed and negative except above Subjective underwent procedure Objective Last 24 Hour Vital Signs Date Time Temp Pulse Resp B/P (MAP) Pulse Ox O2 Delivery O2 Flow Rate FiO2 05/02/20 08:00 98.1 73 20 120/56 (77) 94 05/02/20 04:00 98.7 69 16 116/69 (85) 97 05/02/20 00:00 98.3 76 15 114/62 (79) 96 05/01/20 21:00 Nasal Cannula 2.0 05/01/20 20:11 71 134/101 05/01/20 20:00 97.8 71 16 134/101 (112) 98 05/01/20 19:06 97 Nasal Cannula 2.0 28 05/01/20 18:38 82 121/77 05/01/20 16:00 98.7 82 21 121/77 (92) 97 05/01/20 14:25 83 24 144/90 (108) 100 05/01/20 14:20 79 21 149/89 (109) 100 05/01/20 14:15 83 24 142/92 (109) 100 05/01/20 14:10 82 22 137/79 (98) 100 05/01/20 13:54 80 0 2.0 05/01/20 13:50 80 24 134/89 (104) 100 05/01/20 12:00 98.4 82 18 109/59 (76) 97 05/01/20 10:07 79 121/78 05/01/20 10:04 79 121/78 05/01/20 10:04 80 05/01/20 10:04 121/78 Intake and Output 05/01/20 05/02/20 19:00 07:00 Intake Total 1725 ml 720 ml Output Total 900 ml 600 ml Balance 825 ml 120 ml Intake Oral 600 ml 720 ml IV Total 1125 ml Output Urine Total 900 ml 600 ml # Voids 3 2 # Bowel Movements 2 Objective WDWN NAD clear breath sounds bilaterally without rhonchi or wheeze [id number] without MRG NABS nontender no HSM no CCE nonfocal Laboratory Tests 05/01/20 10:03: POC Whole Blood Glucose 284H 05/01/20 12:14: POC Whole Blood Glucose 297H 05/01/20 16:45: POC Whole Blood Glucose 318H 05/01/20 20:16: POC Whole Blood Glucose 250H 05/02/20 06:15: POC Whole Blood Glucose 231H 05/02/20 08:00: Digoxin Level 0.5 Current Medications Medications (Trade) Dose Ordered Sig/Antionette Route PRN Reason Start Time Stop Time Status Last Admin Dose Admin Acetaminophen (Tylenol) 650 mg Q4H PRN ORAL Mild Pain (Pain Scale 1-3) 04/29/20 03:00 05/29/20 02:59 Acetaminophen/ Hydrocodone Bitart ([place] 5/325) 1 tab Q6H PRN ORAL For Pain 04/29/20 03:00 05/06/20 02:59 05/01/20 18:50 Al Hydroxide/Mg Hydroxide (Mylanta) 30 ml Q6H PRN ORAL dyspepsia 04/29/20 03:00 05/29/20 02:59 Amiodarone HCl (Cordarone) 200 mg DAILY ORAL 04/29/20 13:00 07/28/20 12:59 05/01/20 10:04 Amlodipine Besylate (Norvasc) 5 mg TWICE A DAY ORAL 04/29/20 18:00 05/29/20 17:59 05/01/20 18:38 Apixaban (Eliquis) 5 mg BID ORAL 05/02/20 09:00 07/31/20 08:59 Aspirin (Ecotrin) 81 mg DAILY ORAL 04/29/20 13:00 06/13/20 12:59 05/01/20 10:07 Carvedilol (Coreg) 6.25 mg EVERY 12 HOURS ORAL 04/29/20 21:00 05/29/20 20:59 05/01/20 20:11 Ceftriaxone Sodium 1 gm/ Sodium Chloride 55 ml @ 110 mls/hr Q24H IVPB 04/29/20 04:00 05/06/20 03:59 05/02/20 03:21 Dextrose (Dextrose 50%) 25 ml Q30M PRN IV Hypoglycemia 04/30/20 14:00 07/29/20 13:59 Dextrose (Dextrose 50%) 50 ml Q30M PRN IV Hypoglycemia 04/30/20 14:00 07/29/20 13:59 Digoxin (Lanoxin) 0.125 mg DAILY ORAL 04/29/20 09:00 07/28/20 08:59 05/01/20 10:04 Hydromorphone HCl (Dilaudid) 1 mg Q4H PRN IVP Breakthrough Pain 05/01/20 19:45 05/08/20 19:44 Insulin Aspart (NovoLOG) BEFORE MEALS AND HS SUBQ 04/30/20 16:30 07/29/20 16:29 05/02/20 06:20 Insulin Aspart (NovoLOG) 10 units TIAC SUBQ 04/30/20 16:30 07/29/20 16:29 05/02/20 06:19 Insulin Detemir (Levemir) 25 units BID SUBQ 04/30/20 09:00 07/28/20 12:59 05/01/20 18:40 Lidocaine HCl (Xylocaine 1% 30ml) 30 ml NOW PRN INJ Radiology Procedure 04/30/20 10:30 05/03/20 10:29 Lisinopril (ZestriL) 10 mg DAILY ORAL 04/29/20 09:00 05/29/20 08:59 05/01/20 10:04 Pantoprazole (Protonix) 40 mg DAILY ORAL 04/29/20 13:00 05/29/20 12:59 05/01/20 10:04 Pregabalin (Lyrica) 100 mg Q12HR ORAL 04/29/20 13:00 05/29/20 12:59 05/01/20 20:12 Sitagliptin Phosphate (Januvia) 100 mg DAILY ORAL 04/29/20 13:00 05/29/20 12:59 05/01/20 10:03 Spironolactone (Aldactone) 25 mg DAILY ORAL 04/29/20 13:00 05/29/20 12:59 05/01/20 10:07 Zolpidem Tartrate (Ambien) 5 mg HSPRN PRN ORAL Insomnia 04/29/20 03:00 05/06/20 02:59 Assessment/Plan Assessment/Plan IMPRESSION: Large left lower lung mass, approximately 5 cm, likely malignant, COPD per history, smoking history, history of CHF, dysrhythmias, BPH. s/p biopsy RECOMMENDATIONS: await biopsy result. Continue other medications as is. Follow up closely for changes, interventions, and other recommendations. The patient likely will need oncological assistance. However, the patient resides at [facility] and, therefore, may need to start therapy at that location. Thoracic surgery is possibly indicated pending a PET scan, which will have to be done as an outpatient. Care discussed and reviewed with the patient impression, plan, and exam edited and reviewed in detail care discussed with Alek Powell MD May 02, 2020 09:17
[2020-05-02] MEDS: Levemir Flexpen SUBQ SCH ×2 (09:53→17:47)
[2020-05-02] MEDS: Aspirin EC 81mg tab ORAL SCH (09:54)
[2020-05-02] MEDS: Lyrica 50mg cap ORAL SCH ×2 (09:55→20:13)
[2020-05-02] MEDS: Amiodarone 200mg tab ORAL SCH (09:55)
[2020-05-02] MEDS: Digoxin 0.125mg tab ORAL SCH (09:58)
[2020-05-02] MEDS: Eliquis 5mg tablet ORAL SCH ×2 (09:58→17:48)
[2020-05-02] MEDS: Spironolactone 25mg tab ORAL SCH (09:58)
[2020-05-02] MEDS: Lisinopril 10mg tab ORAL SCH (09:58)
[2020-05-02] MEDS: Carvedilol 6.25mg Tab ORAL SCH ×2 (09:59→20:14)
[2020-05-02 12:00] VITALS: BP 129/63
--- NOTE | 2020-05-02 12:34 | Cardiology Progress Note ---
Subjective DATE OF SERVICE: May 02, 2020 Glucose still elevated; but improving Off anti-coagulation since admission; it is restarted today. Some SOB - no CP. BNP levels rising. IVF discont'd yesterday. CT guided lung biopsy completed 05/01/20. Objective Last 24 Hour Vital Signs Date Time Temp Pulse Resp B/P (MAP) Pulse Ox O2 Delivery O2 Flow Rate FiO2 05/02/20 12:00 98.2 83 20 129/63 (85) 94 05/02/20 09:59 73 120/56 05/02/20 09:58 78 05/02/20 09:58 120/56 05/02/20 09:55 73 120/56 05/02/20 08:00 98.1 73 20 120/56 (77) 94 05/02/20 04:00 98.7 69 16 116/69 (85) 97 05/02/20 00:00 98.3 76 15 114/62 (79) 96 05/01/20 21:00 Nasal Cannula 2.0 05/01/20 20:11 71 134/101 05/01/20 20:00 97.8 71 16 134/101 (112) 98 05/01/20 19:06 97 Nasal Cannula 2.0 28 05/01/20 18:38 82 121/77 05/01/20 16:00 98.7 82 21 121/77 (92) 97 05/01/20 14:25 83 24 144/90 (108) 100 05/01/20 14:20 79 21 149/89 (109) 100 05/01/20 14:15 83 24 142/92 (109) 100 05/01/20 14:10 82 22 137/79 (98) 100 05/01/20 13:54 80 0 2.0 05/01/20 13:50 80 24 134/89 (104) 100 ROS: unchanged from my evaluation of 04/29/20 HEENT: normal ENT inspection LUNGS: coarse breath sounds CARDIAC: normal rate, regular rhythm, normal S1 and S2, gallop/S4 ABDOMEN: normal bowel sounds, non tender, soft EXTREMITIES: normal range of motion, No edema Laboratory Tests Test 05/01/20 16:45 05/01/20 20:16 05/02/20 06:15 05/02/20 08:00 POC Whole Blood Glucose 318 MG/DL (74-106) H 250 MG/DL (74-106) H 231 MG/DL (74-106) H Digoxin Level 0.5 NG/ML (0.5-2.0) Test 05/02/20 11:54 POC Whole Blood Glucose 225 MG/DL (74-106) H Assessment/Plan Assessment/Plan IRDM uncontrolled Lung Mass COPD Acute/chronic systolic/diastolic CHF Cardiomyopathy Scalp lesion Resume anticoagulation Titrate insulin regimen further. Titrate anti-failure regimen. Start cautious diuresis. Devin Steiner MD May 02, 2020 12:34
--- NOTE | 2020-05-02 12:58 | General Progress Note ---
Subjective ROS Limited/Unobtainable: No Constitutional: Reports: malaise, weakness HEENT: Reports: no symptoms Cardiovascular: Reports: no symptoms Respiratory: Reports: cough Gastrointestinal/Abdominal: Reports: no symptoms Genitourinary: Reports: no symptoms Neurologic/Psychiatric: Reports: no symptoms Endocrine: Reports: no symptoms Hematologic/Lymphatic: Reports: no symptoms Allergies: Coded Allergies: No Known Allergies (Unverified , 02/26/14) All Systems: reviewed and negative except above Subjective s/p ct guided biopsy no complaints. no cp. stable sob. no fevers or chills. Bs stable. Objective Last 24 Hour Vital Signs Date Time Temp Pulse Resp B/P (MAP) Pulse Ox O2 Delivery O2 Flow Rate FiO2 05/02/20 12:00 98.2 83 20 129/63 (85) 94 05/02/20 09:59 73 120/56 05/02/20 09:58 78 05/02/20 09:58 120/56 05/02/20 09:55 73 120/56 05/02/20 08:00 98.1 73 20 120/56 (77) 94 05/02/20 04:00 98.7 69 16 116/69 (85) 97 05/02/20 00:00 98.3 76 15 114/62 (79) 96 05/01/20 21:00 Nasal Cannula 2.0 05/01/20 20:11 71 134/101 05/01/20 20:00 97.8 71 16 134/101 (112) 98 05/01/20 19:06 97 Nasal Cannula 2.0 28 05/01/20 18:38 82 121/77 05/01/20 16:00 98.7 82 21 121/77 (92) 97 05/01/20 14:25 83 24 144/90 (108) 100 05/01/20 14:20 79 21 149/89 (109) 100 05/01/20 14:15 83 24 142/92 (109) 100 05/01/20 14:10 82 22 137/79 (98) 100 05/01/20 13:54 80 0 2.0 05/01/20 13:50 80 24 134/89 (104) 100 Intake and Output 05/01/20 05/02/20 19:00 07:00 Intake Total 1725 ml 720 ml Output Total 900 ml 600 ml Balance 825 ml 120 ml Intake Oral 600 ml 720 ml IV Total 1125 ml Output Urine Total 900 ml 600 ml # Voids 3 2 # Bowel Movements 2 Laboratory Tests 05/01/20 16:45: POC Whole Blood Glucose 318H 05/01/20 20:16: POC Whole Blood Glucose 250H 05/02/20 06:15: POC Whole Blood Glucose 231H 05/02/20 08:00: Digoxin Level 0.5 05/02/20 11:54: POC Whole Blood Glucose 225H Height (Feet): 5 Height (Inches): 9.00 Weight (Pounds): 244 Objective General Appearance: WD/WN, alert, confused EENT: normal ENT inspection Neck: non-tender, normal alignment, supple Cardiovascular: normal rate, regular rhythm Respiratory/Chest: chest wall non-tender, lungs clear, normal breath sounds, no respiratory distress, no accessory muscle use Abdomen: normal bowel sounds, non tender, soft, no organomegaly, no mass Edema: no edema noted Arm (L), no edema noted Arm (R) Neurologic: alert, responsive Skin: normal pigmentation Lymphatic: normal anterior cervical (L), normal anterior cervical (R) Assessment/Plan Problem List: (1) Atrial fibrillation with RVR ICD Codes: I48.91 - Unspecified atrial fibrillation SNOMED: 199533477 (2) Obesity ICD Codes: E66.9 - Obesity SNOMED: 730651313 (3) Diabetes mellitus ICD Codes: E11.9 - Diabetes mellitus SNOMED: 20382575 (4) COPD (chronic obstructive pulmonary disease) ICD Codes: J44.9 - COPD (chronic obstructive pulmonary disease) SNOMED: 48363206 (5) CHF (congestive heart failure) ICD Codes: I50.9 - CHF (congestive heart failure) SNOMED: 23366569 (6) ACS (acute coronary syndrome) ICD Codes: I20.0 - Unstable angina SNOMED: 771009232 (7) Scalp mass ICD Codes: R22.0 - Localized swelling, mass and lump, head SNOMED: 277626125 (8) Lung mass ICD Codes: R91.8 - Other nonspecific abnormal finding of lung field; E11.65 - Type 2 diabetes mellitus with hyperglycemia SNOMED: 584834229 Status: stable Assessment/Plan: resp rx o2 follow up biopsy results monitor bs insulin coverage dc planning to be determined Jareth Valenzuela MD May 02, 2020 12:58
[2020-05-02 16:30] VITALS: BP 111/62
[2020-05-02 20:00] VITALS: BP 121/70
[2020-05-03] VITALS: BP 122/68
[2020-05-03] MEDS: cefTRIAXone 1 GM in NS 55 ML IVPB SCH (03:13)
[2020-05-03 04:00] VITALS: BP 130/73
[2020-05-03] MEDS: NovoLOG Insulin Flexpen SUBQ SCH ×7 (06:07→20:10)
[2020-05-03 08:00] VITALS: BP 100/51
[2020-05-03] MEDS: Lisinopril 10mg tab ORAL SCH (09:00)
[2020-05-03] MEDS: Levemir Flexpen SUBQ SCH ×2 (09:16→17:27)
[2020-05-03] MEDS: Digoxin 0.125mg tab ORAL SCH (09:16)
[2020-05-03] MEDS: Aspirin EC 81mg tab ORAL SCH (09:16)
[2020-05-03] MEDS: Spironolactone 25mg tab ORAL SCH (09:17)
[2020-05-03] MEDS: Carvedilol 6.25mg Tab ORAL SCH ×2 (09:19→20:07)
[2020-05-03] MEDS: Eliquis 5mg tablet ORAL SCH ×2 (09:20→17:25)
[2020-05-03] MEDS: Lyrica 50mg cap ORAL SCH ×2 (09:20→20:08)
[2020-05-03] MEDS: Amiodarone 200mg tab ORAL SCH (09:20)
--- NOTE | 2020-05-03 10:23 | General Progress Note ---
Subjective ROS Limited/Unobtainable: No Constitutional: Reports: malaise, weakness HEENT: Reports: no symptoms Cardiovascular: Reports: no symptoms Respiratory: Reports: cough, shortness of breath Gastrointestinal/Abdominal: Reports: no symptoms Genitourinary: Reports: no symptoms Neurologic/Psychiatric: Reports: no symptoms Endocrine: Reports: no symptoms Hematologic/Lymphatic: Reports: no symptoms Allergies: Coded Allergies: No Known Allergies (Unverified , 02/26/14) All Systems: reviewed and negative except above Subjective no complaints. no chest pain or sob. no pain. BS controlled. Objective Last 24 Hour Vital Signs Date Time Temp Pulse Resp B/P (MAP) Pulse Ox O2 Delivery O2 Flow Rate FiO2 05/03/20 09:19 82 100/51 05/03/20 09:16 80 05/03/20 09:00 82 100/51 05/03/20 09:00 100/51 05/03/20 08:00 99.2 82 16 100/51 (67) 96 05/03/20 04:00 98.7 80 16 130/73 (92) 95 05/03/20 00:00 99.3 70 15 122/68 (86) 100 05/02/20 21:00 Nasal Cannula 2.0 05/02/20 20:14 66 121/70 05/02/20 20:00 98.7 66 16 121/70 (87) 99 05/02/20 17:48 83 111/62 05/02/20 16:30 98.1 83 20 111/62 (78) 94 05/02/20 12:00 98.2 83 20 129/63 (85) 94 Intake and Output 05/02/20 05/03/20 19:00 07:00 Intake Total 600 ml 800 ml Output Total 3275 ml 1500 ml Balance -2675 ml -700 ml Intake Oral 600 ml 800 ml Output Urine Total 3275 ml 1500 ml # Voids 7 2 Laboratory Tests 05/02/20 11:54: POC Whole Blood Glucose 225H 05/02/20 17:43: POC Whole Blood Glucose 201H 05/02/20 20:17: POC Whole Blood Glucose 205H 05/03/20 06:04: POC Whole Blood Glucose 196H Height (Feet): 5 Height (Inches): 9.00 Weight (Pounds): 244 Objective General Appearance: WD/WN, alert, confused EENT: normal ENT inspection Neck: non-tender, normal alignment, supple Cardiovascular: normal rate, regular rhythm Respiratory/Chest: chest wall non-tender, lungs clear, normal breath sounds, no respiratory distress, no accessory muscle use Abdomen: normal bowel sounds, non tender, soft, no organomegaly, no mass Edema: no edema noted Arm (L), no edema noted Arm (R) Neurologic: alert, responsive Skin: normal pigmentation Lymphatic: normal anterior cervical (L), normal anterior cervical (R) Assessment/Plan Problem List: (1) Atrial fibrillation with RVR ICD Codes: I48.91 - Unspecified atrial fibrillation SNOMED: 828771894 (2) Obesity ICD Codes: E66.9 - Obesity SNOMED: 188364637 (3) Diabetes mellitus ICD Codes: E11.9 - Diabetes mellitus SNOMED: 36817832 (4) COPD (chronic obstructive pulmonary disease) ICD Codes: J44.9 - COPD (chronic obstructive pulmonary disease) SNOMED: 03625176 (5) CHF (congestive heart failure) ICD Codes: I50.9 - CHF (congestive heart failure) SNOMED: 29946101 (6) ACS (acute coronary syndrome) ICD Codes: I20.0 - Unstable angina SNOMED: 112718134 (7) Scalp mass ICD Codes: R22.0 - Localized swelling, mass and lump, head SNOMED: 742389010 (8) Lung mass ICD Codes: R91.8 - Other nonspecific abnormal finding of lung field; E11.65 - Type 2 diabetes mellitus with hyperglycemia SNOMED: 280920922 Status: stable Assessment/Plan: resp rx o2 follow up biopsy results monitor bs insulin coverage dc planning Jareth Valenzuela MD May 03, 2020 10:22
--- NOTE | 2020-05-03 10:31 | CDS Physician Query ---
Clarification is required for compliance, coding accuracy, and to reflect severity of illness for this patient Dear Dr.Kirk Nicolas M.D. Date: 05/03/20 CDIS: Hong Jain Clinical Documentation Statement: 70-year-old male with a history of COPD, diabetes, hypertension. ASSESSMENT: This is a 70-year-old male with a history of hypertension, COPD, congestive heart failure, admitted with a left lung mass and uncontrolled diabetes. Clinical Finding Show: LAB (04/29) :Glucose 755, Sodium 122, Chloride 87, Creatinine 1.6 Medication: Insulin 10 units IV (04/29) , Insulin Detemir SUBQ (04/30-05/01) A [id number] relationship between diagnoses may not be assumed and coded unless documented as such by the attending physician. Please document the [id number] relationship, if any, between these conditions. Please specify type of uncontrolled diabetes as: [x ] Type 2 diabetes mellitus with hyperosmolarity without nonketotic hyperglycemic-hyperosmolar coma ([facility]) [ ] Other specified diabetes mellitus with hyperosmolarity without nonketotic hyperglycemic-hyperosmolar coma ([facility]) [ ] Out of control Diabetes Type I [ ] Out of control Diabetes Type II [ ] Type I or Juvenile Diabetes with Hyperosmolarity [ ] Type II with Hyperosmolarity [ ] Type I or Juvenile Diabetic Ketoacidosis (DKA) [ ] Type II Diabetic Ketoacidosis (DKA) [ ] Type 1 diabetes mellitus with ketoacidosis with coma [ ] Type 2 diabetes mellitus with ketoacidosis with coma [ ] Other: Present on Admission: [x] Yes [] No [] Clinically Undetermined Physician signature Date Please also document in your Progress Notes and/or Discharge Summary and indicate if the condition was present on admission. MTDD
--- NOTE | 2020-05-03 10:44 | Pulmonology Progress Note ---
Subjective ROS Limited/Unobtainable: No Allergies: Coded Allergies: No Known Allergies (Unverified , 02/26/14) All Systems: reviewed and negative except above Subjective underwent procedure no other changes noted Objective Last 24 Hour Vital Signs Date Time Temp Pulse Resp B/P (MAP) Pulse Ox O2 Delivery O2 Flow Rate FiO2 05/03/20 09:19 82 100/51 05/03/20 09:16 80 05/03/20 09:00 82 100/51 05/03/20 09:00 100/51 05/03/20 08:00 99.2 82 16 100/51 (67) 96 05/03/20 04:00 98.7 80 16 130/73 (92) 95 05/03/20 00:00 99.3 70 15 122/68 (86) 100 05/02/20 21:00 Nasal Cannula 2.0 05/02/20 20:14 66 121/70 05/02/20 20:00 98.7 66 16 121/70 (87) 99 05/02/20 17:48 83 111/62 05/02/20 16:30 98.1 83 20 111/62 (78) 94 05/02/20 12:00 98.2 83 20 129/63 (85) 94 Intake and Output 05/02/20 05/03/20 19:00 07:00 Intake Total 600 ml 800 ml Output Total 3275 ml 1500 ml Balance -2675 ml -700 ml Intake Oral 600 ml 800 ml Output Urine Total 3275 ml 1500 ml # Voids 7 2 Objective WDWN NAD clear breath sounds bilaterally without rhonchi or wheeze [id number] without MRG NABS nontender no HSM no CCE nonfocal Laboratory Tests 05/02/20 11:54: POC Whole Blood Glucose 225H 05/02/20 17:43: POC Whole Blood Glucose 201H 05/02/20 20:17: POC Whole Blood Glucose 205H 05/03/20 06:04: POC Whole Blood Glucose 196H Current Medications Medications (Trade) Dose Ordered Sig/Antionette Route PRN Reason Start Time Stop Time Status Last Admin Dose Admin Acetaminophen (Tylenol) 650 mg Q4H PRN ORAL Mild Pain (Pain Scale 1-3) 04/29/20 03:00 05/29/20 02:59 Acetaminophen/ Hydrocodone Bitart ([place] 5/325) 1 tab Q6H PRN ORAL For Pain 04/29/20 03:00 05/06/20 02:59 05/01/20 18:50 Al Hydroxide/Mg Hydroxide (Mylanta) 30 ml Q6H PRN ORAL dyspepsia 04/29/20 03:00 05/29/20 02:59 Amiodarone HCl (Cordarone) 200 mg DAILY ORAL 04/29/20 13:00 07/28/20 12:59 05/03/20 09:20 Amlodipine Besylate (Norvasc) 5 mg TWICE A DAY ORAL 04/29/20 18:00 05/29/20 17:59 05/02/20 17:48 Apixaban (Eliquis) 5 mg BID ORAL 05/02/20 09:00 07/31/20 08:59 05/03/20 09:20 Aspirin (Ecotrin) 81 mg DAILY ORAL 04/29/20 13:00 06/13/20 12:59 05/03/20 09:16 Carvedilol (Coreg) 6.25 mg EVERY 12 HOURS ORAL 04/29/20 21:00 05/29/20 20:59 05/03/20 09:19 Ceftriaxone Sodium 1 gm/ Sodium Chloride 55 ml @ 110 mls/hr Q24H IVPB 04/29/20 04:00 05/06/20 03:59 05/03/20 03:13 Dextrose (Dextrose 50%) 25 ml Q30M PRN IV Hypoglycemia 04/30/20 14:00 07/29/20 13:59 Dextrose (Dextrose 50%) 50 ml Q30M PRN IV Hypoglycemia 04/30/20 14:00 07/29/20 13:59 Digoxin (Lanoxin) 0.125 mg DAILY ORAL 04/29/20 09:00 07/28/20 08:59 05/03/20 09:16 Hydromorphone HCl (Dilaudid) 1 mg Q4H PRN IVP Breakthrough Pain 05/01/20 19:45 05/08/20 19:44 Insulin Aspart (NovoLOG) BEFORE MEALS AND HS SUBQ 04/30/20 16:30 07/29/20 16:29 05/03/20 06:08 Insulin Aspart (NovoLOG) 10 units TIAC SUBQ 04/30/20 16:30 07/29/20 16:29 05/03/20 06:07 Insulin Detemir (Levemir) 30 units BID SUBQ 05/02/20 18:00 07/28/20 12:59 05/03/20 09:16 Lisinopril (ZestriL) 10 mg DAILY ORAL 04/29/20 09:00 05/29/20 08:59 05/02/20 09:58 Pantoprazole (Protonix) 40 mg DAILY ORAL 04/29/20 13:00 05/29/20 12:59 05/03/20 09:21 Pregabalin (Lyrica) 100 mg Q12HR ORAL 04/29/20 13:00 05/29/20 12:59 05/03/20 09:20 Sitagliptin Phosphate (Januvia) 100 mg DAILY ORAL 04/29/20 13:00 05/29/20 12:59 05/03/20 09:19 Spironolactone (Aldactone) 25 mg DAILY ORAL 04/29/20 13:00 05/29/20 12:59 05/03/20 09:17 Zolpidem Tartrate (Ambien) 5 mg HSPRN PRN ORAL Insomnia 04/29/20 03:00 05/06/20 02:59 Assessment/Plan Assessment/Plan IMPRESSION: Large left lower lung mass, approximately 5 cm, likely malignant, COPD per history, smoking history, history of CHF, dysrhythmias, BPH. s/p biopsy RECOMMENDATIONS: await biopsy result. Continue other medications as is. Follow up closely for changes, interventions, and other recommendations. The patient likely will need oncological assistance. However, the patient resides at [facility] and, therefore, may need to start therapy at that location. Thoracic surgery is possibly indicated pending a PET scan, which will have to be done as an outpatient. Care discussed and reviewed with the patient impression, plan, and exam edited and reviewed in detail care discussed with Alek Powell MD May 03, 2020 10:44
[2020-05-03 12:00] VITALS: BP 115/67
[2020-05-03 16:00] VITALS: BP 114/66
--- NOTE | 2020-05-03 18:52 | Cardiology Progress Note ---
Subjective DATE OF SERVICE: May 03, 2020 Glucose control improved Back on full anti-coagulation. Some SOB - no CP. BNP levels were rising; he is no longer on IVF, and diuresis initiated. CT guided lung biopsy completed 05/01/20; pathology since pending. Objective Last 24 Hour Vital Signs Date Time Temp Pulse Resp B/P (MAP) Pulse Ox O2 Delivery O2 Flow Rate FiO2 05/03/20 17:26 70 114/66 05/03/20 16:00 98.2 70 18 114/66 (82) 97 05/03/20 12:00 98.1 81 18 115/67 (83) 97 05/03/20 09:19 82 100/51 05/03/20 09:16 80 05/03/20 09:00 82 100/51 05/03/20 09:00 100/51 05/03/20 09:00 Nasal Cannula 2.0 05/03/20 08:00 99.2 82 16 100/51 (67) 96 05/03/20 04:00 98.7 80 16 130/73 (92) 95 05/03/20 00:00 99.3 70 15 122/68 (86) 100 05/02/20 21:00 Nasal Cannula 2.0 05/02/20 20:14 66 121/70 05/02/20 20:00 98.7 66 16 121/70 (87) 99 ROS: unchanged from my evaluation of 04/29/20 HEENT: normal ENT inspection LUNGS: coarse breath sounds CARDIAC: normal rate, regular rhythm, normal S1 and S2, gallop/S4 ABDOMEN: normal bowel sounds, non tender, soft EXTREMITIES: normal range of motion, No edema Laboratory Tests Test 05/02/20 20:17 05/03/20 06:04 05/03/20 12:14 05/03/20 17:22 POC Whole Blood Glucose 205 MG/DL (74-106) H 196 MG/DL (74-106) H 253 MG/DL (74-106) H 180 MG/DL (74-106) H Assessment/Plan Assessment/Plan IRDM uncontrolled Lung Mass COPD Acute/chronic systolic/diastolic CHF Cardiomyopathy Scalp lesion Continue anticoagulation Titrate insulin regimen further. Titrate anti-failure regimen. Continue cautious diuresis. DC plan; complete malignancy work-up as outpatient. Devin Steiner MD May 03, 2020 18:52
[2020-05-03 20:00] VITALS: BP 111/71
[2020-05-04] VITALS: BP 120/69
[2020-05-04] MEDS: cefTRIAXone 1 GM in NS 55 ML IVPB SCH (03:08)
[2020-05-04 04:00] VITALS: BP 107/69
[2020-05-04] MEDS: NovoLOG Insulin Flexpen SUBQ SCH ×7 (06:04→20:04)
[2020-05-04 06:35] LABS: BASOPHILS % (AUTO) 0.7 % (0.0-2.0); EOSINOPHILS % (AUTO) 3.6 % (0.0-3.0); HEMATOCRIT 39.8 % (42.0-52.0); HEMOGLOBIN 13.1 G/DL (14.2-18.0); MEAN CORPUSCULAR VOLUME 94 FL (80-99); NEUTROPHILS % (AUTO) 73.7 % (45.0-75.0); PLATELET COUNT 283 K/UL (150-450); RED BLOOD COUNT 4.25 M/UL (4.70-6.10); RED CELL DISTRIBUTION WIDTH 13.1 % (11.6-14.8); WHITE BLOOD COUNT 12.2 K/UL (4.8-10.8)
[2020-05-04 07:08] LABS: ALANINE AMINOTRANSFERASE 6 U/L (12-78); ALBUMIN 2.8 G/DL (3.4-5.0); ALBUMIN/GLOBULIN RATIO 0.8 (1.0-2.7); ALKALINE PHOSPHATASE 77 U/L (46-116); ANION GAP 7 mmol/L (5-15); ASPARTATE AMINO TRANSFERASE 11 U/L (15-37); BILIRUBIN,TOTAL 0.3 MG/DL (0.2-1.0); BLOOD UREA NITROGEN 13 mg/dL (7-18); CALCIUM 8.8 MG/DL (8.5-10.1); CARBON DIOXIDE 31 MMOL/L (21-32); CHLORIDE 98 MMOL/L (98-107); CREATININE 1.1 MG/DL (0.55-1.30); SODIUM 136 MMOL/L (136-145)
--- NOTE | 2020-05-04 07:16 | General Progress Note ---
Subjective ROS Limited/Unobtainable: No Constitutional: Reports: malaise, weakness HEENT: Reports: no symptoms Cardiovascular: Reports: no symptoms Respiratory: Reports: cough Gastrointestinal/Abdominal: Reports: no symptoms Genitourinary: Reports: no symptoms Neurologic/Psychiatric: Reports: no symptoms Endocrine: Reports: no symptoms Hematologic/Lymphatic: Reports: no symptoms Allergies: Coded Allergies: No Known Allergies (Unverified , 02/26/14) All Systems: reviewed and negative except above Subjective no new complaints. No CP. +sob with exertion. on o2. biopsy results pending. Blood sugars labile- drinking multiple cups of juice last night Objective Last 24 Hour Vital Signs Date Time Temp Pulse Resp B/P (MAP) Pulse Ox O2 Delivery O2 Flow Rate FiO2 05/04/20 04:00 98.1 80 18 107/69 (82) 97 05/04/20 00:00 98.3 80 16 120/69 (86) 96 05/03/20 21:00 Nasal Cannula 2.0 05/03/20 20:18 98 Nasal Cannula 2.0 28 05/03/20 20:07 77 111/71 05/03/20 20:00 98.5 77 16 111/71 (84) 99 05/03/20 17:26 70 114/66 05/03/20 16:00 98.2 70 18 114/66 (82) 97 05/03/20 12:00 98.1 81 18 115/67 (83) 97 05/03/20 09:19 82 100/51 05/03/20 09:16 80 05/03/20 09:00 82 100/51 05/03/20 09:00 100/51 05/03/20 09:00 Nasal Cannula 2.0 05/03/20 08:00 99.2 82 16 100/51 (67) 96 Intake and Output 05/03/20 05/04/20 19:00 07:00 Intake Total 1100 ml 1060 ml Output Total 925 ml 2375 ml Balance 175 ml -1315 ml Intake Oral 1100 ml 1060 ml Output Urine Total 925 ml 2375 ml # Voids 3 6 Laboratory Tests 05/03/20 12:14: POC Whole Blood Glucose 253H 05/03/20 17:22: POC Whole Blood Glucose 180H 05/03/20 20:05: POC Whole Blood Glucose 194H 05/04/20 04:50: White Blood Count 12.2H, Red Blood Count 4.25L, Hemoglobin 13.1L, Hematocrit 39.8L, Mean Corpuscular Volume 94, Mean Corpuscular Hemoglobin 30.9, Mean Corpuscular Hemoglobin Concent 33.0, Red Cell Distribution Width 13.1, Platelet Count 283, Mean Platelet Volume 5.6L, Neutrophils (%) (Auto) 73.7, Lymphocytes (%) (Auto) 17.0L, Monocytes (%) (Auto) 5.0, Eosinophils (%) (Auto) 3.6H, Basophils (%) (Auto) 0.7, Sodium Level [Pending], Potassium Level [Pending], Chloride Level [Pending], Carbon Dioxide Level [Pending], Blood Urea Nitrogen [Pending], Creatinine [Pending], Estimat Glomerular Filtration Rate [Pending], Glucose Level [Pending], Calcium Level [Pending], Magnesium Level [Pending], Total Bilirubin [Pending], Aspartate Amino Transf (AST/SGOT) [Pending], Alanine Aminotransferase (ALT/SGPT) [Pending], Alkaline Phosphatase [Pending], Pro-B-Type Natriuretic Peptide [Pending], Total Protein [Pending], Albumin [Pending], Globulin [Pending] 05/04/20 05:40: POC Whole Blood Glucose 321H Height (Feet): 5 Height (Inches): 9.00 Weight (Pounds): 244 Objective General Appearance: WD/WN, alert, confused EENT: normal ENT inspection Neck: non-tender, normal alignment, supple Cardiovascular: normal rate, regular rhythm Respiratory/Chest: chest wall non-tender, lungs clear, normal breath sounds, no respiratory distress, no accessory muscle use Abdomen: normal bowel sounds, non tender, soft, no organomegaly, no mass Edema: no edema noted Arm (L), no edema noted Arm (R) Neurologic: alert, responsive Skin: normal pigmentation Lymphatic: normal anterior cervical (L), normal anterior cervical (R) Assessment/Plan Problem List: (1) Atrial fibrillation with RVR ICD Codes: I48.91 - Unspecified atrial fibrillation SNOMED: 363394268 (2) Obesity ICD Codes: E66.9 - Obesity SNOMED: 280387351 (3) Diabetes mellitus ICD Codes: E11.9 - Diabetes mellitus SNOMED: 10303532 (4) COPD (chronic obstructive pulmonary disease) ICD Codes: J44.9 - COPD (chronic obstructive pulmonary disease) SNOMED: 33784147 (5) CHF (congestive heart failure) ICD Codes: I50.9 - CHF (congestive heart failure) SNOMED: 51428644 (6) ACS (acute coronary syndrome) ICD Codes: I20.0 - Unstable angina SNOMED: 775483686 (7) Scalp mass ICD Codes: R22.0 - Localized swelling, mass and lump, head SNOMED: 389143212 (8) Lung mass ICD Codes: R91.8 - Other nonspecific abnormal finding of lung field; E11.65 - Type 2 diabetes mellitus with hyperglycemia SNOMED: 832986888 Status: stable Assessment/Plan: resp rx o2 follow up biopsy results monitor bs insulin coverage dietary compliance stressed dvt/stress ulcer prophylaxis outpt CT/PET scan dc planning if ok with all Jareth Valenzuela MD May 04, 2020 07:16
--- NOTE | 2020-05-04 07:39 | Pulmonology Progress Note ---
Subjective ROS Limited/Unobtainable: No Allergies: Coded Allergies: No Known Allergies (Unverified , 02/26/14) All Systems: reviewed and negative except above Subjective underwent procedure no other changes noted Objective Last 24 Hour Vital Signs Date Time Temp Pulse Resp B/P (MAP) Pulse Ox O2 Delivery O2 Flow Rate FiO2 05/04/20 04:00 98.1 80 18 107/69 (82) 97 05/04/20 00:00 98.3 80 16 120/69 (86) 96 05/03/20 21:00 Nasal Cannula 2.0 05/03/20 20:18 98 Nasal Cannula 2.0 28 05/03/20 20:07 77 111/71 05/03/20 20:00 98.5 77 16 111/71 (84) 99 05/03/20 17:26 70 114/66 05/03/20 16:00 98.2 70 18 114/66 (82) 97 05/03/20 12:00 98.1 81 18 115/67 (83) 97 05/03/20 09:19 82 100/51 05/03/20 09:16 80 05/03/20 09:00 82 100/51 05/03/20 09:00 100/51 05/03/20 09:00 Nasal Cannula 2.0 05/03/20 08:00 99.2 82 16 100/51 (67) 96 Intake and Output 05/03/20 05/04/20 19:00 07:00 Intake Total 1100 ml 1060 ml Output Total 925 ml 2375 ml Balance 175 ml -1315 ml Intake Oral 1100 ml 1060 ml Output Urine Total 925 ml 2375 ml # Voids 3 6 Objective WDWN NAD clear breath sounds bilaterally without rhonchi or wheeze [id number] without MRG NABS nontender no HSM no CCE nonfocal Laboratory Tests 05/03/20 12:14: POC Whole Blood Glucose 253H 05/03/20 17:22: POC Whole Blood Glucose 180H 05/03/20 20:05: POC Whole Blood Glucose 194H 05/04/20 04:50: White Blood Count 12.2H, Red Blood Count 4.25L, Hemoglobin 13.1L, Hematocrit 39.8L, Mean Corpuscular Volume 94, Mean Corpuscular Hemoglobin 30.9, Mean Corpuscular Hemoglobin Concent 33.0, Red Cell Distribution Width 13.1, Platelet Count 283, Mean Platelet Volume 5.6L, Neutrophils (%) (Auto) 73.7, Lymphocytes (%) (Auto) 17.0L, Monocytes (%) (Auto) 5.0, Eosinophils (%) (Auto) 3.6H, Basophils (%) (Auto) 0.7, Sodium Level 136, Potassium Level 4.0, Chloride Level 98, Carbon Dioxide Level 31, Anion Gap 7, Blood Urea Nitrogen 13, Creatinine 1.1, Estimat Glomerular Filtration Rate > 60, Glucose Level 352H, Calcium Level 8.8, Magnesium Level 2.0, Total Bilirubin 0.3, Aspartate Amino Transf (AST/SGOT) 11L, Alanine Aminotransferase (ALT/SGPT) 6L, Alkaline Phosphatase 77, Pro-B-Type Natriuretic Peptide 1061H, Total Protein 6.2L, Albumin 2.8L, Globulin 3.4, Albumin/Globulin Ratio 0.8L 05/04/20 05:40: POC Whole Blood Glucose 321H Current Medications Medications (Trade) Dose Ordered Sig/Antionette Route PRN Reason Start Time Stop Time Status Last Admin Dose Admin Acetaminophen (Tylenol) 650 mg Q4H PRN ORAL Mild Pain (Pain Scale 1-3) 04/29/20 03:00 05/29/20 02:59 Acetaminophen/ Hydrocodone Bitart ([place] 5/325) 1 tab Q6H PRN ORAL For Pain 04/29/20 03:00 05/06/20 02:59 05/01/20 18:50 Al Hydroxide/Mg Hydroxide (Mylanta) 30 ml Q6H PRN ORAL dyspepsia 04/29/20 03:00 05/29/20 02:59 Amiodarone HCl (Cordarone) 200 mg DAILY ORAL 04/29/20 13:00 07/28/20 12:59 05/03/20 09:20 Amlodipine Besylate (Norvasc) 5 mg TWICE A DAY ORAL 04/29/20 18:00 05/29/20 17:59 05/03/20 17:26 Apixaban (Eliquis) 5 mg BID ORAL 05/02/20 09:00 07/31/20 08:59 05/03/20 17:25 Aspirin (Ecotrin) 81 mg DAILY ORAL 04/29/20 13:00 06/13/20 12:59 05/03/20 09:16 Carvedilol (Coreg) 6.25 mg EVERY 12 HOURS ORAL 04/29/20 21:00 05/29/20 20:59 05/03/20 20:07 Ceftriaxone Sodium 1 gm/ Sodium Chloride 55 ml @ 110 mls/hr Q24H IVPB 04/29/20 04:00 05/06/20 03:59 05/04/20 03:08 Dextrose (Dextrose 50%) 25 ml Q30M PRN IV Hypoglycemia 04/30/20 14:00 07/29/20 13:59 Dextrose (Dextrose 50%) 50 ml Q30M PRN IV Hypoglycemia 04/30/20 14:00 07/29/20 13:59 Digoxin (Lanoxin) 0.125 mg DAILY ORAL 04/29/20 09:00 07/28/20 08:59 05/03/20 09:16 Furosemide (Lasix) 40 mg DAILY ORAL 05/04/20 09:00 06/03/20 08:59 Hydromorphone HCl (Dilaudid) 1 mg Q4H PRN IVP Breakthrough Pain 05/01/20 19:45 05/08/20 19:44 Insulin Aspart (NovoLOG) BEFORE MEALS AND HS SUBQ 04/30/20 16:30 07/29/20 16:29 05/04/20 06:04 Insulin Aspart (NovoLOG) 10 units TIAC SUBQ 04/30/20 16:30 07/29/20 16:29 05/04/20 06:04 Insulin Detemir (Levemir) 30 units BID SUBQ 05/02/20 18:00 07/28/20 12:59 05/03/20 17:27 Lisinopril (ZestriL) 10 mg DAILY ORAL 04/29/20 09:00 05/29/20 08:59 05/02/20 09:58 Pantoprazole (Protonix) 40 mg DAILY ORAL 04/29/20 13:00 05/29/20 12:59 05/03/20 09:21 Pregabalin (Lyrica) 100 mg Q12HR ORAL 04/29/20 13:00 05/29/20 12:59 05/03/20 20:08 Sitagliptin Phosphate (Januvia) 100 mg DAILY ORAL 04/29/20 13:00 05/29/20 12:59 05/03/20 09:19 Spironolactone (Aldactone) 25 mg DAILY ORAL 04/29/20 13:00 05/29/20 12:59 05/03/20 09:17 Zolpidem Tartrate (Ambien) 5 mg HSPRN PRN ORAL Insomnia 04/29/20 03:00 05/06/20 02:59 Assessment/Plan Assessment/Plan IMPRESSION: Large left lower lung mass, approximately 5 cm, likely malignant, COPD per history, smoking history, history of CHF, dysrhythmias, BPH. s/p biopsy RECOMMENDATIONS: await biopsy result. Continue other medications as is. Follow up closely for changes, interventions, and other recommendations. The patient likely will need oncological assistance. However, the patient resides at [place] and, therefore, may need to start therapy at that location. Thoracic surgery is possibly indicated pending a PET scan, which will have to be done as an outpatient. Care discussed and reviewed with the patient impression, plan, and exam edited and reviewed in detail care discussed with Alek Powell MD May 04, 2020 07:39
[2020-05-04 08:56] VITALS: BP 114/74
[2020-05-04] MEDS: Digoxin 0.125mg tab ORAL SCH (09:03)
[2020-05-04] MEDS: Aspirin EC 81mg tab ORAL SCH (09:03)
[2020-05-04] MEDS: Amiodarone 200mg tab ORAL SCH (09:04)
[2020-05-04] MEDS: Lisinopril 10mg tab ORAL SCH (09:04)
[2020-05-04] MEDS: Furosemide 40mg tab ORAL SCH (09:04)
[2020-05-04] MEDS: Spironolactone 25mg tab ORAL SCH (09:04)
[2020-05-04] MEDS: Eliquis 5mg tablet ORAL SCH ×2 (09:04→18:16)
[2020-05-04] MEDS: Carvedilol 6.25mg Tab ORAL SCH ×2 (09:04→20:03)
[2020-05-04] MEDS: Lyrica 50mg cap ORAL SCH ×2 (09:05→20:02)
[2020-05-04] MEDS: Levemir Flexpen SUBQ SCH ×2 (09:07→18:33)
[2020-05-04 12:00] VITALS: BP 94/58
[2020-05-04 16:00] VITALS: BP 121/77
[2020-05-04 20:00] VITALS: BP 117/72
--- NOTE | 2020-05-04 21:30 | Cardiology Progress Note ---
Subjective DATE OF SERVICE: May 04, 2020 Glucose control improved Back on full anti-coagulation; no bleeding complications. Some SOB - no CP. BNP levels were rising, slightly better today. 4.5 liters negative fluid balance over past 2 days. 2D Echo: EF 45-50% with mild mitral and tricuspid regurgitation. CT guided lung biopsy completed 05/01/20; pathology still pending. Objective Last 24 Hour Vital Signs Date Time Temp Pulse Resp B/P (MAP) Pulse Ox O2 Delivery O2 Flow Rate FiO2 05/04/20 20:03 81 117/72 05/04/20 18:16 82 121/77 05/04/20 16:00 98.1 82 20 121/77 (92) 98 05/04/20 12:00 98.1 82 20 94/58 (70) 98 05/04/20 09:04 72 114/74 05/04/20 09:04 72 114/74 05/04/20 09:04 114/74 05/04/20 09:03 72 05/04/20 09:00 Nasal Cannula 2.0 05/04/20 08:56 98.6 72 18 114/74 (87) 99 05/04/20 07:52 98 Nasal Cannula 2.0 28 05/04/20 04:00 98.1 80 18 107/69 (82) 97 05/04/20 00:00 98.3 80 16 120/69 (86) 96 ROS: unchanged from my evaluation of 04/29/20 HEENT: normal ENT inspection LUNGS: coarse breath sounds CARDIAC: normal rate, regular rhythm, normal S1 and S2, gallop/S4 ABDOMEN: normal bowel sounds, non tender, soft EXTREMITIES: normal range of motion, No edema Laboratory Tests Test 05/04/20 04:50 05/04/20 05:40 05/04/20 11:32 05/04/20 16:43 White Blood Count 12.2 K/UL (4.8-10.8) H Red Blood Count 4.25 M/UL (4.70-6.10) L Hemoglobin 13.1 G/DL (14.2-18.0) L Hematocrit 39.8 % (42.0-52.0) L Mean Corpuscular Volume 94 FL (80-99) Mean Corpuscular Hemoglobin 30.9 PG (27.0-31.0) Mean Corpuscular Hemoglobin Concent 33.0 G/DL (32.0-36.0) Red Cell Distribution Width 13.1 % (11.6-14.8) Platelet Count 283 K/UL (150-450) Mean Platelet Volume 5.6 FL (6.5-10.1) L Neutrophils (%) (Auto) 73.7 % (45.0-75.0) Lymphocytes (%) (Auto) 17.0 % (20.0-45.0) L Monocytes (%) (Auto) 5.0 % (1.0-10.0) Eosinophils (%) (Auto) 3.6 % (0.0-3.0) H Basophils (%) (Auto) 0.7 % (0.0-2.0) Sodium Level 136 MMOL/L (136-145) Potassium Level 4.0 MMOL/L (3.5-5.1) Chloride Level 98 MMOL/L (98-107) Carbon Dioxide Level 31 MMOL/L (21-32) Anion Gap 7 mmol/L (5-15) Blood Urea Nitrogen 13 mg/dL (7-18) Creatinine 1.1 MG/DL (0.55-1.30) Estimat Glomerular Filtration Rate > 60 mL/min (>60) Glucose Level 352 MG/DL (74-106) H Calcium Level 8.8 MG/DL (8.5-10.1) Magnesium Level 2.0 MG/DL (1.8-2.4) Total Bilirubin 0.3 MG/DL (0.2-1.0) Aspartate Amino Transf (AST/SGOT) 11 U/L (15-37) L Alanine Aminotransferase (ALT/SGPT) 6 U/L (12-78) L Alkaline Phosphatase 77 U/L (46-116) Pro-B-Type Natriuretic Peptide 1061 pg/mL (0-125) H Total Protein 6.2 G/DL (6.4-8.2) L Albumin 2.8 G/DL (3.4-5.0) L Globulin 3.4 g/dL Albumin/Globulin Ratio 0.8 (1.0-2.7) L POC Whole Blood Glucose 321 MG/DL (74-106) H Pending Pending Test 05/04/20 19:48 POC Whole Blood Glucose 189 MG/DL (74-106) H Assessment/Plan Assessment/Plan IRDM uncontrolled Lung Mass COPD Acute/chronic systolic/diastolic CHF Cardiomyopathy Scalp lesion Continue anticoagulation Titrate insulin regimen further. Titrate anti-failure regimen based on clinical parameters. Continue cautious diuresis. DC plan; complete malignancy work-up as outpatient. Devin Steiner MD May 04, 2020 21:30
[2020-05-05] MEDS: cefTRIAXone 1 GM in NS 55 ML IVPB SCH (03:05)
[2020-05-05 04:00] VITALS: BP 123/65
[2020-05-05] MEDS: NovoLOG Insulin Flexpen SUBQ SCH ×7 (06:03→20:28)
[2020-05-05 08:00] VITALS: BP 96/61
[2020-05-05] MEDS: Eliquis 5mg tablet ORAL SCH ×2 (08:21→17:31)
[2020-05-05] MEDS: Carvedilol 6.25mg Tab ORAL SCH ×2 (08:21→20:24)
[2020-05-05] MEDS: Aspirin EC 81mg tab ORAL SCH (08:24)
[2020-05-05] MEDS: Lyrica 50mg cap ORAL SCH ×2 (08:25→20:24)
[2020-05-05] MEDS: Furosemide 40mg tab ORAL SCH (08:26)
[2020-05-05] MEDS: Digoxin 0.125mg tab ORAL SCH (08:27)
[2020-05-05] MEDS: Spironolactone 25mg tab ORAL SCH (08:27)
[2020-05-05] MEDS: Amiodarone 200mg tab ORAL SCH (08:28)
[2020-05-05] MEDS: Lisinopril 10mg tab ORAL SCH (09:00)
--- NOTE | 2020-05-05 09:32 | Pulmonology Progress Note ---
Subjective ROS Limited/Unobtainable: No Allergies: Coded Allergies: No Known Allergies (Unverified , 02/26/14) All Systems: reviewed and negative except above Subjective underwent procedure no other changes noted Objective Last 24 Hour Vital Signs Date Time Temp Pulse Resp B/P (MAP) Pulse Ox O2 Delivery O2 Flow Rate FiO2 05/05/20 08:27 81 05/05/20 08:21 81 96/61 05/05/20 08:00 98.1 81 20 96/61 (73) 97 05/05/20 04:00 98.4 78 20 123/65 (84) 98 05/04/20 21:00 Nasal Cannula 2.0 05/04/20 20:03 81 117/72 05/04/20 20:00 97 Nasal Cannula 2.0 28 05/04/20 20:00 97.8 81 20 117/72 (87) 97 05/04/20 18:16 82 121/77 05/04/20 16:00 98.1 82 20 121/77 (92) 98 05/04/20 12:00 98.1 82 20 94/58 (70) 98 Intake and Output 05/04/20 05/05/20 18:59 06:59 Intake Total 1000 ml 1600 ml Output Total 2000 ml Balance 1000 ml -400 ml Intake Oral 1000 ml 1600 ml Output Urine Total 2000 ml # Voids 4 8 # Bowel Movements 1 Objective WDWN NAD clear breath sounds bilaterally without rhonchi or wheeze [id number] without MRG NABS nontender no HSM no CCE nonfocal Laboratory Tests 05/04/20 11:32: POC Whole Blood Glucose [Pending] 05/04/20 16:43: POC Whole Blood Glucose [Pending] 05/04/20 19:48: POC Whole Blood Glucose 189H 05/05/20 06:00: POC Whole Blood Glucose 288H 05/05/20 08:19: POC Whole Blood Glucose [Pending] Current Medications Medications (Trade) Dose Ordered Sig/Antionette Route PRN Reason Start Time Stop Time Status Last Admin Dose Admin Acetaminophen (Tylenol) 650 mg Q4H PRN ORAL Mild Pain (Pain Scale 1-3) 04/29/20 03:00 05/29/20 02:59 Acetaminophen/ Hydrocodone Bitart ([place] 5/325) 1 tab Q6H PRN ORAL For Pain 04/29/20 03:00 10/28/20 02:59 05/01/20 18:50 Al Hydroxide/Mg Hydroxide (Mylanta) 30 ml Q6H PRN ORAL dyspepsia 04/29/20 03:00 05/29/20 02:59 Amiodarone HCl (Cordarone) 200 mg DAILY ORAL 04/29/20 13:00 07/28/20 12:59 05/05/20 08:28 Amlodipine Besylate (Norvasc) 5 mg TWICE A DAY ORAL 04/29/20 18:00 05/29/20 17:59 05/04/20 18:16 Apixaban (Eliquis) 5 mg BID ORAL 05/02/20 09:00 07/31/20 08:59 05/05/20 08:21 Aspirin (Ecotrin) 81 mg DAILY ORAL 04/29/20 13:00 06/13/20 12:59 05/05/20 08:24 Carvedilol (Coreg) 6.25 mg EVERY 12 HOURS ORAL 04/29/20 21:00 05/29/20 20:59 05/05/20 08:21 Ceftriaxone Sodium 1 gm/ Sodium Chloride 55 ml @ 110 mls/hr Q24H IVPB 04/29/20 04:00 05/06/20 03:59 05/05/20 03:05 Dextrose (Dextrose 50%) 25 ml Q30M PRN IV Hypoglycemia 04/30/20 14:00 07/29/20 13:59 Dextrose (Dextrose 50%) 50 ml Q30M PRN IV Hypoglycemia 04/30/20 14:00 07/29/20 13:59 Digoxin (Lanoxin) 0.125 mg DAILY ORAL 04/29/20 09:00 07/28/20 08:59 05/05/20 08:27 Furosemide (Lasix) 40 mg DAILY ORAL 05/04/20 09:00 06/03/20 08:59 05/05/20 08:26 Hydromorphone HCl (Dilaudid) 1 mg Q4H PRN IVP Breakthrough Pain 05/01/20 19:45 05/08/20 19:44 Insulin Aspart (NovoLOG) BEFORE MEALS AND HS SUBQ 04/30/20 16:30 07/29/20 16:29 05/05/20 06:04 Insulin Aspart (NovoLOG) 10 units TIAC SUBQ 04/30/20 16:30 07/29/20 16:29 05/05/20 06:03 Insulin Detemir (Levemir) 30 units BID SUBQ 05/02/20 18:00 07/28/20 12:59 05/04/20 18:33 Lisinopril (ZestriL) 10 mg DAILY ORAL 04/29/20 09:00 05/29/20 08:59 05/04/20 09:04 Pantoprazole (Protonix) 40 mg DAILY ORAL 04/29/20 13:00 05/29/20 12:59 05/05/20 08:21 Pregabalin (Lyrica) 100 mg Q12HR ORAL 04/29/20 13:00 05/29/20 12:59 05/05/20 08:25 Sitagliptin Phosphate (Januvia) 100 mg DAILY ORAL 04/29/20 13:00 05/29/20 12:59 05/05/20 08:24 Spironolactone (Aldactone) 25 mg DAILY ORAL 04/29/20 13:00 05/29/20 12:59 05/05/20 08:27 Zolpidem Tartrate (Ambien) 5 mg HSPRN PRN ORAL Insomnia 04/29/20 03:00 05/06/20 02:59 Assessment/Plan Assessment/Plan IMPRESSION: Large left lower lung mass, approximately 5 cm, likely malignant, COPD per history, smoking history, history of CHF, dysrhythmias, BPH. s/p biopsy RECOMMENDATIONS: ok to dc. await biopsy result. Continue other medications as is. Follow up closely for changes, interventions, and other recommendations. The patient likely will need oncological assistance. schedule outpatient PET scan, which will have to be done as an outpatient. Care discussed and reviewed with the patient impression, plan, and exam edited and reviewed in detail care discussed with Alek Powell MD May 05, 2020 09:32
[2020-05-05] MEDS: Levemir Flexpen SUBQ SCH ×2 (09:44→17:30)
[2020-05-05 11:53] VITALS: BP 107/61
[2020-05-05 16:00] VITALS: BP 102/64
[2020-05-05] MEDS ORDERED: HYDROcodone/Acetamin 5/325 tab ORAL PRN (18:23)
[2020-05-05] MEDS ORDERED: Zolpidem 5mg tab ORAL PRN (18:23)
[2020-05-05 20:00] VITALS: BP 128/74
--- NOTE | 2020-05-05 23:38 | Cardiology Progress Note ---
Subjective DATE OF SERVICE: May 05, 2020 Glucose control improving slowly. Back on full anti-coagulation; no bleeding complications. Some SOB - no CP. BNP levels were rising, slightly better today. 4.5 liters negative fluid balance over past 2 days. 2D Echo: EF 45-50% with mild mitral and tricuspid regurgitation. CT guided lung biopsy completed 05/01/20; pathology reveals melanoma. Objective Last 24 Hour Vital Signs Date Time Temp Pulse Resp B/P (MAP) Pulse Ox O2 Delivery O2 Flow Rate FiO2 05/05/20 21:00 Nasal Cannula 2.0 05/05/20 20:24 82 128/74 05/05/20 20:00 97.6 82 20 128/74 (92) 97 05/05/20 19:14 98 Nasal Cannula 2.0 28 05/05/20 17:31 83 102/64 05/05/20 16:00 98.5 83 20 102/64 (77) 96 05/05/20 11:53 98.7 83 18 107/61 (76) 96 05/05/20 09:00 Nasal Cannula 2.0 05/05/20 09:00 81 96/61 05/05/20 09:00 96/61 05/05/20 09:00 Nasal Cannula 2.0 05/05/20 08:27 81 05/05/20 08:21 81 96/61 05/05/20 08:00 98.1 81 20 96/61 (73) 97 05/05/20 04:00 98.4 78 20 123/65 (84) 98 ROS: unchanged from my evaluation of 04/29/20 HEENT: normal ENT inspection LUNGS: coarse breath sounds CARDIAC: normal rate, regular rhythm, normal S1 and S2, gallop/S4 ABDOMEN: normal bowel sounds, non tender, soft EXTREMITIES: normal range of motion, No edema Laboratory Tests Test 05/05/20 06:00 05/05/20 08:19 05/05/20 12:01 05/05/20 16:26 POC Whole Blood Glucose 288 MG/DL (74-106) H Pending 300 MG/DL (74-106) H 291 MG/DL (74-106) H Test 05/05/20 20:15 POC Whole Blood Glucose 268 MG/DL (74-106) H Assessment/Plan Assessment/Plan IRDM uncontrolled Lung Mass COPD Acute/chronic systolic/diastolic CHF Cardiomyopathy Scalp lesion Continue anticoagulation Titrate insulin regimen further. Titrate anti-failure regimen based on clinical parameters. Continue cautious diuresis. Heme Onc evaluation pending. Devin Steiner MD May 05, 2020 23:38
[2020-05-06 04:00] VITALS: BP 115/76
[2020-05-06] MEDS: cefTRIAXone 1 GM in NS 55 ML IVPB SCH (04:00)
[2020-05-06] MEDS: NovoLOG Insulin Flexpen SUBQ SCH ×7 (05:53→20:46)
--- NOTE | 2020-05-06 06:14 | Cardiology Progress Note ---
Subjective DATE OF SERVICE: May 06, 2020 No new complaints Glucose control improving slowly. Back on full anti-coagulation; no bleeding complications. 4.5 liters negative fluid balance over past 2 days. 2D Echo: EF 45-50% with mild mitral and tricuspid regurgitation. CT guided lung biopsy completed 05/01/20; pathology reveals melanoma. Objective Last 24 Hour Vital Signs Date Time Temp Pulse Resp B/P (MAP) Pulse Ox O2 Delivery O2 Flow Rate FiO2 05/06/20 04:00 98.0 80 20 115/76 (89) 97 05/05/20 21:00 Nasal Cannula 2.0 05/05/20 20:24 82 128/74 05/05/20 20:00 97.6 82 20 128/74 (92) 97 05/05/20 19:14 98 Nasal Cannula 2.0 05/05/20 17:31 83 102/64 05/05/20 16:00 98.5 83 20 102/64 (77) 96 05/05/20 11:53 98.7 83 18 107/61 (76) 96 05/05/20 09:00 Nasal Cannula 2.0 05/05/20 09:00 81 96/61 05/05/20 09:00 96/61 05/05/20 09:00 Nasal Cannula 2.0 05/05/20 08:27 81 05/05/20 08:21 81 96/61 05/05/20 08:00 98.1 81 20 96/61 (73) 97 ROS: unchanged from my evaluation of 04/29/20 HEENT: normal ENT inspection LUNGS: coarse breath sounds CARDIAC: normal rate, regular rhythm, normal S1 and S2, gallop/S4 ABDOMEN: normal bowel sounds, non tender, soft EXTREMITIES: normal range of motion, No edema Laboratory Tests Test 05/05/20 08:19 05/05/20 12:01 05/05/20 16:26 05/05/20 20:15 POC Whole Blood Glucose Pending 300 MG/DL (74-106) H 291 MG/DL (74-106) H 268 MG/DL (74-106) H Test 05/06/20 05:34 POC Whole Blood Glucose Pending Assessment/Plan Assessment/Plan IRDM uncontrolled Lung Mass COPD Acute/chronic systolic/diastolic CHF Cardiomyopathy Scalp lesion Continue anticoagulation Titrate insulin regimen further. Titrate anti-failure regimen based on clinical parameters. Continue cautious diuresis - adjust furosemide dose based on weights and BNP range. Heme Onc evaluation pending. Devin Steiner MD May 06, 2020 06:14
[2020-05-06 08:00] VITALS: BP 93/54
[2020-05-06] MEDS: Amiodarone 200mg tab ORAL SCH (09:00)
[2020-05-06] MEDS: Carvedilol 6.25mg Tab ORAL SCH ×2 (09:00→20:48)
[2020-05-06] MEDS: Furosemide 40mg tab ORAL SCH (09:00)
[2020-05-06] MEDS: Spironolactone 25mg tab ORAL SCH (09:00)
[2020-05-06] MEDS: Lisinopril 10mg tab ORAL SCH (09:00)
--- NOTE | 2020-05-06 09:12 | General Progress Note ---
Subjective ROS Limited/Unobtainable: No Constitutional: Reports: malaise, weakness HEENT: Reports: no symptoms Cardiovascular: Reports: no symptoms Respiratory: Reports: cough Gastrointestinal/Abdominal: Reports: no symptoms Genitourinary: Reports: no symptoms Neurologic/Psychiatric: Reports: no symptoms Endocrine: Reports: no symptoms Hematologic/Lymphatic: Reports: no symptoms Allergies: Coded Allergies: No Known Allergies (Unverified , 02/26/14) All Systems: reviewed and negative except above Subjective no complaints. Biopsy positive for melanoma. Heme onc noted. no fever or chills. no sob. no cough. no chest pain. on o2. Blood sugars reviewed. Objective Last 24 Hour Vital Signs Date Time Temp Pulse Resp B/P (MAP) Pulse Ox O2 Delivery O2 Flow Rate FiO2 05/06/20 04:00 98.0 80 20 115/76 (89) 97 05/05/20 21:00 Nasal Cannula 2.0 05/05/20 20:24 82 128/74 05/05/20 20:00 97.6 82 20 128/74 (92) 97 05/05/20 19:14 98 Nasal Cannula 2.0 28 05/05/20 17:31 83 102/64 05/05/20 16:00 98.5 83 20 102/64 (77) 96 05/05/20 11:53 98.7 83 18 107/61 (76) 96 Intake and Output 05/05/20 05/06/20 19:00 07:00 Intake Total 1800 ml 1000 ml Output Total 1200 ml 1500 ml Balance 600 ml -500 ml Intake Oral 1800 ml 1000 ml Output Urine Total 1200 ml 1500 ml # Voids 7 # Bowel Movements 1 Laboratory Tests 05/05/20 12:01: POC Whole Blood Glucose 300H 05/05/20 16:26: POC Whole Blood Glucose 291H 05/05/20 20:15: POC Whole Blood Glucose 268H 05/06/20 05:34: POC Whole Blood Glucose 321H Height (Feet): 5 Height (Inches): 9.00 Weight (Pounds): 244 Objective General Appearance: WD/WN, alert, confused EENT: normal ENT inspection Neck: non-tender, normal alignment, supple Cardiovascular: normal rate, regular rhythm Respiratory/Chest: chest wall non-tender, lungs clear, normal breath sounds, no respiratory distress, no accessory muscle use Abdomen: normal bowel sounds, non tender, soft, no organomegaly, no mass Edema: no edema noted Arm (L), no edema noted Arm (R) Neurologic: alert, responsive Skin: normal pigmentation Lymphatic: normal anterior cervical (L), normal anterior cervical (R) Assessment/Plan Problem List: (1) Atrial fibrillation with RVR ICD Codes: I48.91 - Unspecified atrial fibrillation SNOMED: 569973490 (2) Obesity ICD Codes: E66.9 - Obesity SNOMED: 916953245 (3) Diabetes mellitus ICD Codes: E11.9 - Diabetes mellitus SNOMED: 20217455 (4) COPD (chronic obstructive pulmonary disease) ICD Codes: J44.9 - COPD (chronic obstructive pulmonary disease) SNOMED: 63223770 (5) CHF (congestive heart failure) ICD Codes: I50.9 - CHF (congestive heart failure) SNOMED: 65668746 (6) ACS (acute coronary syndrome) ICD Codes: I20.0 - Unstable angina SNOMED: 276587195 (7) Scalp mass ICD Codes: R22.0 - Localized swelling, mass and lump, head SNOMED: 862124702 (8) Lung mass ICD Codes: R91.8 - Other nonspecific abnormal finding of lung field; E11.65 - Type 2 diabetes mellitus with hyperglycemia SNOMED: 087796245 Status: stable Assessment/Plan: resp rx o2 carotid duplex and venous duplex monitor bs insulin coverage dietary compliance stressed dvt/stress ulcer prophylaxis outpt CT/PET scan dc planning if ok with all Jareth Valenzuela MD May 06, 2020 09:12
[2020-05-06] MEDS: Aspirin EC 81mg tab ORAL SCH (09:55)
[2020-05-06] MEDS: Eliquis 5mg tablet ORAL SCH ×2 (09:56→18:03)
[2020-05-06] MEDS: Digoxin 0.125mg tab ORAL SCH (09:56)
[2020-05-06] MEDS: Lyrica 50mg cap ORAL SCH ×2 (09:57→20:37)
--- NOTE | 2020-05-06 10:00 | Consultation ---
DATE OF CONSULTATION: 05/05/2020 HEMATOLOGY/ONCOLOGY CONSULTATION REFERRING PHYSICIAN: Jareth Valenzuela M.D. REASON FOR CONSULTATION: Lung mass and skull mass. HISTORY OF PRESENT ILLNESS: The patient is a pleasant 70-year-old gentleman who has been admitted to the hospital with significant shortness of breath, , past history of cardiac arrhythmias. During hospitalization, the patient has undergone extensive evaluation including an initial CT scan of the head given the significant large ulcerated mass in the vertex of the scalp. The study has demonstrated a 2.2 cm cutaneous nodule at the vertex region. Chronic findings were noted. Of note, had a CT scan of the brain was without contrast. The patient subsequently did undergo a CT scan of the chest on 04/29/2020 demonstrating evidence of a 4.9 x 4.3 x 4.3 cm left-sided lower lobe lung mass. The patient has undergone CT-guided biopsy of this mass. Final results are currently pending. Per discussion with Dr. Valenzuela, apparently the lesion is consistent with the possibility of a melanoma. The patient has undergone extensive evaluation of his blood, is demonstrated to have leukocytosis. white count of 12.3. The patient is mildly anemic with hemoglobin of 13.1 with a platelet count of 283. It should be noted the patient is on chronic anticoagulation with Eliquis with cardiac arrhythmia, does have a pacemaker. The patient has an INR of 1.2 and a PTT of 27. As of 05/04/2020, the patient has a sodium 136, potassium 4.0, calcium of 1.1. AST and ALT are 11 and 6, alk phos of 77, albumin of 2.8. In view of the skull mass, hematology/oncology consultation is requested. PAST MEDICAL HISTORY: 1. History of cardiac arrhythmias. 2. History of pacemaker placement. 3. History of chronic anticoagulation. 4. History of hypertension. 5. History of congestive heart failure per report. 6. History of diabetes diabetic neuropathy. 7. History of renal insufficiency. 8. History of BPH. 9. History of COPD. PAST SURGICAL HISTORY: The patient has . FAMILY HISTORY: Never had any cancer in the family. SOCIAL HISTORY: The patient lives in [place]. Apparently, the patient is an ex-smoker. Apparently, the patient drinks socially. The patient denies any drug abuse. MEDICATIONS: Per medical records. ALLERGIES: Per medical records. REVIEW OF SYSTEMS: The patient denies any headaches. The patient denies any known COVID exposure. The patient denies any visual changes. The patient does have significant diabetes. The patient does have arrhythmias, does have a pacemaker. The patient has a known history of stroke. The patient does have some shortness of breath, currently improved. History blood clots in the lower extremities. Skin, the patient denies any bruising or petechiae. Gastrointestinal, the patient has abdominal pain. The patient does not recall when was his last colonoscopy. However, the patient has a known history of adenomas many years ago in 2015 per report available at [facility]. PHYSICAL EXAMINATION: GENERAL: The patient is a very obese gentleman who is somewhat disheveled, not distressed. He does not want to stand up for me to examine his neurologic examination cannot move out of bed. VITAL SIGNS: Blood pressure 110/60, pulse 60, respirations 20, temp is 98.6. HEAD AND NECK: Sclerae anicteric. CHEST: Rhonchi at bilateral bases. A few distant breath sounds. CARDIAC: Regular rhythm. S1 and S2. Large pacemaker noted in the left chest wall. ABDOMEN: Soft, nontender, nondistended. Obese. EXTREMITIES: There is edema, 2+. LYMPHATICS: No cervical or axillary adenopathy noted. SKIN: The patient does not allow me to examine his skin. The patient does have a scalp lesion at the vertex, approximately 3 x 3 cm nodular mass. The patient does not allow me to look at his legs and move his . LABORATORY DATA: Laboratory as well as investigational studies as noted above. ASSESSMENT AND PLAN: 1. Scalp as well as lung mass. The patient is status post CT-guided biopsy of the lung mass. results consistent with melanoma; however, this has not been finalized. It is clearly evidenced that based on the CT angiogram, this is a malignancy; however, final path is currently pending. The patient would like to be discharged. I have given him my office number. I have told him he needs to call and come to our office [place]. The patient is to undergo final evaluation of the pathology. The patient has had a whole-body PET scan. The patient is to undergo MRI brain with and without contrast. Full imaging studies of the abdomen and pelvis need to be done. The patient would like to follow up with the studies on an outpatient basis. If this is melanoma, metastatic disease from skull to his lung versus primary lung cancer needs to be evaluated. The patient clearly needs to have , consideration of resection is being made versus radiation or systemic therapy with immunotherapy. Recommendation will be made based on the patient's workup . 2. Chronic anticoagulation. The patient with significant risk of bleeding. 3. Lower extremity edema. rule out DVT. 4. History of cardiomyopathy, Dr. Steiner. 5. mild anemia. The patient will be followed up . Last colonoscopy in 2014. The patient needs to have a colonoscopy. Romulo Broderick M.D. DR: BETTY JOB#: [id number] CC:
[2020-05-06] MEDS: Levemir Flexpen SUBQ SCH ×2 (10:03→18:05)
[2020-05-06 12:00] VITALS: BP 95/57
[2020-05-06] MEDS: NS 200 ML IVPB SCH ×2 (13:45→14:45)
--- NOTE | 2020-05-06 14:55 | Diagnostic Imaging Report ---
Indication: Leg pain and shortness of breath Technique: Grayscale and duplex images of the bilateral lower extremity veins Comparison: Findings: Bilaterally, grayscale and duplex images demonstrate no evidence of intraluminal thrombus. Normal phasic Doppler waveforms, demonstrating normal augmentation response and no evidence of valvular insufficiency. Greater saphenous vein(s) and tibial veins are patent. Normal compressibility. Impression: Negative for evidence of lower extremity deep venous thrombosis bilaterally
[2020-05-06 16:00] VITALS: BP 101/68
--- NOTE | 2020-05-06 17:05 | Pulmonology Progress Note ---
Subjective ROS Limited/Unobtainable: No Allergies: Coded Allergies: No Known Allergies (Unverified , 02/26/14) All Systems: reviewed and negative except above Subjective dc planning no other changes noted Objective Last 24 Hour Vital Signs Date Time Temp Pulse Resp B/P (MAP) Pulse Ox O2 Delivery O2 Flow Rate FiO2 05/06/20 16:06 97 Nasal Cannula 2.0 28 05/06/20 13:00 82 95/57 05/06/20 12:00 98.3 82 20 95/57 (70) 91 05/06/20 11:40 98.0 05/06/20 09:56 80 05/06/20 09:00 Nasal Cannula 2.0 05/06/20 09:00 80 93/54 05/06/20 09:00 80 93/54 05/06/20 09:00 93/54 05/06/20 08:59 98.0 05/06/20 08:00 98.2 80 20 93/54 (67) 99 05/06/20 04:00 98.0 80 20 115/76 (89) 97 05/05/20 21:00 Nasal Cannula 2.0 05/05/20 20:24 82 128/74 05/05/20 20:00 97.6 82 20 128/74 (92) 97 05/05/20 19:14 98 Nasal Cannula 2.0 05/05/20 17:31 83 102/64 Intake and Output 05/05/20 05/06/20 19:00 07:00 Intake Total 1800 ml 1000 ml Output Total 1200 ml 1500 ml Balance 600 ml -500 ml Intake Oral 1800 ml 1000 ml Output Urine Total 1200 ml 1500 ml # Voids 7 # Bowel Movements 1 Objective WDWN NAD clear breath sounds bilaterally without rhonchi or wheeze [id number] without MRG NABS nontender no HSM no CCE nonfocal Laboratory Tests 05/05/20 20:15: POC Whole Blood Glucose 268H 05/06/20 05:34: POC Whole Blood Glucose 321H 05/06/20 11:16: POC Whole Blood Glucose 295H 05/06/20 16:26: POC Whole Blood Glucose 157H Current Medications Medications (Trade) Dose Ordered Sig/Antionette Route PRN Reason Start Time Stop Time Status Last Admin Dose Admin Acetaminophen (Tylenol) 650 mg Q4H PRN ORAL Mild Pain (Pain Scale 1-3) 10/21/20 03:00 05/29/20 02:59 05/06/20 08:29 Acetaminophen/ Hydrocodone Bitart ([place] 5/325) 1 tab Q6H PRN ORAL For Pain 05/05/20 18:23 05/12/20 18:22 Al Hydroxide/Mg Hydroxide (Mylanta) 30 ml Q6H PRN ORAL dyspepsia 04/29/20 03:00 05/29/20 02:59 Amiodarone HCl (Cordarone) 200 mg DAILY ORAL 04/29/20 13:00 07/28/20 12:59 05/05/20 08:28 Amlodipine Besylate (Norvasc) 5 mg DAILY ORAL 05/06/20 13:00 06/05/20 12:59 Apixaban (Eliquis) 5 mg BID ORAL 05/02/20 09:00 07/31/20 08:59 05/06/20 09:56 Aspirin (Ecotrin) 81 mg DAILY ORAL 04/29/20 13:00 06/13/20 12:59 05/06/20 09:55 Carvedilol (Coreg) 6.25 mg EVERY 12 HOURS ORAL 04/29/20 21:00 05/29/20 20:59 05/05/20 20:24 Ceftriaxone Sodium 1 gm/ Sodium Chloride 55 ml @ 110 mls/hr Q24H IVPB 05/06/20 04:00 05/13/20 03:59 05/06/20 04:00 Dextrose (Dextrose 50%) 25 ml Q30M PRN IV Hypoglycemia 04/30/20 14:00 07/29/20 13:59 Dextrose (Dextrose 50%) 50 ml Q30M PRN IV Hypoglycemia 04/30/20 14:00 07/29/20 13:59 Digoxin (Lanoxin) 0.125 mg DAILY ORAL 04/29/20 09:00 07/28/20 08:59 05/06/20 09:56 Hydromorphone HCl (Dilaudid) 1 mg Q4H PRN IVP Breakthrough Pain 05/01/20 19:45 05/08/20 19:44 05/06/20 11:10 Insulin Aspart (NovoLOG) BEFORE MEALS AND HS SUBQ 04/30/20 16:30 07/29/20 16:29 05/06/20 16:32 Insulin Aspart (NovoLOG) 10 units TIAC SUBQ 04/30/20 16:30 07/29/20 16:29 05/06/20 16:31 Insulin Detemir (Levemir) 36 units BID SUBQ 05/06/20 09:00 08/04/20 08:59 05/06/20 10:03 Pantoprazole (Protonix) 40 mg DAILY ORAL 04/29/20 13:00 05/29/20 12:59 05/06/20 09:56 Pregabalin (Lyrica) 100 mg Q12HR ORAL 04/29/20 13:00 05/29/20 12:59 05/06/20 09:57 Sitagliptin Phosphate (Januvia) 100 mg DAILY ORAL 04/29/20 13:00 05/29/20 12:59 05/06/20 09:56 Spironolactone (Aldactone) 25 mg DAILY ORAL 04/29/20 13:00 05/29/20 12:59 05/05/20 08:27 Zolpidem Tartrate (Ambien) 5 mg HSPRN PRN ORAL Insomnia 05/05/20 18:23 05/12/20 18:22 05/05/20 20:27 Assessment/Plan Assessment/Plan IMPRESSION: Large left lower lung mass, approximately 5 cm, likely malignant, COPD per history, smoking history, history of CHF, dysrhythmias, BPH. s/p biopsy- Melanoma RECOMMENDATIONS: ok to dc per pulmonary . Continue other medications as is. F ollow up closely for changes, interventions, and other recommendations. The patient likely will need oncological assistance. schedule outpatient PET scan, which will have to be done as an outpatient. Care discussed and reviewed with the patient; unclear if oncology needed impression, plan, and exam edited and reviewed in detail care discussed with Alek Powell MD May 06, 2020 17:05
[2020-05-06 20:00] VITALS: BP 104/50
[2020-05-06 23:48] VITALS: BP 102/66
[2020-05-07] MEDS: cefTRIAXone 1 GM in NS 55 ML IVPB SCH (03:13)
[2020-05-07 04:00] VITALS: BP 104/64
[2020-05-07] MEDS: NovoLOG Insulin Flexpen SUBQ SCH ×2 (07:13→07:14)
[2020-05-07] MEDS ORDERED: LEVEMIR FL100 UNIT/1 SUBQ (07:34)
[2020-05-07] MEDS ORDERED: NORVASC5 MG ORAL (07:34)
[2020-05-07] MEDS ORDERED: ELIQUIS5 MG ORAL (07:34)
[2020-05-07 08:00] VITALS: BP 105/63
--- NOTE | 2020-05-07 08:00 | Discharge Summary ---
DATE OF ADMISSION: 04/29/2020 DATE OF DISCHARGE: 05/07/2020 ADMISSION DIAGNOSES: 1. COPD exacerbation. 2. CHF exacerbation. 3. Uncontrolled diabetes. 4. Hypertension. DISCHARGE DIAGNOSES: 1. COPD exacerbation. 2. CHF exacerbation. 3. Uncontrolled diabetes. 4. Hypertension. 5. Metastatic melanoma. HOSPITAL COURSE: Patient is a 70-year-old male with a history of COPD, CHF, hypertension, diabetes that was admitted with complaints of shortness of breath. He was diagnosed with COPD, CHF exacerbation, uncontrolled diabetes. He was admitted to a monitored bed, ruled out for SD with serial enzymes and EKGs. His diabetic regimen was adjusted. He was cautiously diuresed. At discharge, patient was improved. He had a CT-guided lung biopsy that showed melanoma. He was seen by Hematology/Oncology prior to discharge. He has been instructed to return for followup in 1 to 2 days for continuation of his workup for his melanoma. DISCHARGE MEDICATIONS: Please see discharge medication list for discharge medications. DIET: Cardiac diabetic diet. ACTIVITIES: Ad-yina. Jareth Valenzuela M.D. DR: VANITA JOB#: [id number] CC:
[2020-05-07] MEDS: Lyrica 50mg cap ORAL SCH (08:58)
[2020-05-07] MEDS: Amiodarone 200mg tab ORAL SCH (08:58)
[2020-05-07 08:59] VITALS: BP 105/63
[2020-05-07] MEDS: Digoxin 0.125mg tab ORAL SCH (08:59)
[2020-05-07] MEDS: Carvedilol 6.25mg Tab ORAL SCH (08:59)
[2020-05-07] MEDS: Spironolactone 25mg tab ORAL SCH (08:59)
[2020-05-07] MEDS: Aspirin EC 81mg tab ORAL SCH (08:59)
[2020-05-07] MEDS: Eliquis 5mg tablet ORAL SCH (08:59)
[2020-05-07] MEDS: Levemir Flexpen SUBQ SCH (09:01)
== END 2020-05-07 12:28 | disposition home or self-care (01) | DRG 180 ==
LOC: EDUNIT# 23:39 → EDBD 23:39 → EMR 23:54 → 3E 04-29 01:36 → EDBEDREQ 04-29 02:21
PROC: 0BBJ3ZX Excision of Left Lower Lung Lobe, Percutaneous Approach, Diagnostic (ICD-10-PCS; principal; 2020-05-01)
DX: C78.02 Secondary malignant neoplasm of left lung (principal); E11.00 Type 2 diabetes mellitus with hyperosmolarity without nonketotic hyperglycemic-hyperosmolar coma (NKHHC); I50.43 Acute on chronic combined systolic (congestive) and diastolic (congestive) heart failure; E44.0 Moderate protein-calorie malnutrition; D68.32 Hemorrhagic disorder due to extrinsic circulating anticoagulants; I13.0 Hypertensive heart and chronic kidney disease with heart failure and stage 1 through stage 4 chronic kidney disease, or unspecified chronic kidney disease; Z68.41 Body mass index [BMI] 40.0-44.9, adult; J44.1 Chronic obstructive pulmonary disease with (acute) exacerbation; I42.9 Cardiomyopathy, unspecified; I24.9 Acute ischemic heart disease, unspecified; D23.4 Other benign neoplasm of skin of scalp and neck; S01.80XA Unspecified open wound of other part of head, initial encounter; J44.9 Chronic obstructive pulmonary disease, unspecified; I10 Essential (primary) hypertension; E11.65 Type 2 diabetes mellitus with hyperglycemia; I50.9 Heart failure, unspecified; E11.40 Type 2 diabetes mellitus with diabetic neuropathy, unspecified; E11.22 Type 2 diabetes mellitus with diabetic chronic kidney disease; N40.0 Benign prostatic hyperplasia without lower urinary tract symptoms; N18.9 Chronic kidney disease, unspecified; E66.01 Morbid (severe) obesity due to excess calories; Z87.891 Personal history of nicotine dependence; Z79.4 Long term (current) use of insulin; Z95.0 Presence of cardiac pacemaker; I48.91 Unspecified atrial fibrillation; R22.0 Localized swelling, mass and lump, head
CPT/HCPCS: 32405; 36415; 70450; 71045; 71250; 74176; 80048; 80053; 80162; 81003; 82962; 83735; 83880; 84484; 85025; 85610; 85730; 87070; 87181; 87205; 93306; 93970; 96361; 96374; 99285; J1815; J7030; J8499; S5561